=== PATIENT | female | born 1955 | race Caucasian/White ===

== ENCOUNTER 2019-12-25 08:00 | Day surgery (SDC) | payer MEDICARE, MEDICAID, SELFPAY ==
[2019-12-24 10:18] VITALS: BMI 22.4
== END 2019-12-25 09:00 | disposition home or self-care (01) ==
LOC: OR 06-09 13:22
PROVIDERS: PCP Registered Nurse; Visit Provider Surgery
DX: K80.20 Calculus of gallbladder without cholecystitis without obstruction (principal); R11.2 Nausea with vomiting, unspecified; Z53.9 Procedure and treatment not carried out, unspecified reason

== ENCOUNTER 2020-01-08 08:30 | Day surgery (SDC) | payer MEDICARE, MEDICAID, SELFPAY ==
[2020-01-07 11:45] VITALS: BMI 21.9
[2020-01-08] VITALS (18 sets, daily range): BP systolic 130–158; BP diastolic 45–64; PULSE 58–96; RESP 12–26; TEMP 36.1–36.6; O2SAT 93–100
[2020-01-08] MEDS: sodium chloride 0.9% 1,000 ML 30 ML IV (09:27)
--- NOTE | 2020-01-08 09:27 | P.ANESASSM_ITS ---
Pre-Anesthetic Assessment Pre-Anesthetic Assessment: Height/Weight: Height 1.55 m Weight 52.617 kg Temp Pulse Resp BP Pulse Ox 97.8 F 63 18 130/61 93 01/08/20 09:23 01/08/20 09:23 01/08/20 09:23 01/08/20 09:23 01/08/20 09:23 Preop Diagnosis: Gallstones GERD Proposed Procedure: Operation Date: 01/08/20 10:00 Proposed Procedures p EGD [id number] R11.2 K80.20(Not Applicable) - Afshin Webb MD s Laparoscopic Cholecystectomy(Not Applicable) - Afshin Webb MD Last intake: Intake Last Liquid Date 01/07/20 Last Liquid Time 23:00 Last Solid Date 01/07/20 Last Solid Time 23:00 Social: Packs per day: 1.5 Pack years: >100y Comment: previously 5 ppd Exam: Pre-Anes Outpt Exam: alert, oriented x 3, clear to auscultation bilaterally and regular rate & rhythm Airway: Submandibular: WNL Cervical ROM: WNL MP: 1 Dentition: False Pulmonary: Pulmonary: COPD Comments: home 02 2lpm x 3years GI: GI: GERD Comments: cholelithiasis Metabolic: Metabolic: Hyperlipidemia Anesthetic Plan: ASA status: 3 Anesthesia: General Other: date 01/08/20 President Yanet ritter [place] [facility] Anesthesia PFSH: Social History Smoking and tobacco status: current every day smoker Alcohol intake: never History of recent travel: No Data Anesthesia Cardiac Studies: No Data to Display
--- NOTE | 2020-01-08 10:51 | W.PM.OPSUD ---
Surgery/Procedure H&P Update DATE OF PROCEDURE: January 08, 2020 DATE H&P PERFORMED: 12/20/19 H&P UPDATE INFORMATION: I have reviewed H&P completed within last 30 days, I have examined patient prior to procedure and No changes to prior documentation PREOP DIAGNOSIS: Gallstones GERD PLANNED PROCEDURE: Operation Date: 01/08/20 10:00 Proposed Procedures p EGD [id number] R11.2 K80.20(Not Applicable) - Afshin Webb MD s Laparoscopic Cholecystectomy(Not Applicable) - Afshin Webb MD
[2020-01-08 11:14] LABS: Anion Gap 14.2 (5-19); Blood Urea Nitrogen 6 mg/dL (8-23); Calcium 9.5 mg/dL (8.5-10.5); Carbon Dioxide 30 mmol/L (22-29); Chloride 102 mmol/L (98-107); Glomerular Filtration Rate 100.6 mL/min (90-130); Glucose 106 mg/dL (65-115); Osmolality Calculated 292 mOsm/kg (285-295); Potassium 3.2 mmol/L (3.5-5.1); Sodium 143 mmol/L (136-145)
--- NOTE | 2020-01-08 13:39 | P.OP_ITS ---
Operative Report Date of procedure: January 08, 2020 Pre-op Diagnosis: Gallstones GERD Post-op Diagnosis: Normal EGD Cholelithiasis Procedure Done: Esophagogastroduodenoscopy without biopsy Laparoscopic cholecystectomy Pathology: Gallbladder Surgeon: Afshin Webb Anesthesia: General Estimated blood loss (mL): 10 Condition: stable Disposition: PACU Procedure: The patient was taken to the operating room and was intubated under general anesthesia. A bite-block was placed and a gastroscope was introduced and advanced up to the second portion of the duodenum and slowly withdrawn. The first and second portion of the duodenum, stomach, fundus, antrum and pylorus were normal. GE junction was at 40 cm. The rest of the esophagus was normal. The gastroscope was withdrawn. After the antibiotic had been administered, the abdomen was prepped and draped in a sterile manner. Using a #15 blade, a 1 centimeter infraumbilical curvilinear incision was made and using an open Mark technique the peritoneal cavity was entered. A 10 millimeter port was placed and 15 millimeters of pneumoperitoneum was created. A 10 millimeter, 30 degrees scope was then introduced. Three 5 millimeter ports were placed in the epigastric, midclavicular and the anterior axillary line two fingerbreadths below the costal margin on the right side under the direct visualization. Ratcheted forceps were introduced into the lateral most port and was used to retract the fundus of the gallbladder cephalad and using forceps the infundibulum of the gallbladder was retracted laterally. Using L-hook cautery the peritoneum overlying the Calot's triangle was opened medially and laterally until the cystic duct and the cystic artery were skeletonized. Dissection was carried along the body of the gallbladder and after ensuring critical view of safety, 4 clips applied on the cystic duct and 3 clips applied on the cystic artery and cut leaving, 3 clips on the remaining portion of the duct and 2 clips on the remaining portion of the artery. The rest of the gallbladder was dissected off the liver using L-hook cautery. There was no bleeding or bile leaking noted from the gallbladder fossa and the clips appeared to be in place. An EndoCatch bag was introduced to remove the gallbladder. There was some bleeding from the gallbladder fossa and therefore Surgicel was placed after hemostasis was ensured with cautery. all the ports were removed under direct visualization and there was no bleeding noted from the port sites. The fascia of the umbilicus was closed using [id number]-dl-[id number] 0 Vicryl sutures and the subcu taneous tissue was approximated using 3-0 Vicryl sutures. The skin at all four ports were closed using 4-0 Monocryl and Dermabond. A total of 10 millimeters of 0.5% Marcaine was infiltrated around the port sites. The patient was stable throughout the procedure.
--- NOTE | 2020-01-08 13:48 | SUR.PHASEI ---
1346 PATIENT TO PACU AT THIS TIME. RR EVEN AND UNLABORED. PWD. SPO2 97% ON RA. 4 INCISIONS TO ABDOMEN, CDI. PATIENT NOTED TO BE SLEEPING, AIRWAY PROTECTED.
[2020-01-08] MEDS: ondansetron 2 mg/ML SDV 2 mL 4 MG IVP (14:13)
[2020-01-08] MEDS: fentaNYL 50 mcg/mL INJ 2mL IVP ×2 (14:18→14:32)
--- NOTE | 2020-01-08 14:53 | SUR.PHASEI ---
1449 PATIENT TO OPS AT THIS TIME. NO DISTRESS. RR EVEN AND UNLABORED. INCISIONS TO ABDOMEN, CDI. PATIENT RATES PAIN 7/10, WANTS PAIN PILL IN OPS.
[2020-01-08] MEDS: HYDROcodone-acetaminophen 5-325 mg Tablet 1 TAB PO (15:22)
== END 2020-01-08 16:16 | disposition home or self-care (01) ==
PROVIDERS: Anesthesiology; Family Provider Registered Nurse; PCP Registered Nurse; Visit Provider Surgery
PROC: 0DJ08ZZ Inspection of Upper Intestinal Tract, Via Natural or Artificial Opening Endoscopic (ICD-10-PCS; CPT 43235; principal; 2020-01-08 10:00)
PROC: 0FT44ZZ Resection of Gallbladder, Percutaneous Endoscopic Approach (ICD-10-PCS; CPT 47562; 2020-01-08 10:00)
DX: K80.10 Calculus of gallbladder with chronic cholecystitis without obstruction (principal); F17.210 Nicotine dependence, cigarettes, uncomplicated; J44.9 Chronic obstructive pulmonary disease, unspecified; Z99.81 Dependence on supplemental oxygen; K21.9 Gastro-esophageal reflux disease without esophagitis; E78.5 Hyperlipidemia, unspecified; E11.9 Type 2 diabetes mellitus without complications; E78.00 Pure hypercholesterolemia, unspecified; Z95.5 Presence of coronary angioplasty implant and graft
CPT/HCPCS: 43235; 47562; 12345; 80048; 88304; J0690; J2001; J2405; J2704; J3010; J3490; J7030

== ENCOUNTER 2020-03-27 08:15 | Outpatient (CLI) | payer MEDICARE, MEDICAID, SELFPAY ==
--- NOTE | 2020-03-27 08:00 | NM_ITS ---
WS: [id number] [place] [address] REASON FOR EXAM: GERD TECHNICAL: 0.95 mCi technetium 99m sulfur colloid in eggs. FINDINGS: After the oral ingestion of the radiotracer the patient was scanned the linear fit slope wa s 0.19% per minute T1 2:30 161.13 at 2 hours 50% emptying is noted. Slightly slow emptying of the stomach T1 2:30 hours 50% emptying NM/[place] [address] IMPRESSION:
== END 2020-03-27 08:16 | disposition home or self-care (01) ==
LOC: RAD 08:18
PROVIDERS: Family Provider Registered Nurse; PCP Registered Nurse; Visit Provider Surgery
DX: K21.9 Gastro-esophageal reflux disease without esophagitis (principal)
CPT/HCPCS: 78264; A9541

== ENCOUNTER 2020-05-13 08:16 | Outpatient (CLI) | payer MEDICARE, MEDICAID, SELFPAY ==
--- NOTE | 2020-05-13 08:30 | CT_ITS ---
WS: [id number] CTA ABDOMINAL AORTA WITH RUNOFF TECHNIQUE: Contrast enhanced CTA of the abdominal aorta with bilateral lower extremity runoff. Multip lanar reformatted images were obtained. MIP reformats were also reviewed. CLINICAL INFORMATION: PVD/AAA COMPARISON: 6 25,018 DLP: 2590.[address] scans at [facility] use at least one of these dose optimization techniques: automat ed exposure control; mA and/or kV adjustment per patient size (includes targeted exams where dose is matched to clinical indication); or iterative reconstruction. FINDINGS: Aortic endograft with biiliac extension is new from previous. Normal caliber abdominal aort a. No evidence of aortic endoleak on the delayed imaging. No intramural hematoma. Cholecystectomy cli ps. Adrenal glands demonstrate mild thickening with small right adrenal adenoma. Normal renal parench ymal enhancement. No hydronephrosis. No abdominal lymphadenopathy. Multi fibroid uterus. Lung bases a re well aerated. Calcified granuloma left lower lobe. RIGHT: Right common iliac artery is patent. Right external and internal iliac arteries are patent. Mi ld calcified stenosis right external iliac artery origin. Right common femoral artery is patent. Deep femoral artery is patent. SFA is patent. Popliteal artery is patent to the trifurcation. Normal 3 ve ssel runoff to the ankle. LEFT: High-grade stenosis at the left common iliac origin with near occlusion in the mid segment involving the distal stent. In-stent stenosis. Tiny residual amount of flow in the distal aspect of the stent. Distal common iliac and proximal External iliac is nearly occluded with a tiny amount of peripheral c ollateral flow. Internal iliac artery is patent. Common femoral artery is patent with approximately 3 0% stenosis. Superficial femoral artery and deep femoral arteries are patent. Superficial femoral art camila is patent to the popliteal hiatus. Popliteal artery is patent to the trifurcation. Three-vessel r unoff to the ankle. CT/CT angio abd aorta runof [id number] IMPRESSION: 1. No evidence of aortic endoleak. 2. New high-grade stenosis near occlusion involving the LEFT common iliac leeann ry with in-stent restenosis. 3. Distal LEFT common iliac is nearly occluded with a tiny amount of periphera l collateral flow. Small amount of flow in the external iliac artery. 30% sten osis involving the left common femoral artery. 4. Remainder of the LEFT lower extremity runoff is normal. 5. RIGHT common iliac artery is patent. Mild stenosis of the RIGHT external il iac artery origin. Otherwise normal RIGHT lower extremity runoff.
[2020-05-13 08:57] LABS: Blood Urea Nitrogen 4 mg/dL (8-23); Glomerular Filtration Rate 100.6 mL/min (90-130)
[2020-05-13] MEDS: iohexol 350 mg/mL 100 mL Btl IV (09:15)
== END 2020-05-13 08:17 | disposition home or self-care (01) ==
LOC: RADWPI 08:20
PROVIDERS: Family Provider Registered Nurse; PCP Registered Nurse; Visit Provider Internal Medicine Cardiovascular Disease
DX: I73.9 Peripheral vascular disease, unspecified (principal); I71.4 Abdominal aortic aneurysm, without rupture; I70.8 Atherosclerosis of other arteries
CPT/HCPCS: 75635; 82565; 84520; Q9967

== ENCOUNTER → 2020-05-26 14:33 | Outpatient (BNVA) | payer MEDICARE, MEDICAID, SELFPAY | PROVIDERS: Family Provider Registered Nurse; PCP Registered Nurse; Visit Provider Internal Medicine | DX: Z01.812 Encounter for preprocedural laboratory examination (principal) | CPT/HCPCS: 87635 ==

== ENCOUNTER 2020-06-01 12:36 | Observation (INO) | payer MEDICARE, MEDICAID, SELFPAY ==
[2020-05-29 13:28] VITALS: BMI 22.6
[2020-06-01] VITALS (21 sets, daily range): BP systolic 118–170; BP diastolic 52–78; PULSE 56–66; RESP 14–21; TEMP 36.8; O2SAT 93–94
--- NOTE | 2020-06-01 09:00 | XACV_ITS ---
Wt: 54 kg BSA: 1.53 m2 Any Known Allergies: Other Gender: Female : 1955 Exam Type: Invasive Peripheral Vascular Procedure(s): Procedure Description: Peripheral Cath Diagnostic Procedure Procedure Description: Abdominal aortic angiography Procedure Description: Lower extremities' angiography Exam Priority: Routine Lower Extremity Interventional Findings Right common femoral artery approach was adopted. With the help of Glidewire and seeker were not able to cross the left distal common iliac into left external iliac. Procedure remain unsuccessful. Patient will be referred to vascular surgery. Conclusions Indication for peripheral angiogram lifestyle limiting claudication of left legAbdominal aortogram showed patent abdominal stent. Patent bilateral renal artery left iliac stent is chronic occluded in its proximal segment. Left external artery is small caliber. Left internal artery has luminal irregularity. Bilateral patent common femoral, profunda and SFA. Bilateral two-vessel runoff noted below the knee. Recommendations Usual post-cath care. Access Site Site: Right Femoral artery Sheath Size: 6 Fr Hemost... Method: Mechanical Compression Hemost... Success: Successful Procedure Details Findings Procedure Consent Obtained. Pre-Procedure Time Out. Identified patient by full name and date of as verbalized by the patient/guarantor. Does the consent match the physician's order: Yes. Accurate & Complete Informed Consent: Yes. Inpatient/Outpatient History & Physical on Chart: Yes. If H&P is completed, is and addenduem needed: N/A; If yes, is the addendum complete: N/A. Visualize and Verify Site with Patient/Guarantor: N/A. Relevant Radiology Images available: Yes. Pre-op teaching completed and patient verbalized understanding. The risks, benefits, and alternatives of sedation and/or procedure were discussed by physician. The patient agrees to continue. Procedure started. Correct patient, site and procedure confirmed by cath team. PERRLA. Strong, equal hand picking crew supervisor bilaterally. Lungs clear x 5 lobes. IV Site on Arrival: 22 gauge in the right anticubital. IV Fluids: 0.9% NaCl at KVO. 0 mL infused prior to chemical laboratory chief. Pre Procedural Pulses: left dorsalis pedis was Doppled. Pre Procedural Pulses: right dorsalis pedis was 1+. Pre Procedural Pulses: left posterior tibial was Doppled. Pre Procedural Pulses: right posterior tibial was 2+. Oxygen started at 2liters/min via nasal canula. bilateral groins was prepped with chloroprep then draped in the usual sterile fashion. Physician notified. Baseline sample Acquired. HR: 86 BPM. Equipment: 6F - Femoral. Cardiac Cath Pack. ACIST Manifold Kit Model BT 2000. Heparinized Saline (2 units/mL), 1000 mL bag. Kit, Micropuncture. Physician arrived. Physician scrubbed in. Time out performed with cath team. Lidocaine 1% infiltrated to the right groin. Arterial access obtained with micropuncture set. A 5FrFr UF catheter in over wire. Abdominal aortogram performed in AP @ 10 mL/sec for a total of [address] Varela called out of case to first floor. Side port of sheath attached to Normal Saline flush at KVO to maintain patency. Dr. Varela scrubbed back in on case. A 5FrFr RIM catheter in over wire. Catheter removed over the glide wire. seeker inserted over glide wire. glide wire removed. hand injection performed. glide wire inserted. seeker removed. left leg runoff 10ml/sec for a total of 30ml. right leg runoff 10ml/sec for a total of 30ml. catheter out wire out. A Mechanical Compression was successful obtaining hemostatsis at the Right Femoral artery insertion site. Sheath(s) removed and manual pressure held until hemostasis was achieved. Sterile 4x4 and Op-site applied to the puncture site. No oozing or hematoma noted. Post sheath removal instructions were given and the patient verbalized understanding. Post Procedure: Pulses reassessed and unchanged. PERRLA. Strong, equal hand picking crew supervisor bilaterally. No VTE prophylaxis required. Medication's Wasted: Other = fentanyl 75 mcg. Medication's Wasted: Heparin = 1000 units. Medication's Wasted: Lidocaine 1% = 10 mL. Total IV fluids: 88.7 mL. Fluoro: 11:10. Contrast type used: Visipaque 320 mgI/mL, 500 mL bottle. [id number]. Post-op diagnosis: severe PAD common iliac. Complications: none. Estimated blood loss: 5mL-10mL. Procedure completed. Patient transferred by bed to 1st floor. Procedure Medications Start: 11:03 AM Stop: 11:03 AM Medication: Versed Amount: 1 mg Route: I.V. Start: 11:03 AM Stop: 11:03 AM Medication: Fentanyl Amount: 50 mcg Start: 11:37 AM Stop: 11:37 AM Medication: Versed Amount: 1 mg Route: I.V. Start: 11:49 AM Stop: 11:49 AM Medication: Versed Amount: 1 mg Route: I.V. Start: 11:49 AM Stop: 11:49 AM Medication: Fentanyl Amount: 25 mcg Route: I.V. I, the attending physician, have reviewed and verified all procedure medications. Yes, all medications given per verbal order History/Risk Factors Hypertension: No Dyslipidemia: Yes Peripheral Arterial Disease (PAD): Yes Myocardial Infarction (MA): No Obesity: No Renal Disease: No Tobacco Use: Current/Recent(w/in 1 year) Prior Interventions PCI: No CABG: No Valve Surgery: No Report Signatures Finalized by:Enrrique Varela MD on 06/13/2020 2:18:40 PM
--- NOTE | 2020-06-01 10:43 | W.PM.OPSUD ---
Surgery/Procedure H&P Update DATE OF PROCEDURE: June 01, 2020 DATE H&P PERFORMED: 04/29/20 H&P UPDATE INFORMATION: I have reviewed H&P completed within last 30 days, I have examined patient prior to procedure and No changes to prior documentation PREOP DIAGNOSIS: Life style limiting claudication of left lower extremity. PLANNED PROCEDURE: Operation Date: 06/01/20 10:00 Proposed Procedures p Peripheral Diagnostic(Left) - Enrrique Varela MD PATIENT REASSESSED PRIOR TO SEDATION, WITH NO CHANGE NOTED: Yes PHYSICAL EXAM: alert, oriented x 3, clear to auscultation bilaterally and regular rate & rhythm AIRWAY EVAL/ANESTHESIA PLAN: ASA II, Risks, benefits & alternatives of sedation and/or procedure discussed and Patient agrees to continue as planned
[2020-06-01 10:58] LABS: Basophils # 0.1 10^3/uL (0.0-0.1); Basophils % 0.7 %; Eosinophils % 0.3 %; Hematocrit 41.3 % (37.0-47.0); Hemoglobin 13.4 g/dL (11.5-15.3); Lymphocytes # 2.3 10^3/uL (0.8-4.8); Mean Corpuscular HGB Conc 32.4 g/dL (30.0-36.0); Mean Corpuscular Hemoglobin 30.7 pg (28.0-34.0); Mean Corpuscular Volume 94.5 fL (81-99); Mean Platelet Volume 12.1 fL (7.4-10.4); Monocytes # 0.6 10^3/uL (0.2-0.9); Monocytes % 5.8 %; Neutrophils % 68.9 %; Nucleated Red Blood Cells % 0 %; Platelet Count 195 10^3/cmm (130-400); Red Blood Count 4.37 10^6/uL (4.1-5.3); Red Cell Distribution Width 12.9 % (12.1-15.1); White Blood Count 9.7 10^3/uL (4.0-10.0)
[2020-06-01 11:15] LABS: Blood Urea Nitrogen 6 mg/dL (8-23); Calcium 9.4 mg/dL (8.5-10.5); Carbon Dioxide 28 mmol/L (22-29); Chloride 102 mmol/L (98-107); Glomerular Filtration Rate 100.6 mL/min (90-130); Glucose 92 mg/dL (65-115); Osmolality Calculated 285 mOsm/kg (285-295); Sodium 140 mmol/L (136-145)
--- NOTE | 2020-06-01 12:30 | PC.NURSE ---
patient to unit from cardiac cath technician dressing to R groin clean dry and intact patient on bed rest for 6 hours patient can ambulate at 1830 pm
--- NOTE | 2020-06-01 18:53 | PC.NURSE ---
Patient discharged home, Discharge instructions given and explained, patient verbalized understanding patient assisted to wheel chair and accompanied to private vehicle all belongings and discharge instruction in hand.
--- NOTE | 2020-06-03 14:35 | PC.RESP ---
Smoking Cessation and Pulmonary Rehab information sent to patient.
== END 2020-06-01 18:47 | disposition home or self-care (01) ==
LOC: CSU 12:36
PROVIDERS: Admitting Provider Internal Medicine Cardiovascular Disease; PCP Registered Nurse; Referring Provider Internal Medicine Cardiovascular Disease; Visit Provider Internal Medicine Cardiovascular Disease
DX: I73.9 Peripheral vascular disease, unspecified (principal); E78.5 Hyperlipidemia, unspecified
CPT/HCPCS: 12345; 36415; 75625; 75716; 80048; 85025; C1769; C1887; C1894; G0378; J1644; J2250; J3010; J7030; Q9967

== ENCOUNTER → 2020-06-09 10:54 | Outpatient (BNVA) | payer MEDICARE, MEDICAID, SELFPAY | PROVIDERS: PCP Registered Nurse; Visit Provider Nurse Practitioner Family | DX: I73.9 Peripheral vascular disease, unspecified (principal) | CPT/HCPCS: 80048 ==

== ENCOUNTER → 2020-08-27 13:09 | Outpatient (BNVA) | payer MEDICARE, MEDICAID, SELFPAY | PROVIDERS: PCP Registered Nurse; Visit Provider Internal Medicine Pulmonary Disease | DX: Z11.59 Encounter for screening for other viral diseases (principal) | CPT/HCPCS: 87635 ==

== ENCOUNTER → 2020-09-07 11:44 | Outpatient (BNVA) | payer MEDICARE, MEDICAID, SELFPAY | PROVIDERS: PCP Registered Nurse; Visit Provider Family Medicine | DX: Z20.828 Contact with and (suspected) exposure to other viral communicable diseases (principal) | CPT/HCPCS: 87635 ==

== ENCOUNTER 2020-09-10 10:06 | Outpatient (CLI) | payer MEDICARE, MEDICAID, SELFPAY ==
--- NOTE | 2020-09-10 10:16 | CT_ITS ---
WS: [id number] LDCT LUNG CANCER SCREENING HISTORY: NICOTINE dependence, cigarettes. TECHNIQUE: Axial imaging performed from the apices to 1 cm below the costophrenic angles. Coronal and sagittal reformats are submitted with axial MIP series. All CT scans at [facility] use at least one of these dose optimization techniques: automated exposure control; mA and/or kV adjustment per patient size (includes targeted exams where dose is matched to clinical indication); or iterativ e reconstruction. DLP: 65.3 mGy.cm DIvol: 2.06 mGy COMPARISON: None available. Diagnostic quality: Satisfactory Lung Nodules: Irregular shaped 6 mm nodule LEFT upper lobe, image 69 of series 3. Subpleural nodule m easures 5 mm superior segment LEFT lower lobe, image 101 of series 3. 4 mm subpleural nodule anterior RIGHT lower lobe, image 161 of series 3. No endobronchial lesions. Findings reticulations in the periphery of the upper and lower lung hahn from chronic emphysema and mild interstitial lung disease. Lungs: Hyperinflated lungs from emphysema. There are a few scattered benign calcifications within eac h lungs. Heart: Normal size heart with no pericardial effusion. Moderate vascular calcifications in the pryor ry arteries. Other findings: Mildly prominent adrenal glands are incompletely included on this examination. Adenom a RIGHT adrenal gland has been previously described. CT/CT lung screening [id number] IMPRESSION: LUNG-RADS: 3-Probably Benign FOLLOW UP: 6 Month LDCT OTHER FINDINGS (S MODIFIER): None.
--- NOTE | 2020-09-10 11:39 | PFTS_ITS ---
Date of Study:09/10/20 Date of Dictation: 09/11/2020 MECHANICS: Forced vital capacity (FVC) is normal 94% Forced expiratory volume in one second (FEV1) is moderately reduced 75% FEV1/FVC is reduced 63 FLOW VOLUME LOOP: Scooping of expiratory limb suggestive of airway obstruction . LUNG VOLUMES: Total lung capacity (TLC) is normal. Residual volume (RV) is increased suggestive of air trapping DIFFUSING CAPACITY FOR CARBON MONOXIDE: Mildly reduced 74% . INTERPRETATION: The pulmonary function tests are consistent with obstructive ventilatory defect with air trapping on lung volumes. Mildly reduced gas transfer. Please correlate clinically MTDD
== END 2020-09-10 10:07 | disposition home or self-care (01) ==
LOC: RT 10:12
PROVIDERS: PCP Registered Nurse; Visit Provider Internal Medicine Pulmonary Disease
DX: Z12.2 Encounter for screening for malignant neoplasm of respiratory organs (principal); F17.210 Nicotine dependence, cigarettes, uncomplicated
CPT/HCPCS: 94010; 94618; 94726; 94729; G0297

== ENCOUNTER → 2021-01-11 11:07 | Outpatient (BNVA) | payer MEDICARE, MEDICAID, SELFPAY | PROVIDERS: PCP Registered Nurse; Visit Provider Registered Nurse | DX: E55.9 Vitamin D deficiency, unspecified (principal); E83.42 Hypomagnesemia; K31.84 Gastroparesis; E53.8 Deficiency of other specified B group vitamins; E83.51 Hypocalcemia; F17.210 Nicotine dependence, cigarettes, uncomplicated; K52.9 Noninfective gastroenteritis and colitis, unspecified; K21.9 Gastro-esophageal reflux disease without esophagitis; Z09 Encounter for follow-up examination after completed treatment for conditions other than malignant neoplasm | CPT/HCPCS: 80053; 82306; 82607; 83735; 85025 ==

== ENCOUNTER → 2021-01-19 09:40 | Outpatient (BNVA) | payer MEDICARE, MEDICAID, SELFPAY | PROVIDERS: PCP Registered Nurse; Visit Provider Registered Nurse | DX: K52.9 Noninfective gastroenteritis and colitis, unspecified (principal); E53.8 Deficiency of other specified B group vitamins | CPT/HCPCS: 87177; 87209; 87338; 87506 ==

== ENCOUNTER → 2021-01-26 09:19 | Outpatient (BNVA) | payer MEDICARE, MEDICAID, SELFPAY | PROVIDERS: PCP Registered Nurse; Visit Provider Surgery | DX: R19.7 Diarrhea, unspecified (principal) | CPT/HCPCS: 87493 ==

== ENCOUNTER → 2021-11-11 09:19 | Outpatient (BNVA) | payer MEDICARE, MEDICAID, SELFPAY | PROVIDERS: PCP Registered Nurse; Visit Provider Registered Nurse | DX: R68.89 Other general symptoms and signs (principal) | CPT/HCPCS: 87400 ==

== ENCOUNTER → 2022-01-05 08:27 | Outpatient (BNVA) | payer MEDICARE, MEDICAID, SELFPAY | PROVIDERS: PCP Registered Nurse; Visit Provider Nurse Practitioner Family | DX: I73.9 Peripheral vascular disease, unspecified (principal); R03.0 Elevated blood-pressure reading, without diagnosis of hypertension; Z87.891 Personal history of nicotine dependence | CPT/HCPCS: 99214 ==

== ENCOUNTER 2022-02-02 14:05 | Outpatient (CLI) | payer MEDICARE, MEDICAID, SELFPAY ==
--- NOTE | 2022-02-02 14:30 | CT_ITS ---
WS: [id number] CT RIGHT KNEE HISTORY: Fell 2 months ago, continued pain. Technique: All CT scans at [facility] use at least one of these dose optimization techniques: automated exposure control; mA and/or kV adjustment per patient size (includes targeted exams where dose is matched to clinical indication); or iterative reconstruction. DLP: 389.64 mGy.cm COMPARISON: None available. Minimally depressed lateral tibial plateau fracture. Fracture extends anterior to posterior through t he tibial plateau. No additional fractures are identified. There is a small marginal osteophyte along the lateral femoral condyle. Fibular head is intact. There is a very small joint effusion. Mild late ral subluxation of the patella. CT/CT knee RT wo con* [id number] IMPRESSION: 1. Acute minimally depressed lateral tibial plateau fracture. 2. Mild lateral subluxation of the patella.
== END 2022-02-02 14:06 | disposition home or self-care (01) ==
LOC: RAD 14:05
PROVIDERS: PCP Registered Nurse; Visit Provider Registered Nurse
DX: S82.141A Displaced bicondylar fracture of right tibia, initial encounter for closed fracture (principal); S83.011A Lateral subluxation of right patella, initial encounter; W19.XXXA Unspecified fall, initial encounter
CPT/HCPCS: 73700

== ENCOUNTER → 2022-02-08 09:22 | Outpatient (BNVA) | payer MEDICARE, MEDICAID, SELFPAY | PROVIDERS: PCP Registered Nurse; Referring Provider Registered Nurse; Visit Provider Orthopaedic Surgery | DX: S82.141A Displaced bicondylar fracture of right tibia, initial encounter for closed fracture (principal); X58.XXXA Exposure to other specified factors, initial encounter; Z87.891 Personal history of nicotine dependence | CPT/HCPCS: 27530 ==

== ENCOUNTER → 2022-03-15 08:08 | Outpatient (BNVA) | payer MEDICARE, MEDICAID, SELFPAY | PROVIDERS: PCP Registered Nurse; Visit Provider Orthopaedic Surgery | DX: Z98.890 Other specified postprocedural states (principal); S82.144A Nondisplaced bicondylar fracture of right tibia, initial encounter for closed fracture; X58.XXXA Exposure to other specified factors, initial encounter | CPT/HCPCS: 73560 ==

== ENCOUNTER → 2022-04-12 09:17 | Outpatient (BNVA) | payer MEDICARE, MEDICAID, SELFPAY | PROVIDERS: PCP Registered Nurse; Visit Provider Orthopaedic Surgery | DX: S82.145D Nondisplaced bicondylar fracture of left tibia, subsequent encounter for closed fracture with routine healing (principal); X58.XXXD Exposure to other specified factors, subsequent encounter | CPT/HCPCS: 73560; 73565; 99024 ==

== ENCOUNTER 2022-04-28 18:16 | Inpatient (IN) | payer MEDICARE, MEDICAID, SELFPAY ==
[2022-04-28] VITALS (7 sets, daily range): BP systolic 86–124; BP diastolic 47–57; PULSE 103–115; RESP 16–32; TEMP 37.3; O2SAT 96–99; BMI 42.3
--- NOTE | 2022-04-28 19:02 | PC.NURSE ---
Arrival: Patient arrived on unit at 1813 via stretcher. Patient transferred to ICU bed and assessed. Lung sounds are diminished with bilateral lower lobe crackles. Telemetry revealed sinus tack of 127, RR 14. Patient arrived on 4Lnc and was oxygenating at 99%. This nurse placed patient on 2L nc and patient is oxygenating at 98% and has no complaints of shortness of breath. Patient denies pain at time of assessment. AOX4 and is resting in bed. Care transferred to senior art director nurse at bedside. Patient to be seen by Dr. Esparza during senior art director.
--- NOTE | 2022-04-28 20:30 | P.HP_ITS ---
Providers/Chief Complaint Admitting Physician: Clare Grace MD Primary Care Provider: MELCHOR Orona Chief Complaint: Sepsis/lung mass History of Present Illness Very pleasant 66-year-old lady with history COPD, on nighttime oxygen 2-3 L among other conditions was transferred here as a direct admit from [facility] where she presented with 10 days of weakness, progressive cough, shortness of breath, with finding of leukocytosis 32,000, lactic acid 2.4, and on imaging left hilar and suprahilar mass with mediastinal invasion, severe compression of left main pulmonary artery and occlusion of the left upper lobe and lingular bronchi. Irregular groundglass foci in the left lower lobe could reflect lymphangitic spread. No contralateral adenopathy identified. Indeter minant right adrenal lesion and indeterminate left adrenal thickening may reflect leukostasis. Irregular indeterminate enhancing nodularity in the left upper abdominal border and posterior to the spleen could reflect a metastatic deposit. Rapid COVID-19 and rapid influenza were negative. Received a dose of Zosyn. She reports currently is not having much cough, and not producing much phlegm. Has some left lung pain on inspiration. No chest pain or pressure. In case of cardiopulmonary arrest, would not want CPR. In case of just respiratory arrest, would want intubation, mechanical ventilation if it was on transient basis. In case could not make decisions would want a female friend she lives with to make decisions on her behalf if needed. Review of Systems Const: Reports: fatigue; Denies: fever(s), chills, body aches or malaise Eyes: Denies: change in vision, eye discomfort or eye redness ENMT: Denies: throat pain, oral sores or ear or mastoid pain Card: Denies: chest pain, edema, pre-syncope or dyspnea on exertion Resp: Reports: dyspnea, non-productive cough and pain on inspiration; Denies: productive cough, change in phlegm color or hemoptysis GI: Denies: abdominal pain, nausea, vomiting, diarrhea, constipation, hematochezia or melena : Denies: flank pain, urinary frequency or hematuria Musc: Denies: back pain, joint swelling or joint redness Skin/Breast: Denies: rash or new lesions Neuro: Denies: headache(s), numbness in extremities, weakness in extremities, dizziness, confusion or seizure-like activity Endo: Denies: polyuria or polydipsia Dick/Lymph: Denies: easy bleeding or tender lymph nodes All/Imm: Denies: urticaria or tongue swelling Medications/Allergies Home Medications Medication Instructions Recorded Confirmed Last Taken Type formoterol fumarate 20 mcg/2 mL 2 ml INHALATION BID #60 ml 08/21/20 04/12/22 Unknown Rx solution for nebulization (Perforomist) revefenacin 175 mcg/3 mL solution 175 mcg (3 mL) INHALATION DAILY 08/21/20 04/12/22 Unknown Rx for nebulization (Yupelri) #90 ml cholecalciferol (vitamin D3) 1,250 1,250 mcg PO .once a week 12 Days 01/11/21 04/12/22 Unknown Rx mcg (50,000 unit) capsule #90 cap mecobalamin (vitamin B12) 1,000 1,000 mcg PO DAILY 01/22/21 04/12/22 Unknown History mcg chewable tablet loperamide 2 mg capsule 4 mg PO TID PRN #60 cap 02/26/21 04/12/22 Unknown Rx nicotine 7 mg/24 hr daily 1 patch TRANSDERMAL Q24H #14 ea 07/16/21 04/12/22 Unknown Rx transdermal patch atorvastatin 10 mg tablet 10 mg PO DAILY #90 tab 07/27/21 04/12/22 Unknown Rx budesonide 0.25 mg/2 mL suspension 0.25 mg (2 mL) INHALATION BID #60 09/01/21 04/12/22 Unknown Rx for nebulization ml fluticasone furoate 100 1 inh INHALATION Q24H #60 ea 12/02/21 04/12/22 Unknown Rx mcg-vilanterol 25 mcg/dose inhalation powder (Breo Ellipta) clopidogrel 75 mg tablet 75 mg PO DAILY #90 tab 01/05/22 04/12/22 Unknown Rx magnesium oxide 400 mg PO DAILY 01/05/22 04/12/22 Unknown History potassium chloride 40 mEq/15 mL See Rx Instructions .ROUTE 04/21/22 Unknown Rx oral liquid .COMPLEX #473 ml Allergies Allergy/AdvReac Type Severity Reaction Status Date / Time dipyridamole Allergy Severe ALGY-Difficulty Verified 04/12/22 09:29 [From Persantine] Breathing PFSH Acute PFSH: Medical History Abdominal aortic aneurysm (AAA) Chronic diarrhea COPD (chronic obstructive pulmonary disease) with emphysema Diabetes Diverticulosis of colon Gastroparesis GERD (gastroesophageal reflux disease) Hypercholesteremia Peripheral Vascular Disease Surgical History H/O esophagogastroduodenoscopy (~01/08/20) Normal History of colonoscopy (2018) S/P carpal tunnel release S/P insertion of iliac artery stent aortoiliac stent Status post laparoscopic cholecystectomy (~01/08/20) Family History Denies family history of Anesthesia complication Bleeding disorder Social History Smoking and tobacco status: former smoker Quit status (tobacco): has quit using tobacco Year quit tobacco: December 2020 Former quit date comment: 0.5ppd x 58 years Second hand smoke exposure: Yes Smoking risk assessment/counseling performed?: Yes Alcohol intake: never Lives independently: Yes Household members: family Housing: House Marital status: Single Current occupational status: retired History of recent travel: No Current gender identity: Female Physical Exam Narrative: Generally weak Const: COMMON NORMALS: alert GENERAL APPEARANCE: cooperative ORIENTATION/CONSCIOUSNESS: Yes awake OTHER: Very [place] HENMT: COMMON NORMALS: normocephalic, EAC's normal, Normal external nose present and moist oral mucous membranes HEAD & SCALP: normocephalic NOSE: Normal external nose present EXTERNAL AUDITORY CANAL: EAC's normal Neck/C-Spine: COMMON NORMALS: no meningeal signs Chest: CHEST: Yes Symmetrical chest wall rise Resp: AUSCULTATION: diminished lung sounds (L upper) Cardio: COMMON NORMALS: regular rate, regular rhythm and No murmurs present (Cardio) RATE: regular rate RHYTHM: regular rhythm GI: COMMON NORMALS: Normal to inspection, nondistended, normoactive bowel sounds present, Soft to palpation and non-tender PALPATION: Yes Soft to palpation Extremity: COMMON NORMALS: no pedal edema Neuro: COMMON NORMALS: moves all extremities SENSORIUM/ORIENTATION: Yes alert MENINGEAL SIGNS: Yes no meningeal signs Psych: COMMON NORMALS: mental status grossly normal Skin: COMMON NORMALS: no wounds RASHES: no rashes A&P Assessment and plan (1) Pneumonia: Pneumonia, possible postobstructive pneumonia with bronchial compression by left hilar and suprahilar mass. Possible sepsis with leukocytosis 32,000, lactic acidosis 2.4. Received Zosyn. Collect blood cultures. Continue [facility] antibiotic coverage with Zosyn, vancomycin. Collect sputum cultures if she is able to provide. MRSA PCR. Urine bacterial antigens. Rapid COVID-19 and rapid influenza were reported negative. Additionally evaluation with bronchoscopy is being planned. N.p.o. after midnight. Only 1 dose of heparin for now. SCD prophylaxis. Status: Acute (2) Lung mass: New left hilar and suprahilar mass with possible static disease not excluded to adrenal gland, possibly spleen. Discussed with her briefly tonight. Evaluation with bronchoscopy is being planned for tomorrow. Status: Acute (3) Bronchial compression: With possible postobstructive pneumonia as above. Status: Acute (4) Lesion of adrenal gland: Indeterminate right adrenal lesion and indeterminate left adrenal thickening. Metastatic disease cannot be excluded. Status: Acute (5) Lesion of spleen: Irregular indeterminate enhancing nodularity in the left upper abdominal quadrant posterior to the spleen. Metastatic disease cannot be excluded. Status: Acute (6) Hypoxia: Requiring 3 L nasal cannula oxygen. Not normally on oxygen during the day, only at night on 2-3 L Status: Acute (7) COPD (chronic obstructive pulmonary disease) with emphysema: Not in exacerbation at the moment. Status: Chronic Qualifiers: Emphysema type: unspecified Qualified Code(s): J43.9 - Emphysema, unspecified Plan Diabetes GERD PVD AAA Attestations Medical Necessity Statement*: Admission of over 2 midnights is anticipated for assessment of management of pneumonia, possible postobstructive pneumonia with new left lung mass with bronchial and pulmonary artery compression. 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 of Care Code Acute [employer] Conditioning App[employer]ice for [facility] Fwd Diagnoses Lung mass R91.8 Bronchial compression J98.09 Lesion of adrenal gland E27.9 Lesion of spleen D73.89 Pneumonia J18.9 Hypoxia R09.02 COPD (chronic obstructive pulmonary disease) with emphysema J43.9 Emphysema type: unspecified
[2022-04-28 21:21] LABS: ABG PCO2 33.1 mmHg (35-45); ABG PH Result 7.48 (7.35-7.45); Alveolar-Arterial Oxygen Gradi 2.8 mmHg (5-10); Arterial Blood Gas Hematocrit 49.7 % (37-47); Base Excess ABG 1.6 mmol/L (-2.0-2.0); Blood Gas Allen Test Pos; Blood Gas Sample Type Arterial; Carboxyhemoglobin 0.6 %THgb (0.4-20.1); HCO3 ABG 24.5 mmol/L (22-26); HGB O2 Sat 96.3 % (95-100); Ionized Calcium Level - ABG 1.1 mmol/L (1.1-1.4); Methemoglobin 0.6 % (0.4-1.5); Oxygen Saturation ABG 97.5; PO2 ABG 85.6 mmHg (80.0-100.0); Total Hemoglobin 16.2 g/dL (12-16)
[2022-04-28] MEDS: heparin 5,000 unit/mL INJ 1 mL 5000 UNIT SUBCUT (21:51)
[2022-04-28 23:13] LABS: Blood Urea Nitrogen 7 mg/dL (8-23); Calcium 7.6 mg/dL (8.5-10.5); Carbon Dioxide 22 mmol/L (22-29); Chloride 99 mmol/L (98-107); Glucose 130 mg/dL (65-115); Magnesium 1.4 mg/dL (1.7-2.3); Osmolality Calculated 278 mOsm/kg (285-295); Sodium 134 mmol/L (136-145)
--- NOTE | 2022-04-28 23:13 | NUR.SHIFT ---
Pt on heparin subQ
[2022-04-29] VITALS (40 sets, daily range): BP systolic 93–149; BP diastolic 41–76; PULSE 79–125; RESP 14–29; TEMP 36.4–38.3; O2SAT 2–99
[2022-04-29] MEDS: acetaminophen 325 mg Tablet 650 MG PO (00:06)
--- NOTE | 2022-04-29 00:34 | PC.PHAR ---
Vancomycin is dosed at 1500mg IVPB every 24 hours to produce a predicted trough level of 12.41 (population based pharmacokinetic analysis). A trough level has been ordered to be obtained before the fourth dose to confirm and adjust if needed. The Zosyn is dosed at 3.375gm IVPB every 8 hours on the basis of the creatinine clearance of 54.9.
--- NOTE | 2022-04-29 00:40 | PC.NURSE ---
Call placed to Dr. Simpson at 0025 to notify him of pt's Mg level 1.4 and K level 3. TORB to administer 2 g Mg IVBP and 20 mEq KCl PO. Orders placed by this nurse
[2022-04-29] MEDS: magnesium sulfate premix 2 GM/50 ML PIGGYBACK IV ×2 (01:20→15:50)
[2022-04-29] MEDS: potassium chloride ER 20 mEq Tablet PO (01:23)
[2022-04-29] MEDS: vancomycin 1,500 MG/300 ML PIGGYBACK 150 MG IV (01:23)
[2022-04-29] MEDS: piperacillin-tazobactam 3.375 GM in sodium chloride 0.9% (plus) 50 ML IV ×3 (02:49→17:43)
[2022-04-29 04:54] LABS: Hematocrit 32.5 % (37.0-47.0); Hemoglobin 10.3 g/dL (11.5-15.3); Mean Corpuscular HGB Conc 31.7 g/dL (30.0-36.0); Mean Corpuscular Hemoglobin 29.6 pg (28.0-34.0); Mean Corpuscular Volume 93.4 fl (81-99); Mean Platelet Volume 11.6 fL (7.4-10.4); Platelet Count 218 10^3/cmm (130-400); Red Blood Count 3.48 10^6/uL (4.1-5.3); White Blood Count 21.1 10^3/uL (4.0-10.0)
[2022-04-29 05:12] LABS: Absolute Neutrophil 17.9 10^3/cmm (1.4-6.5); Absolute Segmented Neutrophil 14.6 10/cmm (1.6-7.1); Band Neutrophils Absolute 3.4 10^3/cmm (0.0-1.2); Eosinophils 0 %; Lymphocytes 7 %; Lymphocytes Absolute 1.9 10^3/cmm (1.2-3.4); Monocytes Absolute 1.3 10^3/cmm (0.1-0.6); Platelet Estimate Normal (Normal); Segmented Neutrophils 69 %; Slide Review Slide Review Perform; Total Cells Counted 100 (0-100)
[2022-04-29 05:13] LABS: Alanine Aminotransferase 22 U/L (0-33); Albumin Level 2.7 g/dL (3.5-5.2); Alkaline Phosphatase 76 IU/L (35-105); Anion Gap 17.1 (5-19); Aspartate Amino Transferase 18 U/L (0-32); Blood Urea Nitrogen 8 mg/dL (8-23); Calcium 8.1 mg/dL (8.5-10.5); Carbon Dioxide 21 mmol/L (22-29); Chloride 100 mmol/L (98-107); Globulin 3.2 g/dL (1.3-4.6); Glomerular Filtration Rate 123.4 mL/min (90-130); Glucose 131 mg/dL (65-115); Osmolality Calculated 280 mOsm/kg (285-295); Potassium 3.1 mmol/L (3.5-5.1); Sodium 135 mmol/L (136-145); Total Bilirubin 0.4 mg/dL (0.15-1.2); Total Protein 5.9 g/dL (6.6-8.7)
[2022-04-29 07:45] LABS: Glucose Point of Care 128 mg/dL (70-110)
[2022-04-29 07:45] LABS: Glucose Point of Care 133 mg/dL (70-110)
[2022-04-29] MEDS: budesonide 0.5 mg/2 mL Neb 0.25 MG INHALATION ×2 (08:45→20:26)
[2022-04-29] MEDS: ipratropium-albuterol 3 mL Neb INHALATION ×3 (08:45→20:26)
[2022-04-29] MEDS: metoclopramide 5 mg/mL SDV 2 mL 10 MG IVP (11:00)
[2022-04-29 11:44] LABS: Glucose Point of Care 201 mg/dL (70-110)
[2022-04-29] MEDS: insulin lispro 100 unit/1 mL SUBCUT ×3 (11:46→20:16)
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
--- NOTE | 2022-04-29 12:40 | PM.CONSULT ---
Providers/Reason For Consult Consulting Physician/Specialty*: Pulmonary critical care medicine Reason for Consult*: Suspected lung cancer Requesting Physician: Dr. Grace Attending Physician: Clare Grace MD Primary Care Provider: MELCHOR Orona History of Present Illness History of Present Illness Kellee Jorgensen is a 66 year old female with a past medical history of COPD, peripheral vascular disease, ongoing smoker who has been following up with my colleague. The last time the patient was seen in our office was in February 2022. The patient presented to the outside hospital yesterday with worsening shortness of breath. CT scan there found infiltrative lesion in the left upper lobe, complete occlusion of the left upper lobe bronchus, volume loss, left hilar mass with invasion of the mediastinum. The patient was sent to [facility] for further management. The patient was seen and examined in the ICU this morning. She was able to provide me with some history. She appeared to be in mild distress. The patient is currently getting treated with broad-spectrum antibiotic for diagnosis of pneumonia. The patient is complaining of cough, sputum production, wheezing and significant exertional shortness of breath. She also has fatigue. She denies any fever, night sweats, chills. Review of Systems Narrative: General: No fevers chills, reports fatigue Skin: No rash HEENT: No nasal congestion, rhinitis, sinusitis Neck: There is no neck swelling Respiratory: Cough, sputum production, wheezing and exertional shortness of breath Cardiovascular: No chest pain, orthopnea, or paroxysmal nocturnal dyspnea Gastrointestinal: No abdominal pain, nausea, vomiting, melena Musculoskeletal: No joint pain or swelling, muscle weakness, morning stiffness Neurological: Patient is awake alert and oriented x3, no paralysis Psychiatric: No anxiety or depression. Medications/Allergies Home Medications Medication Instructions Recorded Confirmed Last Taken Type mecobalamin (vitamin B12) 1,000 1,000 mcg PO DAILY 01/22/21 04/29/22 Unknown History mcg chewable tablet loperamide 2 mg capsule 4 mg PO TID PRN #60 cap 02/26/21 04/29/22 Unknown Rx atorvastatin 10 mg tablet 10 mg PO DAILY #90 tab 07/27/21 04/29/22 Unknown Rx budesonide 0.25 mg/2 mL suspension 0.25 mg (2 mL) INHALATION BID #60 09/01/21 04/29/22 Unknown Rx for nebulization ml fluticasone furoate 100 1 inh INHALATION Q24H #60 ea 12/02/21 04/29/22 Unknown Rx mcg-vilanterol 25 mcg/dose inhalation powder (Breo Ellipta) clopidogrel 75 mg tablet 75 mg PO DAILY #90 tab 01/05/22 04/29/22 Unknown Rx potassium chloride 40 mEq/15 mL See Rx Instructions .ROUTE 04/21/22 04/29/22 Unknown Rx oral liquid .COMPLEX #473 ml Allergies Allergy/AdvReac Type Severity Reaction Status Date / Time dipyridamole Allergy Severe ALGY-Difficulty Verified 04/29/22 08:37 [From Persantine] Breathing Current Medications Generic Name Dose Route Start Last Admin Trade Name Freq PRN Reason Stop Dose Admin Acetaminophen 650 mg 04/28/22 20:27 04/29/22 00:06 Acetaminophen 325 Mg Tablet PO 650 mg Q6H PRN Administration Mild/Mod Pain Or Temp >/= 101 Albuterol/Ipratropium 3 ml 04/29/22 08:00 04/29/22 12:17 Ipratropium-Albuterol 3 Ml Neb INHALATION Not Given QID.RESPIRATORY KAYA Budesonide 0.25 mg 04/29/22 09:00 04/29/22 08:45 Budesonide 0.5 Mg/2 Ml Neb INHALATION 0.25 mg BID KAYA Administration Piperacillin Sod/Tazobactam 50 mls @ 12.5 mls/hr 04/29/22 02:00 04/29/22 09:01 Sod 3.375 gm/ Sodium Chloride IV 12.5 mls/hr Q8H KAYA Administration Protocol As Directed Vancomycin/PEG/NADA/Lysine/Water 1,500 mg in 300 mls @ 150 mls/hr 04/29/22 01:00 04/29/22 03:23 Vancocin IV Infused Q24H KAYA Infusion Insulin Human Lispro 0 unit 04/28/22 21:00 04/29/22 11:46 Insulin Lispro 100 Unit/1 Ml SUBCUT 4 unit WM&BEDTIME KAYA Administration Protocol Metoclopramide HCl 10 mg 04/29/22 10:00 04/29/22 11:00 Metoclopramide 5 Mg/Ml Sdv 2 Ml IVP 10 mg ONCE KAYA Administration PFSH Acute PFSH: Medical History Abdominal aortic aneurysm (AAA) Chronic diarrhea COPD (chronic obstructive pulmonary disease) with emphysema Diabetes Diverticulosis of colon Gastroparesis GERD (gastroesophageal reflux disease) Hypercholesteremia Peripheral Vascular Disease Surgical History H/O esophagogastroduodenoscopy (~01/08/20) Normal History of colonoscopy (2018) S/P carpal tunnel release S/P insertion of iliac artery stent aortoiliac stent Status post laparoscopic cholecystectomy (~01/08/20) Family History Denies family history of Anesthesia complication Bleeding disorder Social History Smoking and tobacco status: former smoker Quit status (tobacco): has quit using tobacco Year quit tobacco: December 2020 Former quit date comment: 0.5ppd x 58 years Second hand smoke exposure: Yes Smoking risk assessment/counseling performed?: Yes Alcohol intake: never Lives independently: Yes Household members: family Housing: House Marital status: Single Current occupational status: retired History of recent travel: No Current gender identity: Female Vitals/I&O/Wt Last Vital Signs Temp 98.6 F 04/29/22 07:50 Pulse 114 H 04/29/22 12:00 Resp 23 H 04/29/22 12:00 BP 106/49 04/29/22 12:00 Pulse Ox 97 04/29/22 12:00 04/28/22 04/29/22 04/29/22 22:59 06:59 14:59 Intake Total 100 / 100 400 / 500 240 / 240 Output Total 675 / 675 Balance 100 / 100 -275 / -175 240 / 240 Weight last 48 hrs Weight 125 lb 9.6 oz Weight 126 lb 11.2 oz Weight 216 lb 11.2 oz Physical Exam Narrative: General: Patient is awake alert and oriented, in mild distress while resting Neck: No JVD Respiratory: Auscultation: Reduced breath sound bilaterally, and compared to the right side, the left upper lung zone has reduced breath sound, no crackles or wheezing Cardiovascular: Regular rate and rhythm, S1-S2 present, no murmur, no peripheral edema. Abdomen: Soft, nontender, nondistended, positive bowel sound Musculoskeletal: No obvious joint deformity Skin: No rash Neuro: Mental status is normal, no gross cranial nerve deficit, gross normal motor function Urinary Catheter Management: Bradley: Cath Placed During This Visit: yes Reason for Continuing Indwelling Catheter: Accurate Measurement of Urinary Output in Critically Ill Patients Urinary Catheter Date of Insertion: 04/28/22 Urinary Catheter Time of Insertion: 21:40 Data : 04/29/22 04:19 04/29/22 04:19 Micro: Microbiology 04/28/22 22:37 Blood Culture - Preliminary Blood SPECIMEN COLLECTED 04/28/22 22:37 Blood Culture - Preliminary Blood SPECIMEN COLLECTED 04/28/22 21:23 Legionella Urinary Antigen - Final Urine Catheterized Other data: I have reviewed the patient's laboratory, microbiologic and radiologic data. Leukocytosis is getting better. Mild electrolyte abnormalities. A&P Assessment and plan (1) Lung cancer: This is a 66-year-old lady with an extensive history of smoking. The CT scan of the chest at outside hospital revealed likely occlusion of the left upper lobe bronchus with atelectasis. There is also evidence of volume loss. Lung mass has also medicine a component which is distorting the pulmonary blood vessels. The patient had a CT scan in August 2020. Given the rapidity of this lesion, I do have strong suspicion for small cell lung cancer or lymphoma. I am willing to perform bronchoscopic evaluation today. The patient will likely be candidate for inpatient chemotherapy. I discussed the procedure with the patient including possible risks involved. Status: Acute (2) Postobstructive pneumonia: The patient has evidence of postobstructive pneumonia. She is receiving broad-spectrum antibiotic. The white cell count is coming down. Status: Acute (3) COPD (chronic obstructive pulmonary disease): The patient has COPD. She is on appropriate therapy for that. Status: Acute (4) Acute and chronic respiratory failure with hypoxia: The patient has acute on chronic hypoxic respiratory failure. Given the atelectasis of the left upper lobe, the hypoxemia is likely to be worse. Once we have the diagnosis of the malignancy, hopefully therapy will help her. Status: Acute 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 of Care Code Acute [employer] for [facility] Diagnoses Lung cancer C34.90 COPD (chronic obstructive pulmonary disease) J44.9 Postobstructive pneumonia J18.9 Acute and chronic respiratory failure with hypoxia J96.21
[2022-04-29] MEDS: sodium chloride 0.9% 1,000 ML 30 ML IV (12:53)
--- NOTE | 2022-04-29 14:14 | PM.OP ---
Operative Report Date of procedure: April 29, 2022 Pre-op diagnosis: Preop Diagnosis left upper lobe lung mass, left hilar mass Post-op diagnosis: Lung cancer Brief History: This is a 66-year-old lady coming in for bronchoscopic evaluation after she was found to have infiltrative left upper lobe lung mass and left hilar lung mass. Procedure: Name of the procedure: Bronchoscopy with inspection of the airway, bronchial wash, endobronchial biopsies, endobronchial ultrasound-guided transbronchial needle aspiration of left hilar lung mass and control of bleeding. Indication: Suspected lung cancer Anesthesia: General anesthesia. Local anesthesia: The marie in the right and left mainstem bronchi were anesthetized with 1% lidocaine, 3 mL. Description of the procedure: The procedure was explained to the patient and the consent was obtained. The patient was brought to the OR. The patient underwent endotracheal intubation for general anesthesia. Following induction of general anesthesia, the bronchoscope was advanced through the ET tube. The lower trachea appeared to be mildly erythematous, no endotracheal lesion was seen. The marie was sharp. The marie, the right and left mainstem bronchi are anesthetized with 1% lidocaine. In a systematic manner bilateral bronchial tree was then examined. The bronchoscope was advanced into the left mainstem bronchus. Mucosal irregularity was noted where the entrance of the left upper lobe bronchus would have been expected. There was complete occlusion of the left upper lobe bronchus. The bronchoscope could be advanced into the left lower lobe bronchus. Left lower lobe bronchus and segmental bronchi were examined up to the third subsegmental level and no abnormalities were identified. The bronchoscope was then introduced into the right mainstem bronchus. The right upper lobe, right middle lobe and right lower lobe bronchi were examined up to the third subsegmental level and no abnormalities were identified. There was mucus throughout the airways. Endobronchial biopsies were obtained from the occluded left upper lobe bronchus. Multiple samples were obtained. Bronchial wash was performed from same area. The endobronchial ultrasound was introduced through the ET tube. Large left hilar mass was identified. Fine-needle aspiration was performed from the left hilar lung mass. Samples: 1. Bronchoalveolar lavage specimen was sent for gram stain and culture, cytology. 2. The endobronchial biopsies are sent for histopathology. 3. The transbronchial needle aspiration of the left hilar lung mass was sent for histopathology. Complications: There was no immediate complications. There was mild bleeding that was controlled.
--- NOTE | 2022-04-29 14:17 | CTR_ITS ---
PROCEDURE INFORMATION: Exam: CT Head Without Contrast Exam date and time: 04/29/2022 5:16 PM Age: 66 years old Clinical indication: Condition or disease; Patient HX: Lung cancer TECHNIQUE: Imaging protocol: Computed tomography of the head without contrast. Radiation optimization: All CT scans at this facility use at least one of these dose optimization techniques: automated exposure control; mA and/or kV adjustment per patient size (includes targeted exams where dose is matched to clinical indication); or iterative reconstruction. COMPARISON: No relevant prior studies available. RADIATION DOSE METRICS: Total DLP (mGy-cm): 1130.73 FINDINGS: Brain: Normal. No hemorrhage. Unremarkable white matter. No mass effect. Cerebral ventricles: No ventriculomegaly. Paranasal sinuses: Visualized sinuses are unremarkable. No fluid levels. Mastoid air cells: Visualized mastoid air cells are well aerated. Bones/joints: Unremarkable. No acute fracture. Soft tissues: Unremarkable. CT/CT head wo con* [id number] IMPRESSION: No acute intracranial abnormality.
--- NOTE | 2022-04-29 14:17 | CTR_ITS ---
PROCEDURE INFORMATION: Exam: CT Abdomen And Pelvis With Contrast Exam date and time: 04/29/2022 5:21 PM Age: 66 years old Clinical indication: Condition or disease; Other: Primary lung cancer TECHNIQUE: Imaging protocol: Computed tomography of the abdomen and pelvis with contrast. Radiation optimization: All CT scans at this facility use at least one of these dose optimization techniques: automated exposure control; mA and/or kV adjustment per patient size (includes targeted exams where dose is matched to clinical indication); or iterative reconstruction. Contrast material: OMNIPAQUE 350; Contrast volume: 90 ml; Contrast route: INTRAVENOUS (IV); COMPARISON: 1. CT abdomen pelvis wo con [id number] 03/26/2019 10:[address] chest w con* [id number] 04/28/2022 12:[address] angio abd aorta runof [id number] 05/13/2020 9:02 AM RADIATION DOSE METRICS: Total DLP (mGy-cm): 898.92 FINDINGS: Lungs: There is some infiltrate and consolidation in the left lower lobe worrisome for pneumonia or aspiration. This appears increased compared with the chest CT scan done yesterday. Pleural spaces: There is small left pleural effusion. This is new compared with Diaphragm: There is a small hiatal hernia. Liver: There is a diffuse decrease in hepatic parenchymal density, consistent with mild fatty infiltration. 4 mm probable cyst near the caudate lobe of the liver not significant changed from 2019. Gallbladder and bile ducts: There has been a cholecystectomy. Pancreas: The pancreas is normal. Spleen: There is a 13 mm circumscribed hypodensity in the spleen, likely splenic cyst but this measures 26 Hounsfield units which is slightly greater than expected for simple cyst. This is also larger than on 05/13/2020.Recommend evaluation with non-emergent PET vs. MRI vs. biopsy. There is a 10 mm sized round nodule in the fat posterior to the spleen such as an image number 14 series 4 which is new compared with prior abdominal CT scans. Given the findings of malignancy in the chest this is worrisome for potential metastatic deposit. Adrenal glands: 14 mm right adrenal nodule not changed from 03/26/2019 likely benign adenoma. Mild hypertrophy left adrenal gland not changed. Kidneys and ureters: 9 mm simple cyst lower pole right kidney not changed from previous. The left kidney is normal. There is no evidence of hydronephrosis. There is no evidence of renal or ureteral calcifications. Stomach and bowel: There is no evidence of intestinal obstruction. Appendix: A normal appendix is identified. Intraperitoneal space: There is no evidence of free intraperitoneal fluid. Vasculature: Aortoiliac stent remains in place. This appears to be patent without evidence of significant vascular occlusion. Incidental note is made of a retroaortic left renal vein. Lymph nodes: There are small periaortic lymph nodes. There is no evidence of retroperitoneal lymphadenopathy. There is a new 6 x 8 mm sized mesenteric lymph node or soft tissue nodule posterior to the transverse colon of uncertain significance Urinary bladder: Unremarkable as visualized. Reproductive: There are calcified and non calcified fibroids within the uterus. Bones/joints: There is chronic compression deformity of superior endplate of L1 not changed from 2019. Soft tissues: Unremarkable. CT/CT abdomen pelvis w con* [id number] IMPRESSION: 1. Fatty liver 2. Enlarging splenic lesion, possibly but not definitely a cyst. Further evaluation such as with MRI suggested. 3. Stable adrenal nodules. 4. New left upper quadrant soft tissue nodule posterior to the spleen worrisome for metastatic disease. 5. New soft tissue nodular lymph node in the mesentery of the transverse colon of uncertain significance. 6. Increasing left lower lobe pneumonia 7. New left pleural effusion 8. Old granulomatous disease 9. Other chronic findings as described above. with
[2022-04-29 14:29] LABS: Cyto Order Verification No Order
--- NOTE | 2022-04-29 14:50 | ANES.PREANE2 ---
Pre-Anesthetic Assessment Height/Weight: Height 1.52 m Weight 56.971 kg Temp Pulse Resp BP Pulse Ox 98.6 F 100 20 H 122/60 2 L 04/29/22 07:50 04/29/22 12:41 04/29/22 12:41 04/29/22 12:41 04/29/22 12:41 Preop Diagnosis: Life style limiting claudication of left lower extremity. Operation Date: 04/29/22 13:00 Proposed Procedures p Bronchoscopy(Not Applicable) - Autumn Zaidi MD s Ebus(Not Applicable) - Autumn Zaidi MD Familial anesthetic complications: None Was Beta Jeffy taken within 24 hours: N/A Was Clonidine taken within 24 hours: N/A Social Tobacco (quit smoking a few months ago) and No alcohol Exam alert, oriented x 3 and regular rate & rhythm Airway Submandibular: within normal limits Cervical ROM: within normal limits Mallampati: Class II Dentition: false Comments: Comments: hoarse Pulmonary Chronic Obstructive Pulmonary Disease lung mass CV/HEM Hypertension and Peripheral Vascular Disease (AAA) GI Gastroesophageal Reflux Disease [facility] Osteoarthritis/DJD Anesthetic Plan ASA status: 3 Anesthesia: General Medications/Allergies Home Medications Medication Instructions Recorded Confirmed Last Taken Type mecobalamin (vitamin B12) 1,000 1,000 mcg PO DAILY 01/22/21 04/29/22 Unknown History mcg chewable tablet loperamide 2 mg capsule 4 mg PO TID PRN #60 cap 02/26/21 04/29/22 Unknown Rx atorvastatin 10 mg tablet 10 mg PO DAILY #90 tab 07/27/21 04/29/22 Unknown Rx budesonide 0.25 mg/2 mL suspension 0.25 mg (2 mL) INHALATION BID #60 09/01/21 04/29/22 Unknown Rx for nebulization ml fluticasone furoate 100 1 inh INHALATION Q24H #60 ea 12/02/21 04/29/22 Unknown Rx mcg-vilanterol 25 mcg/dose inhalation powder (Breo Ellipta) clopidogrel 75 mg tablet 75 mg PO DAILY #90 tab 01/05/22 04/29/22 Unknown Rx potassium chloride 40 mEq/15 mL See Rx Instructions .ROUTE 04/21/22 04/29/22 Unknown Rx oral liquid .COMPLEX #473 ml Allergies Allergy/AdvReac Type Severity Reaction Status Date / Time dipyridamole Allergy Severe ALGY-Difficulty Verified 04/29/22 08:37 [From Persantine] Breathing Current Medications Generic Name Dose Route Start Last Admin Trade Name Freq PRN Reason Stop Dose Admin Acetaminophen 650 mg 04/28/22 20:27 04/29/22 00:06 Acetaminophen 325 Mg Tablet PO 650 mg Q6H PRN Administration Mild/Mod Pain Or Temp >/= 101 Albuterol/Ipratropium 3 ml 04/29/22 08:00 04/29/22 12:17 Ipratropium-Albuterol 3 Ml Neb INHALATION Not Given QID.RESPIRATORY KAYA Budesonide 0.25 mg 04/29/22 09:00 04/29/22 08:45 Budesonide 0.5 Mg/2 Ml Neb INHALATION 0.25 mg BID KAYA Administration Piperacillin Sod/Tazobactam 50 mls @ 12.5 mls/hr 04/29/22 02:00 04/29/22 12:50 Sod 3.375 gm/ Sodium Chloride IV Infused Q8H KAYA Infusion Protocol As Directed Vancomycin/PEG/NADA/Lysine/Water 1,500 mg in 300 mls @ 150 mls/hr 04/29/22 01:00 04/29/22 03:23 Vancocin IV Infused Q24H KAYA Infusion Sodium Chloride 1,000 mls @ 30 mls/hr 04/29/22 12:45 04/29/22 12:53 Sodium Chloride 0.9% IV 04/30/22 12:44 30 mls/hr .Q24H KAYA Administration Insulin Human Lispro 0 unit 04/28/22 21:00 04/29/22 11:46 Insulin Lispro 100 Unit/1 Ml SUBCUT 4 unit WM&BEDTIME KAYA Administration Protocol Metoclopramide HCl 10 mg 04/29/22 10:00 04/29/22 11:00 Metoclopramide 5 Mg/Ml Sdv 2 Ml IVP 10 mg ONCE KAYA Administration PFSH Anesthesia Medical History Abdominal aortic aneurysm (AAA) Chronic diarrhea COPD (chronic obstructive pulmonary disease) with emphysema Diabetes Diverticulosis of colon Gastroparesis GERD (gastroesophageal reflux disease) Hypercholesteremia Peripheral Vascular Disease Surgical History H/O esophagogastroduodenoscopy (~01/08/20) Normal History of colonoscopy (2018) S/P carpal tunnel release S/P insertion of iliac artery stent aortoiliac stent Status post laparoscopic cholecystectomy (~01/08/20) Family History Denies family history of Anesthesia complication Bleeding disorder Social History Smoking and tobacco status: former smoker Quit status (tobacco): has quit using tobacco Year quit tobacco: December 2020 Former quit date comment: 0.5ppd x 58 years Second hand smoke exposure: Yes Smoking risk assessment/counseling performed?: Yes Alcohol intake: never Lives independently: Yes Household members: family Housing: House Marital status: Single Current occupational status: retired History of recent travel: No Current gender identity: Female Data Anesthesia : 04/29/22 04:19 04/29/22 04:19 Short CBC 04/29/22 Range/Units 04:19 WBC 21.1 H (4.0-10.0) 10^3/uL Hgb 10.3 L (11.5-15.3) g/dL Hct 32.5 L (37.0-47.0) % MCV 93.4 (81-99) fl Plt Count 218 (130-400) 10^3/cmm BMP 04/28/22 04/29/22 22:37 04:19 Sodium 134 L 135 L Potassium 3.0 L 3.1 L Chloride 99 100 Carbon Dioxide 22 21 L BUN 7 L 8 Creatinine 0.6 0.5 Glucose 130 H 131 H Calcium 7.6 L 8.1 L Liver Function 04/29/22 Range/Units 04:19 Total Bilirubin 0.4 (0.15-1.2) mg/dL AST 18 (0-32) U/L ALT 22 (0-33) U/L Alkaline Phosphatase 76 (35-105) IU/L Albumin 2.7 L (3.5-5.2) g/dL ABG 04/28/22 09:09 Specimen Type Arterial ABG pH 7.48 H ABG pCO2 33.1 L ABG pO2 85.6 ABG HCO3 24.5 ABG O2 Saturation 97.5 ABG Base Excess 1.6 A-a O2 Gradient 2.8 L Microbiology 04/28/22 21:23 MRSA Culture - Final Nose 04/28/22 22:37 Blood Culture - Preliminary Blood SPECIMEN COLLECTED 04/28/22 22:37 Blood Culture - Preliminary Blood SPECIMEN COLLECTED 04/28/22 21:23 Legionella Urinary Antigen - Final Urine Catheterized Cardiac Studies: No Data to Display
[2022-04-29] MEDS: potassium chloride premix 100 ML 25 MEQ IV (14:53)
[2022-04-29] MEDS: iohexol 350 mg/mL 100 mL Btl IV (17:25)
[2022-04-29 17:42] LABS: Glucose Point of Care 173 mg/dL (70-110)
[2022-04-29 20:12] LABS: Glucose Point of Care 182 mg/dL (70-110)
[2022-04-30] VITALS (29 sets, daily range): BP systolic 92–139; BP diastolic 49–69; PULSE 85–127; RESP 16–29; TEMP 36.6–37.5; O2SAT 92–98
[2022-04-30] MEDS: vancomycin 1,500 MG/300 ML PIGGYBACK 150 MG IV (00:15)
[2022-04-30] MEDS: piperacillin-tazobactam 3.375 GM in sodium chloride 0.9% (plus) 50 ML IV ×3 (02:41→17:05)
[2022-04-30 05:48] LABS: Basophils # 0.1 10^3/uL (0.0-0.1); Basophils % 0.3 %; Hematocrit 30.4 % (37.0-47.0); Hemoglobin 10.1 g/dL (11.5-15.3); Lymphocytes # 0.8 10^3/uL (0.8-4.8); Lymphocytes % 4.1 %; Mean Corpuscular HGB Conc 33.2 g/dL (30.0-36.0); Mean Corpuscular Hemoglobin 29.7 pg (28.0-34.0); Mean Corpuscular Volume 89.4 fl (81-99); Mean Platelet Volume 11.5 fL (7.4-10.4); Monocytes % 5.1 %; Neutrophils # 17.56 10^3/uL (1.8-7.7); Neutrophils % 88.2 %; Nucleated Red Blood Cells % 0 %; Platelet Count 241 10^3/cmm (130-400); Red Cell Distribution Width 13.9 % (12.1-15.1); White Blood Count 19.9 10^3/uL (4.0-10.0)
[2022-04-30 06:10] LABS: Alanine Aminotransferase 24 U/L (0-33); Albumin Level 2.9 g/dL (3.5-5.2); Alkaline Phosphatase 95 IU/L (35-105); Anion Gap 14.5 (5-19); Aspartate Amino Transferase 15 U/L (0-32); Blood Urea Nitrogen 7 mg/dL (8-23); Calcium 8.7 mg/dL (8.5-10.5); Carbon Dioxide 23 mmol/L (22-29); Chloride 103 mmol/L (98-107); Globulin 3.6 g/dL (1.3-4.6); Glomerular Filtration Rate 123.4 mL/min (90-130); Glucose 150 mg/dL (65-115); Osmolality Calculated 285 mOsm/kg (285-295); Potassium 3.5 mmol/L (3.5-5.1); Sodium 137 mmol/L (136-145); Total Bilirubin 0.3 mg/dL (0.15-1.2); Total Protein 6.5 g/dL (6.6-8.7)
[2022-04-30 06:18] LABS: Slide Review Slide Review Perform
[2022-04-30 07:29] LABS: Glucose Point of Care 138 mg/dL (70-110)
[2022-04-30] MEDS: ipratropium-albuterol 3 mL Neb INHALATION ×4 (08:02→20:00)
[2022-04-30] MEDS: budesonide 0.5 mg/2 mL Neb 0.25 MG INHALATION ×2 (08:02→20:00)
--- NOTE | 2022-04-30 08:43 | P.PN_ITS ---
Subjective Subjective: Seen this morning. No acute events overnight. Patient underwent bronchoscopy yesterday. She is on 2 L nasal cannula at this time. Says she is comfortable. Vitals/I&O/Wt Last Vital Signs Temp 97.9 F 04/30/22 04:00 Pulse 95 04/30/22 08:05 Resp 16 04/30/22 08:05 BP 121/58 04/30/22 06:00 Pulse Ox 97 04/30/22 08:05 04/29/22 04/30/22 04/30/22 22:59 06:59 14:59 Intake Total 440 / 730 590 / 1320 Output Total 1150 / 1150 900 / 2050 Balance -710 / -420 -310 / -730 Weight last 48 hrs Weight 58.468 kg Weight 56.971 kg Weight 57.47 kg Weight 98.293 kg Physical Exam Narrative: General: Alert oriented x3, patient seen sitting up in bed on 2L NC saturating 97% HEENT: Normocephalic, atraumatic, EOMI, breathing normally, no acute respiratory distress Cardio: Regular rate rhythm, normal S1-S2, no murmurs_ Respiratory: Ronchi present b/l lung hahn with diminished at right base GI: Abdomen soft, nontender, nondistended, bowel sounds + Extremities: No LE edema, no cyanosis ? Urinary Catheter Management: Bradley: Cath Placed During This Visit: yes Reason for Continuing Indwelling Catheter: Accurate Measurement of Urinary Output in Critically Ill Patients Urinary Catheter Date of Insertion: 04/28/22 Urinary Catheter Time of Insertion: 21:40 Data : 04/30/22 05:35 04/30/22 05:35 Micro: Microbiology 04/29/22 13:35 Gram Stain - Final Lung Left Upper Lobe 04/28/22 22:37 Blood Culture - Preliminary Blood NEGATIVE TO DATE 04/28/22 22:37 Blood Culture - Preliminary Blood NEGATIVE TO DATE 04/28/22 21:23 MRSA Culture - Final Nose A&P Assessment and plan (1) Acute and chronic respiratory failure with hypoxia: Status: Acute (2) Postobstructive pneumonia: Status: Acute (3) COPD (chronic obstructive pulmonary disease): Status: Acute (4) Lung cancer: Status: Acute (5) Hypoxia: Status: Acute (6) Pneumonia: Status: Acute (7) Lesion of spleen: Status: Acute (8) Bronchial compression: Status: Acute (9) Lesion of adrenal gland: Status: Acute (10) Lung mass: Status: Acute (11) Chronic diarrhea: Status: Acute (12) Hypomagnesemia: Status: Resolved (13) Hypocalcemia: Status: Resolved (14) Vitamin D deficiency: Status: Acute (15) Nocturnal hypoxemia: Status: Acute (16) Cigarette smoker two packs a day or less: Status: Acute (17) Hemoptysis: Status: Acute (18) COPD (chronic obstructive pulmonary disease) with emphysema: Status: Chronic Qualifiers: Emphysema type: unspecified Qualified Code(s): J43.9 - Emphysema, unspecified (19) Peripheral Vascular Disease: Status: Acute (20) Gastroparesis: Status: Acute (21) GERD (gastroesophageal reflux disease): Status: Acute Qualifiers: Esophagitis presence: without esophagitis Qualified Code(s): K21.9 - Gastro-esophageal reflux disease without esophagitis Plan #Large left hilar and suprahilar mass with bronchial compression, malignant #Sepsis 2/2 Postobstructive pneumonia #Chronic hypoxic respiratory failure #History of COPD on oxygen at nighttime 2 to 3 L #History of recent hemoptysis, was being evaluated as an outpatient #Former smoker #Lesion of adrenal gland #Hypokalemia #Hypomagnesemia #Leukocytosis 30,000 #Lactic acidosis on admission #Blood loss anemia most likely secondary to hemoptysis over the last few weeks.? Hemoglobin 10 today. ? Continue vancomycin and Zosyn. ? Check MRSA nares PCR ? Send sputum culture for gram stain ? Check urinary bacterial antigens ? COVID-19 and rapid flu negative ? Plan for bronchoscopy today ? Most likely this is some form of lung cancer unsure of small cell versus non- small cell. We will reach out to oncology for possible inpatient chemo. ? Continue supplemental oxygen, DuoNeb, Pulmicort ? Patient okay with intubation but does not want chest compressions. ? Replete electrolytes -Pulmonology consulted. -Bronchoscopy completed today. Tissue samples obtained. Awaiting pathology. #History of abdominal aortic aneurysm #History of chronic diarrhea #GERD #Hyperlipidemia #Diabetes mellitus, [id number] -Continue home medications. DNR but okay with intubation as per patient. Discussed with her friend Velvet for any medical decision making in case patient is unable to make her own decisions as per patient's wishes. Attestations Medical Necessity Statement*: Admission of over 2 midnights is anticipated for assessment of management of pneumonia, possible postobstructive pneumonia with new left lung mass with bronchial and pulmonary artery compression. 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 of Care Code Acute Autographer for [facility] Fwd Diagnoses Acute and chronic respiratory failure with hypoxia J96.21 Postobstructive pneumonia J18.9 COPD (chronic obstructive pulmonary disease) J44.9 Lung cancer C34.90 Hypoxia R09.02 Pneumonia J18.9 Lesion of spleen D73.89 Bronchial compression J98.09 Lesion of adrenal gland E27.9 Lung mass R91.8 Chronic diarrhea K52.9 Hypomagnesemia E83.42 Hypocalcemia E83.51 Vitamin D deficiency E55.9 Nocturnal hypoxemia G47.34 Cigarette smoker two packs a day or less F17.210 Hemoptysis R04.2 COPD (chronic obstructive pulmonary disease) with emphysema J43.9 Emphysema type: unspecified Peripheral Vascular Disease I73.9 Gastroparesis K31.84 GERD (gastroesophageal reflux disease) K21.9 Esophagitis presence: without esophagitis
[2022-04-30 11:49] LABS: Glucose Point of Care 149 mg/dL (70-110)
[2022-04-30] MEDS: insulin lispro 100 unit/1 mL SUBCUT ×2 (11:49→19:59)
[2022-04-30 17:04] LABS: Glucose Point of Care 113 mg/dL (70-110)
[2022-04-30 19:46] LABS: Glucose Point of Care 144 mg/dL (70-110)
[2022-04-30] MEDS: acetaminophen 325 mg Tablet 650 MG PO (19:59)
--- NOTE | 2022-04-30 20:10 | PC.NURSE ---
Patient requested the remainder $10.00 that was in the pyxis. Patient gave rolls of $10.00 quarters to daughter, Isa Moore. Patient verbally states that she understands and agrees that she does not have any money left in the hospital pyxis.
[2022-05-01] VITALS (18 sets, daily range): BP systolic 100–138; BP diastolic 42–94; PULSE 92–114; RESP 14–47; TEMP 36.1–37.4; O2SAT 92–98
[2022-05-01] MEDS: vancomycin 1,500 MG/300 ML PIGGYBACK 150 MG IV (00:04)
[2022-05-01] MEDS: piperacillin-tazobactam 3.375 GM in sodium chloride 0.9% (plus) 50 ML IV ×2 (02:44→09:07)
[2022-05-01 05:22] LABS: Basophils # 0.1 10^3/uL (0.0-0.1); Basophils % 0.4 %; Eosinophils % 0.2 %; Hematocrit 33.3 % (37.0-47.0); Hemoglobin 10.1 g/dL (11.5-15.3); Lymphocytes # 1.1 10^3/uL (0.8-4.8); Lymphocytes % 7.1 %; Mean Corpuscular HGB Conc 30.3 g/dL (30.0-36.0); Mean Corpuscular Hemoglobin 29.3 pg (28.0-34.0); Mean Corpuscular Volume 96.5 fl (81-99); Mean Platelet Volume 11.7 fL (7.4-10.4); Monocytes # 1.5 10^3/uL (0.2-0.9); Neutrophils # 12.09 10^3/uL (1.8-7.7); Neutrophils % 81.6 %; Nucleated Red Blood Cells % 0 %; Platelet Count 254 10^3/cmm (130-400); Red Blood Count 3.45 10^6/uL (4.1-5.3); Red Cell Distribution Width 14.2 % (12.1-15.1); White Blood Count 14.8 10^3/uL (4.0-10.0)
[2022-05-01 05:48] LABS: Alanine Aminotransferase 28 U/L (0-33); Albumin Level 2.6 g/dL (3.5-5.2); Alkaline Phosphatase 143 IU/L (35-105); Anion Gap 15.2 (5-19); Aspartate Amino Transferase 26 U/L (0-32); Blood Urea Nitrogen 5 mg/dL (8-23); Calcium 8.4 mg/dL (8.5-10.5); Carbon Dioxide 24 mmol/L (22-29); Chloride 103 mmol/L (98-107); Globulin 3.6 g/dL (1.3-4.6); Glomerular Filtration Rate 123.4 mL/min (90-130); Glucose 109 mg/dL (65-115); Osmolality Calculated 286 mOsm/kg (285-295); Potassium 3.2 mmol/L (3.5-5.1); Sodium 139 mmol/L (136-145); Total Bilirubin 0.4 mg/dL (0.15-1.2); Total Protein 6.2 g/dL (6.6-8.7)
[2022-05-01 06:49] LABS: Glucose Point of Care 115 mg/dL (70-110)
[2022-05-01] MEDS: budesonide 0.5 mg/2 mL Neb 0.25 MG INHALATION ×2 (07:41→20:49)
[2022-05-01] MEDS: ipratropium-albuterol 3 mL Neb INHALATION ×3 (07:42→20:49)
--- NOTE | 2022-05-01 08:53 | P.PN_ITS ---
Subjective Subjective: Seen this morning. Patient doing okay. WBC count 14.8. Spoke to her sister at bedside at length. Pathology report still pending. No acute events overnight. On 2 L nasal cannula. Vitals/I&O/Wt Last Vital Signs Temp 99.3 F 05/01/22 00:00 Pulse 110 H 05/01/22 08:00 Resp 19 H 05/01/22 08:00 BP 138/81 05/01/22 08:00 Pulse Ox 94 05/01/22 08:00 04/30/22 05/01/22 05/01/22 22:59 06:59 14:59 Intake Total 290 / 940 350 / 1290 360 / 360 Output Total 700 / 700 1550 / 2250 Balance -410 / 240 -1200 / -960 360 / 360 Weight last 48 hrs Weight 58.315 kg Weight 58.468 kg Physical Exam Narrative: General: Alert oriented x3, patient seen laying in bed on 2L NC saturating 98% HEENT: Normocephalic, atraumatic, EOMI, breathing normally, no acute respiratory distress Cardio: Regular rate rhythm, normal S1-S2, no murmurs_ Respiratory: Ronchi present b/l lung hahn with diminished at right base GI: Abdomen soft, nontender, nondistended, bowel sounds + Extremities: No LE edema, no cyanosis Urinary Catheter Management: Bradley: Cath Placed During This Visit: yes Reason for Continuing Indwelling Catheter: Accurate Measurement of Urinary Output in Critically Ill Patients Urinary Catheter Date of Insertion: 04/28/22 Urinary Catheter Time of Insertion: 21:40 Data : 05/01/22 04:25 05/01/22 04:25 Micro: Microbiology 04/28/22 21:23 Legionella Urinary Antigen - Final Urine Catheterized Urine Culture - Final 04/28/22 21:40 Bacterial Antigens - Final Urine,Clean Catch 04/29/22 13:35 Gram Stain - Final Lung Left Upper Lobe Bronchial Washings Culture - Preliminary Staphylococcus aureus A&P Assessment and plan (1) Acute and chronic respiratory failure with hypoxia: Status: Acute (2) Postobstructive pneumonia: Status: Acute (3) COPD (chronic obstructive pulmonary disease): Status: Acute (4) Lung cancer: Status: Acute (5) Hypoxia: Status: Acute (6) Pneumonia: Status: Acute (7) Bronchial compression: Status: Acute (8) Lung mass: Status: Acute (9) Hypomagnesemia: Status: Resolved (10) Hypocalcemia: Status: Resolved (11) Hemoptysis: Status: Acute (12) Gastroparesis: Status: Acute (13) GERD (gastroesophageal reflux disease): Status: Acute Qualifiers: Esophagitis presence: without esophagitis Qualified Code(s): K21.9 - Gastro-esophageal reflux disease without esophagitis Plan #Large left hilar and suprahilar mass with bronchial compression, malignant #Sepsis 2/2 Postobstructive pneumonia #Chronic hypoxic respiratory failure #History of COPD on oxygen at nighttime 2 to 3 L #History of recent hemoptysis, was being evaluated as an outpatient #Former smoker #Lesion of adrenal gland #Hypokalemia #Hypomagnesemia #Leukocytosis 30,000 #Lactic acidosis on admission #Blood loss anemia most likely secondary to hemoptysis over the last few weeks.? Hemoglobin 10 today. ? Continue vancomycin and Zosyn. ?MRSA nares positive - Sputum + for MRSA ? Ur Ag negative. ? COVID-19 and rapid flu negative ? Bronchoscopy completed today.? Tissue samples obtained.? Awaiting pathology. ? Oncology consult placed. ? Continue supplemental oxygen, DuoNeb, Pulmicort ? Patient okay with intubation but does not want chest compressions. ? Replete electrolytes -Pulmonology consulted. - Stop vanc and zosyn - Start linezolid to complete 14 days. - Move to floor today - Potential DC after path report for outpatient f/u with pulm and oncology. #History of abdominal aortic aneurysm #History of chronic diarrhea #GERD #Hyperlipidemia #Diabetes mellitus, [id number] -Continue home medications. DNR but okay with intubation as per patient. Discussed with her friend Velvet for any medical decision making in case patient is unable to make her own decisions as per patient's wishes. Updated sister at bedside today. THey will work on getting a power of finance attorney signed for the patient. Attestations Medical Necessity Statement*: Admission of over 2 midnights is anticipated for assessment of management of pneumonia, possible postobstructive pneumonia with new left lung mass with bronchial and pulmonary artery compression. 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 of Care Code Acute Farm Products Shipper for [facility] Fwd Diagnoses Acute and chronic respiratory failure with hypoxia J96.21 Postobstructive pneumonia J18.9 COPD (chronic obstructive pulmonary disease) J44.9 Lung cancer C34.90 Hypoxia R09.02 Pneumonia J18.9 Bronchial compression J98.09 Lung mass R91.8 Hypomagnesemia E83.42 Hypocalcemia E83.51 Hemoptysis R04.2 Gastroparesis K31.84 GERD (gastroesophageal reflux disease) K21.9 Esophagitis presence: without esophagitis
[2022-05-01 11:29] LABS: Glucose Point of Care 124 mg/dL (70-110)
--- NOTE | 2022-05-01 13:22 | PC.SOCIAL ---
IMM update IMM updated with patient. Verbalized an understanding. Copy Pg 2 provided. Initialled, dated, timed, and placed in chart.
[2022-05-01] MEDS: linezolid 600 mg Tablet PO (14:16)
--- NOTE | 2022-05-01 15:04 | PC.NURSE ---
Report called to ILAN Meek on Medsurg. Patient transferred to room 270 via wheelchair with the assistance of this nurse as well as accompanied by her sister. Patient noted to be A&OX4 at time of transfer. ILAN Vidal noted to be at bedside during transfer.
[2022-05-01] MEDS: acetaminophen 325 mg Tablet 650 MG PO (16:19)
[2022-05-01 18:16] LABS: Glucose Point of Care 118 mg/dL (70-110)
[2022-05-01 18:28] LABS: Quest SARS-CoV-2 RNA DETECTED (NOT DETECTED)
[2022-05-02] VITALS (15 sets, daily range): BP systolic 95–115; BP diastolic 57–72; PULSE 0–121; RESP 16–18; TEMP 36.8–38.1; O2SAT 86–98
[2022-05-02 00:56] LABS: Glucose Point of Care 133 mg/dL (70-110)
[2022-05-02] MEDS: linezolid 600 mg Tablet PO ×2 (01:39→14:14)
[2022-05-02 03:57] LABS: Basophils # 0.1 10^3/uL (0.0-0.1); Basophils % 0.4 %; Eosinophils % 0.3 %; Hemoglobin 9.9 g/dL (11.5-15.3); Lymphocytes % 7.8 %; Mean Corpuscular HGB Conc 31.9 g/dL (30.0-36.0); Mean Corpuscular Hemoglobin 29.4 pg (28.0-34.0); Mean Platelet Volume 11.1 fL (7.4-10.4); Monocytes # 1.4 10^3/uL (0.2-0.9); Monocytes % 10.8 %; Neutrophils # 10.29 10^3/uL (1.8-7.7); Neutrophils % 79.4 %; Nucleated Red Blood Cells % 0 %; Platelet Count 276 10^3/cmm (130-400); Red Blood Count 3.37 10^6/uL (4.1-5.3); Red Cell Distribution Width 14.2 % (12.1-15.1)
[2022-05-02 04:21] LABS: Anion Gap 15.5 (5-19); Blood Urea Nitrogen 6 mg/dL (8-23); Calcium 8.5 mg/dL (8.5-10.5); Carbon Dioxide 25 mmol/L (22-29); Chloride 95 mmol/L (98-107); Glomerular Filtration Rate 123.4 mL/min (90-130); Glucose 128 mg/dL (65-115); Magnesium 1.7 mg/dL (1.7-2.3); Osmolality Calculated 273 mOsm/kg (285-295); Potassium 3.5 mmol/L (3.5-5.1); Sodium 132 mmol/L (136-145)
[2022-05-02 06:56] LABS: Glucose Point of Care 116 mg/dL (70-110)
--- NOTE | 2022-05-02 07:32 | P.CONIM_ITS ---
Providers/Reason For Consult Consulting Physician/Specialty*: Medical oncology. Reason for Consult*: Lung cancer. Requesting Physician: Clare Grace MD Attending Physician: Clare Grace MD Primary Care Provider: MELCHOR [place] History of Present Illness History of Present Illness Kellee Jorgensen is a 66 year-old woman with newly diagnosed non-small cell lung cancer. She has known COPD, type 2 diabetes, and peripheral arterial disease. On 04/28/2022 she presented to [facility] in [place] with complaints of shortness of breath, cough, and weakness. Her CT of the chest showed a left hilar and suprahilar mass with mediastinal invasion and with severe compression of the left main pulmonary artery. There is also occlusion of the left upper lobe and lingula branch with complete left upper lobe and lingular atelectasis. Groundglass irregularity in the left lower lobe measuring 5.7 x 6.4 cm, with lymphangitic spread not excluded. A left upper paratracheal lymph node measured 1.3 x 1.3 cm. A 1.3 x 1.3 cm right adrenal enhancing nodule was indeterminate. There was indeterminate left adrenal thickening. Also noted was irregular enhancement in the left upper abdominal quadrant posterior to the spleen measuring 11 x 12 mm, possibly reflecting a metastatic deposit. With those findings, she was then transferred here for admission. She initially began on antibiotic coverage with Zosyn and vancomycin. She has been seen by Dr. Zaidi and her bronchoscopy on 04/29/2022 showed complete occlusion of the left upper lobe bronchus. No abnormalities were noted in the left lower lobe bronchus and segmental bronchi or in the right bronchial tree. The pathology report on the left upper lobe endobronchial biopsy is not yet available, but the preliminary indication is that it does show non-small cell carcinoma. Bronchial washings grew MRSA. Her CT abdomen/pelvis showed an enlarging splenic lesion, possibly but not definitely a cyst. Bilateral adrenal nodules were not significantly changed from March 2019 CT. A new left upper quadrant soft tissue nodule posterior to the spleen was suspicious for metastatic disease. A new soft tissue nodular lymph node in the mesentery of the transverse colon, significance uncertain. There was evidence for fatty infiltration of the liver. She has been showing some improvement clinically on antibiotic therapy, though she is still very weak generally. Her ECOG score is 3. Her appetite has been poor. She thinks she has lost weight, but she is not certain how much. She was having fever intermittently at home, and she had been having night sweating. She has not had sore throat or difficulty swallowing, she had developed hoarseness within a week or so prior to admission. She has had shortness of breath, she says she has not had that much cough. She has had no hemoptysis or chest pain. She has no GI complaints other than her bowel function has been somewhat inconsistent. Bladder function was okay at home. She currently has an indwelling catheter. She has had some joint pain, mainly in the lower extremities. She has had headache in the occipital area. She has not had any focal neurologic symptoms. Review of Systems Narrative: Constitutional: She has been weak generally and she has very limited activity. Appetite is poor. She has lost weight. She had fever intermittently at home, and she had been having night sweating. ECOG score is 3. Eyes:?No change in vision. ENMT: No hearing loss or tinnitus. No sinus congestion/drainage. No mouth sores. No sore throat or difficulty swallowing, but she has developed hoarseness. Hematologic/Lymphatic: No abnormal bruising or bleeding. Respiratory: She has shortness of breath and cough. No pleuritic pain or hemoptysis. Cardiovascular: No angina pain. No palpitations. Gastrointestinal: No nausea or vomiting. No heartburn or acid reflux. She has had some constipation. No blood in the stool or black stools. Genitourinary: She currently has an indwelling catheter. Musculoskeletal: Some joint pain in the lower extremities Integumentary: No skin rash or other skin changes. Neurologic: She has been having headache in the occipital area. No dizziness. No numbness or tingling. No other focal neurologic symptoms. Psych:?No anxiety and depression. Medications/Allergies Home Medications Medication Instructions Recorded Confirmed Last Taken Type mecobalamin (vitamin B12) 1,000 1,000 mcg PO DAILY 01/22/21 04/29/22 Unknown History mcg chewable tablet loperamide 2 mg capsule 4 mg PO TID PRN #60 cap 02/26/21 04/29/22 Unknown Rx atorvastatin 10 mg tablet 10 mg PO DAILY #90 tab 07/27/21 04/29/22 Unknown Rx budesonide 0.25 mg/2 mL suspension 0.25 mg (2 mL) INHALATION BID #60 09/01/21 04/29/22 Unknown Rx for nebulization ml fluticasone furoate 100 1 inh INHALATION Q24H #60 ea 12/02/21 04/29/22 Unknown Rx mcg-vilanterol 25 mcg/dose inhalation powder (Breo Ellipta) clopidogrel 75 mg tablet 75 mg PO DAILY #90 tab 01/05/22 04/29/22 Unknown Rx potassium chloride 40 mEq/15 mL See Rx Instructions .ROUTE 04/21/22 04/29/22 Unknown Rx oral liquid .COMPLEX #473 ml Allergies Allergy/AdvReac Type Severity Reaction Status Date / Time dipyridamole Allergy Severe ALGY-Difficulty Verified 04/29/22 08:37 [From Persantine] Breathing Current Medications Generic Name Dose Route Start Last Admin Trade Name Freq PRN Reason Stop Dose Admin Acetaminophen 650 mg 04/28/22 20:27 05/01/22 16:19 Acetaminophen 325 Mg Tablet PO 650 mg Q6H PRN Administration Mild/Mod Pain Or Temp >/= 101 Albuterol/Ipratropium 3 ml 04/29/22 08:00 05/01/22 20:49 Ipratropium-Albuterol 3 Ml Neb INHALATION 3 ml QID.RESPIRATORY KAYA Administration Budesonide 0.25 mg 04/29/22 20:00 05/01/22 20:49 Budesonide 0.5 Mg/2 Ml Neb INHALATION 0.25 mg BID.RESPIRATORY KAYA Administration Insulin Human Lispro 0 unit 04/28/22 21:00 05/01/22 21:03 Insulin Lispro 100 Unit/1 Ml SUBCUT Not Given WM&BEDTIME KAYA Protocol Linezolid 600 mg 05/01/22 14:15 05/02/22 01:39 Linezolid 600 Mg Tablet PO 05/13/22 14:14 600 mg Q12H KAYA Administration Protocol PFSH Acute PFSH: Medical History Abdominal aortic aneurysm (AAA) Chronic diarrhea COPD (chronic obstructive pulmonary disease) with emphysema Diabetes Diverticulosis of colon Gastroparesis GERD (gastroesophageal reflux disease) Hypercholesteremia Peripheral Vascular Disease Surgical History H/O esophagogastroduodenoscopy (~01/08/20) Normal History of colonoscopy (2019) S/P carpal tunnel release S/P insertion of iliac artery stent aortoiliac stent Status post laparoscopic cholecystectomy (~01/08/20) Family History Denies family history of Anesthesia complication Bleeding disorder Social History Smoking and tobacco status: former smoker Quit status (tobacco): has quit using tobacco Year quit tobacco: December 2020 Former quit date comment: 0.5ppd x 58 years Second hand smoke exposure: Yes Smoking risk assessment/counseling performed?: Yes Alcohol intake: never Lives independently: Yes Household members: family Housing: House Marital status: Single Current occupational status: retired History of recent travel: No Current gender identity: Female Vitals/I&O/Wt Last Vital Signs Temp 98.6 F 05/02/22 04:00 Pulse 107 H 05/02/22 04:00 Resp 17 05/02/22 04:00 BP 95/57 05/02/22 04:00 Pulse Ox 94 05/02/22 04:00 05/01/22 05/02/22 05/02/22 22:59 06:59 14:59 Intake Total 120 / 770 Output Total 925 / 925 1400 / 2325 Balance -805 / -155 -1400 / -1555 Weight last 48 hrs Weight 58.377 kg Weight 58.315 kg Physical Exam Narrative: Constitutional: She appears generally weak. Eyes: Sclera nonicteric. Conjunctiva clear. ENMT: No lesions noted in the oral cavity. Hematologic/lymphatic: No cervical, clavicular, or axillary lymphadenopathy. Respiratory: Lungs show diminished air movement bilaterally, worse on the left. No rales wheezing or rhonchi noted. Cardiovascular: Heart rhythm is regular. There is no murmur, gallop, or rub noted. Abdomen: Soft and nontender. Liver and spleen are not enlarged. There is no abdominal mass or ascites noted, and there is no inguinal adenopathy. Extremities: There is currently no edema. She has good posterior tibial pulses bilaterally. Neurologic: There are no focal neurologic deficits noted. Urinary Catheter Management: Bradley: Cath Placed During This Visit: yes Reason for Continuing Indwelling Catheter: Acute Urinary Retention or Obstruction Urinary Catheter Date of Insertion: 04/28/22 Urinary Catheter Time of Insertion: 21:40 Data : 05/02/22 03:35 05/02/22 03:35 Micro: Microbiology 04/29/22 13:35 Gram Stain - Final Lung Left Upper Lobe Bronchial Washings Culture - Final Methicillin Resis Staph Aureus 04/28/22 21:23 Legionella Urinary Antigen - Final Urine Catheterized Urine Culture - Final A&P Assessment and plan (1) Malignant neoplasm of upper lobe, left bronchus or lung: This patient has newly diagnosed cancer involving the upper lobe of the left lung. Bronchoscopy showed complete obstruction of the left upper lobe bronchus. The preliminary indication from the left upper lobe bronchial biopsy is at it is a non-small cell carcinoma, but that has not yet been confirmed. Staging is incomplete, but by CT there is a possible metastatic lesion in the left upper abdominal quadrant posterior to the spleen. At this point she remains on antibiotic coverage for postobstructive pneumonia. Her bronchial washings positive HER-2 copies/cell grew MSRA. If her performance status improves with treatment, she potentially would still be a candidate for combined chemoradiation. However, I have discussed this with Dr. Pires, and with complete occlusion of the left upper lobe bronchus it may be best to treat her initially with HDR, but that would have to be done at a [place] [facility] facility. We can discuss this further when the pathology has been confirmed. In the meantime, she also will need to complete staging with PET/CT and head MRI. Status: Acute 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 of Care Code Acute Ibm Bpm Architect for [facility] Diagnoses Malignant neoplasm of upper lobe, left bronchus or lung C34.12
[2022-05-02] MEDS: budesonide 0.5 mg/2 mL Neb 0.25 MG INHALATION ×2 (07:57→19:58)
[2022-05-02] MEDS: ipratropium-albuterol 3 mL Neb INHALATION ×4 (08:00→19:58)
[2022-05-02] MEDS: remdesivir 200 MG in sodium chloride 0.9% (100 ml) 60 ML 100 MG IV (09:28)
[2022-05-02 12:42] LABS: Glucose Point of Care 122 mg/dL (70-110)
[2022-05-02] MEDS: sodium chloride 0.9% 1,000 ML 100 ML IV ×2 (14:14→19:54)
--- NOTE | 2022-05-02 15:41 | P.PN_ITS ---
Subjective Subjective: Seen this AM. on 2L NC. Awaiting pathology she is covid positive Vitals/I&O/Wt Last Vital Signs Temp 98.4 F 05/02/22 11:51 Pulse 0 L 05/02/22 14:00 Resp 16 05/02/22 11:51 BP 108/63 05/02/22 11:51 Pulse Ox 93 05/02/22 11:51 05/02/22 05/02/22 05/02/22 06:59 14:59 22:59 Intake Total 420 / 420 Output Total 1400 / 2325 Balance -1400 / -1555 420 / 420 Weight last 48 hrs Weight 58.377 kg Weight 58.315 kg Physical Exam Narrative: General: Alert oriented x3, patient seen laying in bed on 2L NC HEENT: Normocephalic, atraumatic, EOMI, breathing normally, no acute respiratory distress Cardio: Regular rate rhythm, normal S1-S2, no murmurs Respiratory: Ronchi present b/l lung hahn with diminished at right base GI: Abdomen soft, nontender, nondistended, bowel sounds + Extremities: No LE edema, no cyanosis Urinary Catheter Management: Bradley: Cath Placed During This Visit: yes Reason for Continuing Indwelling Catheter: Acute Urinary Retention or Obstruction Urinary Catheter Date of Insertion: 04/28/22 Urinary Catheter Time of Insertion: 21:40 Data : 05/02/22 03:35 05/02/22 03:35 Micro: Microbiology 04/29/22 13:35 Gram Stain - Final Lung Left Upper Lobe Bronchial Washings Culture - Final Methicillin Resis Staph Aureus A&P Assessment and plan (1) Malignant neoplasm of upper lobe, left bronchus or lung: Status: Acute (2) Acute and chronic respiratory failure with hypoxia: Status: Acute (3) Postobstructive pneumonia: Status: Acute (4) COPD (chronic obstructive pulmonary disease): Status: Acute (5) Pneumonia: Status: Acute (6) Vitamin B12 deficiency (non anemic): Status: Acute (7) Chronic diarrhea: Status: Acute (8) GERD (gastroesophageal reflux disease): Status: Acute Qualifiers: Esophagitis presence: without esophagitis Qualified Code(s): K21.9 - Gastro-esophageal reflux disease without esophagitis (9) Gastroparesis: Status: Acute (10) COPD (chronic obstructive pulmonary disease) with emphysema: Status: Chronic Qualifiers: Emphysema type: unspecified Qualified Code(s): J43.9 - Emphysema, unspecified (11) Cigarette smoker two packs a day or less: Status: Acute (12) Hemoptysis: Status: Acute (13) Peripheral Vascular Disease: Status: Acute Plan #Large left hilar and suprahilar mass with bronchial compression, malignant #Sepsis 2/2 Postobstructive pneumonia #Chronic hypoxic respiratory failure #History of COPD on oxygen at nighttime 2 to 3 L #History of recent hemoptysis, was being evaluated as an outpatient #Former smoker #Lesion of adrenal gland #Hypokalemia #Hypomagnesemia #Leukocytosis 30,000 #Lactic acidosis on admission #Blood loss anemia most likely secondary to hemoptysis over the last few weeks.? ?MRSA nares positive - Sputum + for MRSA ? Ur Ag negative. ? COVID-19 and rapid flu negative ? Bronchoscopy completed today.? Tissue samples obtained.? Awaiting pathology. ? Oncology consult placed. ? Continue supplemental oxygen, DuoNeb, Pulmicort ? Patient okay with intubation but does not want chest compressions. ? Replete electrolytes -Pulmonology consulted. - Stop vanc and zosyn - Start linezolid to complete 14 days. - Move to floor today - Potential DC after path report for outpatient f/u with pulm and oncology. - Potential for inpatient chemo. Prelim path shows small cell carcinoma #History of abdominal aortic aneurysm #History of chronic diarrhea #GERD #Hyperlipidemia #Diabetes mellitus, [id number] -Continue home medications. DNR but okay with intubation as per patient. Discussed with her friend Velvet for any medical decision making in case patient is unable to make her own decisions as per patient's wishes. Updated sister at bedside yesterday. THey will work on getting a power of assistant county attorney signed for the patient. Attestations Medical Necessity Statement*: Admission of over 2 midnights is anticipated for assessment of management of pneumonia, possible postobstructive pneumonia with new left lung mass with bronchial and pulmonary artery compression. She will be having inpatient chemo most likely. 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 of Care Code Acute Rubber Trimmer for [facility] Fwd Diagnoses Malignant neoplasm of upper lobe, left bronchus or lung C34.12 Acute and chronic respiratory failure with hypoxia J96.21 Postobstructive pneumonia J18.9 COPD (chronic obstructive pulmonary disease) J44.9 Pneumonia J18.9 Vitamin B12 deficiency (non anemic) E53.8 Chronic diarrhea K52.9 GERD (gastroesophageal reflux disease) K21.9 Esophagitis presence: without esophagitis Gastroparesis K31.84 COPD (chronic obstructive pulmonary disease) with emphysema J43.9 Emphysema type: unspecified Cigarette smoker two packs a day or less F17.210 Hemoptysis R04.2 Peripheral Vascular Disease I73.9
[2022-05-02 17:41] LABS: Glucose Point of Care 118 mg/dL (70-110)
[2022-05-02 20:24] LABS: Glucose Point of Care 155 mg/dL (70-110)
[2022-05-02] MEDS: insulin lispro 100 unit/1 mL SUBCUT (20:43)
[2022-05-03] VITALS (10 sets, daily range): BP systolic 97–131; BP diastolic 53–67; PULSE 91–104; RESP 16–22; TEMP 36.7–37.3; O2SAT 92–100
[2022-05-03] MEDS: linezolid 600 mg Tablet PO ×2 (01:11→13:34)
[2022-05-03 05:19] LABS: Basophils # 0.1 10^3/uL (0.0-0.1); Basophils % 0.4 %; Eosinophils % 0.3 %; Hematocrit 29.8 % (37.0-47.0); Hemoglobin 9.5 g/dL (11.5-15.3); Lymphocytes # 1.3 10^3/uL (0.8-4.8); Lymphocytes % 11.6 %; Mean Corpuscular HGB Conc 31.9 g/dL (30.0-36.0); Mean Corpuscular Hemoglobin 29.4 pg (28.0-34.0); Mean Corpuscular Volume 92.3 fl (81-99); Mean Platelet Volume 10.9 fL (7.4-10.4); Monocytes # 1.2 10^3/uL (0.2-0.9); Monocytes % 10.6 %; Neutrophils # 8.52 10^3/uL (1.8-7.7); Neutrophils % 75.5 %; Nucleated Red Blood Cells % 0 %; Platelet Count 304 10^3/cmm (130-400); Red Blood Count 3.23 10^6/uL (4.1-5.3); Red Cell Distribution Width 14.3 % (12.1-15.1); White Blood Count 11.3 10^3/uL (4.0-10.0)
[2022-05-03 05:38] LABS: Anion Gap 14.3 (5-19); Blood Urea Nitrogen 5 mg/dL (8-23); Calcium 8.1 mg/dL (8.5-10.5); Carbon Dioxide 25 mmol/L (22-29); Chloride 99 mmol/L (98-107); Glomerular Filtration Rate 159.7 mL/min (90-130); Glucose 97 mg/dL (65-115); Magnesium 1.9 mg/dL (1.7-2.3); Osmolality Calculated 277 mOsm/kg (285-295); Potassium 3.3 mmol/L (3.5-5.1); Sodium 135 mmol/L (136-145)
[2022-05-03 06:50] LABS: Glucose Point of Care 98 mg/dL (70-110)
--- NOTE | 2022-05-03 06:59 | P.PN_ITS ---
Subjective Subjective: This is a 66-year-old woman with newly diagnosed malignancy involving the upper lobe of the left lung, initially thought to be non-small cell carcinoma. 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 She had presented with shortness of breath, cough, and weakness. Her initial chest CT showed a large mass in the left hilar/suprahilar region with mediastinal invasion and with severe compression of the left main pulmonary artery. There was a possible area of lymphangitic involvement in the left lower lobe. Both the chest CT and a subsequent CT abdomen/pelvis showed an irregular enhancement in the left upper abdomen on posterior to the spleen. That lesion was new compared to her prior study in 2019, and was felt to be suspicious for metastasis. An additional soft tissue nodule was noted in the mesentery of the transverse colon. Bilateral adrenal nodules appeared unchanged from the 2019 CT. Her bronchoscopy showed complete occlusion of the left upper lobe bronchus. Left upper lobe endobronchial biopsy has now been determined to be small cell carcinoma. She has been on antibiotic coverage for MRSA growth in the bronchial washings, but in the meantime she also was found to have a positive PCR for COVID-19 virus infection. She is feeling a little better now, and her white blood cell count has been steadily declining. She is moderately anemic with her hemoglobin now down to 9.5 g. Platelet count remains normal at 304,000. Renal function also remains normal. Vitals/I&O/Wt Last Vital Signs Temp 99 F 05/03/22 04:00 Pulse 92 05/03/22 04:00 Resp 17 05/03/22 04:00 BP 99/53 05/03/22 04:00 Pulse Ox 95 05/03/22 04:00 05/02/22 05/02/22 05/03/22 14:59 22:59 06:59 Intake Total 420 / 420 1306.667 / 5040.647 2848 / 2726.667 Output Total 2450 / 2450 Balance 420 / 420 1306.667 / 1726.667 -1450 / 276.667 Weight last 48 hrs Weight 60.282 kg Weight 58.377 kg Physical Exam Urinary Catheter Management: Bradley: Cath Placed During This Visit: yes Reason for Continuing Indwelling Catheter: Acute Urinary Retention or Obs truction Urinary Catheter Date of Insertion: 04/28/22 Urinary Catheter Time of Insertion: 21:40 Data : 05/03/22 05:08 05/03/22 05:08 A&P Assessment and plan (1) Malignant neoplasm of upper lobe, left bronchus or lung: This patient has a newly diagnosed malignancy involving the upper lobe of the left lung.? Bronchoscopy showed complete obstruction of the left upper lobe bro nchus.? 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 Staging is incomplete, but by CT there is a possible metastatic lesion in the left upper abdominal quadrant posterior to the spleen.? She has been on antibiotic coverage for positive MRSA culture from the bronchial washings. She also was found to be positive for COVID-19 virus infection. With complete upper lobe bronchial obstruction by small cell carcinoma in the setting of acute illness and poor performance status, it may be best to initiate treatment with carboplatin/etoposide chemotherapy and follow that up with consolidation radiation or chemoradiation, depending on how well she responds. She does need to complete staging with head MRI and PET/CT, but that will be problematic due to her being COVID-19 positive and due to the fact we do not have inpatient PET/CT available. Initiating chemotherapy as an inpatient also may be problematic, tickly with her being COVID-19 positive. I did review anticipated side effects of the chemotherapy with the patient including the fact that she will be at increased risk for toxicities due to acute illness and to the COVID-19 infection, but I am concerned that the risks of delaying treatment will outweigh the risks of treatment related toxicities. She indicates that she is willing to proceed with treatment, which will be initiated on an inpatient basis assuming we have adequate staffing to provide the care. Status: Acute Attestations Medical Necessity Statement*: Not applicable. 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 of Care Code Acute Patient Support Tech for [facility] Fwd Diagnoses Malignant neoplasm of upper lobe, left bronchus or lung C34.12
[2022-05-03 08:13] LABS: Blood Gas Operator Identificat JB
[2022-05-03] MEDS: sodium chloride 0.9% 1,000 ML 100 ML IV ×2 (08:15→18:17)
--- NOTE | 2022-05-03 09:29 | PC.NURSE ---
Spoke to patient's daughter Velvet Teran at this time.
[2022-05-03] MEDS: remdesivir 100 MG in sodium chloride 0.9% (100 ml) 80 ML IV (09:44)
[2022-05-03] MEDS: budesonide 0.5 mg/2 mL Neb 0.25 MG INHALATION ×2 (09:55→20:53)
[2022-05-03] MEDS: ipratropium-albuterol 3 mL Neb INHALATION ×3 (09:55→20:53)
[2022-05-03 11:05] LABS: Glucose Point of Care 152 mg/dL (70-110)
[2022-05-03] MEDS: insulin lispro 100 unit/1 mL SUBCUT ×2 (11:56→18:18)
--- NOTE | 2022-05-03 13:56 | P.PN_ITS ---
Subjective Subjective: Seen this morning. Patient lying in bed. She is little hard of hearing. I discussed with her who which she would like to name if she is unable to make her medical decisions when she said she will make them herself. She did not appoint her sister and her friend or her children at this time. She does not want to sign any power of assistant attorney general medically for any of them at this time. I did tell her that this was for if and when she is unable to make her decisions. She says she will think about it and did not respond further on the matter. Vitals/I&O/Wt Last Vital Signs Temp 98.2 F 05/03/22 11:38 Pulse 95 05/03/22 12:56 Resp 22 H 05/03/22 12:56 BP 100/61 05/03/22 11:38 Pulse Ox 97 05/03/22 12:56 05/02/22 05/03/22 05/03/22 22:59 06:59 14:59 Intake Total 1306.667 / 4476.836 0119 / 2726.667 100 / 100 Output Total 2450 / 2450 1000 / 1000 Balance 1306.667 / 1726.667 -1450 / 276.667 -900 / -900 Weight last 48 hrs Weight 60.282 kg Weight 58.377 kg Physical Exam Narrative: General: Alert oriented x3, patient seen laying in bed on 2L NC, frail appearing female HEENT: Normocephalic, atraumatic, EOMI, breathing normally, no acute respiratory distress Cardio: Regular rate rhythm, normal S1-S2, no murmurs Respiratory: Ronchi present b/l lung hahn with diminished at right base GI: Abdomen soft, nontender, nondistended, bowel sounds + Extremities: No LE edema, no cyanosis Urinary Catheter Management: Bradley: Cath Placed During This Visit: yes Reason for Continuing Indwelling Catheter: Acute Urinary Retention or Obstruction Urinary Catheter Date of Insertion: 04/28/22 Urinary Catheter Time of Insertion: 21:40 Data : 05/03/22 05:08 05/03/22 05:08 A&P Assessment and plan (1) COVID-19 virus infection: Status: Acute (2) Malignant neoplasm of upper lobe, left bronchus or lung: Status: Acute (3) Acute and chronic respiratory failure with hypoxia: Status: Acute (4) Postobstructive pneumonia: Status: Acute (5) COPD (chronic obstructive pulmonary disease): Status: Acute (6) Hypoxia: Status: Acute (7) Lung cancer: Status: Acute (8) Pneumonia: Status: Acute (9) Lesion of adrenal gland: Status: Acute (10) Bronchial compression: Status: Acute (11) Lesion of spleen: Status: Acute (12) Lung mass: Status: Acute (13) Vitamin B12 deficiency (non anemic): Status: Acute (14) Chronic diarrhea: Status: Acute (15) Hypomagnesemia: Status: Resolved (16) Hypocalcemia: Status: Resolved (17) Vitamin D deficiency: Status: Acute (18) Hemoptysis: Status: Acute (19) Encounter for screening for lung cancer: Status: Acute (20) COPD (chronic obstructive pulmonary disease) with emphysema: Status: Chronic Qualifiers: Emphysema type: unspecified Qualified Code(s): J43.9 - Emphysema, unspecified (21) Peripheral Vascular Disease: Status: Acute (22) Gastroparesis: Status: Acute (23) GERD (gastroesophageal reflux disease): Status: Acute Qualifiers: Esophagitis presence: without esophagitis Qualified Code(s): K21.9 - Gastro-esophageal reflux disease without esophagitis Plan #Small cell lung cancer (Large left hilar and suprahilar mass with bronchial compression, malignant) #Sepsis 2/2 Postobstructive pneumonia #Chronic hypoxic respiratory failure #History of COPD on oxygen at nighttime 2 to 3 L #History of recent hemoptysis, was being evaluated as an outpatient #Former smoker #Lesion of adrenal gland #Electrolyte abnormalities: HypoMg, HypoK #Blood loss anemia most likely secondary to hemoptysis over the last few weeks.? ?MRSA nares positive - Sputum + for MRSA ? Ur Ag negative. ? COVID-19 and rapid flu negative ? Bronchoscopy completed today.? Tissue samples obtained.? Pathology states this is small cell lung cancer. Final report pending. ? Oncology consult placed. Plan to start chemotherapy starting tomorrow 05/04 -May need to transfer to ICU after cycle of chemo for management of tumor lysis syndrome if it occurs. Discussed this with Dr. Samayoa over the phone as well. He may decide to order Neupogen. Oncology will manage those medications. ? Continue supplemental oxygen, DuoNeb, Pulmicort ? Patient okay with intubation but does not want chest compressions. ? Replete electrolytes -Pulmonology consulted. - Continue linezolid to complete 14 days. - Order potassium for K 3.3 today #History of abdominal aortic aneurysm #History of chronic diarrhea #GERD #Hyperlipidemia #Diabetes mellitus, [id number] -Continue home medications. DNR but okay with intubation as per patient. DVT prophylaxis:Heparin subcu Attestations Medical Necessity Statement*: Small cell lung cancer, start inpatient chemo in AM. Expected to stay > 72 hours. 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 Diagnoses COVID-19 virus infection U07.1 Malignant neoplasm of upper lobe, left bronchus or lung C34.12 Acute and chronic respiratory failure with hypoxia J96.21 Postobstructive pneumonia J18.9 COPD (chronic obstructive pulmonary disease) J44.9 Hypoxia R09.02 Lung cancer C34.90 Pneumonia J18.9 Lesion of adrenal gland E27.9 Bronchial compression J98.09 Lesion of spleen D73.89 Lung mass R91.8 Vitamin B12 deficiency (non anemic) E53.8 Chronic diarrhea K52.9 Hypomagnesemia E83.42 Hypocalcemia E83.51 Vitamin D deficiency E55.9 Hemoptysis R04.2 Encounter for screening for lung cancer Z12.2 COPD (chronic obstructive pulmonary disease) with emphysema J43.9 Emphysema type: unspecified Peripheral Vascular Disease I73.9 Gastroparesis K31.84 GERD (gastroesophageal reflux disease) K21.9 Esophagitis presence: without esophagitis
[2022-05-03] MEDS: heparin 5,000 unit/mL INJ 1 mL 5000 UNIT SUBCUT (15:23)
--- NOTE | 2022-05-03 16:26 | PC.SOCIAL ---
IMM UPDATED IMM dated and initialed copy given to patient and copy placed in chart
[2022-05-03 17:21] LABS: Glucose Point of Care 160 mg/dL (70-110)
--- NOTE | 2022-05-03 19:17 | PC.NURSE ---
Report to Melissa TALAVERA at this time.
[2022-05-03 20:57] LABS: Glucose Point of Care 105 mg/dL (70-110)
[2022-05-04] VITALS (14 sets, daily range): BP systolic 94–115; BP diastolic 52–67; PULSE 81–108; RESP 14–24; TEMP 36.5–37.7; O2SAT 93–96; BMI 25.2
[2022-05-04] MEDS: linezolid 600 mg Tablet PO ×2 (01:40→14:25)
[2022-05-04] MEDS: heparin 5,000 unit/mL INJ 1 mL 5000 UNIT SUBCUT ×2 (01:40→14:25)
[2022-05-04] MEDS: sodium chloride 0.9% 1,000 ML 100 ML IV ×2 (04:33→21:49)
[2022-05-04 05:17] LABS: Basophils # 0.1 10^3/uL (0.0-0.1); Basophils % 0.4 %; Eosinophils % 0.2 %; Hematocrit 27.8 % (37.0-47.0); Hemoglobin 8.9 g/dL (11.5-15.3); Lymphocytes # 1.3 10^3/uL (0.8-4.8); Mean Corpuscular Hemoglobin 29.6 pg (28.0-34.0); Mean Corpuscular Volume 92.4 fl (81-99); Mean Platelet Volume 10.5 fL (7.4-10.4); Monocytes # 1.1 10^3/uL (0.2-0.9); Monocytes % 9.3 %; Neutrophils # 9.06 10^3/uL (1.8-7.7); Neutrophils % 77.4 %; Nucleated Red Blood Cells % 0 %; Platelet Count 307 10^3/cmm (130-400); Red Blood Count 3.01 10^6/uL (4.1-5.3); Red Cell Distribution Width 14.5 % (12.1-15.1); White Blood Count 11.7 10^3/uL (4.0-10.0)
[2022-05-04 05:42] LABS: Alanine Aminotransferase 33 U/L (0-33); Alkaline Phosphatase 85 IU/L (35-105); Anion Gap 15.2 (5-19); Aspartate Amino Transferase 15 U/L (0-32); Blood Urea Nitrogen 5 mg/dL (8-23); Calcium 7.9 mg/dL (8.5-10.5); Carbon Dioxide 23 mmol/L (22-29); Chloride 100 mmol/L (98-107); Globulin 3.5 g/dL (1.3-4.6); Glomerular Filtration Rate 159.7 mL/min (90-130); Glucose 118 mg/dL (65-115); Osmolality Calculated 278 mOsm/kg (285-295); Potassium 3.2 mmol/L (3.5-5.1); Sodium 135 mmol/L (136-145); Total Bilirubin 0.3 mg/dL (0.15-1.2); Total Protein 5.5 g/dL (6.6-8.7)
[2022-05-04] MEDS: budesonide 0.5 mg/2 mL Neb 0.25 MG INHALATION ×2 (07:46→21:09)
[2022-05-04] MEDS: ipratropium-albuterol 3 mL Neb INHALATION ×4 (07:46→21:10)
[2022-05-04] MEDS: remdesivir 100 MG in sodium chloride 0.9% (100 ml) 80 ML IV (11:07)
[2022-05-04 11:53] LABS: Glucose Point of Care 138 mg/dL (70-110)
[2022-05-04] MEDS: diphenhydrAMINE 50 mg/mL SDV 1mL 25 MG IVP (12:20)
[2022-05-04] MEDS: famotidine 20 mg/2 mL INJ IVP (12:22)
[2022-05-04] MEDS: sodium chloride 0.9% 250 ML 75 ML IV (12:24)
[2022-05-04] MEDS: OLANZapine 5 mg TABLET PO (12:27)
[2022-05-04] MEDS: ondansetron 2 mg/ML SDV 2 mL 8 MG IVP (12:27)
[2022-05-04] MEDS: fosaprepitant 150 MG in sodium chloride 0.9% 150 ML 300 MG IV (12:28)
[2022-05-04] MEDS: [UNRECOGNIZED DRUG - REMARK] 507.75 MG IV (14:55)
[2022-05-04 17:05] LABS: Glucose Point of Care 148 mg/dL (70-110)
--- NOTE | 2022-05-04 18:25 | P.PN_ITS ---
Subjective Subjective: Patient tolerated chemotherapy today okay. No new complaints. She was on oxygen only at night prior to admission. Breathing okay but has to clear throat to answer question. Vitals/I&O/Wt Last Vital Signs Temp 98.5 F 05/04/22 15:43 Pulse 94 05/04/22 16:16 Resp 18 05/04/22 16:16 BP 111/67 05/04/22 15:43 Pulse Ox 95 05/04/22 16:16 05/04/22 05/04/22 05/04/22 06:59 14:59 22:59 Intake Total 1000 / 2340 1723 / 1723 1857.75 / 3580.75 Output Total 2200 / 4050 300 / 300 1800 / 2100 Balance -1200 / -1710 1423 / 1423 57.75 / 1480.75 Weight last 48 hrs Weight 58.513 kg Weight 58.559 kg Weight 60.282 kg Physical Exam Narrative: Constitutional: Looks acutely and chronically ill appearing HEENT: EOMI, dry mucus membranes Respiratory: Coarse breath sounds, some upper airway noises Cardiovascular: Regular Abdomen: Soft, positve bowel sounds, non tender Extremities: No calf tenderness Neuro: Speech clear, generally tired/weak, moves all extremities Urinary Catheter Management: Bradley: Cath Placed During This Visit: yes Reason for Continuing Indwelling Catheter: Acute Urinary Retention or Obstruction Urinary Catheter Date of Insertion: 04/28/22 Urinary Catheter Time of Insertion: 21:40 Data : 05/04/22 05:03 05/04/22 05:03 Micro: Microbiology 04/28/22 22:37 Blood Culture - Final Blood NO GROWTH AFTER 5 DAYS 04/28/22 22:37 Blood Culture - Final Blood NO GROWTH AFTER 5 DAYS A&P Assessment and plan (1) Malignant neoplasm of upper lobe, left bronchus or lung: Small cell History of smoking Status: Acute (2) On antineoplastic chemotherapy: Started Etopiside and Carboplatin Status: Acute (3) Acute and chronic respiratory failure with hypoxia: From above (lung cancer) and below (post obstructive pneumonia and covid) Status: Acute (4) COVID-19 virus infection: On remdesivir Status: Acute (5) Postobstructive pneumonia: MRSA from bronchoscope obtained specimens On linezolid Status: Acute (6) COPD (chronic obstructive pulmonary disease): Status: Chronic Qualifiers: COPD type: emphysema Emphysema type: centrilobular Qualified Code(s): J43.2 - Centrilobular emphysema (7) On home oxygen therapy: Has been on nocturnal ocygen only 2-3L BNC prior to this admission Status: Acute Plan Sepsis diagnoses from admission based on leukocytosis, tachycardia, suspected infection and elevated lactic acid. Also with hypoxic respiratory failure. Lactate elevation and respiratory failure multifactorial from pneumonia (post obstructive process), covid infection, lung mass/small cell cancer. Has not required pressors to date. Lesions in spleen and adrenal gland noted on imaging Continue chemotherapy as per Oncology Continue remdesivir Continue oral linezolid On IVFs, steroids, electrolyte replacement other medications as needed for chemo and overall care Insulin for diabetes management Breathing treatments as needed Home statin, plavix, and a few other medications which still need clarified are held Plans discussed with patient and she was given an opportunity to ask questions Attestations Medical Necessity Statement*: Ongoing care for chemotherapy and associated care in inpatient setting as per Oncology recommendations. In addition receiving treatment for COVID with remdesivir and oral linezolid. 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 of Care Code Acute [employer] for [facility] Fwd Diagnoses Malignant neoplasm of upper lobe, left bronchus or lung C34.12 Acute and chronic respiratory failure with hypoxia J96.21 COVID-19 virus infection U07.1 Postobstructive pneumonia J18.9 COPD (chronic obstructive pulmonary disease) J43.2 COPD type: emphysema Emphysema type: centrilobular On antineoplastic chemotherapy Z79.899 On home oxygen therapy Z99.81
[2022-05-04] MEDS: insulin lispro 100 unit/1 mL SUBCUT (21:03)
[2022-05-04 21:06] LABS: Glucose Point of Care 181 mg/dL (70-110)
[2022-05-05] VITALS (10 sets, daily range): BP systolic 94–113; BP diastolic 59–68; PULSE 78–114; RESP 16–22; TEMP 36.5–37; O2SAT 94–97; BMI 25.9
[2022-05-05] MEDS: linezolid 600 mg Tablet PO ×2 (01:56→16:20)
[2022-05-05] MEDS: heparin 5,000 unit/mL INJ 1 mL 5000 UNIT SUBCUT ×2 (01:56→16:20)
[2022-05-05 05:06] LABS: Basophils % 0.3 %; Hematocrit 28.9 % (37.0-47.0); Hemoglobin 9.6 g/dL (11.5-15.3); Lymphocytes # 0.6 10^3/uL (0.8-4.8); Lymphocytes % 6.5 %; Mean Corpuscular HGB Conc 33.2 g/dL (30.0-36.0); Mean Corpuscular Hemoglobin 29.6 pg (28.0-34.0); Mean Corpuscular Volume 89.2 fl (81-99); Mean Platelet Volume 10.9 fL (7.4-10.4); Monocytes # 0.1 10^3/uL (0.2-0.9); Monocytes % 1.4 %; Neutrophils % 90.5 %; Nucleated Red Blood Cells % 0 %; Platelet Count 349 10^3/cmm (130-400); Red Blood Count 3.24 10^6/uL (4.1-5.3); Red Cell Distribution Width 14.4 % (12.1-15.1); White Blood Count 9.1 10^3/uL (4.0-10.0)
[2022-05-05 05:36] LABS: Anion Gap 15.8 (5-19); Blood Urea Nitrogen 10 mg/dL (8-23); Calcium 8.7 mg/dL (8.5-10.5); Carbon Dioxide 24 mmol/L (22-29); Chloride 104 mmol/L (98-107); Glomerular Filtration Rate 159.7 mL/min (90-130); Glucose 158 mg/dL (65-115); Magnesium 2.2 mg/dL (1.7-2.3); Osmolality Calculated 292 mOsm/kg (285-295); Phosphorus 4.8 mg/dL (2.5-4.5); Potassium 3.8 mmol/L (3.5-5.1); Sodium 140 mmol/L (136-145)
[2022-05-05 05:37] LABS: Creatinine Clr Calc Pharmacy 56.3221
[2022-05-05 06:34] LABS: Glucose Point of Care 149 mg/dL (70-110)
[2022-05-05] MEDS: sodium chloride 0.9% 250 ML 75 ML IV (09:05)
[2022-05-05] MEDS: ondansetron 2 mg/ML SDV 2 mL 8 MG IVP (09:05)
[2022-05-05] MEDS: [UNRECOGNIZED DRUG - REMARK] 507.75 MG IV (09:10)
[2022-05-05] MEDS: budesonide 0.5 mg/2 mL Neb 0.25 MG INHALATION ×2 (09:42→21:09)
[2022-05-05] MEDS: ipratropium-albuterol 3 mL Neb INHALATION ×3 (09:43→16:41)
[2022-05-05 11:16] LABS: Glucose Point of Care 161 mg/dL (70-110)
[2022-05-05] MEDS: remdesivir 100 MG in sodium chloride 0.9% (100 ml) 80 ML IV (11:42)
--- NOTE | 2022-05-05 15:17 | PC.SOCIAL ---
IMM UPDATED IMM dated and initialed and copy given to patient
[2022-05-05] MEDS: sodium chloride 0.9% 1,000 ML 100 ML IV (16:21)
[2022-05-05 16:56] LABS: Glucose Point of Care 163 mg/dL (70-110)
[2022-05-05 21:32] LABS: Glucose Point of Care 232 mg/dL (70-110)
[2022-05-05] MEDS: insulin lispro 100 unit/1 mL SUBCUT (22:06)
--- NOTE | 2022-05-05 22:07 | PM.PN ---
Subjective Subjective: Continues to tolerate chemotherapy. No new complaints today. Feels actually a little bit better overall. Enjoying her hamburger. Vitals/I&O/Wt Last Vital Signs Temp 98.6 F 05/05/22 19:41 Pulse 114 H 05/05/22 20:39 Resp 22 H 05/05/22 20:39 BP 100/61 05/05/22 19:41 Pulse Ox 94 05/05/22 20:39 05/05/22 05/05/22 05/05/22 06:59 14:59 22:59 Intake Total 1050 / 4630.75 / 460 / 2457.75 Output Total 1450 / 3550 Balance -400 / 1080.75 460 / 2457.75 Weight last 48 hrs Weight 60.328 kg Weight 60.691 kg Weight 58.513 kg Weight 58.559 kg Physical Exam Narrative: Constitutional: Not quite as ill-appearing today, seen sitting up on side of bed HEENT: EOMI Respiratory: Crackles and wheezes noted bilaterally Cardiovascular: Regular rhythm Abdomen: Abdominal exam deferred secondary to patient's oral intake Back: Kyphoscoliosis noted Extremities: No calf tenderness Neuro: Speech clear, little bit more strength today Psych: Normal affect Data : 05/05/22 04:24 05/05/22 04:24 A&P Assessment and plan (1) Malignant neoplasm of upper lobe, left bronchus or lung: Small cell History of smoking Status: Acute (2) On antineoplastic chemotherapy: Started Etopiside and Carboplatin inpatient Status: Acute (3) Acute and chronic respiratory failure with hypoxia: From above (lung cancer) and below (post obstructive pneumonia and covid) Status: Acute (4) COVID-19 virus infection: On remdesivir Status: Acute (5) Postobstructive pneumonia: MRSA from bronchoscope obtained specimens On linezolid Status: Acute (6) COPD (chronic obstructive pulmonary disease): Likely exacerbated from comorbid acute pulmonary issues Status: Chronic Qualifiers: COPD type: emphysema Emphysema type: centrilobular Qualified Code(s): J43.2 - Centrilobular emphysema (7) On home oxygen therapy: Has been on nocturnal ocygen only 2-3L BNC prior to this admission Status: Acute Plan Sepsis diagnoses from admission based on leukocytosis, tachycardia, suspected infection and elevated lactic acid. Also with hypoxic respiratory failure. Lactate elevation and respiratory failure multifactorial from pneumonia (post obstructive process), covid infection, lung mass/small cell cancer. Has not required pressors to date. Lesions in spleen and adrenal gland noted on imaging Continue chemotherapy - Will review plan from Oncology standpoint tomorrow as I believe will have received last planned dose Continue remdesivir - 5th dose 05/06 Continue oral linezolid - on day 4 On IVFs, steroids, electrolyte replacement other medications as needed for chemo and overall care Insulin for diabetes management Breathing treatments as needed Plavix held due to hemoptysis Unclear if statin held for specific reason Several home medications still need to be clarified including ativan, compazine and olanzapine when we can get the information Plans discussed with patient and she was given an opportunity to ask questions Disposition planning Will needs staging workup for cancer arranged and follow up with oncology Need to check if needs repeat covid pcr testing for Oncology reasons Limited resuscitation - intubation okay, not chest compressions Attestations Medical Necessity Statement*: Requires ongoing inpatient stay for continued inpatient chemotherapy initiation as outlined by oncology. 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
[2022-05-06] VITALS (12 sets, daily range): BP systolic 92–122; BP diastolic 46–75; PULSE 81–101; RESP 16–20; TEMP 36.4–37.1; O2SAT 91–95; BMI 26.7
[2022-05-06] MEDS: sodium chloride 0.9% 1,000 ML 100 ML IV (02:25)
[2022-05-06 05:04] LABS: Basophils % 0.2 %; Hematocrit 25.6 % (37.0-47.0); Hemoglobin 8.5 g/dL (11.5-15.3); Lymphocytes % 7.3 %; Mean Corpuscular HGB Conc 33.2 g/dL (30.0-36.0); Mean Corpuscular Hemoglobin 29.6 pg (28.0-34.0); Mean Corpuscular Volume 89.2 fl (81-99); Mean Platelet Volume 10.6 fL (7.4-10.4); Monocytes # 0.4 10^3/uL (0.2-0.9); Monocytes % 2.8 %; Neutrophils % 88.6 %; Nucleated Red Blood Cells % 0 %; Platelet Count 346 10^3/cmm (130-400); Red Blood Count 2.87 10^6/uL (4.1-5.3); Red Cell Distribution Width 14.6 % (12.1-15.1); White Blood Count 14.1 10^3/uL (4.0-10.0)
[2022-05-06 05:22] LABS: Anion Gap 10.5 (5-19); Blood Urea Nitrogen 12 mg/dL (8-23); Calcium 7.8 mg/dL (8.5-10.5); Carbon Dioxide 25 mmol/L (22-29); Chloride 107 mmol/L (98-107); Glomerular Filtration Rate 123.4 mL/min (90-130); Glucose 103 mg/dL (65-115); Magnesium 2.1 mg/dL (1.7-2.3); Osmolality Calculated 288 mOsm/kg (285-295); Phosphorus 3.2 mg/dL (2.5-4.5); Potassium 3.5 mmol/L (3.5-5.1); Sodium 139 mmol/L (136-145)
[2022-05-06] MEDS: ipratropium-albuterol 3 mL Neb INHALATION ×4 (07:50→19:56)
[2022-05-06] MEDS: budesonide 0.5 mg/2 mL Neb 0.25 MG INHALATION ×2 (07:50→19:56)
[2022-05-06 08:40] LABS: Glucose Point of Care 141 mg/dL (70-110)
[2022-05-06] MEDS: sodium chloride 0.9% 250 ML 75 ML IV (08:44)
[2022-05-06] MEDS: palonosetron 0.25 mg/5 mL SDV IVP (08:45)
[2022-05-06] MEDS: [UNRECOGNIZED DRUG - REMARK] 507.75 MG IV (08:48)
[2022-05-06] MEDS: remdesivir 100 MG in sodium chloride 0.9% (100 ml) 80 ML IV (10:46)
[2022-05-06] MEDS: heparin 5,000 unit/mL INJ 1 mL 5000 UNIT SUBCUT ×2 (10:47→21:01)
[2022-05-06] MEDS: linezolid 600 mg Tablet PO ×2 (10:47→21:00)
[2022-05-06 11:23] LABS: SARS Covid-2 Antigen Negative (Negative)
[2022-05-06 11:32] LABS: Glucose Point of Care 93 mg/dL (70-110)
[2022-05-06 16:58] LABS: Glucose Point of Care 115 mg/dL (70-110)
--- NOTE | 2022-05-06 19:20 | P.PN_ITS ---
Subjective Subjective: Patient overall better today. Received her last dose of chemotherapy for this initial cycle today. She has not received G-CSF. Still requiring oxygen during the daytime hours. Reviewed case with Dr. Samayoa. Vitals/I&O/Wt Last Vital Signs Temp 98.4 F 05/06/22 15:49 Pulse 95 05/06/22 16:21 Resp 18 05/06/22 16:21 BP 105/61 05/06/22 15:49 Pulse Ox 94 05/06/22 16:21 05/06/22 05/06/22 05/06/22 06:59 14:59 22:59 Intake Total 1200 / 3657.75 977.75 / 977.75 1120 / 2097.75 Output Total 650 / 650 3100 / 3100 Balance 550 / 3007.75 -2122.25 / -2122.25 1120 / -1002.25 Weight last 48 hrs Weight 62.142 kg Weight 62.324 kg Weight 60.328 kg Weight 60.691 kg Physical Exam Narrative: Constitutional: Awake and alert, voice is softer today, spirits good Respiratory: Crackles and wheezes remain present but no retractions Cardiovascular: Regular rhythm Abdomen: Soft, nontender : No Bradley Back: Kyphoscoliosis Extremities: No edema Neuro: Speech clear, moving all extremities Psych: Normal affect Data : 05/06/22 04:36 05/06/22 04:36 A&P Assessment and plan (1) Malignant neoplasm of upper lobe, left bronchus or lung: Small cell History of smoking Status: Acute (2) On antineoplastic chemotherapy: Started Etopiside and Carboplatin inpatient, last dose for today Status: Acute (3) Acute and chronic respiratory failure with hypoxia: From above (lung cancer) and below (post obstructive pneumonia and covid) Status: Acute (4) COVID-19 virus infection: Completing remdesivir today Status: Acute (5) Postobstructive pneumonia: MRSA from bronchoscope obtained specimens On oral linezolid Status: Acute (6) COPD (chronic obstructive pulmonary disease): Exacerbated from comorbid acute pulmonary issues but improving Status: Chronic Qualifiers: COPD type: emphysema Emphysema type: centrilobular Qualified Code(s): J43.2 - Centrilobular emphysema (7) On home oxygen therapy: Has been on nocturnal oxygen only 2-3L BNC prior to this admission Status: Acute Plan Sepsis diagnoses from admission based on leukocytosis, tachycardia, suspected infection and elevated lactic acid. Also with hypoxic respiratory failure. Lactate elevation and respiratory failure multifactorial from pneumonia (post obstructive process), covid infection, lung mass/small cell cancer. Has not required pressors to date. Lesions in spleen and adrenal gland noted on imaging Will follow-up with oncology regarding discharge plan, anticipate either later today or tomorrow Will have post chemo prescriptions of Compazine, olanzapine and lorazepam for anticipated symptom control Recheck COVID antigen test today Continue oral linezolid - on day 5 of 10 Remains on IVFs, steroids, electrolyte replacement other medications as needed for chemo and overall care Insulin for diabetes management Breathing treatments as needed Home oxygen evaluation Continue to hold Plavix, held due to hemoptysis Statin held for unclear reason, will continue to hold for now Plans discussed with patient and she was given an opportunity to ask questions Disposition planning: home with close oncology followup, oxygen for continuous use, may need other services at some point but has some family with her able to help for now Will need staging workup for cancer arranged and follow up with oncology Limited resuscitation - intubation okay, not chest compressions Attestations Medical Necessity Statement*: Requires ongoing stay for completion of initial chemotherapy, fluids and other care as described. Anticipate discharge tomorrow assuming no acute issues overnight. 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
[2022-05-06 21:09] LABS: Glucose Point of Care 108 mg/dL (70-110)
[2022-05-07] VITALS (11 sets, daily range): BP systolic 101–124; BP diastolic 57–78; PULSE 67–97; RESP 16–20; TEMP 36.9–37.2; O2SAT 92–98
[2022-05-07] MEDS: sodium chlor 0.45% +KCl 20 mEq 20 MEQ/1,000 ML BAG 75 MEQ IV (00:29)
--- NOTE | 2022-05-07 05:12 | PC.NURSE ---
patient resting in bed with no complaints. bed in low position with wheels locked, call light in reach.
[2022-05-07 05:35] LABS: Basophils % 0.2 %; Hematocrit 27.3 % (37.0-47.0); Hemoglobin 9.2 g/dL (11.5-15.3); Lymphocytes # 0.7 10^3/uL (0.8-4.8); Lymphocytes % 7.4 %; Mean Corpuscular HGB Conc 33.7 g/dL (30.0-36.0); Mean Corpuscular Hemoglobin 29.5 pg (28.0-34.0); Mean Corpuscular Volume 87.5 fl (81-99); Monocytes # 0.1 10^3/uL (0.2-0.9); Monocytes % 0.5 %; Neutrophils # 9.06 10^3/uL (1.8-7.7); Neutrophils % 91.2 %; Nucleated Red Blood Cells % 0 %; Platelet Count 313 10^3/cmm (130-400); Red Blood Count 3.12 10^6/uL (4.1-5.3); Red Cell Distribution Width 14.4 % (12.1-15.1); White Blood Count 9.9 10^3/uL (4.0-10.0)
[2022-05-07 06:02] LABS: Anion Gap 12.5 (5-19); Blood Urea Nitrogen 7 mg/dL (8-23); Carbon Dioxide 27 mmol/L (22-29); Chloride 102 mmol/L (98-107); Glomerular Filtration Rate 159.7 mL/min (90-130); Glucose 103 mg/dL (65-115); Osmolality Calculated 284 mOsm/kg (285-295); Potassium 3.5 mmol/L (3.5-5.1); Sodium 138 mmol/L (136-145)
[2022-05-07 06:53] LABS: Glucose Point of Care 109 mg/dL (70-110)
[2022-05-07] MEDS: budesonide 0.5 mg/2 mL Neb 0.25 MG INHALATION (08:10)
[2022-05-07] MEDS: ipratropium-albuterol 3 mL Neb INHALATION ×3 (08:10→15:38)
[2022-05-07] MEDS: linezolid 600 mg Tablet PO (09:41)
[2022-05-07] MEDS: heparin 5,000 unit/mL INJ 1 mL 5000 UNIT SUBCUT (09:41)
--- NOTE | 2022-05-07 12:02 | PC.SOCIAL ---
IMM Updated Updated pt on IMM. No questions voiced. Provided pt a copy. Initialed, dated, & timed copy in chart.
[2022-05-07 12:08] LABS: Glucose Point of Care 89 mg/dL (70-110)
--- NOTE | 2022-05-07 13:22 | P.DS_ITS ---
Discharge Providers Date of Admission: 04/28/22 18:16 Date of Discharge: May 07, 2022 Attending Provider at Admission: Clare Grace MD Attending Provider at Discharge: Lisa uAgustin MD Primary Care Provider: MELCHOR [place] Diagnoses at Discharge Discharge Diagnosis (1) Malignant neoplasm of upper lobe, left bronchus or lung: Details from hospital stay: With lesions noted in the spleen and adrenal gland on imaging Status: Acute (2) On antineoplastic chemotherapy: Details from hospital stay: Carboplatin and etoposide started during hospital stay Status: Acute (3) Acute and chronic respiratory failure with hypoxia: Details from hospital stay: Multifactorial as outlined Status: Resolved (4) COVID-19 virus infection: Details from hospital stay: Status post remdesivir Status: Acute (5) Postobstructive pneumonia: Details from hospital stay: With MRSA, will complete a course of linezolid Status: Acute (6) COPD (chronic obstructive pulmonary disease): Details from hospital stay: Chronic disease, acutely exacerbated from above Status: Chronic Qualifiers: COPD type: emphysema Emphysema type: centrilobular Qualified Code(s): J43.2 - Centrilobular emphysema (7) On home oxygen therapy: Status: Acute Other Information Additional DC diagnoses/information: Anemia secondary to chronic inflammation and blood loss from hemoptysis, stable Hypomagnesemia resolved Hypokalemia resolved History of smoking Sepsis without direct endorgan damage clearly identifiable as separate from other comorbidities and acute problems Reason for Visit Reason for Visit: Sepsis/lung mass Brief History: From H&P: Very pleasant 66-year-old lady with history COPD, on nighttime oxygen 2-3 L among other conditions was transferred here as a direct admit from [facility] where she presented with 10 days of weakness, progressive cough, shortness of breath, with finding of leukocytosis 32,000, lactic acid 2.4, and on imaging left hilar and suprahilar mass with mediastinal invasion, severe compression of left main pulmonary artery and occlusion of the left upper lobe and lingular bronchi.? Irregular groundglass foci in the left lower lobe could reflect lymphangitic spread.? No contralateral adenopathy identified.? In determinant right adrenal lesion and indeterminate left adrenal thickening may reflect leukostasis.? Irregular indeterminate enhancing nodularity in the left upper abdominal border and posterior to the spleen could reflect a metastatic deposit. Rapid COVID-19 and rapid influenza were negative. Received a dose of Zosyn. She reports currently is not having much cough, and not producing much phlegm.? Has some left lung pain on inspiration.? No chest pain or pressure. Hospital Course Hospital Course Pulmonology was consulted and Mrs. Jorgensen underwent bronchoscopy performed by Dr. Zaidi. Bronchoalveolar lavage grew MRSA. She was treated initially with vancomycin and Zosyn for postobstructive pneumonia and subsequently transitioned to linezolid. COVID PCR test came back positive a few days into the stay. She was started on remdesivir. 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 Chemotherapy was started in the hospital setting with carboplatin and etoposide. Patient completed her remdesivir. She tolerated chemotherapy well and was discharged home with close outpatient follow-up to oncology. She will complete a total of 14 days of IV linezolid. Rapid COVID antigen was checked prior to discharge and was negative. Laboratory studies last reported during the hospital stay are shown below. Patient was discharged on continuous oxygen therapy at 2 L by nasal cannula. She had previously only been on oxygen at night. Supportive medications postchemotherapy including olanzapine, Compazine and Ativan were prescribed. On the day of discharge patient was breathing better overall. She was eager to get home. Lungs remained coarse. She had a regular rhythm. Able to get around and tolerating oral intake. Staging work-up and other cancer care will be arranged post follow-up. CODE STATUS was limited with intubation okay but no chest compressions. Discharge Data Studies Completed and Pending Completed Studies During Hospitalization Category Date Time Status CT abdomen pelvis w con* [id number] Urgent Cat Scan 04/29/22 14:[address] head wo con* [id number] Urgent Cat Scan 04/29/22 14:17 Completed Cytology [PTH] Routine Pth 04/29/22 13:30 Completed Pathology: Surgical [PTH] Routine Pth 04/29/22 13:48 Completed Pending at discharge Category Date Time Status Sputum Culture and Gram Stain Routine Lab 04/28/22 19:13 Uncollected Radiology Impressions Abdomen/Pelvis CT 04/29/22 14:17 IMPRESSION: 1. Fatty liver 2. Enlarging splenic lesion, possibly but not definitely a cyst. Further evaluation such as with MRI suggested. 3. Stable adrenal nodules. 4. New left upper quadrant soft tissue nodule posterior to the spleen worrisome for metastatic disease. 5. New soft tissue nodular lymph node in the mesentery of the transverse colon of uncertain significance. 6. Increasing left lower lobe pneumonia 7. New left pleural effusion 8. Old granulomatous disease 9. Other chronic findings as described above. with Head CT 04/29/22 14:17 IMPRESSION: No acute intracranial abnormality. Laboratory Results WBC 9.9 10^3/uL (4.0-10.0) 05/07/22 05:00 RBC 3.12 10^6/uL (4.1-5.3) L 05/07/22 05:00 Hgb 9.2 g/dL (11.5-15.3) L 05/07/22 05:00 Hct 27.3 % (37.0-47.0) L 05/07/22 05:00 MCV 87.5 fl (81-99) 05/07/22 05:00 MCH 29.5 pg (28.0-34.0) 05/07/22 05:00 MCHC 33.7 g/dL (30.0-36.0) 05/07/22 05:00 RDW 14.4 % (12.1-15.1) 05/07/22 05:00 Plt Count 313 10^3/cmm (130-400) 05/07/22 05:00 MPV 10.0 fL (7.4-10.4) 05/07/22 05:00 Neut % (Auto) 91.2 % 05/07/22 05:00 Lymph % (Auto) 7.4 % 05/07/22 05:00 [place] % (Auto) 0.5 % 05/07/22 05:00 Eos % (Auto) 0.0 % 05/07/22 05:00 Baso % (Auto) 0.2 % 05/07/22 05:00 Neut # (Auto) 9.06 10^3/uL (1.8-7.7) H 05/07/22 05:00 Lymph # (Auto) 0.7 10^3/uL (0.8-4.8) L 05/07/22 05:00 [place] # (Auto) 0.1 10^3/uL (0.2-0.9) L 05/07/22 05:00 Eos # (Auto) 0.0 10^3/uL (0.0-0.8) 05/07/22 05:00 Baso # (Auto) 0.0 10^3/uL (0.0-0.1) 05/07/22 05:00 Nucleated RBC % (auto) 0 % 05/07/22 05:00 Total Counted 100 (0-100) 04/29/22 04:19 Atypical Lymphs % 2.0 % (0-5) 04/29/22 04:19 Absolute Neutrophils 17.9 10^3/cmm (1.4-6.5) H 04/29/22 04:19 Segmented Neutrophils 69 % 04/29/22 04:19 Abs Segm Neuts (Man) 14.6 10/cmm (1.6-7.1) H 04/29/22 04:19 Band Neutrophils 16.0 % 04/29/22 04:19 Abs Band Neuts (Man) 3.4 10^3/cmm (0.0-1.2) H 04/29/22 04:19 Absolute Lymphocytes 1.9 10^3/cmm (1.2-3.4) 04/29/22 04:19 Lymphocytes (Manual) 7 % 04/29/22 04:19 Monocytes (Manual) 6.0 % 04/29/22 04:19 Absolute Monocytes 1.3 10^3/cmm (0.1-0.6) H 04/29/22 04:19 Eosinophils (Manual) 0 % 04/29/22 04:19 Absolute Eosinophils 0.0 10^3/cmm (0.0-0.7) 04/29/22 04:19 Basophils (Manual) 0.0 % 04/29/22 04:19 Absolute Basophils 0.0 10^3/cmm (0.0-0.2) 04/29/22 04:19 Nucleated RBCs # 0.0 /100WBC 05/07/22 05:00 Platelet Estimate Normal (Normal) 04/29/22 04:19 Specimen Type Arterial 04/28/22 09:09 Sample Site Not Reportable 04/28/22 09:09 ABG pH 7.48 (7.35-7.45) H 04/28/22 09:09 ABG pCO2 33.1 mmHg (35-45) L 04/28/22 09:09 ABG pO2 85.6 mmHg (80.0-100.0) 04/28/22 09:09 ABG HCO3 24.5 mmol/L (22-26) 04/28/22 09:09 ABG O2 Saturation 97.5 04/28/22 09:09 ABG Base Excess 1.6 mmol/L (-2.0-2.0) 04/28/22 09:09 Gary Test Pos 04/28/22 09:09 A-a O2 Gradient 2.8 mmHg (5-10) L 04/28/22 09:09 Hematocrit 49.7 % (37-47) H 04/28/22 09:09 Hgb O2 Saturation 96.3 % (95-100) 04/28/22 09:09 Carboxyhemoglobin 0.6 %THgb (0.4-20.1) 04/28/22 09:09 Methemoglobin 0.6 % (0.4-1.5) 04/28/22 09:09 Total Hemoglobin 16.2 g/dL (12-16) H 04/28/22 09:09 Sodium 135.0 mmol/L (131-143) 04/28/22 09:09 Potassium 3.0 mmol/L (3.5-5.0) L 04/28/22 09:09 Glucose 128.0 mg/dL (70-115) H 04/28/22 09:09 Ionized Calcium 1.1 mmol/L (1.1-1.4) 04/28/22 09:09 O2 Delivery Device Not Reportable 04/28/22 09:09 Metal Drilling Machine Operator ID Dayne 04/28/22 09:09 Sodium 138 mmol/L (136-145) 05/07/22 05:00 Potassium 3.5 mmol/L (3.5-5.1) 05/07/22 05:00 Chloride 102 mmol/L (98-107) 05/07/22 05:00 Carbon Dioxide 27 mmol/L (22-29) 05/07/22 05:00 Anion Gap 12.5 (5-19) 05/07/22 05:00 BUN 7 mg/dL (8-23) L 05/07/22 05:00 Creatinine 0.4 mg/dL (0.5-0.9) L 05/07/22 05:00 GFR Calculation 159.7 mL/min (90-130) H 05/07/22 05:00 Glucose 103 mg/dL (65-115) 05/07/22 05:00 POC Glucose 89 mg/dL (70-110) 05/07/22 11:51 Calculated Osmolality 284 mOsm/kg (285-295) L 05/07/22 05:00 Lactate 1.0 mmol/L (0.5-2.2) 04/28/22 22:37 Calcium 8.0 mg/dL (8.5-10.5) L 05/07/22 05:00 Phosphorus 3.2 mg/dL (2.5-4.5) 05/06/22 04:36 Magnesium 2.1 mg/dL (1.7-2.3) 05/06/22 04:36 Total Bilirubin 0.3 mg/dL (0.15-1.2) 05/04/22 05:03 AST 15 U/L (0-32) 05/04/22 05:03 ALT 33 U/L (0-33) 05/04/22 05:03 Alkaline Phosphatase 85 IU/L (35-105) 05/04/22 05:03 Total Protein 5.5 g/dL (6.6-8.7) L 05/04/22 05:03 Albumin 2.0 g/dL (3.5-5.2) L 05/04/22 05:03 Globulin 3.5 g/dL (1.3-4.6) 05/04/22 05:03 SARS-CoV-2 RNA (RT-PCR) Detected (NOT DETECTED) A 04/28/22 21:30 SARS-CoV-2 Ag (Rapid) Negative (Negative) 05/06/22 10:50 Vitals Last Vital Signs Temp 98.5 F 05/07/22 11:02 Pulse 97 05/07/22 12:17 Resp 18 05/07/22 12:12 BP 115/69 05/07/22 11:02 Pulse Ox 94 05/07/22 12:12 Discharge Plan Discharge Patient Disposition: Home Condition: Stable Prescriptions: New linezolid 600 mg tablet 600 mg PO BID 8 Days Qty: 16 0RF acetaminophen 325 mg Tablet 650 mg PO Q6H PRN (Reason: Mild/Mod Pain Or Temp >/= 101) Qty: 0 0RF ipratropium-albuterol 0.5 mg-3 mg(2.5 mg base)/3 mL Solution For Nebulization 3 ml inhalation QID Qty: 100 0RF albuterol sulfate 2.5 mg/0.5 mL solution for nebulization 2.5 mg inhalation Q4H PRN (Reason: increased shortness of breath) Qty: 30 0RF Continued mecobalamin (vitamin B12) 1,000 mcg tablet,chewable 1,000 mcg PO DAILY 0RF clopidogrel 75 mg tablet 75 mg PO DAILY Qty: 90 1RF Hold Instructions: Resume on 01/11/20. atorvastatin 10 mg tablet 10 mg PO DAILY Qty: 90 3RF budesonide 0.25 mg/2 mL suspension for nebulization 0.25 mg inhalation BID Qty: 60 3RF Breo Ellipta 100-25 mcg/dose blister with device 1 inh inhalation Q24H Qty: 60 5RF potassium chloride 40 mEq/15 mL liquid See Rx Instructions .ROUTE .COMPLEX Qty: 473 0RF Dose Instruction: DILUTE 7.5 ML IN JUICE OR WATER AND DRINK ONCE DAILY DIRECTED Rx Instructions: DILUTE 7.5 ML IN JUICE OR WATER AND DRINK ONCE DAILY DIRECTED olanzapine 5 mg Tablet 5 mg PO QPM Qty: 30 3RF Rx Instructions: Take for 5 days post chemo. Compazine 10 mg Tablet 10 mg PO Q4H PRN (Reason: Mild Nausea) Qty: 30 3RF lorazepam 1 mg Tablet 0.5 - 1 mg PO Q6H PRN (Reason: Severe Nausea) Qty: 30 3RF Discontinued loperamide 2 mg capsule 4 mg PO TID PRN (Reason: loose stool) Qty: 60 2RF Discharge Orders: Discharge Order (Routine); Ordered 05/07/22 Ordered By: Lisa Augustin Other Ambulatory Orders: DME: Oxygen (Order) Location: None Selected Ordered By: Clare Grace Referrals: Yg Samayoa MD [Hospitalist] - 4-7 days (Please call Dr Samayoa's Office on Monday at [phone] to schedule a follow up appointment for 4-7 days. Thank you.) Discharge Diet: Advance as tolerated Discharge Activity: Increase activity as tolerated Patient Instructions: Acetaminophen (By mouth) (Acetaminophen Children's, Acetaminophen..., Albuterol (By breathing) (ProAir, AccuNeb, Proventil, Proventil..., Ipratropium (By breathing) (Atrovent HFA), Carboplatin (By injection), Etoposide (By injection), Linezolid (By mouth) (Zyvox), Using Oxygen at Home (DC), Opioid Safety Activity Restrictions/Additional Instructions: You were transferred here from [facility] because of a mass in your lung associated with difficulty breathing. You were seen by pulmonology, Dr. Zaidi and underwent biopsy of that mass as well as cultures. You were found to have small cell lung cancer (by biopsy, additional studies pending) for which you have been started on first round of chemotherapy with carboplatin and etoposide. You will follow-up with Dr. Samayoa at the cancer treatment center for continued care. New prescriptions provided for you include scheduled olanzapine as well as Compazine and Ativan as needed for nausea. Information about the chemotherapy you received is included in your discharge packet. The cancer treatment nurses also reviewed some of this information with you. In addition to the cancer that was found, you had evidence of pneumonia behind the mass in your lungs. This was positive for MRSA. You are being treated with oral linezolid, an antibiotic. Take the antibiotic as directed until complete. You were also found to be COVID-positive. You received treatment with remdesivir. Rapid COVID antigen on 05/06 was negative, but it is still potentially possible for you to test COVID positive again in the future due to decreased immune response after your cancer treatment. The chemotherapy you have received puts you atrisk of developing other infections, so it is recommended that you wear a mask around others and/or ask other people to wear a mask around you. You are being discharged with continuous oxygen therapy rather than oxygen only at night. Information on using oxygen at home is provided in this packet. Do not smoke around oxygen or with oxygen on. This coming week oncology center for further care regarding the cancer. Take this paper with you to your follow-up appointments and if you have to come to the emergency room. The following information is for any medical providers who might care for you as well as for your own records : You did not receive Neupogen. Blood counts on the day of discharge showed a white count of 9.9, hemoglobin of 9.2, hematocrit of 27, platelet count of 314, neutrophil count of 9.06, lymphocyte count of 0.7. Your sodium was 138, potassium was 3.5, chloride 102, carbon dioxide 27, BUN and creatinine 7/0.4, calcium 8.0. Most recent liver enzymes were normal. Hemoptysis present initially but no gross hemoptysis in the day or 2 preceding discharge. Call the Cancer Treatment Center or come to the emergency room should you have fever greater than or equal to 101, intractable vomiting or diarrhea, acutely worsening shortness of breath, or other concerning symptoms. Discharge Attestations Time Spent in Discharge Care*: greater than 30 min Specific Discharge Activities: educating patient, discussing with pcp/other providers, discussing with supervisor case loading/social workers/dc planners, documenting/other paperwork and evaluating patient/reviewing data Quality Metrics Clinical Quality Measures [ No reported AMI, CVA or VTE this stay] 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 of Care Code Acute Chg FW DC note Diagnoses Malignant neoplasm of upper lobe, left bronchus or lung C34.12 On antineoplastic chemotherapy Z79.899 Acute and chronic respiratory failure with hypoxia J96.21 COVID-19 virus infection U07.1 Postobstructive pneumonia J18.9 COPD (chronic obstructive pulmonary disease) J43.2 COPD type: emphysema Emphysema type: centrilobular On home oxygen therapy Z99.81
[2022-05-07 17:17] LABS: Glucose Point of Care 107 mg/dL (70-110)
--- NOTE | 2022-05-07 18:22 | PC.NURSE ---
Patient awaiting ride for Discharge. IV and emery catheter removed.
== END 2022-05-07 19:00 | disposition home or self-care (01) | DRG 180 ==
LOC: ICU 04-30 01:09 → MEDSURG 05-01 16:07
PROVIDERS: Internal Medicine; Internal Medicine Critical Care Medicine; Admitting Provider Internal Medicine; PCP Registered Nurse; Visit Provider Hospitalist
PROC: 0BJ08ZZ Inspection of Tracheobronchial Tree, Via Natural or Artificial Opening Endoscopic (ICD-10-PCS; CPT 31622; principal; 2022-04-29 13:00)
PROC: BB4BZZZ Ultrasonography of Pleura (ICD-10-PCS; 2022-04-29 13:00)
DX: C34.12 Malignant neoplasm of upper lobe, left bronchus or lung (principal); A41.9 Sepsis, unspecified organism; J15.212 Pneumonia due to Methicillin resistant Staphylococcus aureus; J96.21 Acute and chronic respiratory failure with hypoxia; U07.1 COVID-19; E87.2 Acidosis; J43.2 Centrilobular emphysema; Z99.81 Dependence on supplemental oxygen; I71.4 Abdominal aortic aneurysm, without rupture; K52.9 Noninfective gastroenteritis and colitis, unspecified; E11.51 Type 2 diabetes mellitus with diabetic peripheral angiopathy without gangrene; E11.43 Type 2 diabetes mellitus with diabetic autonomic (poly)neuropathy; K31.84 Gastroparesis; Z95.820 Peripheral vascular angioplasty status with implants and grafts; K21.9 Gastro-esophageal reflux disease without esophagitis; E78.00 Pure hypercholesterolemia, unspecified; E27.9 Disorder of adrenal gland, unspecified; D73.89 Other diseases of spleen; E87.6 Hypokalemia; E83.42 Hypomagnesemia; Z79.02 Long term (current) use of antithrombotics/antiplatelets; Z79.899 Other long term (current) drug therapy; K76.0 Fatty (change of) liver, not elsewhere classified; D50.0 Iron deficiency anemia secondary to blood loss (chronic); Z87.891 Personal history of nicotine dependence
CPT/HCPCS: 31624; 31652; 36415; 36416; 51702; 70450; 74177; 80048; 80051; 80053; 80503; 82330; 82805; 82962; 83605; 83735; 84100; 85007; 85025; 86403; 87040; 87070; 87077; 87086; 87186; 87205; 87426; 87449; 87635; 87641; 88305; 88307; 88342; 94640; 94664; 94760; 96372; 99223; J0330; J1100; J1200; J1453; J1644; J1815; J2405; J2469; J2543; J2704; J2765; J3370; J3475; J3480; J3490; J7030; J7040; J7050; J7626; J9045; J9181; Q9967

== ENCOUNTER 2022-05-10 08:17 | Oncology outpatient (recurring) (ONCR) | payer MEDICARE, MEDICAID, SELFPAY ==
[2022-05-10 09:51] LABS: Basophils % 0.3 %; Hematocrit 31.1 % (37.0-47.0); Hemoglobin 10.3 g/dL (11.5-15.3); Lymphocytes # 0.5 10^3/uL (0.8-4.8); Lymphocytes % 6.1 %; Mean Corpuscular HGB Conc 33.1 g/dL (30.0-36.0); Mean Corpuscular Hemoglobin 29.3 pg (28.0-34.0); Mean Corpuscular Volume 88.6 fl (81-99); Mean Platelet Volume 10.4 fL (7.4-10.4); Monocytes # 0.1 10^3/uL (0.2-0.9); Monocytes % 0.6 %; Neutrophils # 7.36 10^3/uL (1.8-7.7); Neutrophils % 83.4 %; Nucleated Red Blood Cells % 0 %; Platelet Count 264 10^3/cmm (130-400); Red Blood Count 3.51 10^6/uL (4.1-5.3); Red Cell Distribution Width 13.9 % (12.1-15.1); White Blood Count 8.8 10^3/uL (4.0-10.0)
[2022-05-10 10:16] LABS: Slide Review Slide Review Perform
[2022-05-10 10:23] LABS: Alanine Aminotransferase 13 U/L (0-33); Albumin Level 3.1 g/dL (3.5-5.2); Alkaline Phosphatase 104 IU/L (35-105); Anion Gap 17.6 (5-19); Aspartate Amino Transferase 13 U/L (0-32); Blood Urea Nitrogen 9 mg/dL (8-23); Calcium 8.4 mg/dL (8.5-10.5); Carbon Dioxide 24 mmol/L (22-29); Chloride 92 mmol/L (98-107); Glomerular Filtration Rate 123.4 mL/min (90-130); Glucose 154 mg/dL (65-115); Iron 66 ug/dL (37-145); Magnesium 2.2 mg/dL (1.7-2.3); Osmolality Calculated 270 mOsm/kg (285-295); Percent Saturation 29.5 % (20-50); Potassium 4.6 mmol/L (3.5-5.1); Sodium 129 mmol/L (136-145); Total Bilirubin 0.4 mg/dL (0.15-1.2); Total Iron Binding Capacity 223 mcg/dl; Total Protein 7.1 g/dL (6.6-8.7); Unsaturated Iron Binding 157 ug/dL (112-347)
[2022-05-10 10:39] LABS: Vitamin B12 1813 pg/mL (232-1245)
== END 2022-05-22 23:59 | disposition home or self-care (01) ==
PROVIDERS: PCP Registered Nurse; Visit Provider Internal Medicine Medical Oncology
DX: C34.12 Malignant neoplasm of upper lobe, left bronchus or lung (principal); C78.89 Secondary malignant neoplasm of other digestive organs; U07.1 COVID-19; D64.9 Anemia, unspecified; Z79.899 Other long term (current) drug therapy; Z87.891 Personal history of nicotine dependence
CPT/HCPCS: 36415; 80053; 82607; 83540; 83550; 83735; 85025; 99215

== ENCOUNTER → 2022-05-17 13:17 | Outpatient (BNVA) | payer MEDICARE, MEDICAID, SELFPAY | PROVIDERS: PCP Registered Nurse; Visit Provider Surgery | DX: C34.12 Malignant neoplasm of upper lobe, left bronchus or lung (principal) | CPT/HCPCS: 99204 ==

== ENCOUNTER 2022-05-24 06:15 | Day surgery (SDC) | payer MEDICARE, MEDICAID, SELFPAY ==
[2022-05-23 11:45] VITALS: BMI 21.4
--- NOTE | 2022-05-24 | SCC_ITS ---
Procedure done: 1. Placement of PowerPort in the right internal jugular vein 31.7 seconds of fluoroscopic guidance, for a cumulative dose of 2.56 mGy, was provided to Dr. Webb by the radiology department. C-arm images of the chest were saved for the patient's permanent record. [facility]
--- NOTE | 2022-05-24 06:55 | P.HP_ITS ---
Same Day Surgery H&P Indication for Procedure/HPI DATE OF PROCEDURE: May 24, 2022 CHIEF COMPLAINT/INDICATIONFOR SURGICAL PROCEDURE: port placement PREOP DIAGNOSIS: Lung cancer PLANNED PROCEDURE: Operation Date: 05/24/22 08:20 Proposed Procedures p port a cath placement [id number],[id number](Not Applicable) - Afshin Webb MD Medications/Allergies* Home Medications Medication Instructions Recorded Confirmed Type mecobalamin (vitamin B12) 1,000 1,000 mcg PO DAILY 01/22/21 05/23/22 History mcg chewable tablet Allergies/Adverse Reactions Allergy/AdvReac Type Severity Reaction Status Date / Time dipyridamole Allergy Severe ALGY-Difficulty Verified 05/17/22 13:33 [From Persantine] Breathing Pertinent History/Comorbid Conditions* Medical History (Updated 05/11/22 @ 07:36 by Yg Samayoa MD) Abdominal aortic aneurysm (AAA) Chronic diarrhea COPD (chronic obstructive pulmonary disease) with emphysema COVID-19 virus infection Diabetes Diverticulosis of colon Gastroparesis GERD (gastroesophageal reflux disease) Hypercholesteremia MRSA pneumonia Peripheral Vascular Disease Surgical History (Updated 05/01/20 @ 17:28 by Afshin Webb MD) H/O esophagogastroduodenoscopy (~01/08/20) Normal History of colonoscopy (2018) S/P carpal tunnel release S/P insertion of iliac artery stent aortoiliac stent Status post laparoscopic cholecystectomy (~01/08/20) Family History (Updated 05/10/22 @ 08:38 by Elizabeth Larkin LPN) Diabetes Clotting disorder Cancer Mother Hypertension Father Stroke Mother Denies family history of CAD (coronary artery disease) Dementia Hyperlipidemia Psychiatric illness Chronic kidney disease (CKD) Suicide Anesthesia complication Bleeding disorder Lung disease Social History Smoking and tobacco status: former smoker Quit status (tobacco): has quit using tobacco Year quit tobacco: December 2020 Former quit date comment: 0.5ppd x 58 years Second hand smoke exposure: Yes Smoking risk assessment/counseling performed?: Yes Alcohol intake: never Lives independently: Yes Household members: family Housing: House Marital status: Single Current occupational status: retired History of recent travel: No Current gender identity: Female Pertinent Exam Findings alert, oriented x 3 and regular rate & rhythm Recommendations Surgery/Procedure today 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 of Care Code Acute Floor Space Allocator for Chg Fwdallin
[2022-05-24 07:00] VITALS: BP 116/56; PULSE 91; RESP 18; TEMP 36.8; O2SAT 96
--- NOTE | 2022-05-24 07:21 | ANES.PREANE2 ---
Pre-Anesthetic Assessment Height/Weight: Height 1.57 m Weight 53.07 kg Temp Pulse Resp BP Pulse Ox O2 Del Method 98.2 F 91 18 116/56 96 05/24/22 07:00 05/24/22 07:00 05/24/22 07:00 05/24/22 07:00 05/24/22 07:00 05/24/22 07:00 Preop Diagnosis: Lung cancer Operation Date: 05/24/22 08:20 Proposed Procedures p port a cath placement [id number],[id number](Not Applicable) - Afshin Webb MD Familial anesthetic complications: None Was Beta Jeffy taken within 24 hours: N/A Was Clonidine taken within 24 hours: N/A Last intake: Intake Last Liquid Date 05/23/22 Last Liquid Time 20:00 Last Solid Date 05/23/22 Last Solid Time 20:00 Social No alcohol and No tobacco (h/o smoking) Exam alert, oriented x 3 and regular rate & rhythm decreased, rhonchi Airway Submandibular: within normal limits Cervical ROM: within normal limits Mallampati: Class I Dentition: false Comments: Comments: hoarse Pulmonary Chronic Obstructive Pulmonary Disease Home O2 2L, lung mass CV/HEM Anemia, Hypertension and Peripheral Vascular Disease Metabolic Diabetes Mellitus Anesthetic Plan ASA status: 3 Anesthesia: MAC Medications/Allergies Home Medications Medication Instructions Recorded Confirmed Last Taken Type mecobalamin (vitamin B12) 1,000 1,000 mcg PO DAILY 01/22/21 05/24/22 05/23/22 History mcg chewable tablet atorvastatin 10 mg tablet 10 mg PO DAILY #90 tabs 07/27/21 05/24/22 05/23/22 Rx budesonide 0.25 mg/2 mL suspension 0.25 mg (2 mL) inhalation BID #60 09/01/21 05/24/22 05/24/22 Rx for nebulization mL fluticasone furoate 100 1 inh inhalation Q24H #60 ea 12/02/21 05/23/22 Unknown Rx mcg-vilanterol 25 mcg/dose inhalation powder (Breo Ellipta) clopidogrel 75 mg tablet 75 mg PO DAILY #90 tabs 01/05/22 05/23/22 05/18/22 Rx potassium chloride 40 mEq/15 mL See Rx Instructions .Route 04/21/22 05/23/22 Unknown Rx oral liquid .COMPLEX #473 mL olanzapine 5 mg tablet 5 mg PO QPM Breakthrough Nausea 05/04/22 05/24/22 05/23/22 Rx and Vomitting #30 tabs prochlorperazine maleate 10 mg 10 mg PO Q4H PRN Mild Nausea #30 05/04/22 05/23/22 Unknown Rx tablet (Compazine) tabs acetaminophen 325 mg tablet 650 mg PO Q6H PRN Mild/Mod Pain Or 05/07/22 05/23/22 Unknown Rx Temp >/= 101 #0 tabs lorazepam 0.5 mg tablet 0.5 mg PO TID PRN anxiety #60 tabs 05/10/22 05/23/22 Unknown Rx albuterol sulfate 2.5 mg/0.5 mL 2.5 mg (0.5 mL) inhalation Q4H PRN 05/19/22 05/24/22 05/24/22 Rx solution for nebulization increased shortness of breath #30 ea levofloxacin 500 mg tablet 500 mg PO DAILY #7 tabs 05/19/22 05/24/22 05/23/22 Rx hydrocodone 5 mg-acetaminophen 325 1 tab PO Q6H PRN pain #20 tabs 05/24/22 Unknown Rx mg tablet Allergies Allergy/AdvReac Type Severity Reaction Status Date / Time dipyridamole Allergy Severe ALGY-Difficulty Verified 05/17/22 13:33 [From Persantine] Breathing [facility] Anesthesia Medical History (Updated 05/24/22 @ 07:04 by Afshin Webb MD) Abdominal aortic aneurysm (AAA) Chronic diarrhea COPD (chronic obstructive pulmonary disease) with emphysema COVID-19 virus infection Diabetes Diverticulosis of colon Gastroparesis GERD (gastroesophageal reflux disease) Hypercholesteremia MRSA pneumonia Peripheral Vascular Disease Surgical History (Updated 05/24/22 @ 07:04 by Afshin Webb MD) H/O esophagogastroduodenoscopy (~01/08/20) Normal History of colonoscopy (2019) Port-A-Cath in place (05/24/22) S/P carpal tunnel release S/P insertion of iliac artery stent aortoiliac stent Status post laparoscopic cholecystectomy (~01/08/20) Family History Mother Cancer Stroke Father Hypertension Other Clotting disorder Diabetes Denies family history of CAD (coronary artery disease) Dementia Hyperlipidemia Psychiatric illness Chronic kidney disease (CKD) Suicide Anesthesia complication Bleeding disorder Lung disease Social History Smoking and tobacco status: former smoker Quit status (tobacco): has quit using tobacco Year quit tobacco: December 2020 Former quit date comment: 0.5ppd x 58 years Second hand smoke exposure: Yes Smoking risk assessment/counseling performed?: Yes Alcohol intake: never Lives independently: Yes Household members: family Housing: House Marital status: Single Current occupational status: retired History of recent travel: No Current gender identity: Female Data Anesthesia : 05/24/22 07:10 Cardiac Studies: No Data to Display
[2022-05-24] MEDS: sodium chloride 0.9% 1,000 ML 30 ML IV (07:22)
[2022-05-24 07:46] LABS: Alanine Aminotransferase 9 U/L (0-33); Albumin Level 3.2 g/dL (3.5-5.2); Alkaline Phosphatase 113 IU/L (35-105); Anion Gap 15.2 (5-19); Aspartate Amino Transferase 13 U/L (0-32); Blood Urea Nitrogen 5 mg/dL (8-23); Calcium 8.6 mg/dL (8.5-10.5); Carbon Dioxide 27 mmol/L (22-29); Chloride 104 mmol/L (98-107); Globulin 3.6 g/dL (1.3-4.6); Glomerular Filtration Rate 159.7 mL/min (90-130); Glucose 110 mg/dL (65-115); Osmolality Calculated 292 mOsm/kg (285-295); Potassium 4.2 mmol/L (3.5-5.1); Sodium 142 mmol/L (136-145); Total Bilirubin 0.2 mg/dL (0.15-1.2); Total Protein 6.8 g/dL (6.6-8.7)
[2022-05-24] MEDS: ceFAZolin 2,000 MG in sodium chloride 0.9% (plus) 50 ML 100 MG IV (08:05)
[2022-05-24] MEDS: lidocaine 2% INJ 20 mL INJECTION (08:32)
[2022-05-24] MEDS: heparin, porcine 1,000 unit/mL INJ 10 mL 6000 UNIT IRRIGATION (08:34)
[2022-05-24 08:56] VITALS: BP 116/71; PULSE 90; RESP 18; TEMP 36.7; O2SAT 100
[2022-05-24 09:02] VITALS: BP 121/63; PULSE 85; RESP 16; O2SAT 100
[2022-05-24 09:09] VITALS: BP 120/60; PULSE 81; RESP 15; TEMP 36.6; O2SAT 100
[2022-05-24 09:18] VITALS: BP 119/57; PULSE 82; RESP 16; O2SAT 100
[2022-05-24 09:48] VITALS: BP 117/78; PULSE 85; RESP 18; O2SAT 100
[2022-05-24] MEDS: HYDROcodone-acetaminophen 5-325 mg Tablet 1 TAB PO (09:57)
--- NOTE | 2022-05-24 10:07 | PM.OP ---
Operative Report Date of procedure: May 24, 2022 Pre-op diagnosis: Lung cancer requiring central venous access for chemotherapy Post-op diagnosis: same Procedure done: 1. Placement of PowerPort in the right internal jugular vein 2. Fluoroscopic guidance and interpretation for placement of catheter 3. Ultrasound guidance to access the right internal jugular vein Pathology: none sent Surgeon: Afshin Webb Anesthesia: General Condition: stable Disposition: PACU Procedure: The patient was taken to the Operating Room and the chest and neck bilaterally were prepped and draped in a sterile manner after the antibiotic had been administered and shoulder rolls had been placed. An ultrasound of the right internal jugular vein revealed patent flow, no thrombus. An introducer needle was used to access the right internal jugular vein and after withdrawing blood syringe was removed and a guidewire passed under fluoroscopy into the superior vena cava. The site of the planned port was marked on the chest and a 15 blade was used to make a 3 cm skin incision this was extended into the subcutaneous tissue using electrocautery and a subcutaneous pocket over the pectoralis fascia was created 2-0 Vicryl suture was used to suture the port to the pectoral fascia in the pocket on 3 sides. The catheter, after having been flushed with hep saline, was attached to the tunneler and a tunnel created between the port site and the internal jugular vein entry site. Under fluoroscopy the dilator sheath was passed over the guidewire into the proximal superior vena cava. The inner dilator was removed and the sheath left behind and the catheter was introduced through the peel-away sheath with the tip in the superior vena cava. The peel-away sheath was removed. The proximal end of the catheter was cut to the right size and was attached to the port. Using a Rodriguez needle the port was accessed, it withdrew blood easily and flushed easily. A final 5cc of heparin was used to flush the PowerPort. The subcutaneous tissue was approximated using interrupted 3-0 Vicryl sutures and the skin at the introducer site and the port site was closed using subcuticular running 4-0 Monocryl sutures. Surgical glue was applied and the patient was stable throughout the procedure. Fluoroscopic guidance and interpretation was performed for introduction of the guidewire in the right internal jugular vein, passage of dilator and placement of catheter tip in the distal superior vena cava
--- NOTE | 2022-05-24 15:48 | ANE.PACU2 ---
Inpatient post-anesthesia follow up: Airway intact: Yes Vital signs: Temperature 97.9 F Pulse Rate 85 Respiratory Rate 18 Blood Pressure 117/78 Pulse Oximetry 100 Oxygen Delivery Me thod Nasal Cannula Oxygen Flow Rate 2 Fraction of Inspir ed Oxygen Hydration adequate: Yes Nausea and vomiting: No Pain level: 2 Mental status: Baseline
[2022-05-24 16:53] LABS: Hematocrit 30.6 % (37.0-47.0); Hemoglobin 9.1 g/dL (11.5-15.3); Mean Corpuscular HGB Conc 29.7 g/dL (30.0-36.0); Mean Corpuscular Hemoglobin 29.4 pg (28.0-34.0); Mean Corpuscular Volume 98.7 fl (81-99); Mean Platelet Volume 10.5 fL (7.4-10.4); Platelet Count 437 10^3/cmm (130-400); White Blood Count 10.7 10^3/uL (4.0-10.0)
[2022-05-24 17:24] LABS: Slide Review Slide Review Perform
[2022-05-24 17:25] LABS: Absolute Neutrophil 6.1 10^3/cmm (1.4-6.5); Absolute Segmented Neutrophil 4.7 10/cmm (1.6-7.1); Band Neutrophils Absolute 1.4 10^3/cmm (0.0-1.2); Eosinophils 0 %; Lymphocytes 28 %; Lymphocytes Absolute 3.1 10^3/cmm (1.2-3.4); Platelet Estimate Increased (Normal); Segmented Neutrophils 44 %; Total Cells Counted 100 (0-100)
[2022-05-24 17:26] LABS: Anisocytosis 2+; Burr Cells Trace; Giant Platelets Trace; Hypochromasia Trace; Macrocytosis 2+; Polychromasia 1+
== END 2022-05-24 10:20 | disposition home or self-care (01) ==
PROVIDERS: PCP Registered Nurse; Referring Provider Internal Medicine Medical Oncology; Visit Provider Surgery
PROC: (CPT 36561; principal; 2022-05-24 08:20)
DX: C34.90 Malignant neoplasm of unspecified part of unspecified bronchus or lung (principal); Z99.81 Dependence on supplemental oxygen; E11.9 Type 2 diabetes mellitus without complications; I10 Essential (primary) hypertension; I73.9 Peripheral vascular disease, unspecified; Z86.16 Personal history of COVID-19; J43.8 Other emphysema
CPT/HCPCS: 36561; 77001; 80053; 85007; 85025; C1788; J1644; J2704; J3010; J3490; J7030

== ENCOUNTER 2022-06-22 10:00 | Oncology outpatient (recurring) (ONCR) | payer MEDICARE, MEDICAID, SELFPAY ==
--- NOTE | 2022-05-24 08:08 | SC_ITS ---
WS: [id number] C-ARM RADIOGRAPHS CHEST; 2 IMAGES HISTORY: PORT PLACEMENT COMPARISON: None available. Intraoperative imaging during Port-A-Cath placement. RIGHT port tip termination cannot be clearly los ntified on the imaging submitted. SC/C-arm FL for CVA [id number] IMPRESSION: Intraoperative imaging during RIGHT Port-A-Cath placement.
--- NOTE | 2022-05-25 07:40 | MR_ITS ---
WS: [id number] MRI CERVICAL SPINE NONCONTRAST AND CONTRAST TECHNIQUE: Sagittal T1, T2 and STIR imaging. Axial T2, gradient, and fiesta imaging. CLINICAL INFORMATION: LUNG MASS COMPARISON: PET/CT 05/14/22 FINDINGS: Normal cervical alignment. No high-grade central canal narrowing. Cord signal is normal. Enhancing we ll-circumscribed metastatic lesion involving the T2 vertebral body measuring 1.5 x 1.0 CM. No signifi cant epidural disease. No other visualized bony metastatic lesions in the cervical spine. C2-C3: Mild LEFT and no significant RIGHT foraminal narrowing. C3-C4: Mild facet arthropathy. Mild bilateral bony foraminal narrowing. C4-C5: Slight anterolisthesis C4 on C5. Mild facet arthropathy. Mild to moderate LEFT and no signific ant RIGHT foraminal narrowing. Mild facet arthropathy. C5-C6: Mild disc bulging and osteophytic ridging. Tiny central protrusion. Mild facet arthropathy. Mo derate LEFT and no significant RIGHT foraminal narrowing. C6-C7: Mild facet arthropathy. Mild LEFT and no significant RIGHT foraminal narrowing. Spinal canal i s patent. C7-T1: Normal. Visualized brain stem structures: Normal. Prevertebral soft tissues: Normal. MR/MR cervical spine wo/w [id number] IMPRESSION: 1. Enhancing metastatic lesion C2 vertebral body measuring 1.4 x1.0 cm. No sig nificant epidural disease. 2. No other visualized metastatic lesions. 3. Cord signal is normal. 4. Slight anterolisthesis C4 on C5. 5. Mild spondylitic changes described above.
--- NOTE | 2022-05-25 07:40 | MR_ITS ---
WS: [id number] MRI HEAD WITH CONTRAST TECHNIQUE: Sagittal T1, T2 axial, T2 axial FLAIR, axial susceptibility weighted imaging, axial diffus ion weighted images, and coronal T2 images were obtained. Pre and post-T1 axial and post T1 coronal i mages. ADC and FSPGR images. CLINICAL INFORMATION: LUNG MASS COMPARISON: CT April 29, 2022 FINDINGS: No evidence of restricted diffusion to suggest acute ischemia. Ventricular system and basal cisterns are patent. Mild small vessel changes. Moderate parenchymal volume loss. Normal posterior fossa. Bottoming Room Inspector jude tiny lacunar infarcts LEFT cerebellum. Normal vascular flow voids at the skull base. No extra-axi al fluid collections. No evidence of mass or mass effect. Normal posterior nasopharynx. Normal parapharyngeal fat. Paranasal sinuses and mastoid air cells are well aerated. Slight chronic gliosis RIGHT parietal lobe near the vertex. Metastatic lesion C2 verteb ral body will be discussed on the cervical spine MRI. No hemosiderin on the susceptibility weighted i mages. Normal optic chiasm and pituitary infundibulum. No abnormal intracranial enhancement. No evide nce of enhancing intracranial metastatic disease. MR/MR head wo/w con [id number] IMPRESSION: 1. No evidence of enhancing intracranial metastatic disease. 2. Mild small vessel changes with moderate parenchymal volume loss. 3. No hemosiderin on susceptibly weighted images. 4. Metastatic lesion C2 vertebral body will be discussed on the cervical spine MRI. 5. A few tiny chronic lacunar infarcts LEFT cerebellum.
[2022-05-25] MEDS: gadobenate dimeglumine 5 mL vial IV (09:02)
[2022-05-25] MEDS: sodium chloride 0.9% 250 ML 100 ML IV (11:19)
[2022-05-25] MEDS: famotidine 20 mg/2 mL INJ IVP (11:20)
[2022-05-25] MEDS: diphenhydrAMINE 50 mg/mL SDV 1mL 25 MG IVP (11:20)
[2022-05-25] MEDS: ondansetron 2 mg/ML SDV 2 mL 8 MG IVP (11:20)
[2022-05-25] MEDS: OLANZapine 5 mg TABLET PO (11:21)
[2022-05-25] MEDS: fosaprepitant 150 MG in sodium chloride 0.9% 150 ML 300 MG IV (11:25)
[2022-05-25 14:52] VITALS: BP 98/61; PULSE 88; TEMP 36.5; O2SAT 98
[2022-05-26] MEDS: sodium chloride 0.9% 250 ML 100 ML IV (10:32)
[2022-05-26] MEDS: ondansetron 2 mg/ML SDV 2 mL 8 MG IVP (10:32)
[2022-05-26 12:01] VITALS: BP 110/67; PULSE 84; TEMP 36.7; O2SAT 99
[2022-05-27] MEDS: palonosetron 0.25 mg/5 mL SDV IVP (08:35)
[2022-05-27] MEDS: sodium chloride 0.9% 250 ML 100 ML IV (08:35)
[2022-05-27 10:01] VITALS: BP 115/63; PULSE 68; TEMP 36.5; O2SAT 99
--- NOTE | 2022-06-01 | CT_ITS ---
Radiation Therapy Planning CT images; total exam DLP: 411.77 mGy-cm MTDD
--- NOTE | 2022-06-07 15:27 | ONCRAD TMN_ITS ---
Radiation Oncology Treatment Management Note Patient Name: Kellee Jorgensen Date of : 1955 Date of Service: 06/07/2022 Attending Physician: Guzman Pires M.D. Kellee Jorgensen is a 66 year-old white female diagnosed with extensive stage cell lung cancer. She was admitted from [facility] in [place], [place] on April 28, [address] of the chest at the outside hospital demonstrated a left hilar mass with compression of the left main pulmonary artery and occlusion of the left upper lobe of the lung. Broad coverage antibiotics were prescribed for post-obstructive pneumonia. A bronchoscopy with endoscopic ultrasonography was performed on April 29, 2022 by Agustín Zaidi M.D. Intraoperative findings reported mucosal irregularity of the left upper lobe bronchus with complete occlusion. 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 Cycle 2 of carboplatin (AUC 5) and etoposide (100 mg/m???) was prescribed by Yg Samayoa M.D. on May 25, 2022. A PET scan ordered on May 14, 2022 identified 9.3 cm x 5.4 cm centrally necrotic left lower lobe mass (SUV 18.1), a 3.3 cm x 2 cm left apical mass (SUV 9.2), and FDG positive right upper lobe opacity, hypermetabolic lymphadenopathy within the left hilar, prevascular, paraesophageal, right paratracheal, and right cervical level IV regions, and osseous disease at C2, right sacral ala, and central sacrum. An MRI of the head and cervical spine completed on May 25, 2022 confirmed a 1.5 cm x 1 cm enhancing lesion within the C2 vertebral body without epidural disease. There was no evidence of enhancing intracranial metastatic disease. The patient has received 3 Gy of a prescribed 30 Elliott to C2 with a 3-dimensional conformal radiotherapy plan utilizing opposed lateral treatment hahn. Upon review of systems, she denied any neurological complaints. On physical examination, the patient weighed 118 lbs. Her temperature was 99.2 ???F and the blood pressure was 106/67 mmHg. Her pulse was 84 bpm and the respiratory rate was 20. No erythema was present within the skin. Continue palliative radiotherapy as prescribed. Signed by: Dr. Guzman Pires 06/07/2022 3:26:01 PM
--- NOTE | 2022-06-14 11:09 | ONCRAD TMN_ITS ---
Radiation Oncology Treatment Management Note Patient Name: Kellee Jorgensen Date of : 1955 Date of Service: 06/14/2022 Attending Physician: Guzman Pires M.D. Kellee Jorgensen is a 66 year-old white female diagnosed with extensive stage cell lung cancer. She was admitted from [facility] in [place], [place] on April 28, [address] of the chest at the outside hospital demonstrated a left hilar mass with compression of the left main pulmonary artery and occlusion of the left upper lobe of the lung. Broad coverage antibiotics were prescribed for post-obstructive pneumonia. A bronchoscopy with endoscopic ultrasonography was performed on April 29, 2022 by Agustín Zaidi M.D. Intraoperative findings reported mucosal irregularity of the left upper lobe bronchus with complete occlusion. 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 Cycle 2 of carboplatin (AUC 5) and etoposide (100 mg/m???) was prescribed by Yg Samayoa M.D. on May 25, 2022. A PET scan ordered on May 14, 2022 identified 9.3 cm x 5.4 cm centrally necrotic left lower lobe mass (SUV 18.1), a 3.3 cm x 2 cm left apical mass (SUV 9.2), and FDG positive right upper lobe opacity, hypermetabolic lymphadenopathy within the left hilar, prevascular, paraesophageal, right paratracheal, and right cervical level IV regions, and osseous disease at C2, right sacral ala, and central sacrum. An MRI of the head and cervical spine completed on May 25, 2022 confirmed a 1.5 cm x 1 cm enhancing lesion within the C2 vertebral body without epidural disease. There was no evidence of enhancing intracranial metastatic disease. The patient has received 15 Gy of a prescribed 30 Elliott to C2 with a 3-dimensional conformal radiotherapy plan utilizing opposed lateral treatment hahn. Upon review of systems, she denied any neurological complaints. On physical examination, the patient weighed 118 lbs. Her temperature was 98.1 ???F and the blood pressure was 120/71 mmHg. Her pulse was 93 bpm and the respiratory rate was 20. No erythema was present within the skin. Continue palliative radiotherapy as planned. Signed by: Dr. Guzman Pires 06/14/2022 11:08:20 AM
[2022-06-15] MEDS: barium sulfate 450 mL Oral Susp PO (09:00)
[2022-06-15 09:21] LABS: Basophils # 0.1 10^3/uL (0.0-0.1); Basophils % 0.5 %; Eosinophils # 0.1 10^3/uL (0.0-0.8); Eosinophils % 0.5 %; Hematocrit 22.1 % (37.0-47.0); Hemoglobin 7.4 g/dL (11.5-15.3); Lymphocytes # 2.6 10^3/uL (0.8-4.8); Lymphocytes % 27.9 %; Mean Corpuscular HGB Conc 33.5 g/dL (30.0-36.0); Mean Corpuscular Hemoglobin 31.4 pg (28.0-34.0); Mean Corpuscular Volume 93.6 fl (81-99); Monocytes # 0.8 10^3/uL (0.2-0.9); Monocytes % 8.6 %; Neutrophils # 5.57 10^3/uL (1.8-7.7); Neutrophils % 60.5 %; Nucleated Red Blood Cells % 0 %; Platelet Count 282 10^3/cmm (130-400); Red Blood Count 2.36 10^6/uL (4.1-5.3); Red Cell Distribution Width 16.5 % (12.1-15.1); White Blood Count 9.2 10^3/uL (4.0-10.0)
[2022-06-15 09:27] LABS: Alanine Aminotransferase 22 U/L (0-33); Albumin Level 3.1 g/dL (3.5-5.2); Alkaline Phosphatase 153 U/L (35-105); Anion Gap 17.7 (5-19); Aspartate Amino Transferase 18 U/L (0-32); Blood Urea Nitrogen 5 mg/dL (8-23); Calcium 8.3 mg/dL (8.5-10.5); Carbon Dioxide 26 mmol/L (22-29); Chloride 95 mmol/L (98-107); Globulin 4.4 g/dL (1.3-4.6); Glucose 144 mg/dL (65-115); Osmolality Calculated 280 mOsm/kg (285-295); Potassium 3.7 mmol/L (3.5-5.1); Sodium 135 mmol/L (136-145); Total Bilirubin 0.2 mg/dL (0.15-1.2); Total Protein 7.5 g/dL (6.6-8.7)
--- NOTE | 2022-06-15 10:00 | CT_ITS ---
WS: [id number] CT CHEST, ABDOMEN, AND PELVIS TECHNIQUE: Contrast-enhanced CT of the chest, abdomen, and pelvis with coronal and sagittal reformatt ed images. CLINICAL INFORMATION: restaging COMPARISON: PET/CT May 14, 2022, CT chest abdomen pelvis April 29, 2022, and April 28, 2022. PET/CT Fe banner 2020 DLP: 1424.[address] scans at [facility] use at least one of these dose optimization techniques: automated e xposure control; mA and/or kV adjustment per patient size (includes targeted exams where dose is matc hed to clinical indication); or iterative reconstruction. CT CHEST: Moderate chronic emphysematous changes. Spiculated LEFT suprahilar neoplasm significant improved sinc e April 28, 2022 and slightly improved compared to May 14, 2022. No evidence of progression. This ext ends to the hilum with previously described mediastinal invasion which has improved. Improved mediast inal and AP window lymphadenopathy. No evidence of progression. LEFT lower lobe FDG avid consolidation with central necrosis has improved compared to the prior 2 rashawn dies. Persistent compressive atelectasis and consolidation LEFT lower lobe with air bronchograms. Sma ll associated pleural effusion.. No evidence of progression in this area. Previously described RIGHT upper lobe groundglass opacity has essentially resolved. CT ABDOMEN AND PELVIS: Diffuse fatty infiltration liver. Prior cholecystectomy. Normal portal vein and splenic vein. Splenic cyst or hemangioma. Small esophageal hiatal hernia. Pancreas appears normal. Stable RIGHT adrenal no dule. Stable thickening LEFT adrenal gland. Normal renal parenchymal enhancement. No hydronephrosis. Small simple renal cysts. Normal caliber thoracic aorta. Aortic endograft. LEFT external iliac stent graft. Bradley catheter. Lobulated uterus with numerous fibroids. Large calcified fibroid unchanged from previ ous measuring 3.2 CM. Mild anterior wedging superior endplate L1 unchanged. No abdominal or pelvic ly mphadenopathy. No inguinal lymphadenopathy. Normal sigmoid colon. No evidence of high-grade small or large bowel destruction. Normal appendix in the RIGHT lower quadrant. CT/CT chest abd pel w con* IMPRESSION: 1. Spiculated lesion in LEFT superior hilum is similar in appearance and sligh tly improved since the PET/CT. No evidence of progression compared to the prior PET/CT. This measures slightly smaller today. 2. LEFT lower lobe consolidation with air bronchograms has improved but persis tent compared to the prior PET/CT May 14, 2022. Associated small LEFT pleural effusion. 3. Groundglass opacity in the RIGHT upper lobe has improved and essentially re solved. 4. No evidence of metastatic disease in the abdomen or pelvis. 5. Stable small RIGHT adrenal nodule likely adenoma was negative on the prior PET/CT. 6. Splenic cyst or hemangioma in the spleen is unchanged. 7. Improved AP window and LEFT anterior mediastinal lymphadenopathy. 8. Improved opacification of the LEFT main pulmonary artery.
[2022-06-15] MEDS: iohexol 350 mg/mL 100 mL Btl IV (10:02)
[2022-06-16] VITALS (9 sets, daily range): BP systolic 102–124; BP diastolic 65–74; PULSE 72–91; RESP 18; TEMP 22.2–36.7; O2SAT 98–99
[2022-06-16] MEDS: acetaminophen 325 mg Tablet 650 MG PO (11:04)
[2022-06-16] MEDS: sodium chloride 0.9% 250 ML 999 ML IV (11:05)
[2022-06-16] MEDS: diphenhydrAMINE 25 mg Capsule PO (11:05)
[2022-06-16] MEDS: FUROsemide 10 mg/mL SDV 2mL 20 MG IV (13:37)
[2022-06-22 10:37] LABS: Basophils # 0.1 10^3/uL (0.0-0.1); Eosinophils % 0.1 %; Hematocrit 34.4 % (37.0-47.0); Hemoglobin 11.1 g/dL (11.5-15.3); Lymphocytes # 2.5 10^3/uL (0.8-4.8); Lymphocytes % 33.4 %; Mean Corpuscular HGB Conc 32.3 g/dL (30.0-36.0); Mean Corpuscular Hemoglobin 29.5 pg (28.0-34.0); Mean Corpuscular Volume 91.5 fl (81-99); Mean Platelet Volume 9.6 fL (7.4-10.4); Monocytes # 0.7 10^3/uL (0.2-0.9); Monocytes % 9.1 %; Neutrophils # 4.08 10^3/uL (1.8-7.7); Neutrophils % 55.4 %; Nucleated Red Blood Cells % 0 %; Platelet Count 404 10^3/cmm (130-400); Red Blood Count 3.76 10^6/uL (4.1-5.3); Red Cell Distribution Width 15.9 % (12.1-15.1); White Blood Count 7.4 10^3/uL (4.0-10.0)
[2022-06-22 11:13] LABS: Alanine Aminotransferase 9 U/L (0-33); Albumin Level 3.5 g/dL (3.5-5.2); Alkaline Phosphatase 99 U/L (35-105); Anion Gap 11.7 (5-19); Aspartate Amino Transferase 12 U/L (0-32); Blood Urea Nitrogen 9 mg/dL (8-23); Carbon Dioxide 31 mmol/L (22-29); Chloride 97 mmol/L (98-107); Globulin 3.4 g/dL (1.3-4.6); Glomerular Filtration Rate 123.1 mL/min (90-130); Glucose 101 mg/dL (65-115); Osmolality Calculated 281 mOsm/kg (285-295); Potassium 3.7 mmol/L (3.5-5.1); Sodium 136 mmol/L (136-145); Total Bilirubin 0.2 mg/dL (0.15-1.2); Total Protein 6.9 g/dL (6.6-8.7)
[2022-06-22] MEDS: sodium chloride 0.9% 250 ML 100 ML IV (12:32)
[2022-06-22] MEDS: diphenhydrAMINE 50 mg/mL SDV 1mL 25 MG IVP (12:32)
[2022-06-22] MEDS: famotidine 20 mg/2 mL INJ IVP (12:32)
[2022-06-22] MEDS: ondansetron 2 mg/ML SDV 2 mL 8 MG IVP (12:32)
[2022-06-22] MEDS: OLANZapine 5 mg TABLET PO (12:34)
[2022-06-22] MEDS: fosaprepitant 150 MG in sodium chloride 0.9% 150 ML 300 MG IV (12:40)
[2022-06-22] MEDS: atezolizumab 1,200 MG in sodium chloride 0.9% 250 ML 300 MG IV (13:38)
[2022-06-22] MEDS: [UNRECOGNIZED DRUG - REMARK] 507.75 MG IV (15:57)
[2022-06-22 17:08] VITALS: BP 120/63; PULSE 77; TEMP 36.3; O2SAT 97
--- NOTE | 2022-06-23 13:20 | N.ONRD TS_ITS ---
Radiation Oncology Treatment Summary Patient: Kellee Jorgensen MR#: [id number] : 1955 Age: 67 Sex: Female Dictated by: Dr. Ari Rivera Date of Service: 06/22/2022 Referring Physician(s) : Yg Samayoa M.D. Diagnosis: C79.51 - Secondary malignant neoplasm of bone, Diagnosed 04/29/2022 (Active) Radiotherapy to Date: Course: Spine Mets 2021, Treatment Site: C2 Met, Ref. ID: [id number], Energy: 15X, Dose/Fx (cGy): 300, #Fx: 10 / 10, Dose Correction (cGy): 0, Total Dose (cGy): 3,000, Start Date: 06/07/2022, End Date: 06/22/2022, Elapsed Days: 15 Clinical Summary: The patient tolerated RT well. On the final day of treatment the patient's neck pain was almost gone. She had no troublesome skin reaction. She had a mild sore throat. Salt and soda gargles were recommended. Plan: End of treatment today. Follow up in one month. Signed by: Dr. Ari Rivera>06/23/2022 1:19:59 PM <<Signature on File>>
== END 2022-06-22 23:59 | disposition home or self-care (01) ==
PROVIDERS: Internal Medicine Medical Oncology; PCP Registered Nurse; Visit Provider Specialist
DX: Z51.11 Encounter for antineoplastic chemotherapy (principal); C34.12 Malignant neoplasm of upper lobe, left bronchus or lung; C77.0 Secondary and unspecified malignant neoplasm of lymph nodes of head, face and neck; C79.51 Secondary malignant neoplasm of bone; Z87.891 Personal history of nicotine dependence; Z79.52 Long term (current) use of systemic steroids; Z51.12 Encounter for antineoplastic immunotherapy
CPT/HCPCS: 36415; 36430; 36591; 70553; 71260; 72156; 74177; 77001; 77290; 77295; 77300; 77334; 77336; 77387; 77412; 80053; 85025; 86850; 86900; 86920; 96367; 96374; 96375; 96413; 96417; 99215; J1100; J1200; J1453; J1940; J2405; J2469; J3490; J7030; J7040; J7050; J7060; J9022; J9045; J9181; P9040

== ENCOUNTER → 2022-07-14 13:29 | Outpatient (BNVA) | payer MEDICARE, MEDICAID, SELFPAY | PROVIDERS: PCP Registered Nurse; Visit Provider Internal Medicine Cardiovascular Disease | DX: I73.9 Peripheral vascular disease, unspecified (principal); R03.0 Elevated blood-pressure reading, without diagnosis of hypertension; K21.9 Gastro-esophageal reflux disease without esophagitis; C34.12 Malignant neoplasm of upper lobe, left bronchus or lung; J43.2 Centrilobular emphysema; Z87.891 Personal history of nicotine dependence | CPT/HCPCS: 99214 ==

== ENCOUNTER 2022-07-15 10:17 | Oncology outpatient (recurring) (ONCR) | payer MEDICARE, MEDICAID, SELFPAY ==
[2022-06-23] MEDS: ondansetron 2 mg/ML SDV 2 mL 8 MG IVP (09:24)
[2022-06-23] MEDS: sodium chloride 0.9% 250 ML 100 ML IV (09:24)
[2022-06-23] MEDS: [UNRECOGNIZED DRUG - REMARK] 507.75 MG IV (09:57)
[2022-06-23 11:12] VITALS: BP 115/64; PULSE 73; TEMP 36.4; O2SAT 99
[2022-06-24] MEDS: sodium chloride 0.9% 250 ML 75 ML IV (08:46)
[2022-06-24] MEDS: palonosetron 0.25 mg/5 mL SDV IVP (08:47)
[2022-06-24] MEDS: [UNRECOGNIZED DRUG - REMARK] 507.75 MG IV (09:19)
[2022-06-24 10:45] VITALS: BP 104/58; PULSE 66; RESP 18; TEMP 36.4; O2SAT 99
[2022-07-13 08:50] LABS: Basophils % 0.6 %; Eosinophils # 0.1 10^3/uL (0.0-0.8); Eosinophils % 1.1 %; Hematocrit 28.8 % (37.0-47.0); Hemoglobin 9.3 g/dL (11.5-15.3); Lymphocytes # 2.2 10^3/uL (0.8-4.8); Lymphocytes % 34.1 %; Mean Corpuscular HGB Conc 32.3 g/dL (30.0-36.0); Mean Corpuscular Hemoglobin 30.4 pg (28.0-34.0); Mean Corpuscular Volume 94.1 fl (81-99); Mean Platelet Volume 10.3 fL (7.4-10.4); Monocytes # 0.8 10^3/uL (0.2-0.9); Monocytes % 11.6 %; Neutrophils # 3.28 10^3/uL (1.8-7.7); Neutrophils % 49.9 %; Nucleated Red Blood Cells % 0.6 %; Platelet Count 186 10^3/cmm (130-400); Red Blood Count 3.06 10^6/uL (4.1-5.3); Red Cell Distribution Width 17.2 % (12.1-15.1); White Blood Count 6.6 10^3/uL (4.0-10.0)
[2022-07-13 09:10] LABS: Alanine Aminotransferase 14 U/L (0-33); Alkaline Phosphatase 93 U/L (35-105); Anion Gap 15.6 (5-19); Aspartate Amino Transferase 14 U/L (0-32); Blood Urea Nitrogen 7 mg/dL (8-23); Calcium 8.8 mg/dL (8.5-10.5); Carbon Dioxide 25 mmol/L (22-29); Chloride 102 mmol/L (98-107); Globulin 3.3 g/dL (1.3-4.6); Glomerular Filtration Rate 123.1 mL/min (90-130); Glucose 165 mg/dL (65-115); Osmolality Calculated 290 mOsm/kg (285-295); Potassium 3.6 mmol/L (3.5-5.1); Sodium 139 mmol/L (136-145); Thyroid Stimulating Hormone 2.52 uIU/mL (0.27-4.20); Total Bilirubin 0.2 mg/dL (0.15-1.2); Total Protein 7.3 g/dL (6.6-8.7)
[2022-07-13] MEDS: OLANZapine 5 mg TABLET PO (10:20)
[2022-07-13] MEDS: sodium chloride 0.9% 250 ML 75 ML IV (10:24)
[2022-07-13] MEDS: ondansetron 2 mg/ML SDV 2 mL 8 MG IVP (10:24)
[2022-07-13] MEDS: famotidine 20 mg/2 mL INJ IVP (10:25)
[2022-07-13] MEDS: diphenhydrAMINE 50 mg/mL SDV 1mL 25 MG IVP (10:29)
[2022-07-13] MEDS: fosaprepitant 150 MG in sodium chloride 0.9% 150 ML 300 MG IV (10:29)
[2022-07-13 10:56] LABS: Iron 75 ug/dL (37-145); Percent Saturation 26.4 % (20-50); Total Iron Binding Capacity 284 mcg/dl; Unsaturated Iron Binding 209 ug/dL (112-347)
[2022-07-13] MEDS: atezolizumab 1,200 MG in sodium chloride 0.9% 250 ML 270 MG IV (11:30)
[2022-07-13] MEDS: [UNRECOGNIZED DRUG - REMARK] 507.75 MG IV (12:30)
[2022-07-13 14:45] VITALS: BP 118/53; PULSE 90; RESP 18; TEMP 36.4; O2SAT 100
[2022-07-14 09:12] VITALS: BP 127/61; PULSE 106; RESP 22; TEMP 36.5; O2SAT 99
[2022-07-14] MEDS: ondansetron 2 mg/ML SDV 2 mL 8 MG IVP (10:54)
[2022-07-14] MEDS: sodium chloride 0.9% 250 ML 100 ML IV (10:54)
[2022-07-14] MEDS: [UNRECOGNIZED DRUG - REMARK] 507.75 MG IV (11:06)
[2022-07-14 12:16] VITALS: BP 101/48; PULSE 92; RESP 16; TEMP 36.5; O2SAT 97
[2022-07-15] MEDS: palonosetron 0.25 mg/5 mL SDV IVP (10:33)
[2022-07-15] MEDS: sodium chloride 0.9% 250 ML 75 ML IV (10:34)
[2022-07-15] MEDS: [UNRECOGNIZED DRUG - REMARK] 507.75 MG IV (10:45)
[2022-07-15 12:05] VITALS: BP 116/73; PULSE 83; RESP 18; TEMP 36.3; O2SAT 99
== END 2022-07-22 23:59 | disposition home or self-care (01) ==
PROVIDERS: Internal Medicine Medical Oncology; PCP Registered Nurse; Visit Provider Radiology Radiation Oncology
DX: Z53.9 Procedure and treatment not carried out, unspecified reason (principal); Z51.11 Encounter for antineoplastic chemotherapy; C34.12 Malignant neoplasm of upper lobe, left bronchus or lung
CPT/HCPCS: 80053; 83540; 83550; 84443; 85025; 96367; 96375; 96413; 96417; 99214; J1100; J1200; J1453; J2405; J2469; J3490; J7030; J7040; J7050; J9022; J9045; J9181

== ENCOUNTER 2022-08-12 09:00 | Oncology outpatient (recurring) (ONCR) | payer MEDICARE, MEDICAID, SELFPAY ==
[2022-08-03] VITALS (8 sets, daily range): BP systolic 115–119; BP diastolic 64–74; PULSE 68–84; RESP 16–18; TEMP 36–36.3; O2SAT 94–99
[2022-08-03 09:05] LABS: Basophils % 0.4 %; Eosinophils % 0.4 %; Hematocrit 22.4 % (37.0-47.0); Hemoglobin 7.5 g/dL (11.5-15.3); Lymphocytes # 1.8 10^3/uL (0.8-4.8); Lymphocytes % 18.9 %; Mean Corpuscular HGB Conc 33.5 g/dL (30.0-36.0); Mean Corpuscular Hemoglobin 31.5 pg (28.0-34.0); Mean Corpuscular Volume 94.1 fl (81-99); Mean Platelet Volume 10.8 fL (7.4-10.4); Monocytes # 0.8 10^3/uL (0.2-0.9); Monocytes % 8.3 %; Neutrophils # 6.63 10^3/uL (1.8-7.7); Neutrophils % 69.9 %; Nucleated Red Blood Cells # 0.1 /100WBC; Nucleated Red Blood Cells % 0.6 %; Platelet Count 279 10^3/cmm (130-400); Red Blood Count 2.38 10^6/uL (4.1-5.3); Red Cell Distribution Width 18.8 % (12.1-15.1); White Blood Count 9.5 10^3/uL (4.0-10.0)
[2022-08-03 09:26] LABS: Alanine Aminotransferase 10 U/L (0-33); Albumin Level 3.6 g/dL (3.5-5.2); Alkaline Phosphatase 90 U/L (35-105); Anion Gap 16.7 (5-19); Aspartate Amino Transferase 9 U/L (0-32); Blood Urea Nitrogen 4 mg/dL (8-23); Calcium 8.5 mg/dL (8.5-10.5); Carbon Dioxide 29 mmol/L (22-29); Chloride 93 mmol/L (98-107); Globulin 3.8 g/dL (1.3-4.6); Glomerular Filtration Rate 123.1 mL/min (90-130); Glucose 176 mg/dL (65-115); Osmolality Calculated 283 mOsm/kg (285-295); Sodium 136 mmol/L (136-145); Total Bilirubin 0.2 mg/dL (0.15-1.2); Total Protein 7.4 g/dL (6.6-8.7)
[2022-08-03 09:28] LABS: Potassium 2.7 mmol/L (3.5-5.1)
[2022-08-03] MEDS: acetaminophen 325 mg Tablet 650 MG PO (10:35)
[2022-08-03] MEDS: diphenhydrAMINE 25 mg Capsule PO (10:35)
[2022-08-03] MEDS: sodium chloride 0.9% 100 mL Bag 250 ML IV (10:35)
[2022-08-03 10:48] LABS: Bilirubin Urine Neg (Negative); Blood Urine 3+ (Negative); Glucose Urine UA Norm (Normal); Ketones Urine Negative (Negative); Leukocyte Esterase Urine Trace (Negative); Nitrate Urine Negative (Negative); Protein Urine Neg (Negative); Specific Gravity, Urine 1.005 (1.005-1.030); Urine Appearance Clear (CLEAR); Urine Color Yellow (Yellow); Urobilinogen Urine 4 mg/dL (Negative); pH Urine 6.5 (5-7)
[2022-08-03 10:49] LABS: Add Urine Microscopic? YES
[2022-08-03 10:52] LABS: Add Urine Culture? Yes; Squamous Epithelial Cell Urine 0-4 /hpf (0-5)
[2022-08-03] MEDS: potassium chloride premix 100 ML 25 MEQ IV (11:20)
[2022-08-10 12:28] LABS: Basophils # 0.1 10^3/uL (0.0-0.1); Eosinophils % 0.2 %; Hematocrit 39.4 % (37.0-47.0); Hemoglobin 12.6 g/dL (11.5-15.3); Lymphocytes # 3.1 10^3/uL (0.8-4.8); Lymphocytes % 34.6 %; Mean Corpuscular Hemoglobin 31.2 pg (28.0-34.0); Mean Corpuscular Volume 97.5 fl (81-99); Mean Platelet Volume 9.8 fL (7.4-10.4); Monocytes # 0.8 10^3/uL (0.2-0.9); Monocytes % 9.1 %; Neutrophils # 4.73 10^3/uL (1.8-7.7); Neutrophils % 53.7 %; Nucleated Red Blood Cells % 0 %; Platelet Count 404 10^3/cmm (130-400); Red Blood Count 4.04 10^6/uL (4.1-5.3); Red Cell Distribution Width 18.4 % (12.1-15.1); White Blood Count 8.8 10^3/uL (4.0-10.0)
[2022-08-10 12:50] LABS: Alanine Aminotransferase 14 U/L (0-33); Albumin Level 3.8 g/dL (3.5-5.2); Alkaline Phosphatase 118 U/L (35-105); Anion Gap 13.8 (5-19); Aspartate Amino Transferase 15 U/L (0-32); Blood Urea Nitrogen 10 mg/dL (8-23); Carbon Dioxide 27 mmol/L (22-29); Chloride 99 mmol/L (98-107); Globulin 3.9 g/dL (1.3-4.6); Glomerular Filtration Rate 99.7 mL/min (90-130); Glucose 93 mg/dL (65-115); Osmolality Calculated 281 mOsm/kg (285-295); Potassium 3.8 mmol/L (3.5-5.1); Sodium 136 mmol/L (136-145); Total Bilirubin 0.2 mg/dL (0.15-1.2); Total Protein 7.7 g/dL (6.6-8.7)
[2022-08-10] MEDS: OLANZapine 5 mg TABLET PO (13:13)
[2022-08-10] MEDS: sodium chloride 0.9% 250 ML 100 ML IV (13:13)
[2022-08-10] MEDS: diphenhydrAMINE 50 mg/mL SDV 1mL 25 MG IVP (13:15)
[2022-08-10] MEDS: famotidine 20 mg/2 mL INJ IVP (13:15)
[2022-08-10] MEDS: ondansetron 2 mg/ML SDV 2 mL 8 MG IVP (13:15)
[2022-08-10] MEDS: fosaprepitant 150 MG in sodium chloride 0.9% 150 ML 300 MG IV (13:44)
[2022-08-10] MEDS: atezolizumab 1,200 MG in sodium chloride 0.9% 250 ML 600 MG IV (14:16)
[2022-08-10] MEDS: [UNRECOGNIZED DRUG - REMARK] 508 MG IV (14:57)
[2022-08-10] MEDS: CARBOplatin 540 MG in sodium chloride 0.9% 500 ML 554 MG IV (16:10)
[2022-08-10 17:14] VITALS: BP 129/66; PULSE 104; TEMP 36.3; O2SAT 96
[2022-08-11] MEDS: sodium chloride 0.9% 250 ML 100 ML IV (11:20)
[2022-08-11] MEDS: ondansetron 2 mg/ML SDV 2 mL 8 MG IVP (11:21)
[2022-08-11] MEDS: [UNRECOGNIZED DRUG - REMARK] 508 MG IV (11:39)
[2022-08-11 12:52] VITALS: BP 113/59; PULSE 80; TEMP 36.3; O2SAT 100
[2022-08-12] MEDS: sodium chloride 0.9% 250 ML 100 ML IV (08:10)
[2022-08-12] MEDS: palonosetron 0.25 mg/5 mL SDV IVP (08:12)
[2022-08-12] MEDS: [UNRECOGNIZED DRUG - REMARK] 508 MG IV (08:23)
[2022-08-12 09:43] VITALS: BP 114/60; PULSE 68; TEMP 36.4; O2SAT 99
== END 2022-08-22 23:59 | disposition home or self-care (01) ==
PROVIDERS: Internal Medicine Medical Oncology; PCP Registered Nurse; Visit Provider Radiology Radiation Oncology
DX: C34.12 Malignant neoplasm of upper lobe, left bronchus or lung (principal); Z79.899 Other long term (current) drug therapy; Z51.11 Encounter for antineoplastic chemotherapy
CPT/HCPCS: 36430; 80053; 81001; 85025; 86850; 86900; 86920; 87086; 96366; 96367; 96375; 96413; 96417; 99214; J1100; J1200; J1453; J2405; J2469; J3480; J3490; J7030; J7040; J7050; J9022; J9045; J9181; P9016

== ENCOUNTER 2022-08-12 10:07 | Outpatient (CLI) | payer MEDICARE, MEDICAID, SELFPAY ==
--- NOTE | 2022-08-12 10:15 | USCV_ITS ---
Kellee Jorgensen Age: 67 Gender: F : 1955 Exam Date: 08/12/2022 10:23 Ordering Phys: Sydney Su MD ([email or web address]) Technologist: CT Exam Location: [facility] – [place] Indication: pvd,leg pain Risk Factors: Previous Vascular Surgery: RIGHT LEFT BP: 130.0 / 74.00 BP: 137.0/ 73.00 0 0 Waveform Velocity (cm/s) Velocity (cm/s) Waveform 166.8 Iliac Prox 157.2 236.2 Iliac Mid 181.3 203.8 Iliac Distal 169.3 141.3 [facility] SPECIALIST 121.1 SFA Prox 114.7 129.3 86.2 SFA Mid 95.2 85.3 SFA Dist 112.3 69.4 POP 82.3 93.1 HIGH CLIMBER 81.4 56.4 DPA 113.0 1.0 SUN 1.1 FINDINGS Minimal plaque and intimal thickening in the iliac and femoral arteries bilaterally Resting SUN 1.0 on the right and 1.1 with left CONCLUSIONS No evidence of any significant arterial obstruction, based on the above findings. Intimal thickening and minimal plaques in the iliac and femoral arteries bilaterally Dr Soniya Kolb MD [facility] (Electronically Signed) Final Date: 12 August 2022 16:08 S
== END 2022-08-12 10:08 | disposition home or self-care (01) ==
LOC: RAD 10:09
PROVIDERS: PCP Registered Nurse; Visit Provider Internal Medicine Cardiovascular Disease
DX: I73.9 Peripheral vascular disease, unspecified (principal); M79.606 Pain in leg, unspecified
CPT/HCPCS: 93925

== ENCOUNTER 2022-09-06 16:33 | Outpatient (CLI) | payer MEDICARE, MEDICAID, SELFPAY ==
--- NOTE | 2022-09-06 16:30 | CT_ITS ---
WS: [email or web address] CT CERVICAL CONTRAST TECHNIQUE: Contrast-enhanced CT of the cervical spine coronal and sagittal reformatted images CLINICAL INFORMATION: malignant neoplasm of bone COMPARISON: MRI 2021 and PET/CT April 2022 and November 2020 DLP: 236.[address] scans at [facility] use at least one of these dose optimization techniques: automated e xposure control; mA and/or kV adjustment per patient size (includes targeted exams where dose is matc hed to clinical indication); or iterative reconstruction. FINDINGS: Previously described enhancing metastatic lesion C2 vertebral body with FDG uptake on the prior PET/C T. Small amount of mottled lucency in the C2 vertebral body. This is better evaluated on the prior st udies. No evidence of cortical breakthrough or pathologic fracture. Normal C1-C2 articulation. No hig h-grade central canal stenosis. C2 lesion appears stable or smaller compared to the previous studies considering differences in technique. Grade 1 anterolisthesis C4 on C5. C2-C3: No significant disc bulging. Spinal canal and foramen are patent. C3-C4: Minimal disc bulging. Mild facet arthropathy. Mild RIGHT and no significant LEFT foraminal beatriz rowing. C4-C5: Grade 1 anterolisthesis. Mild facet arthropathy. Osteophytic ridging with mild LEFT greater th an RIGHT bony foraminal narrowing. C5-C6: No significant disc bulging. Mild facet arthropathy. Spinal canal and foramen are patent. C6-C7: Mild facet arthropathy. Spinal canal and foramen are patent. C7-T1: Normal Fibrosis LEFT lung apex. Calcified granuloma RIGHT lung apex. A few small thyroid nodules. Mastoid ai r cells are well aerated. Visualized posterior fossa structures: Normal. Symmetric patchy bone sclerosis within the clivus and skull base appears stable since the prior studi es likely due to treatment related changes. No focal lesions. CT/CT cervical spine w con [id number] IMPRESSION: 1. Previously described lesion C2 vertebral body better delineated on the prio r MRI and PET/CT. This is stable to smaller considering differences in techniqu e. No evidence of cortical breakthrough or pathologic fracture. 2. Grade 1 anterolisthesis C4 on C5 appears stable. 3. No significant central canal stenosis. 4. No other remarkable findings.
[2022-09-06] MEDS: iohexol 350 mg/mL 100 mL Btl IV (17:14)
== END 2022-09-06 16:34 | disposition home or self-care (01) ==
LOC: RAD 16:34
PROVIDERS: PCP Registered Nurse; Visit Provider Internal Medicine Medical Oncology
DX: C79.51 Secondary malignant neoplasm of bone (principal)
CPT/HCPCS: 72126; Q9967

== ENCOUNTER 2022-09-09 09:00 | Oncology outpatient (recurring) (ONCR) | payer MEDICARE, MEDICAID, SELFPAY ==
[2022-08-31 08:27] LABS: Basophils # 0.1 10^3/uL (0.0-0.1); Basophils % 1.1 %; Eosinophils # 0.1 10^3/uL (0.0-0.8); Hematocrit 37.6 % (37.0-47.0); Lymphocytes # 2.2 10^3/uL (0.8-4.8); Lymphocytes % 30.8 %; Mean Corpuscular HGB Conc 31.9 g/dL (30.0-36.0); Mean Corpuscular Hemoglobin 32.3 pg (28.0-34.0); Mean Corpuscular Volume 101.1 fl (81-99); Mean Platelet Volume 9.9 fL (7.4-10.4); Monocytes # 1.1 10^3/uL (0.2-0.9); Monocytes % 15.4 %; Neutrophils # 3.56 10^3/uL (1.8-7.7); Neutrophils % 48.8 %; Nucleated Red Blood Cells # 0.1 /100WBC; Platelet Count 281 10^3/cmm (130-400); Red Blood Count 3.72 10^6/uL (4.1-5.3); Red Cell Distribution Width 18.9 % (12.1-15.1); White Blood Count 7.3 10^3/uL (4.0-10.0)
[2022-08-31 08:47] LABS: Alanine Aminotransferase 15 U/L (0-33); Albumin Level 3.9 g/dL (3.5-5.2); Alkaline Phosphatase 104 U/L (35-105); Aspartate Amino Transferase 12 U/L (0-32); Blood Urea Nitrogen 9 mg/dL (8-23); Calcium 9.2 mg/dL (8.5-10.5); Carbon Dioxide 26 mmol/L (22-29); Chloride 102 mmol/L (98-107); Globulin 3.5 g/dL (1.3-4.6); Glomerular Filtration Rate 123.1 mL/min (90-130); Glucose 121 mg/dL (65-115); Osmolality Calculated 288 mOsm/kg (285-295); Sodium 139 mmol/L (136-145); Total Bilirubin 0.2 mg/dL (0.15-1.2); Total Protein 7.4 g/dL (6.6-8.7)
--- NOTE | 2022-09-01 12:43 | CT_ITS ---
WS: [id number] CT CHEST WITH INTRAVENOUS CONTRAST HISTORY: RESTAGING-LUNG CA TECHNIQUE: Contiguous 5 mm axial imaging performed on the thorax. Coronal and sagittal reformats are submitted. All CT scans at [facility] use at least one of these dose optimization techniques: automated exposure control; mA and/or kV adjustment per patient size (includes targeted exams where dose is matched to clinical indication); or iterative reconstruction. CONTRAST: Omnipaque 350; 95 mL IV. DLP: 637.02 mGy.cm COMPARISON: 06/15/2022, 04/28/2022 and PET/CT 05/14/2022 Lungs and central airway: Continued decrease in size of a soft tissue extending from the LEFT suprahi lar region towards the apex. This was positive on the prior PET/CT of 05/14/2022. Continued decrease i n size with the main component now measuring 2.8 x 1.0 cm. There is continued decrease in size of the soft tissue mass with central cavitation in the LEFT lower lobe. Significant decrease in size with l ess solid component and increasing central cavitation. Mixture postobstructive bronchiectasis and air bronchograms. Adjacent pleural thickening. The largest component measures 5.0 x 3.8 cm. No change in the 3 mm nodule in the periphery RIGHT lower lobe. Pleural-based nodule in the LEFT lower lobe may h ave been present on the prior studies but obscured by the soft tissue mass. This can be reevaluated o n follow-up imaging. Pleura: Normal. No pleural effusion. Heart and pericardium: Normal size heart. No pericardial effusion. Mediastinum and slava: Mild prominent soft tissue in the hilar regions. Overall continued improvement in the soft tissue thickening adjacent to the aorta extending into the AP window in the hilar regions . Vessels: Mild atherosclerosis aorta. Normal size pulmonary artery. Chest wall and lower neck: No soft tissue masses. Upper abdomen: Small hiatal hernia. Hepatic steatosis. 9 mm RIGHT adrenal nodule. Mild thickening of the LEFT adrenal gland is unchanged. Osseous structures: Increase in thoracic kyphosis. Disc spaces are narrowed. CT/CT chest w con* [id number] IMPRESSION: 1. Continued improvement with decrease in size of the LEFT upper lobe PET/CT p ositive mass. Decrease in size of the cavitary PET/CT positive mass in the LEFT lower lobe. 2. Mild continued decrease in size of the mediastinal and hilar lymph nodes. 3. Subpleural nodule measures 6 mm in the LEFT lower lobe. May have been prese nt on prior studies but obscured by the consolidation. This can be reevaluated on follow-up imaging studies. 4. Benign RIGHT adrenal nodule and mild LEFT adrenal hyperplasia. 5. No metastatic disease to the liver.
[2022-09-01] MEDS: iohexol 350 mg/mL 500 mL Btl (per mL) IV (13:35)
[2022-09-07 10:08] LABS: Basophils # 0.1 10^3/uL (0.0-0.1); Basophils % 1.2 %; Eosinophils % 0.5 %; Hematocrit 35.8 % (37.0-47.0); Lymphocytes # 2.3 10^3/uL (0.8-4.8); Lymphocytes % 34.7 %; Mean Corpuscular HGB Conc 30.7 g/dL (30.0-36.0); Mean Corpuscular Hemoglobin 32.1 pg (28.0-34.0); Mean Corpuscular Volume 104.4 fl (81-99); Mean Platelet Volume 10.1 fL (7.4-10.4); Monocytes # 0.8 10^3/uL (0.2-0.9); Monocytes % 11.4 %; Neutrophils # 3.43 10^3/uL (1.8-7.7); Neutrophils % 51.6 %; Nucleated Red Blood Cells % 0 %; Platelet Count 365 10^3/cmm (130-400); Red Blood Count 3.43 10^6/uL (4.1-5.3); Red Cell Distribution Width 19.1 % (12.1-15.1); White Blood Count 6.7 10^3/uL (4.0-10.0)
[2022-09-07 10:12] LABS: Alanine Aminotransferase 22 U/L (0-33); Alkaline Phosphatase 91 U/L (35-105); Anion Gap 15.6 (5-19); Aspartate Amino Transferase 16 U/L (0-32); Blood Urea Nitrogen 5 mg/dL (8-23); Calcium 9.1 mg/dL (8.5-10.5); Carbon Dioxide 27 mmol/L (22-29); Chloride 103 mmol/L (98-107); Globulin 3.3 g/dL (1.3-4.6); Glomerular Filtration Rate 123.1 mL/min (90-130); Glucose 101 mg/dL (65-115); Osmolality Calculated 291 mOsm/kg (285-295); Potassium 3.6 mmol/L (3.5-5.1); Sodium 142 mmol/L (136-145); Total Bilirubin 0.3 mg/dL (0.15-1.2); Total Protein 7.3 g/dL (6.6-8.7)
[2022-09-07] MEDS: ondansetron 2 mg/ML SDV 2 mL 8 MG IVP (11:58)
[2022-09-07] MEDS: famotidine 20 mg/2 mL INJ IVP (12:02)
[2022-09-07] MEDS: OLANZapine 5 mg TABLET PO (12:03)
[2022-09-07] MEDS: sodium chloride 0.9% 250 ML 100 ML IV (12:03)
[2022-09-07] MEDS: diphenhydrAMINE 50 mg/mL SDV 1mL 25 MG IVP (12:04)
[2022-09-07] MEDS: fosaprepitant 150 MG in sodium chloride 0.9% 150 ML 300 MG IV (12:04)
[2022-09-07] MEDS: atezolizumab 1,200 MG in sodium chloride 0.9% 250 ML 500 MG IV (13:04)
[2022-09-07] MEDS: [UNRECOGNIZED DRUG - REMARK] 508 MG IV (13:43)
[2022-09-07 16:09] VITALS: BP 120/74; PULSE 86; TEMP 36.8; O2SAT 97
[2022-09-08] MEDS: ondansetron 2 mg/ML SDV 2 mL 8 MG IVP (09:13)
[2022-09-08] MEDS: sodium chloride 0.9% 250 ML 100 ML IV (09:13)
[2022-09-08] MEDS: [UNRECOGNIZED DRUG - REMARK] 508 MG IV (09:29)
[2022-09-08 10:44] VITALS: BP 130/71; PULSE 81; TEMP 36.4; O2SAT 99
[2022-09-09] MEDS: palonosetron 0.25 mg/5 mL SDV IVP (09:21)
[2022-09-09] MEDS: sodium chloride 0.9% 250 ML 100 ML IV (09:21)
[2022-09-09 09:22] VITALS: BP 110/67; PULSE 72; RESP 18; TEMP 36.6; O2SAT 98
[2022-09-09] MEDS: [UNRECOGNIZED DRUG - REMARK] 508 MG IV (10:00)
[2022-09-09 11:29] VITALS: BP 107/65; PULSE 77; RESP 16; TEMP 36.3; O2SAT 98
== END 2022-09-21 23:59 | disposition home or self-care (01) ==
PROVIDERS: PCP Registered Nurse; Visit Provider Internal Medicine Medical Oncology
DX: C34.12 Malignant neoplasm of upper lobe, left bronchus or lung (principal); C79.51 Secondary malignant neoplasm of bone; Z79.899 Other long term (current) drug therapy
CPT/HCPCS: 36591; 71260; 80053; 85025; 96367; 96375; 96413; 96417; 96523; 99214; J1100; J1200; J1453; J2405; J2469; J3490; J7030; J7040; J7050; J9022; J9045; J9181

== ENCOUNTER 2022-10-19 10:30 | Oncology outpatient (recurring) (ONCR) | payer MEDICARE, MEDICAID, SELFPAY ==
[2022-09-28 08:56] LABS: Basophils # 0.1 10^3/uL (0.0-0.1); Basophils % 0.7 %; Eosinophils # 0.1 10^3/uL (0.0-0.8); Eosinophils % 1.4 %; Hematocrit 32.6 % (37.0-47.0); Lymphocytes # 2.4 10^3/uL (0.8-4.8); Lymphocytes % 33.9 %; Mean Corpuscular HGB Conc 30.7 g/dL (30.0-36.0); Mean Corpuscular Hemoglobin 32.5 pg (28.0-34.0); Mean Corpuscular Volume 105.8 fl (81-99); Mean Platelet Volume 10.5 fL (7.4-10.4); Monocytes % 13.7 %; Neutrophils # 3.45 10^3/uL (1.8-7.7); Neutrophils % 48.5 %; Nucleated Red Blood Cells % 0.6 %; Platelet Count 198 10^3/cmm (130-400); Red Blood Count 3.08 10^6/uL (4.1-5.3); Red Cell Distribution Width 16.8 % (12.1-15.1); White Blood Count 7.1 10^3/uL (4.0-10.0)
[2022-09-28 09:19] LABS: Alanine Aminotransferase 9 U/L (0-33); Albumin Level 3.5 g/dL (3.5-5.2); Alkaline Phosphatase 102 U/L (35-105); Anion Gap 15.7 (5-19); Aspartate Amino Transferase 10 U/L (0-32); Blood Urea Nitrogen 10 mg/dL (8-23); Calcium 8.6 mg/dL (8.5-10.5); Carbon Dioxide 26 mmol/L (22-29); Chloride 105 mmol/L (98-107); Globulin 3.3 g/dL (1.3-4.6); Glomerular Filtration Rate 99.7 mL/min (90-130); Glucose 171 mg/dL (65-115); Osmolality Calculated 299 mOsm/kg (285-295); Potassium 3.7 mmol/L (3.5-5.1); Sodium 143 mmol/L (136-145); Total Bilirubin 0.2 mg/dL (0.15-1.2); Total Protein 6.8 g/dL (6.6-8.7)
[2022-09-28 10:07] LABS: Thyroid Stimulating Hormone 4.65 uIU/mL (0.27-4.20)
[2022-09-28] MEDS: sodium chloride 0.9% 250 ML 100 ML IV (10:31)
[2022-09-28] MEDS: atezolizumab 1,200 MG in sodium chloride 0.9% 250 ML 600 MG IV (10:48)
[2022-10-19 11:43] LABS: Basophils # 0.1 10^3/uL (0.0-0.1); Eosinophils # 0.1 10^3/uL (0.0-0.8); Eosinophils % 1.2 %; Hematocrit 34.6 % (37.0-47.0); Hemoglobin 11.2 g/dL (11.5-15.3); Lymphocytes # 2.7 10^3/uL (0.8-4.8); Lymphocytes % 37.3 %; Mean Corpuscular HGB Conc 32.4 g/dL (30.0-36.0); Mean Corpuscular Volume 102.1 fl (81-99); Mean Platelet Volume 10.3 fL (7.4-10.4); Monocytes # 0.7 10^3/uL (0.2-0.9); Monocytes % 9.2 %; Neutrophils # 3.72 10^3/uL (1.8-7.7); Neutrophils % 50.9 %; Nucleated Red Blood Cells % 0 %; Platelet Count 242 10^3/cmm (130-400); Red Blood Count 3.39 10^6/uL (4.1-5.3); Red Cell Distribution Width 14.6 % (12.1-15.1); White Blood Count 7.3 10^3/uL (4.0-10.0)
[2022-10-19 12:24] LABS: Alanine Aminotransferase 8 U/L (0-33); Albumin Level 3.9 g/dL (3.5-5.2); Alkaline Phosphatase 95 U/L (35-105); Anion Gap 11.4 (5-19); Aspartate Amino Transferase 10 U/L (0-32); Blood Urea Nitrogen 8 mg/dL (8-23); Carbon Dioxide 30 mmol/L (22-29); Chloride 103 mmol/L (98-107); Globulin 3.2 g/dL (1.3-4.6); Glomerular Filtration Rate 123.1 mL/min (90-130); Glucose 108 mg/dL (65-115); Osmolality Calculated 291 mOsm/kg (285-295); Potassium 3.4 mmol/L (3.5-5.1); Sodium 141 mmol/L (136-145); Thyroid Stimulating Hormone 1.68 uIU/mL (0.27-4.20); Total Bilirubin 0.2 mg/dL (0.15-1.2); Total Protein 7.1 g/dL (6.6-8.7)
[2022-10-19] MEDS: sodium chloride 0.9% 250 ML 100 ML IV (12:33)
[2022-10-19] MEDS: atezolizumab 1,200 MG in sodium chloride 0.9% 250 ML 600 MG IV (12:33)
[2022-10-19 14:04] VITALS: BP 125/75; PULSE 97; RESP 16; TEMP 36.7; O2SAT 99
== END 2022-10-22 23:59 | disposition home or self-care (01) ==
PROVIDERS: PCP Registered Nurse; Visit Provider Internal Medicine Medical Oncology
DX: Z51.12 Encounter for antineoplastic immunotherapy (principal); C34.12 Malignant neoplasm of upper lobe, left bronchus or lung; Z79.899 Other long term (current) drug therapy
CPT/HCPCS: 80053; 84443; 85025; 96413; 99214; J7050; J9022

== ENCOUNTER 2022-11-08 09:31 | Oncology outpatient (recurring) (ONCR) | payer MEDICARE, MEDICAID, SELFPAY ==
[2022-11-08 09:56] VITALS: BMI 26.3
[2022-11-08 10:06] LABS: Basophils # 0.1 10^3/uL (0.0-0.1); Basophils % 0.9 %; Eosinophils # 0.1 10^3/uL (0.0-0.8); Hematocrit 38.4 % (37.0-47.0); Hemoglobin 12.1 g/dL (11.5-15.3); Lymphocytes # 2.7 10^3/uL (0.8-4.8); Lymphocytes % 34.7 %; Mean Corpuscular HGB Conc 31.5 g/dL (30.0-36.0); Mean Corpuscular Hemoglobin 31.8 pg (28.0-34.0); Mean Corpuscular Volume 101.1 fl (81-99); Mean Platelet Volume 10.5 fL (7.4-10.4); Monocytes # 0.5 10^3/uL (0.2-0.9); Neutrophils # 4.32 10^3/uL (1.8-7.7); Nucleated Red Blood Cells % 0 %; Platelet Count 236 10^3/cmm (130-400); Red Cell Distribution Width 13.3 % (12.1-15.1); White Blood Count 7.7 10^3/uL (4.0-10.0)
[2022-11-08 10:41] LABS: Alanine Aminotransferase 10 U/L (0-33); Alkaline Phosphatase 102 U/L (35-105); Anion Gap 13.9 (5-19); Aspartate Amino Transferase 12 U/L (0-32); Blood Urea Nitrogen 6 mg/dL (8-23); Calcium 8.4 mg/dL (8.5-10.5); Carbon Dioxide 25 mmol/L (22-29); Chloride 101 mmol/L (98-107); Glomerular Filtration Rate 99.7 mL/min (90-130); Glucose 151 mg/dL (65-115); Osmolality Calculated 285 mOsm/kg (285-295); Sodium 137 mmol/L (136-145); Thyroid Stimulating Hormone 2.16 uIU/mL (0.27-4.20); Total Bilirubin 0.2 mg/dL (0.15-1.2)
[2022-11-08 10:42] LABS: Potassium 2.9 mmol/L (3.5-5.1)
[2022-11-08] MEDS: sodium chloride 0.9% 250 ML 75 ML IV (11:01)
[2022-11-08] MEDS: potassium chloride premix 100 ML 50 MEQ IV (11:02)
[2022-11-08] MEDS: atezolizumab 1,200 MG in sodium chloride 0.9% 250 ML 270 MG IV (12:25)
== END 2022-11-22 23:59 | disposition home or self-care (01) ==
PROVIDERS: PCP Registered Nurse; Visit Provider Internal Medicine Medical Oncology
DX: Z51.12 Encounter for antineoplastic immunotherapy (principal); C34.12 Malignant neoplasm of upper lobe, left bronchus or lung; C79.51 Secondary malignant neoplasm of bone; C77.8 Secondary and unspecified malignant neoplasm of lymph nodes of multiple regions; Z79.899 Other long term (current) drug therapy; Z87.891 Personal history of nicotine dependence
CPT/HCPCS: 80053; 84443; 85025; 96365; 96413; 99214; J3480; J7050; J9022

== ENCOUNTER 2022-12-09 08:02 | Oncology outpatient (recurring) (ONCR) | payer MEDICARE, MEDICAID, SELFPAY ==
[2022-12-09 08:25] VITALS: BMI 26.7
[2022-12-09 08:30] LABS: Basophils % 0.5 %; Eosinophils # 0.1 10^3/uL (0.0-0.8); Eosinophils % 0.8 %; Hematocrit 38.4 % (37.0-47.0); Hemoglobin 12.2 g/dL (11.5-15.3); Lymphocytes # 2.1 10^3/uL (0.8-4.8); Lymphocytes % 26.9 %; Mean Corpuscular HGB Conc 31.8 g/dL (30.0-36.0); Mean Corpuscular Hemoglobin 30.8 pg (28.0-34.0); Mean Platelet Volume 10.5 fL (7.4-10.4); Monocytes # 0.6 10^3/uL (0.2-0.9); Neutrophils # 5.09 10^3/uL (1.8-7.7); Neutrophils % 64.4 %; Nucleated Red Blood Cells % 0 %; Platelet Count 248 10^3/cmm (130-400); Red Blood Count 3.96 10^6/uL (4.1-5.3); Red Cell Distribution Width 13.1 % (12.1-15.1); White Blood Count 7.9 10^3/uL (4.0-10.0)
[2022-12-09 09:02] LABS: Alanine Aminotransferase 11 U/L (0-33); Albumin Level 3.9 g/dL (3.5-5.2); Alkaline Phosphatase 97 U/L (35-105); Anion Gap 14.8 (5-19); Aspartate Amino Transferase 18 U/L (0-32); Blood Urea Nitrogen 7 mg/dL (8-23); Calcium 8.6 mg/dL (8.5-10.5); Carbon Dioxide 26 mmol/L (22-29); Chloride 104 mmol/L (98-107); Globulin 2.9 g/dL (1.3-4.6); Glomerular Filtration Rate 83.5 mL/min (90-130); Glucose 172 mg/dL (65-115); Osmolality Calculated 294 mOsm/kg (285-295); Potassium 3.8 mmol/L (3.5-5.1); Sodium 141 mmol/L (136-145); Thyroid Stimulating Hormone 1.93 uIU/mL (0.27-4.20); Total Bilirubin 0.2 mg/dL (0.15-1.2); Total Protein 6.8 g/dL (6.6-8.7)
[2022-12-09] MEDS: sodium chloride 0.9% 250 ML 75 ML IV (09:42)
[2022-12-09] MEDS: atezolizumab 1,200 MG in sodium chloride 0.9% 250 ML 540 MG IV (09:54)
[2022-12-09 10:50] VITALS: BP 129/68; PULSE 70; RESP 18; TEMP 36.2; O2SAT 99
== END 2022-12-20 23:59 | disposition home or self-care (01) ==
PROVIDERS: PCP Registered Nurse; Visit Provider Internal Medicine Medical Oncology
DX: Z51.12 Encounter for antineoplastic immunotherapy (principal); C34.12 Malignant neoplasm of upper lobe, left bronchus or lung; C79.51 Secondary malignant neoplasm of bone; Z79.899 Other long term (current) drug therapy; C77.8 Secondary and unspecified malignant neoplasm of lymph nodes of multiple regions; Z92.3 Personal history of irradiation; Z92.21 Personal history of antineoplastic chemotherapy; Z87.891 Personal history of nicotine dependence; D64.81 Anemia due to antineoplastic chemotherapy; T45.1X5A Adverse effect of antineoplastic and immunosuppressive drugs, initial encounter
CPT/HCPCS: 80053; 84443; 85025; 99214; J7050; J9022

== ENCOUNTER 2023-01-05 08:35 | Outpatient (CLI) | payer MEDICARE, MEDICAID, SELFPAY ==
--- NOTE | 2023-01-05 09:11 | CT_ITS ---
WS: [email or web address] CT CHEST, ABDOMEN AND PELVIS NONCONTRAST. HISTORY: Restaging lung cancer. TECHNIQUE: Contiguous 5 mm axial imaging performed through the chest, abdomen and pelvis without IV c ontrast, oral contrast has not been provided. Coronal and sagittal reformats chest. Coronal and sagit kitty reformats through the abdomen and pelvis. All CT scans at [facility] use at least one of these dose optimization techniques: automated exposure control; mA and/or kV adjustment per patient s ize (includes targeted exams where dose is matched to clinical indication); or iterative reconstructi on. CONTRAST: None DLP: 462.29 mGy.cm COMPARISON: 09/01/2022 and 06/15/[address]: Continued decrease in size of the linear stranding in the LEFT upper lobe which is probably residual atelectasis. No focal mass or tumor is identified. Significant change since 06/15/2022 and a smaller change since 09/01/2022. No recurrent mass or nodule. Continued improvement in cavitary lesi on LEFT lower lobe. Central lucency in the peripheral interstitial thickening and areas of atelectasi s are improving. No worsening or nodularity. No change in 3 mm subpleural nodule RIGHT lower lobe. No progression of the LEFT lower lobe pleural-based nodule that was described on the prior study. Appea rs slightly improved. RIGHT central Mediport. No mediastinal or hilar lymph nodes. Normal size aorta. Normal size heart. Hi atal hernia. Abdomen CT: Hepatic steatosis. No changes in the liver to suggest metastatic disease. Normal size spl een with granulomata. 10 mm RIGHT adrenal nodule. Minimal hyperplasia LEFT adrenal gland. Prior jonathan cystectomy. Pancreas and kidneys are unchanged. Heavy calcification in the aorta. Status post aortic graft repair. No ascites or adenopathy. Visualized GI tract is negative. Normal appendix. Pelvic CT: Mildly enlarged uterus with dense calcification associated with a fibroid. Fibroid measure s 3.3 x 3.1 cm. No pelvic mass or free fluid. No adenopathy. Mild anterior wedging of L1. CT/[place] [id number] IMPRESSION: 1. Continued improvement in the consolidation and atelectasis LEFT upper lobe. No residual solid mass component. 2. Continued but slower improvement in cavitary lesion LEFT lower lobe with ad jacent areas of fibrosis and atelectasis. 3. Recently described subpleural nodule in the LEFT lower lobe is very difficu lt to visualize today. No progression. Stable 3 mm peripheral RIGHT lower lobe nodule. 4. No mediastinal or hilar adenopathy. 5. Stable RIGHT adrenal nodule is unchanged and FDG negative.
== END 2023-01-05 08:36 | disposition home or self-care (01) ==
LOC: RAD 08:35
PROVIDERS: PCP Registered Nurse; Visit Provider Internal Medicine Medical Oncology
DX: C34.12 Malignant neoplasm of upper lobe, left bronchus or lung (principal); C79.51 Secondary malignant neoplasm of bone
CPT/HCPCS: 71250; 74176

== ENCOUNTER → 2023-01-13 08:54 | Outpatient (BNVA) | payer MEDICARE, MEDICAID, SELFPAY | PROVIDERS: PCP Registered Nurse; Visit Provider Nurse Practitioner Family | DX: I73.9 Peripheral vascular disease, unspecified (principal); Z87.891 Personal history of nicotine dependence | CPT/HCPCS: 99214 ==

== ENCOUNTER 2023-01-19 09:38 | Oncology outpatient (recurring) (ONCR) | payer MEDICARE, MEDICAID, SELFPAY ==
[2022-12-29 09:56] LABS: Basophils # 0.1 10^3/uL (0.0-0.1); Basophils % 0.8 %; Eosinophils % 0.6 %; Hematocrit 38.8 % (37.0-47.0); Hemoglobin 12.4 g/dL (11.5-15.3); Lymphocytes # 2.2 10^3/uL (0.8-4.8); Lymphocytes % 30.4 %; Mean Corpuscular Hemoglobin 30.5 pg (28.0-34.0); Mean Corpuscular Volume 95.3 fl (81-99); Mean Platelet Volume 10.7 fL (7.4-10.4); Monocytes # 0.5 10^3/uL (0.2-0.9); Monocytes % 6.8 %; Neutrophils # 4.31 10^3/uL (1.8-7.7); Nucleated Red Blood Cells % 0 %; Platelet Count 244 10^3/cmm (130-400); Red Blood Count 4.07 10^6/uL (4.1-5.3); White Blood Count 7.1 10^3/uL (4.0-10.0)
[2022-12-29 10:21] LABS: Alanine Aminotransferase 10 U/L (0-33); Albumin Level 3.8 g/dL (3.5-5.2); Alkaline Phosphatase 85 U/L (35-105); Anion Gap 12.8 (5-19); Aspartate Amino Transferase 12 U/L (0-32); Blood Urea Nitrogen 6 mg/dL (8-23); Calcium 8.9 mg/dL (8.5-10.5); Carbon Dioxide 28 mmol/L (22-29); Chloride 103 mmol/L (98-107); Globulin 3.3 g/dL (1.3-4.6); Glomerular Filtration Rate 83.5 mL/min (90-130); Glucose 95 mg/dL (65-115); Magnesium 1.9 mg/dL (1.7-2.3); Osmolality Calculated 287 mOsm/kg (285-295); Potassium 3.8 mmol/L (3.5-5.1); Sodium 140 mmol/L (136-145); Thyroid Stimulating Hormone 2.17 uIU/mL (0.27-4.20); Total Bilirubin 0.2 mg/dL (0.15-1.2); Total Protein 7.1 g/dL (6.6-8.7)
[2022-12-29 11:25] VITALS: BMI 26.7
[2022-12-29] MEDS: sodium chloride 0.9% 250 ML 75 ML IV (11:43)
[2022-12-29] MEDS: atezolizumab 1,200 MG in sodium chloride 0.9% 250 ML 540 MG IV (11:58)
[2022-12-29 12:45] VITALS: BP 123/72; PULSE 66; RESP 18; TEMP 35.9; O2SAT 99
[2023-01-19 10:00] VITALS: BP 125/77; PULSE 72; TEMP 36.7; O2SAT 97
[2023-01-19] MEDS: alteplase 1 mg/mL SDV 2 mL 2 MG INTRACATH (10:19)
[2023-01-19 10:52] LABS: Basophils # 0.1 10^3/uL (0.0-0.1); Basophils % 0.6 %; Eosinophils % 0.5 %; Hematocrit 37.8 % (37.0-47.0); Lymphocytes # 1.8 10^3/uL (0.8-4.8); Lymphocytes % 22.8 %; Mean Corpuscular HGB Conc 31.7 g/dL (30.0-36.0); Mean Corpuscular Hemoglobin 29.2 pg (28.0-34.0); Mean Platelet Volume 10.6 fL (7.4-10.4); Monocytes # 0.8 10^3/uL (0.2-0.9); Monocytes % 10.2 %; Neutrophils # 5.04 10^3/uL (1.8-7.7); Neutrophils % 65.4 %; Nucleated Red Blood Cells % 0 %; Platelet Count 237 10^3/cmm (130-400); Red Blood Count 4.11 10^6/uL (4.1-5.3); Red Cell Distribution Width 13.2 % (12.1-15.1); White Blood Count 7.7 10^3/uL (4.0-10.0)
[2023-01-19 11:22] LABS: Alanine Aminotransferase 14 U/L (0-33); Albumin Level 3.8 g/dL (3.5-5.2); Alkaline Phosphatase 85 U/L (35-105); Anion Gap 15.9 (5-19); Aspartate Amino Transferase 12 U/L (0-32); Blood Urea Nitrogen 5 mg/dL (8-23); Calcium 8.3 mg/dL (8.5-10.5); Carbon Dioxide 27 mmol/L (22-29); Chloride 101 mmol/L (98-107); Glomerular Filtration Rate 99.7 mL/min (90-130); Glucose 103 mg/dL (65-115); Magnesium 1.5 mg/dL (1.7-2.3); Osmolality Calculated 290 mOsm/kg (285-295); Sodium 141 mmol/L (136-145); Thyroid Stimulating Hormone 1.76 uIU/mL (0.27-4.20); Total Bilirubin 0.2 mg/dL (0.15-1.2); Total Protein 6.8 g/dL (6.6-8.7)
[2023-01-19 11:26] LABS: Potassium 2.9 mmol/L (3.5-5.1)
[2023-01-19 11:31] LABS: Slide Review Slide Review Perform
[2023-01-19] MEDS: potassium chloride premix 100 ML 50 MEQ IV (12:31)
[2023-01-19] MEDS: atezolizumab 1,200 MG in sodium chloride 0.9% 250 ML 500 MG IV (14:26)
[2023-01-19] MEDS: sodium chloride 0.9% 250 ML 100 ML IV (14:33)
[2023-01-19 15:47] VITALS: BP 137/74; PULSE 74; TEMP 36.7; O2SAT 95
== END 2023-01-20 23:59 | disposition home or self-care (01) ==
PROVIDERS: Nurse Practitioner Family; PCP Registered Nurse; Visit Provider Internal Medicine Medical Oncology
DX: Z51.12 Encounter for antineoplastic immunotherapy (principal); C34.12 Malignant neoplasm of upper lobe, left bronchus or lung; Z79.899 Other long term (current) drug therapy; E87.6 Hypokalemia; J84.10 Pulmonary fibrosis, unspecified; J98.11 Atelectasis; E83.42 Hypomagnesemia; Z87.891 Personal history of nicotine dependence
CPT/HCPCS: 36593; 80053; 83735; 84443; 85025; 96366; 96367; 96413; 99214; J2997; J3475; J3480; J7050; J9022

== ENCOUNTER 2023-02-09 08:11 | Oncology outpatient (recurring) (ONCR) | payer MEDICARE, MEDICAID, SELFPAY ==
[2023-01-26] MEDS: alteplase 1 mg/mL SDV 2 mL 2 MG INTRACATH (10:09)
[2023-01-26 11:33] LABS: Alanine Aminotransferase 9 U/L (0-33); Albumin Level 3.8 g/dL (3.5-5.2); Alkaline Phosphatase 102 U/L (35-105); Anion Gap 15.5 (5-19); Aspartate Amino Transferase 11 U/L (0-32); Blood Urea Nitrogen 7 mg/dL (8-23); Carbon Dioxide 22 mmol/L (22-29); Chloride 102 mmol/L (98-107); Globulin 3.9 g/dL (1.3-4.6); Glomerular Filtration Rate 83.5 mL/min (90-130); Glucose 89 mg/dL (65-115); Magnesium 2.1 mg/dL (1.7-2.3); Osmolality Calculated 277 mOsm/kg (285-295); Potassium 4.5 mmol/L (3.5-5.1); Sodium 135 mmol/L (136-145); Total Bilirubin 0.2 mg/dL (0.15-1.2); Total Protein 7.7 g/dL (6.6-8.7)
[2023-02-09 08:26] VITALS: BP 139/69; PULSE 79; RESP 18; TEMP 36.1; O2SAT 98
[2023-02-09 08:30] LABS: Basophils # 0.1 10^3/uL (0.0-0.1); Basophils % 0.9 %; Eosinophils # 0.1 10^3/uL (0.0-0.8); Eosinophils % 0.6 %; Hematocrit 39.4 % (37.0-47.0); Hemoglobin 12.5 g/dL (11.5-15.3); Lymphocytes # 2.2 10^3/uL (0.8-4.8); Lymphocytes % 27.8 %; Mean Corpuscular HGB Conc 31.7 g/dL (30.0-36.0); Mean Corpuscular Volume 91.4 fl (81-99); Mean Platelet Volume 10.6 fL (7.4-10.4); Monocytes # 0.4 10^3/uL (0.2-0.9); Monocytes % 5.4 %; Neutrophils # 5.13 10^3/uL (1.8-7.7); Nucleated Red Blood Cells % 0 %; Platelet Count 248 10^3/cmm (130-400); Red Blood Count 4.31 10^6/uL (4.1-5.3); Red Cell Distribution Width 13.7 % (12.1-15.1); White Blood Count 7.9 10^3/uL (4.0-10.0)
[2023-02-09 08:59] LABS: Alanine Aminotransferase 9 U/L (0-33); Albumin Level 3.7 g/dL (3.5-5.2); Alkaline Phosphatase 92 U/L (35-105); Anion Gap 15.5 (5-19); Aspartate Amino Transferase 11 U/L (0-32); Blood Urea Nitrogen 5 mg/dL (8-23); Calcium 8.4 mg/dL (8.5-10.5); Carbon Dioxide 24 mmol/L (22-29); Chloride 102 mmol/L (98-107); Globulin 3.3 g/dL (1.3-4.6); Glomerular Filtration Rate 83.5 mL/min (90-130); Glucose 124 mg/dL (65-115); Magnesium 1.9 mg/dL (1.7-2.3); Osmolality Calculated 283 mOsm/kg (285-295); Potassium 4.5 mmol/L (3.5-5.1); Sodium 137 mmol/L (136-145); Thyroid Stimulating Hormone 2.73 uIU/mL (0.27-4.20); Total Bilirubin 0.3 mg/dL (0.15-1.2)
[2023-02-09] MEDS: sodium chloride 0.9% 250 ML 75 ML IV (09:36)
[2023-02-09] MEDS: atezolizumab 1,200 MG in sodium chloride 0.9% 250 ML 600 MG IV (10:10)
[2023-02-09 11:31] VITALS: BP 125/69; PULSE 67; RESP 18; TEMP 36.3; O2SAT 99
== END 2023-02-09 23:59 | disposition home or self-care (01) ==
PROVIDERS: Nurse Practitioner Family; PCP Registered Nurse; Visit Provider Internal Medicine Medical Oncology
DX: C34.12 Malignant neoplasm of upper lobe, left bronchus or lung (principal); E87.6 Hypokalemia; Z79.899 Other long term (current) drug therapy; Z51.12 Encounter for antineoplastic immunotherapy; C77.8 Secondary and unspecified malignant neoplasm of lymph nodes of multiple regions; C79.51 Secondary malignant neoplasm of bone; R53.83 Other fatigue; Z87.891 Personal history of nicotine dependence
CPT/HCPCS: 36591; 80053; 83735; 84443; 85025; 96413; 99214; J2997; J7050; J9022

== ENCOUNTER 2023-03-02 10:33 | Oncology outpatient (recurring) (ONCR) | payer MEDICARE, MEDICAID, SELFPAY ==
[2023-03-02 11:24] LABS: Basophils # 0.1 10^3/uL (0.0-0.1); Basophils % 0.6 %; Eosinophils % 0.5 %; Hematocrit 38.1 % (37.0-47.0); Hemoglobin 12.1 g/dL (11.5-15.3); Lymphocytes # 2.2 10^3/uL (0.8-4.8); Lymphocytes % 26.8 %; Mean Corpuscular HGB Conc 31.8 g/dL (30.0-36.0); Mean Corpuscular Hemoglobin 29.1 pg (28.0-34.0); Mean Corpuscular Volume 91.6 fl (81-99); Mean Platelet Volume 10.8 fL (7.4-10.4); Monocytes # 0.5 10^3/uL (0.2-0.9); Monocytes % 5.8 %; Neutrophils # 5.46 10^3/uL (1.8-7.7); Neutrophils % 65.9 %; Nucleated Red Blood Cells % 0 %; Platelet Count 251 10^3/cmm (130-400); Red Blood Count 4.16 10^6/uL (4.1-5.3); Red Cell Distribution Width 14.4 % (12.1-15.1); White Blood Count 8.3 10^3/uL (4.0-10.0)
[2023-03-02 11:43] LABS: Alanine Aminotransferase 11 U/L (0-33); Albumin Level 3.8 g/dL (3.5-5.2); Alkaline Phosphatase 92 U/L (35-105); Anion Gap 11.8 (5-19); Aspartate Amino Transferase 12 U/L (0-32); Blood Urea Nitrogen 6 mg/dL (8-23); Calcium 8.4 mg/dL (8.5-10.5); Carbon Dioxide 27 mmol/L (22-29); Chloride 103 mmol/L (98-107); Globulin 3.1 g/dL (1.3-4.6); Glomerular Filtration Rate 99.7 mL/min (90-130); Glucose 124 mg/dL (65-115); Osmolality Calculated 285 mOsm/kg (285-295); Potassium 3.8 mmol/L (3.5-5.1); Sodium 138 mmol/L (136-145); Total Bilirubin 0.3 mg/dL (0.15-1.2); Total Protein 6.9 g/dL (6.6-8.7)
[2023-03-02] MEDS: atezolizumab 1,200 MG in sodium chloride 0.9% 250 ML 275 MG IV (13:05)
[2023-03-02 16:17] VITALS: BP 140/70; PULSE 76; RESP 18; TEMP 36.6; O2SAT 98
== END 2023-03-02 23:59 | disposition home or self-care (01) ==
PROVIDERS: PCP Registered Nurse; Visit Provider Internal Medicine Medical Oncology
DX: Z51.12 Encounter for antineoplastic immunotherapy (principal); C34.12 Malignant neoplasm of upper lobe, left bronchus or lung; Z79.899 Other long term (current) drug therapy
CPT/HCPCS: 80053; 85025; 96413; J7050; J9022

== ENCOUNTER 2023-03-23 08:48 | Oncology outpatient (recurring) (ONCR) | payer MEDICARE, MEDICAID, SELFPAY ==
[2023-03-23 09:38] VITALS: BP 124/73; PULSE 66; RESP 16; TEMP 35.7; O2SAT 98
[2023-03-23] MEDS: atezolizumab 1,200 MG in sodium chloride 0.9% 250 ML 500 MG IV (10:39)
[2023-03-23] MEDS: sodium chloride 0.9% 250 ML 100 ML IV (10:41)
[2023-03-23 11:34] VITALS: BP 125/65; PULSE 94; TEMP 36.5; O2SAT 96
== END 2023-03-23 23:59 | disposition home or self-care (01) ==
PROVIDERS: PCP Registered Nurse; Visit Provider Internal Medicine Medical Oncology
DX: Z51.12 Encounter for antineoplastic immunotherapy (principal); C34.12 Malignant neoplasm of upper lobe, left bronchus or lung
CPT/HCPCS: 96413; J1642; J7050; J9022

== ENCOUNTER 2023-04-13 08:31 | Oncology outpatient (recurring) (ONCR) | payer MEDICARE, MEDICAID, SELFPAY ==
[2023-04-13 08:44] VITALS: BP 127/76; PULSE 76; RESP 18; TEMP 36.1; O2SAT 98
[2023-04-13 09:04] LABS: Basophils % 0.5 %; Eosinophils % 0.3 %; Hematocrit 36.7 % (37.0-47.0); Hemoglobin 11.4 g/dL (11.5-15.3); Lymphocytes % 22.7 %; Mean Corpuscular HGB Conc 31.1 g/dL (30.0-36.0); Mean Corpuscular Hemoglobin 28.5 pg (28.0-34.0); Mean Corpuscular Volume 91.8 fl (81-99); Mean Platelet Volume 10.7 fL (7.4-10.4); Monocytes # 0.5 10^3/uL (0.2-0.9); Monocytes % 6.1 %; Neutrophils % 69.9 %; Nucleated Red Blood Cells % 0 %; Platelet Count 231 10^3/cmm (130-400); Red Cell Distribution Width 15.3 % (12.1-15.1); White Blood Count 8.6 10^3/uL (4.0-10.0)
[2023-04-13 09:30] LABS: Alanine Aminotransferase 9 U/L (0-33); Albumin Level 3.7 g/dL (3.5-5.2); Alkaline Phosphatase 95 U/L (35-105); Anion Gap 13.4 (5-19); Aspartate Amino Transferase 10 U/L (0-32); Blood Urea Nitrogen 5 mg/dL (8-23); Calcium 8.7 mg/dL (8.5-10.5); Carbon Dioxide 24 mmol/L (22-29); Chloride 103 mmol/L (98-107); Globulin 3.1 g/dL (1.3-4.6); Glomerular Filtration Rate 99.7 mL/min (90-130); Glucose 121 mg/dL (65-115); Osmolality Calculated 281 mOsm/kg (285-295); Potassium 4.4 mmol/L (3.5-5.1); Sodium 136 mmol/L (136-145); Thyroid Stimulating Hormone 2.18 uIU/mL (0.27-4.20); Total Bilirubin 0.3 mg/dL (0.15-1.2); Total Protein 6.8 g/dL (6.6-8.7)
[2023-04-13 10:42] VITALS: BP 135/58; PULSE 72; RESP 18; TEMP 36.3
[2023-04-13] MEDS: sodium chloride 0.9% 250 ML 75 ML IV (10:45)
[2023-04-13] MEDS: atezolizumab 1,200 MG in sodium chloride 0.9% 250 ML 540 MG IV (11:13)
[2023-04-13 11:57] VITALS: BP 111/74; PULSE 74; RESP 16; TEMP 36.4; O2SAT 98
== END 2023-04-13 11:59 | disposition home or self-care (01) ==
PROVIDERS: Internal Medicine Medical Oncology; PCP Registered Nurse; Visit Provider Internal Medicine Medical Oncology
DX: Z51.12 Encounter for antineoplastic immunotherapy (principal); C34.12 Malignant neoplasm of upper lobe, left bronchus or lung; Z79.899 Other long term (current) drug therapy; C77.8 Secondary and unspecified malignant neoplasm of lymph nodes of multiple regions; C79.51 Secondary malignant neoplasm of bone; C78.01 Secondary malignant neoplasm of right lung; C79.72 Secondary malignant neoplasm of left adrenal gland; C79.71 Secondary malignant neoplasm of right adrenal gland; D64.81 Anemia due to antineoplastic chemotherapy; T45.1X5A Adverse effect of antineoplastic and immunosuppressive drugs, initial encounter; Z87.891 Personal history of nicotine dependence; Z92.21 Personal history of antineoplastic chemotherapy; Z92.3 Personal history of irradiation
CPT/HCPCS: 80053; 84443; 85025; 96413; 99215; J1642; J7050; J9022

== ENCOUNTER 2023-05-04 08:02 | Oncology outpatient (recurring) (ONCR) | payer MEDICARE, MEDICAID, SELFPAY ==
[2023-05-04 08:19] VITALS: BP 117/69; PULSE 86; RESP 18; TEMP 36.3; O2SAT 97
[2023-05-04 08:35] LABS: Basophils % 0.4 %; Eosinophils % 0.4 %; Hematocrit 36.4 % (37.0-47.0); Hemoglobin 11.5 g/dL (11.5-15.3); Lymphocytes % 25.1 %; Mean Corpuscular HGB Conc 31.6 g/dL (30.0-36.0); Mean Corpuscular Hemoglobin 29.5 pg (28.0-34.0); Mean Corpuscular Volume 93.3 fl (81-99); Mean Platelet Volume 11.2 fL (7.4-10.4); Monocytes # 0.5 10^3/uL (0.2-0.9); Monocytes % 6.1 %; Neutrophils # 5.31 10^3/uL (1.8-7.7); Neutrophils % 67.6 %; Nucleated Red Blood Cells % 0 %; Platelet Count 225 10^3/cmm (130-400); Red Cell Distribution Width 16.1 % (12.1-15.1); White Blood Count 7.9 10^3/uL (4.0-10.0)
[2023-05-04 08:53] LABS: Alanine Aminotransferase 8 U/L (0-33); Albumin Level 3.7 g/dL (3.5-5.2); Alkaline Phosphatase 87 U/L (35-105); Aspartate Amino Transferase 9 U/L (0-32); Blood Urea Nitrogen 6 mg/dL (8-23); Calcium 8.2 mg/dL (8.5-10.5); Carbon Dioxide 25 mmol/L (22-29); Chloride 103 mmol/L (98-107); Globulin 2.8 g/dL (1.3-4.6); Glomerular Filtration Rate 83.5 mL/min (90-130); Glucose 105 mg/dL (65-115); Osmolality Calculated 282 mOsm/kg (285-295); Sodium 137 mmol/L (136-145); Total Bilirubin 0.3 mg/dL (0.15-1.2); Total Protein 6.5 g/dL (6.6-8.7)
[2023-05-04] MEDS: alteplase 1 mg/mL SDV 2 mL 2 MG INTRACATH (10:00)
[2023-05-04] MEDS: atezolizumab 1,200 MG in sodium chloride 0.9% 250 ML 600 MG IV (10:20)
[2023-05-04] MEDS: sodium chloride 0.9% 250 ML 50 ML IV (10:23)
[2023-05-04 17:51] VITALS: BP 120/78; PULSE 80; RESP 18; TEMP 36.6
== END 2023-05-04 23:59 | disposition home or self-care (01) ==
PROVIDERS: Internal Medicine Medical Oncology; PCP Registered Nurse; Visit Provider Internal Medicine Medical Oncology
DX: Z51.12 Encounter for antineoplastic immunotherapy (principal); C34.12 Malignant neoplasm of upper lobe, left bronchus or lung; C77.0 Secondary and unspecified malignant neoplasm of lymph nodes of head, face and neck; C79.51 Secondary malignant neoplasm of bone; G89.3 Neoplasm related pain (acute) (chronic); R51.9 Headache, unspecified; R05.8 Other specified cough; Z79.899 Other long term (current) drug therapy; Z87.891 Personal history of nicotine dependence
CPT/HCPCS: 36593; 80053; 85025; 96413; 99214; J1642; J2997; J7050; J9022

== ENCOUNTER 2023-05-23 07:55 | Outpatient (CLI) | payer MEDICARE, MEDICAID, SELFPAY ==
--- NOTE | 2023-05-23 08:00 | MR_ITS ---
WS: [email or web address] MRI HEAD WITH CONTRAST TECHNIQUE: Sagittal T1, T2 axial, T2 axial FLAIR, axial susceptibility weighted imaging, axial diffus ion weighted images, and coronal T2 images were obtained. Pre and post-T1 axial and post T1 coronal i mages. ADC and FSPGR images. CLINICAL INFORMATION: headache, history of lung cancer with mets COMPARISON: MRI May 25, 2022 FINDINGS: No evidence of restricted diffusion to suggest acute ischemia. Ventricular system and basal cisterns are patent. Mild small vessel changes. Moderate parenchymal volume loss. Normal posterior fossa. Several tiny chronic lacunar infarcts LEFT cerebellum unchanged. Normal vascular flow voids at the sk ull base. No extra-axial fluid collections. No evidence of mass or mass effect. Normal posterior naso pharynx. Normal parapharyngeal fat. Paranasal sinuses and mastoid air cells are well aerated. Chronic gliosis RIGHT parietal lobe near the vertex unchanged. No hemosiderin on the susceptibility weighted images. Normal optic chiasm and pituitary infundibulum. No abnormal intracranial enhancement. No evidence of enhancing intracranial metastatic disease. Kira l visualized dural venous sinuses. MR/MR head wo/w con [id number] IMPRESSION: 1. No evidence of enhancing intracranial metastatic disease. 2. Mild small vessel changes with moderate parenchymal volume loss. 3. No hemosiderin on susceptibly weighted images. 4. Several tiny chronic lacunar infarcts LEFT cerebellum unchanged.
--- NOTE | 2023-05-23 08:45 | MR_ITS ---
WS: [email or web address] MRI CERVICAL SPINE NONCONTRAST AND CONTRAST TECHNIQUE: Sagittal T1, T2 and STIR imaging. Axial T2, gradient, and fiesta imaging. Post gadolinium imaging was obtained with fat saturation technique. CLINICAL INFORMATION: C/o headache, history of lung cancer with bone mets COMPARISON: MRI 05/25/[address] September 06, 2022 FINDINGS: Slight anterolisthesis C4 on C5. Disc bulging worse at C4-C5 and C5-C6. Cord signal is normal. Previo usly described marrow replacing metastatic lesion involving the C2 vertebral body significant improve d with normal bone marrow signal today. Normal fatty bone marrow signal in C2 vertebral body. No sign ificant enhancement. Small amount of residual patchy signal abnormality compatible with treated disea se. No evidence of new enhancing metastatic or epidural disease. C2-C3: Normal. C3-C4: Mild disc bulging and osteophytic ridging. Mild facet arthropathy. Mild bilateral bony foramin al narrowing. Spinal canal is patent. C4-C5: Slight anterolisthesis C4 on C5 with mild disc bulging and osteophytic ridging. Slight effacem ent of the ventral thecal sac. Spinal canal is patent. Moderate facet arthropathy. Mild bilateral bon y foraminal narrowing. C5-C6: Small central disc protrusion. Slight effacement of ventral thecal sac. Spinal canal is patent . Mild facet arthropathy. Mild LEFT greater than RIGHT bony foraminal narrowing. C6-C7: Mild disc bulging with osteophytic ridging. Spinal canal and foramen are patent. C7-T1: Normal. Visualized brain stem structures: Normal. Prevertebral soft tissues: Normal. 13 mm T2 hyperintense enhancing LEFT thyroid nodule. MR/MR cervical spine wo/w [id number] IMPRESSION: 1. Previously described enhancing metastatic lesion at the C2 vertebral body h as essentially resolved compatible with interval response to therapy. No residu al enhancing suspicious lesions. Small amount of residual patchy treatment-rela darrion signal abnormality at C2. 2. No other enhancing metastatic lesions. 3. Stable slight anterolisthesis C4 on C5. 4. Mild disc bulging. C5-C6 and C6-C7. 5. 13 mm T2 hyperintense enhancing LEFT thyroid nodule. This can be followed u p with ultrasound.
[2023-05-23] MEDS: gadobenate dimeglumine 20 mL vial IV (09:25)
== END 2023-05-23 07:56 | disposition home or self-care (01) ==
PROVIDERS: PCP Registered Nurse; Visit Provider Nurse Practitioner Family
DX: C34.12 Malignant neoplasm of upper lobe, left bronchus or lung (principal); C79.51 Secondary malignant neoplasm of bone; R51.9 Headache, unspecified; M50.322 Other cervical disc degeneration at C5-C6 level; E04.1 Nontoxic single thyroid nodule; Z86.73 Personal history of transient ischemic attack (TIA), and cerebral infarction without residual deficits
CPT/HCPCS: 70553; 72156; A9577

== ENCOUNTER 2023-05-25 08:06 | Oncology outpatient (recurring) (ONCR) | payer MEDICARE, MEDICAID, SELFPAY ==
[2023-05-25 08:30] VITALS: BP 136/74; PULSE 74; TEMP 36.3; O2SAT 97
[2023-05-25 08:43] LABS: Basophils # 0.1 10^3/uL (0.0-0.1); Basophils % 0.7 %; Eosinophils % 0.5 %; Hematocrit 37.9 % (37.0-47.0); Hemoglobin 12.2 g/dL (11.5-15.3); Lymphocytes # 2.1 10^3/uL (0.8-4.8); Lymphocytes % 25.1 %; Mean Corpuscular HGB Conc 32.2 g/dL (30.0-36.0); Mean Corpuscular Hemoglobin 29.9 pg (28.0-34.0); Mean Corpuscular Volume 92.9 fl (81-99); Mean Platelet Volume 10.9 fL (7.4-10.4); Monocytes # 0.5 10^3/uL (0.2-0.9); Monocytes % 5.9 %; Neutrophils # 5.64 10^3/uL (1.8-7.7); Neutrophils % 67.6 %; Nucleated Red Blood Cells % 0 %; Platelet Count 238 10^3/cmm (130-400); Red Blood Count 4.08 10^6/uL (4.1-5.3); Red Cell Distribution Width 15.8 % (12.1-15.1); White Blood Count 8.3 10^3/uL (4.0-10.0)
[2023-05-25 09:10] LABS: Alanine Aminotransferase 7 U/L (0-33); Albumin Level 3.8 g/dL (3.5-5.2); Alkaline Phosphatase 89 U/L (35-105); Anion Gap 14.3 (5-19); Aspartate Amino Transferase 11 U/L (0-32); Blood Urea Nitrogen 7 mg/dL (8-23); Calcium 8.7 mg/dL (8.5-10.5); Carbon Dioxide 27 mmol/L (22-29); Chloride 103 mmol/L (98-107); Glomerular Filtration Rate 83.5 mL/min (90-130); Glucose 113 mg/dL (65-115); Osmolality Calculated 289 mOsm/kg (285-295); Potassium 4.3 mmol/L (3.5-5.1); Sodium 140 mmol/L (136-145); Thyroid Stimulating Hormone 1.83 uIU/mL (0.27-4.20); Total Bilirubin 0.2 mg/dL (0.15-1.2); Total Protein 6.8 g/dL (6.6-8.7)
[2023-05-25] MEDS: atezolizumab 1,200 MG in sodium chloride 0.9% 250 ML 600 MG IV (10:39)
[2023-05-25] MEDS: sodium chloride 0.9% 250 ML 75 ML IV (10:41)
[2023-05-25 11:26] VITALS: BP 116/72; PULSE 65; RESP 18; TEMP 36.2; O2SAT 99
== END 2023-05-25 23:59 | disposition home or self-care (01) ==
PROVIDERS: Nurse Practitioner Family; PCP Registered Nurse; Visit Provider Internal Medicine Medical Oncology
DX: Z51.12 Encounter for antineoplastic immunotherapy (principal); C34.12 Malignant neoplasm of upper lobe, left bronchus or lung; C77.0 Secondary and unspecified malignant neoplasm of lymph nodes of head, face and neck; C79.51 Secondary malignant neoplasm of bone; R06.02 Shortness of breath; G89.3 Neoplasm related pain (acute) (chronic); R10.84 Generalized abdominal pain; Z79.899 Other long term (current) drug therapy; Z87.891 Personal history of nicotine dependence
CPT/HCPCS: 80053; 84443; 85025; 96413; 99214; J1642; J7050; J9022

== ENCOUNTER 2023-06-09 07:43 | Outpatient (CLI) | payer MEDICARE, MEDICAID, SELFPAY ==
--- NOTE | 2023-06-09 08:30 | CTR_ITS ---
PROCEDURE INFORMATION: Exam: CT Chest Without Contrast; Diagnostic Exam date and time: 06/09/2023 9:05 AM Age: 67 years old Clinical indication: Condition or disease; Lung condition and disease; Cancer of the lung; Unspecified; Primary cancer: History--follow up lung CA. 16:20 per christopher at providers office, wo contrast per Dr alcantar. PT states luq pain coronic and worsening; Tumor on left side of abd; Prior surgery; Surgery date: 6+ months; Surgery type: Left lung, aorta stents, gb, appy; Additional info: Follow up, lung cancer, 16:20 per christopher at providers office, wo contrast per Dr alcantar TECHNIQUE: Imaging protocol: Diagnostic computed tomography of the chest without contrast. Radiation optimization: All CT scans at this facility use at least one of these dose optimization techniques: automated exposure control; mA and/or kV adjustment per patient size (includes targeted exams where dose is matched to clinical indication); or iterative reconstruction. REPORTING DATA: Count of CT and Cardiac NM exams in prior 12 months: This patient has received 4 known CTs and 0 known cardiac nuclear medicine studies in the 12 months prior to the current study. COMPARISON: [place] [id number] 01/05/2023 9:[address] chest abdpel w/*[id number] 06/15/2022 9:57 AM RADIATION DOSE METRICS: Total DLP (mGy-cm): 431.07 FINDINGS: Tubes, catheters and devices: Right chest port terminates at the superior cavoatrial junction. Thyroid: Stable 1.4 cm left thyroid nodule. Lungs: Upper lung predominant emphysematous changes. Intervally stable left upper lobe bandlike opacity. Decreased left lower lobe opacity now with bandlike morphology and resolved cystic airspace. Multiple scattered sub 6 mm pulmonary nodules, some calcified and some ground-glass attenuation with a few solid noncalcified, are stable from May 2022. No new or enlarging nodule. No consolidation. Pleural spaces: No pleural effusion or pneumothorax. Heart: Lipomatous hypertrophy of the interatrial septum. Mild aortic valve calcification. No cardiomegaly. No pericardial effusion. Coronary arteries: Moderate coronary artery calcification. Lymph nodes: No enlarged lymph nodes. Mediastinal and right hilar calcified lymph nodes in keeping with sequela of old granulomatous disease. Vasculature: Mild systemic atherosclerotic calcification without aortic aneurysm. Diaphragm: Small hiatal hernia. Bones/joints: No acute fracture. Mild degenerative changes along the spine. Stable nonaggressive sclerotic focus of the right humeral head. Soft tissues: See Heart finding. COMMENTS: In the absence of a history or active diagnosis of lung cancer, it is recommended that this patient with emphysema be evaluated for enrollment in a low dose CT lung cancer screening program. PROCEDURE INFORMATION: Exam: CT Abdomen And Pelvis Without Contrast Exam date and time: 06/09/2023 9:05 AM Age: 67 years old Clinical indication: Condition or disease; Lung condition and disease; Cancer of the lung; Unspecified; Primary cancer: History--follow up lung CA. 16:20 per christopher at providers office, wo contrast per Dr alcantar. PT states luq pain coronic and worsening; Tumor on left side of abd; Prior surgery; Surgery date: 6+ months; Surgery type: Left lung, aorta stents, gb, appy; Additional info: Follow up, lung cancer, 16:20 per christopher at providers office, wo contrast per Dr alcantar TECHNIQUE: Imaging protocol: Computed tomography of the abdomen and pelvis without contrast. Radiation optimization: All CT scans at this facility use at least one of these dose optimization techniques: automated exposure control; mA and/or kV adjustment per patient size (includes targeted exams where dose is matched to clinical indication); or iterative reconstruction. REPORTING DATA: Count of CT and Cardiac NM exams in prior 12 months: This patient has received 4 known CTs and 0 known cardiac nuclear medicine studies in the 12 months prior to the current study. COMPARISON: 1[place] [id number] 01/05/2023 9:[address] chest abdpel w/*[id number] 06/15/2022 9:[address] abdomen pelvis w con* [id number] 04/29/2022 5:21 PM RADIATION DOSE METRICS: Total DLP (mGy-cm): 431.07 FINDINGS: Liver: Tiny hepatic calcifications in keeping with sequela of old granulomatous disease. Gallbladder and bile ducts: Prior cholecystectomy. No biliary ductal dilatation. Pancreas: Normal without ductal dilatation. Spleen: Tiny splenic calcifications in keeping with sequela of old granulomatous disease. Adrenal glands: Stable 1 cm right adrenal nodule. Normal left adrenal gland. Kidneys and ureters: Normal. No hydronephrosis. Stomach and bowel: No dilatation. No evidence of mucosal thickening. Appendix: Normal. Intraperitoneal space: No free air, free fluid, or well-organized fluid collection. Vasculature: Moderate systemic atherosclerotic calcification without abdominal aortic aneurysm. Aorto bi-iliac stent redemonstrated. Incidental retroaortic left renal vein. Lymph nodes: No enlarged lymph nodes. Urinary bladder: Urinary bladder is unremarkable. Reproductive: Fibroid uterus. Bones/joints: No acute fracture. Mild degenerative changes along the spine and pubic symphysis. Stable mild anterior wedge compression deformity of the L1 vertebral body. Stable nonaggressive sclerotic focus at the left anterosuperior acetabulum. Soft tissues: Unremarkable. CT/[place] [id number] IMPRESSION: 1. Improved left lower lobe opacity now with bandlike morphology and resolved cavitation. 2. Stable left upper lobe bandlike opacity. 3. Multiple stable sub 6 mm pulmonary nodules throughout both lungs. IMPRESSION: 1. Stable right adrenal nodule. 2. Additional chronic and incidental findings as above.
[2023-06-09] MEDS: barium sulfate 450 mL Oral Susp PO (09:09)
== END 2023-06-09 07:44 | disposition home or self-care (01) ==
LOC: RAD 07:44
PROVIDERS: PCP Registered Nurse; Visit Provider Internal Medicine Medical Oncology
DX: C34.12 Malignant neoplasm of upper lobe, left bronchus or lung (principal); R91.8 Other nonspecific abnormal finding of lung field
CPT/HCPCS: 71250; 74176

== ENCOUNTER 2023-07-06 08:26 | Oncology outpatient (recurring) (ONCR) | payer MEDICARE, MEDICAID, SELFPAY ==
[2023-07-06 08:50] VITALS: BP 140/86; PULSE 84; RESP 16; TEMP 36.6; O2SAT 98
[2023-07-06 08:55] LABS: Basophils # 0.1 10^3/uL (0.0-0.1); Basophils % 0.9 %; Eosinophils # 0.1 10^3/uL (0.0-0.8); Eosinophils % 0.6 %; Hematocrit 39.4 % (36-47); Lymphocytes # 2.1 10^3/uL (0.8-4.8); Lymphocytes % 23.4 %; Mean Corpuscular HGB Conc 32.2 g/dL (30-55); Mean Corpuscular Hemoglobin 30.1 pg (27-33); Mean Corpuscular Volume 93.4 fl (85-98); Mean Platelet Volume 10.9 fL (7.4-10.4); Monocytes # 0.5 10^3/uL (0.2-0.9); Monocytes % 6.2 %; Neutrophils % 68.4 %; Nucleated Red Blood Cells % 0 %; Platelet Count 232 10^3/cmm (157-399); Red Blood Count 4.22 10^6/uL (3.85-5.65); Red Cell Distribution Width 15.2 % (12.1-15.1); White Blood Count 8.76 10^3/uL (3.29-11.43)
[2023-07-06 09:27] LABS: Alanine Aminotransferase 7 U/L (0-33); Albumin Level 3.9 g/dL (3.5-5.2); Alkaline Phosphatase 87 U/L (35-105); Anion Gap 13.3 (5-19); Aspartate Amino Transferase 8 U/L (0-32); Blood Urea Nitrogen 7 mg/dL (8-23); Calcium 8.8 mg/dL (8.5-10.5); Carbon Dioxide 25 mmol/L (22-29); Chloride 106 mmol/L (98-107); Globulin 2.9 g/dL (1.3-4.6); Glomerular Filtration Rate 99.4 mL/min (90-130); Glucose 123 mg/dL (65-115); Osmolality Calculated 289 mOsm/kg (285-295); Potassium 4.3 mmol/L (3.5-5.1); Sodium 140 mmol/L (136-145); Thyroid Stimulating Hormone 1.93 uIU/mL (0.27-4.20); Total Bilirubin 0.3 mg/dL (0.15-1.2); Total Protein 6.8 g/dL (6.6-8.7)
[2023-07-06] MEDS: sodium chloride 0.9% 250 ML 100 ML IV (10:48)
[2023-07-06] MEDS: atezolizumab 1,200 MG in sodium chloride 0.9% 250 ML 600 MG IV (10:49)
[2023-07-06 11:40] VITALS: BP 143/77; PULSE 77; TEMP 36.6; O2SAT 99
== END 2023-07-06 23:59 | disposition home or self-care (01) ==
PROVIDERS: PCP Registered Nurse; Visit Provider Internal Medicine Medical Oncology
DX: Z51.12 Encounter for antineoplastic immunotherapy (principal); C34.12 Malignant neoplasm of upper lobe, left bronchus or lung; Z79.899 Other long term (current) drug therapy; R53.83 Other fatigue
CPT/HCPCS: 80053; 84443; 85025; 96413; 99214; J1642; J7050; J9022

== ENCOUNTER 2023-07-27 08:34 | Oncology outpatient (recurring) (ONCR) | payer MEDICARE, MEDICAID, SELFPAY ==
[2023-07-27 09:21] VITALS: BP 131/59; PULSE 61; TEMP 36.7; O2SAT 97
[2023-07-27 10:00] LABS: Basophils # 0.1 10^3/uL (0.0-0.1); Basophils % 0.6 %; Eosinophils % 0.5 %; Hematocrit 37.8 % (36-47); Lymphocytes # 2.2 10^3/uL (0.8-4.8); Lymphocytes % 26.8 %; Mean Corpuscular HGB Conc 31.7 g/dL (30-55); Mean Corpuscular Hemoglobin 29.4 pg (27-33); Mean Corpuscular Volume 92.6 fl (85-98); Mean Platelet Volume 11.7 fL (7.4-10.4); Monocytes # 0.5 10^3/uL (0.2-0.9); Monocytes % 6.6 %; Nucleated Red Blood Cells % 0 %; Platelet Count 242 10^3/cmm (157-399); Red Blood Count 4.08 10^6/uL (3.85-5.65); Red Cell Distribution Width 14.8 % (12.1-15.1); White Blood Count 8.16 10^3/uL (3.29-11.43)
[2023-07-27 10:11] LABS: Alanine Aminotransferase 7 U/L (0-33); Alkaline Phosphatase 95 U/L (35-105); Aspartate Amino Transferase 9 U/L (0-32); Blood Urea Nitrogen 6 mg/dL (8-23); Calcium 8.8 mg/dL (8.5-10.5); Carbon Dioxide 26 mmol/L (22-29); Chloride 104 mmol/L (98-107); Globulin 3.1 g/dL (1.3-4.6); Glomerular Filtration Rate 99.4 mL/min (90-130); Glucose 113 mg/dL (65-115); Osmolality Calculated 286 mOsm/kg (285-295); Sodium 139 mmol/L (136-145); Total Bilirubin 0.2 mg/dL (0.15-1.2); Total Protein 7.1 g/dL (6.6-8.7)
[2023-07-27] MEDS: sodium chloride 0.9% 250 ML 75 ML IV (11:08)
[2023-07-27] MEDS: atezolizumab 1,200 MG in sodium chloride 0.9% 250 ML 600 MG IV (11:26)
[2023-07-27 12:30] VITALS: BP 159/79; PULSE 60; RESP 16; TEMP 36; O2SAT 99
== END 2023-07-27 23:59 | disposition home or self-care (01) ==
PROVIDERS: Nurse Practitioner Family; PCP Registered Nurse; Visit Provider Internal Medicine Medical Oncology
DX: Z51.12 Encounter for antineoplastic immunotherapy (principal); C34.12 Malignant neoplasm of upper lobe, left bronchus or lung; Z53.9 Procedure and treatment not carried out, unspecified reason
CPT/HCPCS: 80053; 85025; 96413; J1642; J7050; J9022

== ENCOUNTER 2023-08-17 08:29 | Oncology outpatient (recurring) (ONCR) | payer MEDICARE, MEDICAID, SELFPAY ==
[2023-08-17 08:34] VITALS: BP 130/67; PULSE 66; RESP 19; TEMP 36.7; O2SAT 96
[2023-08-17 09:13] LABS: Basophils # 0.1 10^3/uL (0.0-0.1); Basophils % 0.7 %; Eosinophils % 0.4 %; Hematocrit 39.2 % (36-47); Lymphocytes # 2.4 10^3/uL (0.8-4.8); Lymphocytes % 25.3 %; Mean Corpuscular HGB Conc 31.9 g/dL (30-55); Mean Corpuscular Hemoglobin 29.6 pg (27-33); Mean Corpuscular Volume 92.7 fl (85-98); Mean Platelet Volume 11.2 fL (7.4-10.4); Monocytes # 0.6 10^3/uL (0.2-0.9); Monocytes % 6.4 %; Neutrophils # 6.26 10^3/uL (1.8-7.7); Neutrophils % 66.8 %; Nucleated Red Blood Cells % 0 %; Platelet Count 245 10^3/cmm (157-399); Red Blood Count 4.23 10^6/uL (3.85-5.65); Red Cell Distribution Width 14.6 % (12.1-15.1); White Blood Count 9.38 10^3/uL (3.29-11.43)
[2023-08-17 09:44] LABS: Alanine Aminotransferase 14 U/L (0-33); Albumin Level 4.3 g/dL (3.5-5.2); Alkaline Phosphatase 95 U/L (35-105); Anion Gap 14.2 (5-19); Aspartate Amino Transferase 17 U/L (0-32); Blood Urea Nitrogen 7 mg/dL (8-23); Calcium 9.1 mg/dL (8.5-10.5); Carbon Dioxide 27 mmol/L (22-29); Chloride 103 mmol/L (98-107); Globulin 2.7 g/dL (1.3-4.6); Glomerular Filtration Rate 99.4 mL/min (90-130); Glucose 113 mg/dL (65-115); Osmolality Calculated 289 mOsm/kg (285-295); Potassium 4.2 mmol/L (3.5-5.1); Sodium 140 mmol/L (136-145); Thyroid Stimulating Hormone 1.42 uIU/mL (0.27-4.20); Total Bilirubin 0.3 mg/dL (0.15-1.2)
[2023-08-17] MEDS: sodium chloride 0.9% 250 ML 75 ML IV (10:58)
[2023-08-17] MEDS: atezolizumab 1,200 MG in sodium chloride 0.9% 250 ML 340 MG IV (11:03)
[2023-08-17 11:55] VITALS: BP 127/60; PULSE 65; RESP 17; TEMP 36.2; O2SAT 98
== END 2023-08-17 23:59 | disposition home or self-care (01) ==
PROVIDERS: Nurse Practitioner Family; PCP Registered Nurse; Visit Provider Internal Medicine Medical Oncology
DX: Z51.12 Encounter for antineoplastic immunotherapy (principal); C34.12 Malignant neoplasm of upper lobe, left bronchus or lung; Z79.899 Other long term (current) drug therapy; C79.51 Secondary malignant neoplasm of bone
CPT/HCPCS: 80053; 84443; 85025; 96413; 99214; J1642; J7050; J9022

== ENCOUNTER → 2023-08-18 10:10 | Outpatient (BNVA) | payer MEDICARE, MEDICAID, SELFPAY | PROVIDERS: PCP Registered Nurse; Visit Provider Internal Medicine Cardiovascular Disease | DX: R07.9 Chest pain, unspecified (principal); Z92.3 Personal history of irradiation; I73.9 Peripheral vascular disease, unspecified; R03.0 Elevated blood-pressure reading, without diagnosis of hypertension; K21.9 Gastro-esophageal reflux disease without esophagitis; C34.12 Malignant neoplasm of upper lobe, left bronchus or lung; J43.2 Centrilobular emphysema; R94.31 Abnormal electrocardiogram [ECG] [EKG] | CPT/HCPCS: 99214 ==

== ENCOUNTER → 2023-08-18 11:07 | Outpatient (BNVA) | payer MEDICARE, MEDICAID, SELFPAY | PROVIDERS: PCP Registered Nurse; Visit Provider Internal Medicine Cardiovascular Disease | DX: R07.9 Chest pain, unspecified (principal); Z92.3 Personal history of irradiation; I73.9 Peripheral vascular disease, unspecified | CPT/HCPCS: 93005 ==

== ENCOUNTER 2023-09-07 08:35 | Oncology outpatient (recurring) (ONCR) | payer MEDICARE, MEDICAID, SELFPAY ==
[2023-09-07 08:59] VITALS: BP 128/57; PULSE 70; RESP 18; TEMP 35.9; O2SAT 96
[2023-09-07 09:09] LABS: Basophils # 0.1 10^3/uL (0.0-0.1); Basophils % 0.7 %; Eosinophils # 0.1 10^3/uL (0.0-0.8); Eosinophils % 1.2 %; Hematocrit 39.1 % (36-47); Lymphocytes # 2.2 10^3/uL (0.8-4.8); Lymphocytes % 26.2 %; Mean Corpuscular HGB Conc 32.2 g/dL (30-55); Mean Corpuscular Hemoglobin 30.2 pg (27-33); Mean Corpuscular Volume 93.8 fl (85-98); Mean Platelet Volume 10.9 fL (7.4-10.4); Monocytes # 0.6 10^3/uL (0.2-0.9); Monocytes % 7.5 %; Neutrophils # 5.34 10^3/uL (1.8-7.7); Neutrophils % 63.9 %; Nucleated Red Blood Cells % 0 %; Platelet Count 262 10^3/cmm (157-399); Red Blood Count 4.17 10^6/uL (3.85-5.65); Red Cell Distribution Width 14.7 % (12.1-15.1); White Blood Count 8.36 10^3/uL (3.29-11.43)
[2023-09-07 09:41] LABS: Alanine Aminotransferase 23 U/L (0-33); Alkaline Phosphatase 96 U/L (35-105); Anion Gap 15.2 (5-19); Aspartate Amino Transferase 16 U/L (0-32); Blood Urea Nitrogen 6 mg/dL (8-23); Calcium 9.1 mg/dL (8.5-10.5); Carbon Dioxide 26 mmol/L (22-29); Chloride 105 mmol/L (98-107); Globulin 3.1 g/dL (1.3-4.6); Glomerular Filtration Rate 83.2 mL/min (90-130); Glucose 139 mg/dL (65-115); Osmolality Calculated 294 mOsm/kg (285-295); Potassium 4.2 mmol/L (3.5-5.1); Sodium 142 mmol/L (136-145); Total Bilirubin 0.3 mg/dL (0.15-1.2); Total Protein 7.1 g/dL (6.6-8.7)
[2023-09-07] MEDS: sodium chloride 0.9% (100 ml) 100 ML 75 ML (11:31)
[2023-09-07] MEDS: atezolizumab 1,200 MG in sodium chloride 0.9% 250 ML 600 MG IV (11:48)
[2023-09-07 12:20] VITALS: BP 121/78; PULSE 74; RESP 18; TEMP 36.6; O2SAT 98
== END 2023-09-07 23:59 | disposition home or self-care (01) ==
PROVIDERS: Nurse Practitioner Family; PCP Registered Nurse; Visit Provider Internal Medicine Medical Oncology
DX: Z51.12 Encounter for antineoplastic immunotherapy (principal); C34.12 Malignant neoplasm of upper lobe, left bronchus or lung
CPT/HCPCS: 80053; 85025; 96413; J1642; J7050; J9022

== ENCOUNTER 2023-09-28 08:02 | Oncology outpatient (recurring) (ONCR) | payer MEDICARE, MEDICAID, SELFPAY ==
[2023-09-28 08:25] VITALS: BP 130/61; PULSE 78; RESP 16; TEMP 36.7; O2SAT 95
[2023-09-28 08:34] LABS: Basophils # 0.1 10^3/uL (0.0-0.1); Basophils % 0.8 %; Eosinophils % 0.3 %; Hematocrit 38.3 % (36-47); Lymphocytes % 25.2 %; Mean Corpuscular HGB Conc 32.4 g/dL (30-55); Mean Corpuscular Hemoglobin 30.2 pg (27-33); Mean Corpuscular Volume 93.2 fl (85-98); Mean Platelet Volume 10.9 fL (7.4-10.4); Monocytes # 0.5 10^3/uL (0.2-0.9); Neutrophils # 5.34 10^3/uL (1.8-7.7); Neutrophils % 67.2 %; Nucleated Red Blood Cells % 0 %; Platelet Count 259 10^3/cmm (157-399); Red Blood Count 4.11 10^6/uL (3.85-5.65); Red Cell Distribution Width 14.7 % (12.1-15.1); White Blood Count 7.94 10^3/uL (3.29-11.43)
[2023-09-28 09:02] LABS: Alanine Aminotransferase 12 U/L (0-33); Albumin Level 3.8 g/dL (3.5-5.2); Alkaline Phosphatase 88 U/L (35-105); Anion Gap 12.7 (5-19); Aspartate Amino Transferase 18 U/L (0-32); Blood Urea Nitrogen 5 mg/dL (8-23); Carbon Dioxide 28 mmol/L (22-29); Chloride 104 mmol/L (98-107); Globulin 2.9 g/dL (1.3-4.6); Glomerular Filtration Rate 99.4 mL/min (90-130); Glucose 148 mg/dL (65-115); Osmolality Calculated 292 mOsm/kg (285-295); Potassium 3.7 mmol/L (3.5-5.1); Sodium 141 mmol/L (136-145); Thyroid Stimulating Hormone 1.32 uIU/mL (0.27-4.20); Total Bilirubin 0.2 mg/dL (0.15-1.2); Total Protein 6.7 g/dL (6.6-8.7)
[2023-09-28] MEDS: sodium chloride 0.9% (100 ml) 100 ML 50 ML (10:25)
[2023-09-28] MEDS: atezolizumab 1,200 MG in sodium chloride 0.9% 250 ML 600 MG IV (10:26)
[2023-09-28 11:37] VITALS: BP 120/59; PULSE 68; O2SAT 99
== END 2023-09-28 23:59 | disposition home or self-care (01) ==
PROVIDERS: Nurse Practitioner Family; PCP Registered Nurse; Visit Provider Internal Medicine Medical Oncology
DX: Z51.12 Encounter for antineoplastic immunotherapy (principal); C34.12 Malignant neoplasm of upper lobe, left bronchus or lung; Z79.899 Other long term (current) drug therapy; C79.51 Secondary malignant neoplasm of bone
CPT/HCPCS: 76536; 80053; 84443; 85025; 96413; 99215; J1642; J7050; J9022

== ENCOUNTER 2023-09-28 12:35 | Outpatient (CLI) | payer MEDICARE, MEDICAID, SELFPAY ==
--- NOTE | 2023-09-28 13:30 | US_ITS ---
WS: [email or web address] THYROID ULTRASOUND HISTORY: thyroid nodule noted on May 2023 MRI COMPARISON: Prior MRI cervical spine 05/23/2023 Right lobe: 1.6 cm x 1.6 cm x 3.6 cm (w x ap x l). Volume: 4.6 cm3. Normal size and echotexture. No significant are dominant nodules are present. Left lobe: 1.5 cm x 1.9 cm x 3.9 cm (w x ap x l). Volume: 5.7 cm3. Isoechoic nodule in the inferior pole measures 1.2 x 1.2 x 1.6 cm. There is mild increased vascularit y. No echogenic foci. There is an additional smaller nodule more superiorly in the superior gland daria suring 0.9 x 0.8 x 1.2 cm. This nodule is also isoechoic to the gland. Isthmus: 0.2 cm. IMPRESSION: 1. TI-RADS 3; both thyroid nodules in the LEFT gland. Recommend yearly ultrasound follow-up. 2. No nodule RIGHT thyroid.
== END 2023-09-28 12:36 | disposition home or self-care (01) ==
PROVIDERS: PCP Registered Nurse; Visit Provider Nurse Practitioner Family
DX: E04.1 Nontoxic single thyroid nodule (principal)
CPT/HCPCS: 76536

== ENCOUNTER 2023-10-17 12:05 | Outpatient (CLI) | payer MEDICARE, MEDICAID, SELFPAY ==
--- NOTE | 2023-10-17 13:00 | MR_ITS ---
WS: [email or web address] MRI HEAD WITH CONTRAST TECHNIQUE: Sagittal T1, T2 axial, T2 axial FLAIR, axial susceptibility weighted imaging, axial diffus ion weighted images, and coronal T2 images were obtained. Pre and post-T1 axial and post T1 coronal i mages. ADC and FSPGR images. CLINICAL INFORMATION: restaging COMPARISON: MRI 05/23/2023 and 05/25/2022 FINDINGS: No evidence of restricted diffusion to suggest acute ischemia. Ventricular system and basilar cistern s are patent. Mild small vessel changes. Moderate parenchymal volume loss. No extra-axial fluid colle ctions. No evidence of mass or mass effect. Multiple tiny chronic lacunar infarcts LEFT cerebellum similar to previous. Normal vascular flow void s at the skull base. No extra-axial fluid collections. No evidence of mass or mass effect. Paranasal sinuses and mastoid air cells are well aerated. Normal posterior nasopharynx. Normal optic chiasm and pituitary infundibulum. No abnormal gadolinium enhancement. No evidence of enhancing intracranial metastatic disease. IMPRESSION: 1. No evidence of enhancing intracranial metastatic disease. 2. Mild small vessel changes with moderate parenchymal volume loss. 3. Tiny chronic lacunar infarcts LEFT cerebellum. 4. No hemosiderin on the susceptibly weighted images.
[2023-10-17] MEDS: gadobenate dimeglumine 20 mL vial IV (14:17)
== END 2023-10-17 12:06 | disposition home or self-care (01) ==
LOC: RAD 12:05
PROVIDERS: PCP Registered Nurse; Visit Provider Internal Medicine
DX: D64.81 Anemia due to antineoplastic chemotherapy (principal); T45.1X5A Adverse effect of antineoplastic and immunosuppressive drugs, initial encounter
CPT/HCPCS: 70553; A9577

== ENCOUNTER 2023-10-26 08:08 | Oncology outpatient (recurring) (ONCR) | payer MEDICARE, MEDICAID, SELFPAY ==
[2023-10-26 08:40] VITALS: BP 146/54; PULSE 65; RESP 16; TEMP 36.7; O2SAT 96
[2023-10-26 08:51] LABS: Basophils # 0.1 10^3/uL (0.0-0.1); Basophils % 0.8 %; Eosinophils % 0.5 %; Hematocrit 37.1 % (36-47); Lymphocytes # 2.4 10^3/uL (0.8-4.8); Lymphocytes % 29.8 %; Mean Corpuscular HGB Conc 32.9 g/dL (30-55); Mean Corpuscular Hemoglobin 30.3 pg (27-33); Mean Corpuscular Volume 92.3 fl (85-98); Mean Platelet Volume 11.1 fL (7.4-10.4); Monocytes # 0.5 10^3/uL (0.2-0.9); Neutrophils # 4.98 10^3/uL (1.8-7.7); Neutrophils % 62.6 %; Nucleated Red Blood Cells % 0 %; Platelet Count 217 10^3/cmm (157-399); Red Blood Count 4.02 10^6/uL (3.85-5.65); Red Cell Distribution Width 14.5 % (12.1-15.1); White Blood Count 7.95 10^3/uL (3.29-11.43)
[2023-10-26 09:27] LABS: Alanine Aminotransferase 13 U/L (0-33); Albumin Level 3.8 g/dL (3.5-5.2); Alkaline Phosphatase 93 U/L (35-105); Anion Gap 12.1 (5-19); Aspartate Amino Transferase 13 U/L (0-32); Blood Urea Nitrogen 8 mg/dL (8-23); Calcium 8.9 mg/dL (8.5-10.5); Carbon Dioxide 27 mmol/L (22-29); Chloride 106 mmol/L (98-107); Globulin 2.9 g/dL (1.3-4.6); Glomerular Filtration Rate 99.4 mL/min (90-130); Glucose 152 mg/dL (65-115); Osmolality Calculated 293 mOsm/kg (285-295); Potassium 4.1 mmol/L (3.5-5.1); Sodium 141 mmol/L (136-145); Thyroid Stimulating Hormone 1.76 uIU/mL (0.27-4.20); Total Bilirubin 0.2 mg/dL (0.15-1.2); Total Protein 6.7 g/dL (6.6-8.7)
[2023-10-26] MEDS: sodium chloride 0.9% 250 ML 75 ML IV (10:01)
[2023-10-26 10:04] LABS: Free T4 Free Thyroxine 0.88 ng/dL (0.82-1.77)
[2023-10-26] MEDS: atezolizumab 1,200 MG in sodium chloride 0.9% 250 ML 600 MG IV (10:18)
[2023-10-26 11:07] VITALS: BP 124/60; PULSE 61; RESP 16; TEMP 36.6; O2SAT 97
== END 2023-10-26 23:59 | disposition home or self-care (01) ==
PROVIDERS: Internal Medicine; PCP Registered Nurse; Visit Provider Internal Medicine Medical Oncology
DX: Z51.12 Encounter for antineoplastic immunotherapy (principal); C34.12 Malignant neoplasm of upper lobe, left bronchus or lung; Z79.899 Other long term (current) drug therapy; R53.83 Other fatigue; C79.51 Secondary malignant neoplasm of bone; Z51.11 Encounter for antineoplastic chemotherapy
CPT/HCPCS: 80053; 84439; 84443; 85025; 96413; 99214; J1642; J7050; J9022

== ENCOUNTER 2023-11-28 09:14 | Outpatient (CLI) | payer MEDICARE, MEDICAID, SELFPAY ==
--- NOTE | 2023-11-28 10:00 | PETR_ITS ---
PROCEDURE INFORMATION: Exam: PET/CT Skull Base to Mid-thigh Exam date and time: 11/28/2023 10:54 AM Age: 68 years old Clinical indication: Condition or disease; Primary cancer: Malignant neoplasm of upper lobe, left bronchus or lung; Prior surgery; Surgery date: 6+ months; Surgery type: Left lung, aorta stents, gb, appy; Additional info: Restaging LABS AND CLINICAL REPORTS: Glucose: 117 mg/dl Treatment strategy for malignancy (PET staging): Restaging (PS) TECHNIQUE: Imaging protocol: Following at least four-hour fasting and following the injection of radiopharmaceutical, low dose CT images were obtained. Then, PET images were obtained. Attenuation corrected images were constructed using the CT scan. Fused images of PET and CT were reviewed. The standardized uptake values (SUV) reported below are maximum values within a region of interest, expressed in gm/ml. Exam includes orbital meatal line to mid-thigh. Radiopharmaceutical: 12.31 mCi F-18 FDG (Fluorodeoxyglucose), IV. Time of imaging post radiopharmaceutical administration: 1 hour Injection site: Left forearm COMPARISON: CT chest, abdomen and pelvis 06/09/2023, PT PET Scan 05/14/2022 1:29 PM FINDINGS: Tubes, catheters and devices: A right internal jugular central venous port catheter terminates in the distal SVC. Brain: Visualized brain has normal physiologic uptake. Pharynx: No abnormal uptake. Larynx: No abnormal uptake. Thyroid: Asymmetric uptake in the left thyroid lobe is noted, SUV max 3.2 (previously 6.2) with a possible low-density nodule in this location measuring 8 mm on series 3, image 46. Lungs, pleura and trachea: No abnormal uptake. Non radiotracer avid bandlike streaky linear density in the left upper lobe is noted. Additional regions of bandlike streaky linear density in the left lower lobe are present extending to the lateral pleural surface without elevated uptake. Mild bilateral centrilobular emphysematous changes are noted. There are bilateral calcified granulomas. Small noncalcified pulmonary nodules appears similar for example measuring 3 mm on series 3, image 74 in the left upper lobe laterally and measuring approximately 2 mm laterally in the right lower lobe on series 3, image 71. The appearance of the lungs is similar compared with the CT chest of 06/09/2023. Heart: Normal physiologic uptake. Mediastinal space: No abnormal uptake. Diaphragm: Moderate hiatal hernia. No abnormal uptake. Liver: No abnormal uptake. A calcified granuloma in the liver is present. Gallbladder and bile ducts: No abnormal uptake. Cholecystectomy clips are present. Pancreas: No abnormal uptake. Spleen: No abnormal uptake. Calcified granulomas in the spleen are present. Adrenal glands: No abnormal uptake. A right adrenal nodule measuring 1.1 cm on series 3, image 114 is not radiotracer avid consistent with a benign finding. No abnormal uptake in the left adrenal gland. Kidneys and ureters: Normal physiologic uptake. Stomach and bowel: No abnormal uptake. Reproductive: A non radiotracer avid coarsely calcified uterine mass to the right of midline measuring approximately 3.6 cm in diameter on series 3, image 180 is noted. This likely represents a benign leiomyoma. Vasculature: No abnormal uptake. There are diffuse atherosclerotic changes. A stent in the infrarenal abdominal aorta is noted with limbs extending into the bilateral common iliac arteries. A stent in the left external iliac artery is also present. Lymph nodes: No abnormal uptake. Calcified non radiotracer avid mediastinal and right hilar lymph nodes appears similar compared with 06/09/2023. No lymphadenopathy in the head, neck, chest, abdomen, pelvis, and extremities. Bones/joints: No abnormal uptake in the visualized axial and appendicular skeleton. Previously noted areas of elevated uptake at C2 and in the sacrum on the prior PET-CT are no longer present. Degenerative changes in the spine are noted. Soft tissues: No abnormal uptake in the visualized head, neck, chest, abdomen, pelvis, and extremities. METRICS: Mediastinal blood pool: SUV max 2.6 PET/PET skulltothi SUBSEQ [id number] IMPRESSION: 1. No evidence of radiotracer avid malignancy within the chest. Similar bandlike areas of streaky non radiotracer avid density in the left upper lobe and left lower lobe compared with 05/30/2023 suggestive of scarring. 2. Small non radiotracer avid pulmonary nodules are present. Assessment of small nodules can be limited by PET-CT. 3. Interval resolution of previously noted uptake in the region of C2 and in the sacrum compared to the prior PET-CT. 4. Mild uptake is noted within the left thyroid lobe, possibly within a small nodule in this location. Uptake in this region has decreased. A benign etiology is favored however thyroid ultrasound may be useful for more definitive assessment as clinically indicated. 5. Old granulomatous changes. 6. Moderate hiatal hernia. 7. Similar non radiotracer avid small right adrenal nodule compatible with a benign finding. 8. Additional nonurgent findings as detailed above.
== END 2023-11-28 09:15 | disposition home or self-care (01) ==
LOC: RAD 09:16
PROVIDERS: PCP Registered Nurse; Visit Provider Internal Medicine
DX: C34.12 Malignant neoplasm of upper lobe, left bronchus or lung (principal); Z95.828 Presence of other vascular implants and grafts; R91.8 Other nonspecific abnormal finding of lung field; E07.9 Disorder of thyroid, unspecified; K44.9 Diaphragmatic hernia without obstruction or gangrene
CPT/HCPCS: 78815; A9552

== ENCOUNTER 2023-11-30 10:09 | Oncology outpatient (recurring) (ONCR) | payer MEDICARE, MEDICAID, SELFPAY ==
[2023-11-30 10:35] LABS: Basophils # 0.1 10^3/uL (0.0-0.1); Basophils % 0.7 %; Eosinophils % 0.3 %; Hematocrit 39.5 % (36-47); Lymphocytes # 2.8 10^3/uL (0.8-4.8); Lymphocytes % 28.7 %; Mean Corpuscular HGB Conc 32.4 g/dL (30-55); Mean Corpuscular Volume 92.7 fl (85-98); Mean Platelet Volume 11.1 fL (7.4-10.4); Monocytes # 0.6 10^3/uL (0.2-0.9); Monocytes % 6.1 %; Neutrophils # 6.15 10^3/uL (1.8-7.7); Neutrophils % 63.9 %; Nucleated Red Blood Cells % 0 %; Platelet Count 231 10^3/cmm (157-399); Red Blood Count 4.26 10^6/uL (3.85-5.65); Red Cell Distribution Width 14.6 % (12.1-15.1); White Blood Count 9.63 10^3/uL (3.29-11.43)
[2023-11-30 10:55] LABS: Alanine Aminotransferase 13 U/L (0-33); Albumin Level 3.9 g/dL (3.5-5.2); Alkaline Phosphatase 102 U/L (35-105); Anion Gap 15.9 (5-19); Aspartate Amino Transferase 13 U/L (0-32); Blood Urea Nitrogen 11 mg/dL (8-23); Calcium 8.8 mg/dL (8.5-10.5); Carbon Dioxide 27 mmol/L (22-29); Chloride 102 mmol/L (98-107); Globulin 3.1 g/dL (1.3-4.6); Glomerular Filtration Rate 83.2 mL/min (90-130); Glucose 106 mg/dL (65-115); Osmolality Calculated 292 mOsm/kg (285-295); Potassium 3.9 mmol/L (3.5-5.1); Sodium 141 mmol/L (136-145); Total Bilirubin 0.2 mg/dL (0.15-1.2)
[2023-11-30] MEDS: sodium chloride 0.9% 250 ML 35 ML IV (11:47)
[2023-11-30] MEDS: atezolizumab 1,200 MG in sodium chloride 0.9% 250 ML 600 MG IV (11:48)
[2023-11-30 13:04] VITALS: BP 129/63; PULSE 76; RESP 18; TEMP 36.8; O2SAT 96
== END 2023-11-30 23:59 | disposition home or self-care (01) ==
PROVIDERS: Nurse Practitioner Family; PCP Registered Nurse; Visit Provider Internal Medicine Medical Oncology
DX: Z53.9 Procedure and treatment not carried out, unspecified reason (principal); Z51.12 Encounter for antineoplastic immunotherapy; C34.12 Malignant neoplasm of upper lobe, left bronchus or lung; Z79.899 Other long term (current) drug therapy
CPT/HCPCS: 80053; 85025; 96413; 99214; J1642; J7050; J9022

== ENCOUNTER 2023-12-21 08:00 | Oncology outpatient (recurring) (ONCR) | payer MEDICARE, MEDICAID, SELFPAY ==
[2023-12-14 10:35] LABS: Basophils # 0.1 10^3/uL (0.0-0.1); Basophils % 0.9 %; Eosinophils % 0.3 %; Lymphocytes # 2.8 10^3/uL (0.8-4.8); Lymphocytes % 30.6 %; Mean Corpuscular HGB Conc 32.2 g/dL (30-55); Mean Corpuscular Hemoglobin 30.3 pg (27-33); Mean Corpuscular Volume 94.3 fl (85-98); Mean Platelet Volume 11.4 fL (7.4-10.4); Monocytes # 0.6 10^3/uL (0.2-0.9); Monocytes % 6.3 %; Neutrophils # 5.68 10^3/uL (1.8-7.7); Neutrophils % 61.5 %; Nucleated Red Blood Cells % 0 %; Platelet Count 228 10^3/cmm (157-399); Red Blood Count 4.35 10^6/uL (3.85-5.65); Red Cell Distribution Width 14.5 % (12.1-15.1); White Blood Count 9.24 10^3/uL (3.29-11.43)
[2023-12-14 10:59] LABS: Alanine Aminotransferase 14 U/L (0-33); Alkaline Phosphatase 95 U/L (35-105); Anion Gap 15.3 (5-19); Aspartate Amino Transferase 15 U/L (0-32); Blood Urea Nitrogen 5 mg/dL (8-23); Calcium 8.9 mg/dL (8.5-10.5); Carbon Dioxide 25 mmol/L (22-29); Chloride 104 mmol/L (98-107); Globulin 3.3 g/dL (1.3-4.6); Glomerular Filtration Rate 99.4 mL/min (90-130); Glucose 125 mg/dL (65-115); Osmolality Calculated 289 mOsm/kg (285-295); Potassium 4.3 mmol/L (3.5-5.1); Sodium 140 mmol/L (136-145); Total Bilirubin 0.3 mg/dL (0.15-1.2); Total Protein 7.3 g/dL (6.6-8.7)
[2023-12-21 07:57] LABS: Basophils # 0.1 10^3/uL (0.0-0.1); Basophils % 0.8 %; Eosinophils # 0.1 10^3/uL (0.0-0.8); Eosinophils % 0.5 %; Lymphocytes # 2.3 10^3/uL (0.8-4.8); Lymphocytes % 23.3 %; Mean Corpuscular Hemoglobin 30.1 pg (27-33); Mean Corpuscular Volume 94.1 fl (85-98); Monocytes # 0.6 10^3/uL (0.2-0.9); Monocytes % 5.6 %; Neutrophils # 6.86 10^3/uL (1.8-7.7); Neutrophils % 69.5 %; Nucleated Red Blood Cells % 0 %; Platelet Count 229 10^3/cmm (157-399); Red Blood Count 4.25 10^6/uL (3.85-5.65); Red Cell Distribution Width 14.5 % (12.1-15.1); White Blood Count 9.87 10^3/uL (3.29-11.43)
[2023-12-21 08:23] LABS: Alanine Aminotransferase 17 U/L (0-33); Albumin Level 3.8 g/dL (3.5-5.2); Alkaline Phosphatase 97 U/L (35-105); Anion Gap 12.6 (5-19); Aspartate Amino Transferase 16 U/L (0-32); Blood Urea Nitrogen 5 mg/dL (8-23); Calcium 8.8 mg/dL (8.5-10.5); Carbon Dioxide 26 mmol/L (22-29); Chloride 105 mmol/L (98-107); Creatinine Clr Calc Pharmacy 59.3615; Globulin 3.1 g/dL (1.3-4.6); Glomerular Filtration Rate 99.4 mL/min (90-130); Glucose 122 mg/dL (65-115); Osmolality Calculated 287 mOsm/kg (285-295); Potassium 4.6 mmol/L (3.5-5.1); Sodium 139 mmol/L (136-145); Total Bilirubin 0.3 mg/dL (0.15-1.2); Total Protein 6.9 g/dL (6.6-8.7)
[2023-12-21] MEDS: sodium chloride 0.9% 250 ML 75 ML IV (10:28)
[2023-12-21] MEDS: atezolizumab 1,200 MG in sodium chloride 0.9% 250 ML 540 MG IV (10:29)
[2023-12-21 11:29] VITALS: BP 144/75; PULSE 86; RESP 18; O2SAT 97
== END 2023-12-21 23:59 | disposition home or self-care (01) ==
PROVIDERS: Nurse Practitioner Family; PCP Registered Nurse; Visit Provider Internal Medicine Medical Oncology
DX: Z51.12 Encounter for antineoplastic immunotherapy; C34.12 Malignant neoplasm of upper lobe, left bronchus or lung; Z79.899 Other long term (current) drug therapy; Z87.891 Personal history of nicotine dependence; C79.51 Secondary malignant neoplasm of bone; R53.83 Other fatigue; Z53.9 Procedure and treatment not carried out, unspecified reason
CPT/HCPCS: 80053; 85025; 96413; 99214; J1642; J7050; J9022

== ENCOUNTER 2024-01-11 09:28 | Oncology outpatient (recurring) (ONCR) | payer MEDICARE, MEDICAID, SELFPAY ==
[2024-01-11 09:41] VITALS: BP 126/76; PULSE 71; RESP 18; TEMP 36.3; O2SAT 97
[2024-01-11] MEDS: sodium chloride 0.9% 250 ML 75 ML IV (10:18)
[2024-01-11] MEDS: atezolizumab 1,200 MG in sodium chloride 0.9% 250 ML 550 MG IV (10:50)
[2024-01-11 15:00] VITALS: BP 130/66; PULSE 98; RESP 16; TEMP 36.1; O2SAT 99
== END 2024-01-11 23:59 | disposition home or self-care (01) ==
LOC: ONCMED 09:29
PROVIDERS: PCP Registered Nurse; Visit Provider Internal Medicine Medical Oncology
DX: Z51.12 Encounter for antineoplastic immunotherapy (principal); C34.12 Malignant neoplasm of upper lobe, left bronchus or lung
CPT/HCPCS: 96413; J1642; J7050; J9022

== ENCOUNTER 2024-02-01 07:13 | Oncology outpatient (recurring) (ONCR) | payer MEDICARE, MEDICAID, SELFPAY ==
[2024-02-01 08:00] LABS: Basophils # 0.1 10^3/uL (0.0-0.1); Eosinophils % 0.4 %; Hematocrit 38.7 % (36-47); Lymphocytes # 2.3 10^3/uL (0.8-4.8); Lymphocytes % 25.1 %; Mean Corpuscular Volume 93.7 fl (85-98); Monocytes # 0.5 10^3/uL (0.2-0.9); Monocytes % 5.8 %; Neutrophils # 6.02 10^3/uL (1.8-7.7); Neutrophils % 67.4 %; Nucleated Red Blood Cells % 0 %; Platelet Count 225 10^3/cmm (157-399); Red Blood Count 4.13 10^6/uL (3.85-5.65); Red Cell Distribution Width 14.1 % (12.1-15.1); White Blood Count 8.95 10^3/uL (3.29-11.43)
[2024-02-01 08:27] LABS: Alanine Aminotransferase 13 U/L (0-33); Albumin Level 3.9 g/dL (3.5-5.2); Alkaline Phosphatase 91 U/L (35-105); Anion Gap 12.2 (5-19); Aspartate Amino Transferase 12 U/L (0-32); Blood Urea Nitrogen 6 mg/dL (8-23); Calcium 8.9 mg/dL (8.5-10.5); Carbon Dioxide 27 mmol/L (22-29); Chloride 106 mmol/L (98-107); Globulin 2.8 g/dL (1.3-4.6); Glomerular Filtration Rate 99.4 mL/min (90-130); Glucose 131 mg/dL (65-115); Osmolality Calculated 291 mOsm/kg (285-295); Potassium 4.2 mmol/L (3.5-5.1); Sodium 141 mmol/L (136-145); Thyroid Stimulating Hormone 2.37 uIU/mL (0.27-4.20); Total Bilirubin 0.2 mg/dL (0.15-1.2); Total Protein 6.7 g/dL (6.6-8.7)
[2024-02-01] MEDS: atezolizumab 1,200 MG in sodium chloride 0.9% 250 ML 600 MG IV (10:06)
[2024-02-01] MEDS: sodium chloride 0.9% 250 ML 75 ML IV (10:09)
[2024-02-01 11:09] VITALS: BP 123/64; PULSE 81; RESP 16; TEMP 36.6; O2SAT 98
== END 2024-02-01 23:59 | disposition home or self-care (01) ==
PROVIDERS: PCP Registered Nurse; Visit Provider Internal Medicine Medical Oncology
DX: Z51.12 Encounter for antineoplastic immunotherapy (principal); C34.12 Malignant neoplasm of upper lobe, left bronchus or lung; Z79.899 Other long term (current) drug therapy; Z53.9 Procedure and treatment not carried out, unspecified reason
CPT/HCPCS: 80053; 84443; 85025; 96413; 99214; J7050; J9022

== ENCOUNTER 2024-02-22 08:49 | Oncology outpatient (recurring) (ONCR) | payer MEDICARE, MEDICAID, SELFPAY ==
[2024-02-22 09:06] VITALS: BP 148/78; PULSE 68; RESP 18; TEMP 36.9; O2SAT 96
[2024-02-22] MEDS: atezolizumab 1,200 MG in sodium chloride 0.9% 250 ML 600 MG IV (09:36)
[2024-02-22] MEDS: sodium chloride 0.9% (100 ml) 100 ML 75 ML (09:41)
[2024-02-22 10:30] VITALS: BP 124/78; PULSE 84; RESP 18; TEMP 36.6; O2SAT 98
== END 2024-02-22 23:59 | disposition home or self-care (01) ==
LOC: ONCMED 08:50
PROVIDERS: PCP Registered Nurse; Visit Provider Internal Medicine Medical Oncology
DX: Z51.12 Encounter for antineoplastic immunotherapy (principal); C34.12 Malignant neoplasm of upper lobe, left bronchus or lung
CPT/HCPCS: 96365; 96413; J7050; J9022

== ENCOUNTER 2024-03-14 07:51 | Oncology outpatient (recurring) (ONCR) | payer MEDICARE, MEDICAID, SELFPAY ==
[2024-03-14 08:28] LABS: Basophils # 0.1 10^3/uL (0.0-0.1); Basophils % 0.9 %; Eosinophils # 0.1 10^3/uL (0.0-0.8); Eosinophils % 0.8 %; Hematocrit 38.7 % (36-47); Lymphocytes # 2.7 10^3/uL (0.8-4.8); Lymphocytes % 29.5 %; Mean Corpuscular HGB Conc 32.6 g/dL (30-55); Mean Corpuscular Hemoglobin 30.6 pg (27-33); Mean Corpuscular Volume 93.9 fl (85-98); Mean Platelet Volume 11.3 fL (7.4-10.4); Monocytes # 0.6 10^3/uL (0.2-0.9); Monocytes % 6.1 %; Neutrophils # 5.73 10^3/uL (1.8-7.7); Neutrophils % 62.3 %; Nucleated Red Blood Cells % 0 %; Platelet Count 225 10^3/cmm (157-399); Red Blood Count 4.12 10^6/uL (3.85-5.65); Red Cell Distribution Width 14.3 % (12.1-15.1); White Blood Count 9.19 10^3/uL (3.29-11.43)
[2024-03-14 08:59] LABS: Alanine Aminotransferase 16 U/L (0-33); Albumin Level 3.7 g/dL (3.5-5.2); Alkaline Phosphatase 87 U/L (35-105); Anion Gap 14.7 (5-19); Aspartate Amino Transferase 14 U/L (0-32); Blood Urea Nitrogen 6 mg/dL (8-23); Calcium 8.7 mg/dL (8.5-10.5); Carbon Dioxide 26 mmol/L (22-29); Chloride 104 mmol/L (98-107); Globulin 3.2 g/dL (1.3-4.6); Glomerular Filtration Rate 99.4 mL/min (90-130); Glucose 135 mg/dL (65-115); Osmolality Calculated 292 mOsm/kg (285-295); Potassium 3.7 mmol/L (3.5-5.1); Sodium 141 mmol/L (136-145); Thyroid Stimulating Hormone 1.66 uIU/mL (0.27-4.20); Total Bilirubin 0.3 mg/dL (0.15-1.2); Total Protein 6.9 g/dL (6.6-8.7)
[2024-03-14 10:28] VITALS: BP 123/75; PULSE 58; RESP 16; TEMP 36.3; O2SAT 98
[2024-03-14] MEDS: atezolizumab 1,200 MG in sodium chloride 0.9% 250 ML 600 MG IV (11:17)
[2024-03-14] MEDS: sodium chloride 0.9% 250 ML 75 ML IV (11:22)
[2024-03-14 12:08] VITALS: BP 130/73; PULSE 63; TEMP 35.8; O2SAT 97
== END 2024-03-14 23:59 | disposition home or self-care (01) ==
PROVIDERS: Nurse Practitioner Family; PCP Registered Nurse; Visit Provider Internal Medicine Medical Oncology
DX: Z51.12 Encounter for antineoplastic immunotherapy (principal); C34.12 Malignant neoplasm of upper lobe, left bronchus or lung; Z79.899 Other long term (current) drug therapy; Z87.891 Personal history of nicotine dependence
CPT/HCPCS: 80053; 84443; 85025; 96413; 99213; J7050; J9022

== ENCOUNTER 2024-04-04 15:28 | Oncology outpatient (recurring) (ONCR) | payer MEDICARE, MEDICAID, SELFPAY ==
[2024-04-04 15:51] VITALS: BP 158/73; PULSE 71; RESP 18; TEMP 36.5; O2SAT 96
[2024-04-04] MEDS: atezolizumab 1,200 MG in sodium chloride 0.9% 250 ML 600 MG IV (15:59)
[2024-04-04 16:57] VITALS: BP 157/84; PULSE 74; RESP 18; TEMP 36.6; O2SAT 98
== END 2024-04-04 23:59 | disposition home or self-care (01) ==
LOC: ONCMED 15:29
PROVIDERS: PCP Registered Nurse; Visit Provider Internal Medicine Medical Oncology
DX: Z51.12 Encounter for antineoplastic immunotherapy (principal); C34.12 Malignant neoplasm of upper lobe, left bronchus or lung; R07.89 Other chest pain; I71.40 Abdominal aortic aneurysm, without rupture, unspecified; E11.51 Type 2 diabetes mellitus with diabetic peripheral angiopathy without gangrene; R03.0 Elevated blood-pressure reading, without diagnosis of hypertension
CPT/HCPCS: 96413; 99214; J7050; J9022

== ENCOUNTER 2024-04-29 07:37 | Oncology outpatient (recurring) (ONCR) | payer MEDICARE, MEDICAID, SELFPAY ==
[2024-04-29 08:09] LABS: Basophils # 0.1 10^3/uL (0.0-0.1); Basophils % 0.8 %; Eosinophils # 0.1 10^3/uL (0.0-0.8); Eosinophils % 0.5 %; Hematocrit 41.3 % (36-47); Lymphocytes # 2.4 10^3/uL (0.8-4.8); Lymphocytes % 22.8 %; Mean Corpuscular HGB Conc 32.7 g/dL (30-55); Mean Corpuscular Hemoglobin 30.3 pg (27-33); Mean Corpuscular Volume 92.8 fl (85-98); Mean Platelet Volume 11.1 fL (7.4-10.4); Monocytes # 0.6 10^3/uL (0.2-0.9); Neutrophils # 7.15 10^3/uL (1.8-7.7); Neutrophils % 69.5 %; Nucleated Red Blood Cells % 0 %; Platelet Count 239 10^3/cmm (157-399); Red Blood Count 4.45 10^6/uL (3.85-5.65); Red Cell Distribution Width 14.2 % (12.1-15.1); White Blood Count 10.29 10^3/uL (3.29-11.43)
[2024-04-29 08:50] LABS: Alanine Aminotransferase 31 U/L (0-33); Albumin Level 4.1 g/dL (3.5-5.2); Alkaline Phosphatase 99 U/L (35-105); Anion Gap 12.6 (5-19); Aspartate Amino Transferase 19 U/L (0-32); Blood Urea Nitrogen 9 mg/dL (8-23); Calcium 8.9 mg/dL (8.5-10.5); Carbon Dioxide 28 mmol/L (22-29); Chloride 100 mmol/L (98-107); Creatinine Clr Calc Pharmacy 56.0193; Globulin 3.1 g/dL (1.3-4.6); Glomerular Filtration Rate 83.2 mL/min (90-130); Glucose 167 mg/dL (65-115); Osmolality Calculated 286 mOsm/kg (285-295); Potassium 3.6 mmol/L (3.5-5.1); Sodium 137 mmol/L (136-145); Thyroid Stimulating Hormone 1.56 uIU/mL (0.27-4.20); Total Bilirubin 0.4 mg/dL (0.15-1.2); Total Protein 7.2 g/dL (6.6-8.7)
[2024-04-29] MEDS: sodium chloride 0.9% 250 ML 75 ML IV (09:54)
[2024-04-29] MEDS: atezolizumab 1,200 MG in sodium chloride 0.9% 250 ML 540 MG IV (09:55)
[2024-04-29 10:45] VITALS: BP 127/73; PULSE 74; RESP 16; O2SAT 94
== END 2024-04-29 23:59 | disposition home or self-care (01) ==
PROVIDERS: Nurse Practitioner Family; PCP Registered Nurse; Visit Provider Internal Medicine Medical Oncology
DX: Z51.12 Encounter for antineoplastic immunotherapy (principal); C34.12 Malignant neoplasm of upper lobe, left bronchus or lung; Z79.899 Other long term (current) drug therapy
CPT/HCPCS: 80053; 84443; 85025; 96413; 99214; J7050; J9022

== ENCOUNTER 2024-05-20 07:41 | Oncology outpatient (recurring) (ONCR) | payer MEDICARE, MEDICAID, SELFPAY ==
[2024-05-20 08:10] LABS: Basophils # 0.1 10^3/uL (0.0-0.1); Basophils % 1.1 %; Eosinophils # 0.1 10^3/uL (0.0-0.8); Eosinophils % 0.9 %; Hematocrit 39.4 % (36-47); Lymphocytes # 2.4 10^3/uL (0.8-4.8); Lymphocytes % 27.8 %; Mean Corpuscular HGB Conc 32.5 g/dL (30-55); Mean Corpuscular Volume 92.3 fl (85-98); Monocytes # 0.6 10^3/uL (0.2-0.9); Monocytes % 6.7 %; Neutrophils # 5.47 10^3/uL (1.8-7.7); Neutrophils % 62.9 %; Nucleated Red Blood Cells % 0 %; Platelet Count 236 10^3/cmm (157-399); Red Blood Count 4.27 10^6/uL (3.85-5.65); Red Cell Distribution Width 14.3 % (12.1-15.1)
[2024-05-20 08:26] VITALS: BP 122/62; PULSE 73; TEMP 36.4; O2SAT 97
[2024-05-20 08:31] LABS: Alanine Aminotransferase 16 U/L (0-33); Albumin Level 3.9 g/dL (3.5-5.2); Alkaline Phosphatase 99 U/L (35-105); Anion Gap 14.7 (5-19); Aspartate Amino Transferase 15 U/L (0-32); Blood Urea Nitrogen 6 mg/dL (8-23); Calcium 8.5 mg/dL (8.5-10.5); Carbon Dioxide 26 mmol/L (22-29); Chloride 103 mmol/L (98-107); Globulin 3.1 g/dL (1.3-4.6); Glomerular Filtration Rate 99.4 mL/min (90-130); Glucose 161 mg/dL (65-115); Osmolality Calculated 291 mOsm/kg (285-295); Potassium 3.7 mmol/L (3.5-5.1); Sodium 140 mmol/L (136-145); Total Bilirubin 0.3 mg/dL (0.15-1.2)
[2024-05-20] MEDS: atezolizumab 1,200 MG in sodium chloride 0.9% 250 ML 500 MG IV (09:46)
[2024-05-20 10:24] VITALS: BP 137/72; PULSE 71; RESP 16; TEMP 36; O2SAT 97
== END 2024-05-20 23:59 | disposition home or self-care (01) ==
PROVIDERS: Nurse Practitioner Family; PCP Registered Nurse; Visit Provider Internal Medicine Medical Oncology
DX: Z51.12 Encounter for antineoplastic immunotherapy (principal); C34.12 Malignant neoplasm of upper lobe, left bronchus or lung; Z79.899 Other long term (current) drug therapy
CPT/HCPCS: 80053; 85025; 96413; J7050; J9022

== ENCOUNTER 2024-06-10 08:35 | Oncology outpatient (recurring) (ONCR) | payer MEDICARE, MEDICAID, SELFPAY ==
[2024-06-10 09:50] LABS: Basophils # 0.1 10^3/uL (0.0-0.1); Basophils % 0.9 %; Eosinophils # 0.1 10^3/uL (0.0-0.8); Eosinophils % 0.6 %; Hematocrit 39.2 % (36-47); Lymphocytes # 2.8 10^3/uL (0.8-4.8); Lymphocytes % 27.1 %; Mean Corpuscular HGB Conc 32.7 g/dL (30-55); Mean Corpuscular Hemoglobin 30.4 pg (27-33); Mean Corpuscular Volume 93.1 fl (85-98); Mean Platelet Volume 10.8 fL (7.4-10.4); Monocytes # 0.7 10^3/uL (0.2-0.9); Monocytes % 6.4 %; Neutrophils % 64.6 %; Nucleated Red Blood Cells % 0 %; Platelet Count 228 10^3/cmm (157-399); Red Blood Count 4.21 10^6/uL (3.85-5.65); Red Cell Distribution Width 14.5 % (12.1-15.1)
[2024-06-10 10:07] LABS: Estmated Average Glucose 137; Hemoglobin A1C 6.4 % (4.0-6.0)
[2024-06-10 10:22] LABS: Alanine Aminotransferase 15 U/L (0-33); Albumin Level 3.8 g/dL (3.5-5.2); Alkaline Phosphatase 100 U/L (35-105); Anion Gap 13.7 (5-19); Aspartate Amino Transferase 14 U/L (0-32); Blood Urea Nitrogen 7 mg/dL (8-23); Calcium 8.3 mg/dL (8.5-10.5); Carbon Dioxide 27 mmol/L (22-29); Chloride 101 mmol/L (98-107); Creatinine Clr Calc Pharmacy 56.4047; Globulin 3.1 g/dL (1.3-4.6); Glomerular Filtration Rate 83.2 mL/min (90-130); Glucose 140 mg/dL (65-115); Osmolality Calculated 286 mOsm/kg (285-295); Potassium 3.7 mmol/L (3.5-5.1); Sodium 138 mmol/L (136-145); Thyroid Stimulating Hormone 1.16 uIU/mL (0.27-4.20); Total Bilirubin 0.2 mg/dL (0.15-1.2); Total Protein 6.9 g/dL (6.6-8.7)
[2024-06-10] MEDS: sodium chloride 0.9% 250 ML 75 ML IV (10:42)
[2024-06-10] MEDS: atezolizumab 1,200 MG in sodium chloride 0.9% 250 ML 560 MG IV (11:11)
[2024-06-10 12:03] VITALS: BP 161/69; PULSE 84; RESP 17; TEMP 36.2; O2SAT 100
== END 2024-06-10 23:59 | disposition home or self-care (01) ==
PROVIDERS: Nurse Practitioner Family; PCP Registered Nurse; Visit Provider Internal Medicine Medical Oncology
DX: Z51.12 Encounter for antineoplastic immunotherapy (principal); C34.12 Malignant neoplasm of upper lobe, left bronchus or lung; Z79.899 Other long term (current) drug therapy; E11.9 Type 2 diabetes mellitus without complications; R53.83 Other fatigue; Z87.891 Personal history of nicotine dependence; C79.51 Secondary malignant neoplasm of bone; C77.0 Secondary and unspecified malignant neoplasm of lymph nodes of head, face and neck; Z92.3 Personal history of irradiation; E83.51 Hypocalcemia
CPT/HCPCS: 80053; 83036; 84443; 85025; 96413; 99214; J7050; J9022

== ENCOUNTER 2024-07-01 08:08 | Oncology outpatient (recurring) (ONCR) | payer MEDICARE, MEDICAID, SELFPAY ==
[2024-07-01] MEDS: alteplase 1 mg/mL SDV 2 mL 2 MG INTRACATH (08:36)
[2024-07-01 08:39] LABS: Basophils # 0.1 10^3/uL (0.0-0.1); Eosinophils # 0.1 10^3/uL (0.0-0.8); Eosinophils % 0.6 %; Lymphocytes # 2.6 10^3/uL (0.8-4.8); Lymphocytes % 27.1 %; Mean Corpuscular HGB Conc 32.9 g/dL (30-55); Mean Corpuscular Hemoglobin 30.5 pg (27-33); Mean Corpuscular Volume 92.8 fl (85-98); Mean Platelet Volume 10.5 fL (7.4-10.4); Monocytes # 0.7 10^3/uL (0.2-0.9); Monocytes % 7.1 %; Neutrophils # 6.08 10^3/uL (1.8-7.7); Neutrophils % 63.9 %; Nucleated Red Blood Cells % 0 %; Platelet Count 223 10^3/cmm (157-399); Red Blood Count 4.42 10^6/uL (3.85-5.65); Red Cell Distribution Width 14.3 % (12.1-15.1); White Blood Count 9.53 10^3/uL (3.29-11.43)
[2024-07-01 09:01] LABS: Alanine Aminotransferase 16 U/L (0-33); Albumin Level 4.1 g/dL (3.5-5.2); Alkaline Phosphatase 108 U/L (35-105); Anion Gap 13.1 (5-19); Aspartate Amino Transferase 16 U/L (0-32); Blood Urea Nitrogen 6 mg/dL (8-23); Calcium 8.9 mg/dL (8.5-10.5); Carbon Dioxide 30 mmol/L (22-29); Chloride 103 mmol/L (98-107); Glomerular Filtration Rate 99.1 mL/min (90-130); Glucose 124 mg/dL (65-115); Osmolality Calculated 293 mOsm/kg (285-295); Potassium 4.1 mmol/L (3.5-5.1); Sodium 142 mmol/L (136-145); Total Bilirubin 0.3 mg/dL (0.15-1.2); Total Protein 7.1 g/dL (6.6-8.7)
[2024-07-01] MEDS: sodium chloride 0.9% 250 ML 75 ML IV (10:38)
[2024-07-01] MEDS: atezolizumab 1,200 MG in sodium chloride 0.9% 250 ML 540 MG IV (10:55)
[2024-07-01 11:45] VITALS: BP 131/72; PULSE 77; RESP 17; TEMP 36.2; O2SAT 95
== END 2024-07-01 23:59 | disposition home or self-care (01) ==
PROVIDERS: Nurse Practitioner Family; PCP Registered Nurse; Visit Provider Internal Medicine Medical Oncology
DX: Z51.12 Encounter for antineoplastic immunotherapy (principal); C34.12 Malignant neoplasm of upper lobe, left bronchus or lung; Z79.899 Other long term (current) drug therapy; C79.51 Secondary malignant neoplasm of bone; R53.83 Other fatigue
CPT/HCPCS: 36415; 80053; 85025; 96413; 99214; J2997; J7050; J9022

== ENCOUNTER 2024-08-07 09:42 | Oncology outpatient (recurring) (ONCR) | payer MEDICARE, MEDICAID, SELFPAY ==
[2024-08-07 11:05] LABS: Basophils # 0.1 10^3/uL (0.0-0.1); Basophils % 0.8 %; Eosinophils # 0.1 10^3/uL (0.0-0.8); Eosinophils % 0.7 %; Hematocrit 41.1 % (36-47); Lymphocytes # 2.7 10^3/uL (0.8-4.8); Lymphocytes % 29.4 %; Mean Corpuscular HGB Conc 32.4 g/dL (30-55); Mean Corpuscular Volume 92.6 fl (85-98); Monocytes # 0.7 10^3/uL (0.2-0.9); Monocytes % 7.3 %; Neutrophils # 5.66 10^3/uL (1.8-7.7); Neutrophils % 61.4 %; Nucleated Red Blood Cells % 0 %; Platelet Count 233 10^3/cmm (157-399); Red Blood Count 4.44 10^6/uL (3.85-5.65); Red Cell Distribution Width 14.3 % (12.1-15.1); White Blood Count 9.21 10^3/uL (3.29-11.43)
[2024-08-07 11:37] LABS: Alanine Aminotransferase 24 U/L (0-33); Albumin Level 4.1 g/dL (3.5-5.2); Alkaline Phosphatase 115 U/L (35-105); Anion Gap 11.8 (5-19); Aspartate Amino Transferase 19 U/L (0-32); Blood Urea Nitrogen 8 mg/dL (8-23); Calcium 8.4 mg/dL (8.5-10.5); Carbon Dioxide 27 mmol/L (22-29); Chloride 103 mmol/L (98-107); Creatinine Clr Calc Pharmacy 55.2173; Globulin 2.5 g/dL (1.3-4.6); Glucose 129 mg/dL (65-115); Osmolality Calculated 286 mOsm/kg (285-295); Potassium 3.8 mmol/L (3.5-5.1); Sodium 138 mmol/L (136-145); Thyroid Stimulating Hormone 1.64 uIU/mL (0.27-4.20); Total Bilirubin 0.2 mg/dL (0.15-1.2); Total Protein 6.6 g/dL (6.6-8.7)
[2024-08-07] MEDS: sodium chloride 0.9% 250 ML 75 ML IV (12:24)
[2024-08-07] MEDS: atezolizumab 1,200 MG in sodium chloride 0.9% 250 ML 540 MG IV (12:30)
[2024-08-07 13:15] VITALS: BP 122/78; PULSE 78; RESP 18; TEMP 36.6; O2SAT 98
== END 2024-08-07 23:59 | disposition home or self-care (01) ==
PROVIDERS: Nurse Practitioner Family; PCP Registered Nurse; Visit Provider Internal Medicine Medical Oncology
DX: Z51.12 Encounter for antineoplastic immunotherapy (principal); C34.12 Malignant neoplasm of upper lobe, left bronchus or lung; Z79.899 Other long term (current) drug therapy; Z87.891 Personal history of nicotine dependence; R53.83 Other fatigue
CPT/HCPCS: 80053; 84443; 85025; 96413; 99214; J7050; J9022

== ENCOUNTER → 2024-08-13 11:57 | Outpatient (BNVA) | payer MEDICARE, MEDICAID, SELFPAY | PROVIDERS: PCP Registered Nurse; Visit Provider Registered Nurse | DX: M25.50 Pain in unspecified joint (principal) | CPT/HCPCS: 85651; 86141; 86431 ==

== ENCOUNTER 2024-08-28 09:02 | Oncology outpatient (recurring) (ONCR) | payer MEDICARE, MEDICAID, SELFPAY ==
[2024-08-28] MEDS: alteplase 1 mg/mL SDV 2 mL 2 MG INTRACATH (09:30)
[2024-08-28 09:53] LABS: Alanine Aminotransferase 27 U/L (0-33); Albumin Level 4.2 g/dL (3.5-5.2); Alkaline Phosphatase 112 U/L (35-105); Anion Gap 12.1 (5-19); Aspartate Amino Transferase 16 U/L (0-32); Blood Urea Nitrogen 8 mg/dL (8-23); Calcium 9.1 mg/dL (8.5-10.5); Carbon Dioxide 30 mmol/L (22-29); Chloride 103 mmol/L (98-107); Creatinine Clr Calc Pharmacy 55.4076; Globulin 2.1 g/dL (1.3-4.6); Glucose 139 mg/dL (65-115); Magnesium 1.8 mg/dL (1.7-2.3); Osmolality Calculated 293 mOsm/kg (285-295); Potassium 4.1 mmol/L (3.5-5.1); Sodium 141 mmol/L (136-145); Total Bilirubin 0.3 mg/dL (0.15-1.2); Total Protein 6.3 g/dL (6.6-8.7)
[2024-08-28 09:54] LABS: Lactate Dehydrogenase 160 U/L (135-214)
[2024-08-28 09:57] LABS: Basophils # 0.1 10^3/uL (0.0-0.1); Basophils % 1.1 %; Eosinophils % 0.4 %; Hematocrit 41.9 % (36-47); Lymphocytes # 2.7 10^3/uL (0.8-4.8); Lymphocytes % 28.8 %; Mean Corpuscular HGB Conc 32.7 g/dL (30-55); Mean Corpuscular Hemoglobin 30.5 pg (27-33); Mean Corpuscular Volume 93.3 fl (85-98); Monocytes # 0.6 10^3/uL (0.2-0.9); Monocytes % 6.8 %; Neutrophils # 5.85 10^3/uL (1.8-7.7); Neutrophils % 62.5 %; Nucleated Red Blood Cells % 0 %; Platelet Count 250 10^3/cmm (157-399); Red Blood Count 4.49 10^6/uL (3.85-5.65); Red Cell Distribution Width 14.3 % (12.1-15.1); White Blood Count 9.37 10^3/uL (3.29-11.43)
[2024-08-28] MEDS: atezolizumab 1,200 MG in sodium chloride 0.9% 250 ML 600 MG IV (11:23)
[2024-08-28 12:07] VITALS: BP 146/80; PULSE 72; TEMP 36.6; O2SAT 96
== END 2024-08-28 23:59 | disposition home or self-care (01) ==
PROVIDERS: Internal Medicine Hematology & Oncology; PCP Registered Nurse; Visit Provider Internal Medicine Medical Oncology
DX: Z51.12 Encounter for antineoplastic immunotherapy (principal); C34.12 Malignant neoplasm of upper lobe, left bronchus or lung; Z79.899 Other long term (current) drug therapy
CPT/HCPCS: 36415; 36593; 80053; 83615; 83735; 85025; 96413; 99214; J2997; J7050; J9022

== ENCOUNTER 2024-09-18 08:05 | Oncology outpatient (recurring) (ONCR) | payer MEDICARE, MEDICAID, SELFPAY ==
[2024-09-18 08:25] LABS: Basophils # 0.1 10^3/uL (0.0-0.1); Basophils % 0.9 %; Eosinophils # 0.1 10^3/uL (0.0-0.8); Eosinophils % 0.7 %; Hematocrit 40.5 % (36-47); Lymphocytes # 2.5 10^3/uL (0.8-4.8); Lymphocytes % 27.2 %; Mean Corpuscular HGB Conc 32.8 g/dL (30-55); Mean Corpuscular Hemoglobin 30.9 pg (27-33); Mean Corpuscular Volume 94.2 fl (85-98); Monocytes # 0.6 10^3/uL (0.2-0.9); Monocytes % 6.2 %; Neutrophils # 6.02 10^3/uL (1.8-7.7); Neutrophils % 64.5 %; Nucleated Red Blood Cells % 0 %; Platelet Count 233 10^3/cmm (157-399); Red Cell Distribution Width 14.5 % (12.1-15.1); White Blood Count 9.34 10^3/uL (3.29-11.43)
[2024-09-18 08:52] LABS: Alanine Aminotransferase 12 U/L (0-33); Alkaline Phosphatase 108 U/L (35-105); Anion Gap 12.7 (5-19); Aspartate Amino Transferase 14 U/L (0-32); Blood Urea Nitrogen 8 mg/dL (8-23); Calcium 9.3 mg/dL (8.5-10.5); Carbon Dioxide 27 mmol/L (22-29); Chloride 103 mmol/L (98-107); Creatinine Clr Calc Pharmacy 55.4076; Globulin 2.4 g/dL (1.3-4.6); Glomerular Filtration Rate 99.1 mL/min (90-130); Glucose 131 mg/dL (65-115); Lactate Dehydrogenase 144 U/L (135-214); Osmolality Calculated 288 mOsm/kg (285-295); Potassium 3.7 mmol/L (3.5-5.1); Sodium 139 mmol/L (136-145); Thyroid Stimulating Hormone 1.78 uIU/mL (0.27-4.20); Total Bilirubin 0.3 mg/dL (0.15-1.2); Total Protein 6.4 g/dL (6.6-8.7)
[2024-09-18] MEDS: sodium chloride 0.9% 250 ML 75 ML IV (10:44)
[2024-09-18] MEDS: atezolizumab 1,200 MG in sodium chloride 0.9% 250 ML 540 MG IV (10:44)
[2024-09-18 11:33] VITALS: BP 103/66; PULSE 65; RESP 17; TEMP 36.1; O2SAT 95
== END 2024-09-21 23:59 | disposition home or self-care (01) ==
PROVIDERS: Internal Medicine Hematology & Oncology; PCP Registered Nurse; Visit Provider Internal Medicine
DX: Z51.12 Encounter for antineoplastic immunotherapy; C34.12 Malignant neoplasm of upper lobe, left bronchus or lung; Z79.899 Other long term (current) drug therapy
CPT/HCPCS: 80053; 83615; 84443; 85025; 96413; 99213; J7050; J9022

== ENCOUNTER 2024-10-02 10:58 | Outpatient (CLI) | payer MEDICARE, MEDICAID, SELFPAY ==
--- NOTE | 2024-10-02 10:50 | MM_ITS ---
WS: [email or web address] VIEWS: MLO and CC views both breasts. 3D digital tomosynthesis is also included in this exam. Comparison made with prior exam of 08/02/2006. Findings: The breasts are heterogeneously dense, which may obscure small masses. No mass, tumor calcification or architectural distortion noted. MM/MM scr BI tomosynthesis [id number] Impression: BI-RADS: 2 - Benign FOLLOW-UP: 1 Year Follow-up This mammogram was also analyzed by the Computer Aided Detection System R2 Imag e Shearing Machine Feeder.
== END 2024-10-02 10:59 | disposition home or self-care (01) ==
LOC: MOBLMAM 10:59
PROVIDERS: PCP Registered Nurse; Visit Provider Registered Nurse
DX: Z12.31 Encounter for screening mammogram for malignant neoplasm of breast (principal); R92.333 Mammographic heterogeneous density, bilateral breasts
CPT/HCPCS: 77063; 77067

== ENCOUNTER → 2024-10-08 09:30 | Outpatient (BNVA) | payer MEDICARE, MEDICAID, SELFPAY | PROVIDERS: PCP Registered Nurse; Visit Provider Nurse Practitioner Family | DX: I71.40 Abdominal aortic aneurysm, without rupture, unspecified (principal); E78.5 Hyperlipidemia, unspecified; Z87.891 Personal history of nicotine dependence; E11.51 Type 2 diabetes mellitus with diabetic peripheral angiopathy without gangrene | CPT/HCPCS: 99214 ==

== ENCOUNTER 2024-10-09 09:03 | Oncology outpatient (recurring) (ONCR) | payer MEDICARE, MEDICAID, SELFPAY ==
[2024-10-09 09:24] LABS: Basophils # 0.1 10^3/uL (0.0-0.1); Basophils % 0.9 %; Eosinophils # 0.1 10^3/uL (0.0-0.8); Eosinophils % 0.7 %; Hematocrit 40.3 % (36-47); Lymphocytes # 2.7 10^3/uL (0.8-4.8); Lymphocytes % 31.2 %; Mean Corpuscular HGB Conc 32.3 g/dL (30-55); Mean Corpuscular Hemoglobin 30.7 pg (27-33); Mean Platelet Volume 11.1 fL (7.4-10.4); Monocytes # 0.5 10^3/uL (0.2-0.9); Monocytes % 5.8 %; Neutrophils # 5.15 10^3/uL (1.8-7.7); Neutrophils % 60.7 %; Nucleated Red Blood Cells % 0 %; Platelet Count 237 10^3/cmm (157-399); Red Blood Count 4.24 10^6/uL (3.85-5.65); Red Cell Distribution Width 14.3 % (12.1-15.1); White Blood Count 8.49 10^3/uL (3.29-11.43)
[2024-10-09 09:40] LABS: Alanine Aminotransferase 15 U/L (0-33); Albumin Level 3.8 g/dL (3.5-5.2); Alkaline Phosphatase 108 U/L (35-105); Anion Gap 10.8 (5-19); Aspartate Amino Transferase 12 U/L (0-32); Blood Urea Nitrogen 8 mg/dL (8-23); Calcium 8.9 mg/dL (8.5-10.5); Carbon Dioxide 28 mmol/L (22-29); Chloride 102 mmol/L (98-107); Creatinine Clr Calc Pharmacy 56.3577; Globulin 2.8 g/dL (1.3-4.6); Glomerular Filtration Rate 99.1 mL/min (90-130); Glucose 157 mg/dL (65-115); Lactate Dehydrogenase 133 U/L (135-214); Osmolality Calculated 286 mOsm/kg (285-295); Potassium 3.8 mmol/L (3.5-5.1); Sodium 137 mmol/L (136-145); Total Bilirubin 0.3 mg/dL (0.15-1.2); Total Protein 6.6 g/dL (6.6-8.7)
[2024-10-09] MEDS: atezolizumab 1,200 MG in sodium chloride 0.9% 250 ML 600 MG IV (11:57)
== END 2024-10-09 23:59 | disposition home or self-care (01) ==
LOC: MOBLMAM 09:04 → ONCMED 09:25
PROVIDERS: Internal Medicine; PCP Registered Nurse; Visit Provider Registered Nurse
DX: Z51.12 Encounter for antineoplastic immunotherapy (principal); Z12.31 Encounter for screening mammogram for malignant neoplasm of breast; C34.12 Malignant neoplasm of upper lobe, left bronchus or lung; C79.51 Secondary malignant neoplasm of bone; Z79.899 Other long term (current) drug therapy
CPT/HCPCS: 80053; 83615; 85025; 96413; 99214; J7050; J9022

== ENCOUNTER 2024-11-04 07:41 | Oncology outpatient (recurring) (ONCR) | payer MEDICARE, MEDICAID, SELFPAY ==
[2024-11-04] MEDS: alteplase 1 mg/mL SDV 2 mL 2 MG INTRACATH (08:18)
[2024-11-04 08:21] LABS: Basophils # 0.1 10^3/uL (0.0-0.1); Basophils % 0.9 %; Eosinophils # 0.1 10^3/uL (0.0-0.8); Eosinophils % 0.5 %; Hematocrit 40.9 % (36-47); Lymphocytes # 2.3 10^3/uL (0.8-4.8); Lymphocytes % 24.2 %; Mean Corpuscular HGB Conc 32.8 g/dL (30-55); Mean Corpuscular Hemoglobin 30.7 pg (27-33); Mean Corpuscular Volume 93.6 fl (85-98); Mean Platelet Volume 10.9 fL (7.4-10.4); Monocytes # 0.6 10^3/uL (0.2-0.9); Monocytes % 6.5 %; Neutrophils # 6.39 10^3/uL (1.8-7.7); Neutrophils % 67.4 %; Nucleated Red Blood Cells % 0 %; Platelet Count 217 10^3/cmm (157-399); Red Blood Count 4.37 10^6/uL (3.85-5.65); Red Cell Distribution Width 13.8 % (12.1-15.1)
[2024-11-04 08:40] LABS: Alanine Aminotransferase 20 U/L (0-33); Alkaline Phosphatase 123 U/L (35-105); Anion Gap 16.7 (5-19); Aspartate Amino Transferase 14 U/L (0-32); Blood Urea Nitrogen 8 mg/dL (8-23); Carbon Dioxide 24 mmol/L (22-29); Chloride 101 mmol/L (98-107); Creatinine Clr Calc Pharmacy 55.2173; Globulin 2.5 g/dL (1.3-4.6); Glomerular Filtration Rate 99.1 mL/min (90-130); Glucose 141 mg/dL (65-115); Lactate Dehydrogenase 136 U/L (135-214); Osmolality Calculated 287 mOsm/kg (285-295); Potassium 3.7 mmol/L (3.5-5.1); Sodium 138 mmol/L (136-145); Total Bilirubin 0.3 mg/dL (0.15-1.2); Total Protein 6.5 g/dL (6.6-8.7)
[2024-11-04] MEDS: sodium chloride 0.9% 250 ML 75 ML IV (09:38)
[2024-11-04] MEDS: atezolizumab 1,200 MG in sodium chloride 0.9% 250 ML 280 MG IV (09:44)
[2024-11-04 10:45] VITALS: BP 149/81; PULSE 64; RESP 17; TEMP 36.2; O2SAT 98
== END 2024-11-04 23:59 | disposition home or self-care (01) ==
PROVIDERS: Internal Medicine; PCP Registered Nurse; Visit Provider Registered Nurse
DX: Z12.31 Encounter for screening mammogram for malignant neoplasm of breast; Z79.899 Other long term (current) drug therapy; Z51.12 Encounter for antineoplastic immunotherapy; C34.12 Malignant neoplasm of upper lobe, left bronchus or lung; C79.51 Secondary malignant neoplasm of bone
CPT/HCPCS: 36415; 80053; 83615; 85025; 96413; 99214; J2997; J7050; J9022

== ENCOUNTER 2024-11-25 07:40 | Oncology outpatient (recurring) (ONCR) | payer MEDICARE, MEDICAID, SELFPAY ==
[2024-11-25 07:53] LABS: Basophils # 0.1 10^3/uL (0.0-0.1); Eosinophils % 0.4 %; Hematocrit 40.7 % (36-47); Lymphocytes # 1.9 10^3/uL (0.8-4.8); Lymphocytes % 18.1 %; Mean Corpuscular HGB Conc 32.4 g/dL (30-55); Mean Corpuscular Hemoglobin 30.6 pg (27-33); Mean Corpuscular Volume 94.4 fl (85-98); Mean Platelet Volume 10.6 fL (7.4-10.4); Monocytes # 0.6 10^3/uL (0.2-0.9); Monocytes % 6.2 %; Neutrophils # 7.64 10^3/uL (1.8-7.7); Neutrophils % 73.9 %; Nucleated Red Blood Cells % 0 %; Platelet Count 227 10^3/cmm (157-399); Red Blood Count 4.31 10^6/uL (3.85-5.65); Red Cell Distribution Width 13.8 % (12.1-15.1); White Blood Count 10.33 10^3/uL (3.29-11.43)
[2024-11-25 08:10] LABS: Alanine Aminotransferase 42 U/L (0-33); Alkaline Phosphatase 118 U/L (35-105); Aspartate Amino Transferase 22 U/L (0-32); Blood Urea Nitrogen 7 mg/dL (8-23); Calcium 8.7 mg/dL (8.5-10.5); Carbon Dioxide 26 mmol/L (22-29); Chloride 101 mmol/L (98-107); Creatinine Clr Calc Pharmacy 55.2173; Globulin 2.5 g/dL (1.3-4.6); Glucose 192 mg/dL (65-115); Osmolality Calculated 291 mOsm/kg (285-295); Sodium 139 mmol/L (136-145); Total Bilirubin 0.2 mg/dL (0.15-1.2); Total Protein 6.5 g/dL (6.6-8.7)
[2024-11-25] MEDS: sodium chloride 0.9% 500 ML IV (09:10)
[2024-11-25] MEDS: ondansetron 2 mg/ML SDV 2 mL 4 MG IVP (09:10)
[2024-11-25] MEDS: meloxicam 7.5 mg tablet PO (09:30)
[2024-11-25] MEDS: atezolizumab 1,200 MG in sodium chloride 0.9% 250 ML 550 MG IV (10:04)
[2024-11-25 11:32] VITALS: BP 118/63; PULSE 63; RESP 18; TEMP 36.6; O2SAT 94
== END 2024-11-27 08:24 | disposition home or self-care (01) ==
PROVIDERS: PCP Registered Nurse; Visit Provider Nurse Practitioner Family
DX: Z51.12 Encounter for antineoplastic immunotherapy (principal); C34.12 Malignant neoplasm of upper lobe, left bronchus or lung; C79.51 Secondary malignant neoplasm of bone; R53.83 Other fatigue; R11.0 Nausea; M54.89 Other dorsalgia; M54.2 Cervicalgia; Z79.899 Other long term (current) drug therapy; Z95.828 Presence of other vascular implants and grafts; Z87.891 Personal history of nicotine dependence; Z92.3 Personal history of irradiation
CPT/HCPCS: 80053; 85025; 96375; 96413; 99214; J2405; J7040; J7050; J9022

== ENCOUNTER 2024-12-16 08:12 | Oncology outpatient (recurring) (ONCR) | payer MEDICARE, MEDICAID, SELFPAY ==
--- NOTE | 2024-11-27 08:46 | NM_ITS ---
WS: [email or web address] NUCLEAR MEDICINE WHOLE BODY BONE SCAN HISTORY: MALIGNANT NEOPLASM METASTATIC TO BONE, history of lung cancer, bilateral shoulder pain. COMPARISON: PET/CT 11/28/2023 TECHNIQUE: The patient was injected with 25.2 mCi of Technetium 99m HDP and serial whole-body scintigrams have been performed with anterior and posterior images. No rib or spine lesions identified. Mild AC joint and glenohumeral joint arthropathy. Mild bilateral patellofemoral arthropathy. Mild RIGHT SI joint arthritis. Mild arthropathy of the RIGHT ankle joint. Normal soft tissue uptake and renal uptake. NM/NM bone scan whole body* [id number] IMPRESSION: No osseous metastatic disease identified.
[2024-12-16 08:34] LABS: Basophils # 0.1 10^3/uL (0.0-0.1); Basophils % 1.2 %; Eosinophils # 0.1 10^3/uL (0.0-0.8); Eosinophils % 0.9 %; Hematocrit 39.5 % (36-47); Lymphocytes # 2.5 10^3/uL (0.8-4.8); Mean Corpuscular HGB Conc 32.4 g/dL (30-55); Mean Corpuscular Hemoglobin 30.8 pg (27-33); Mean Corpuscular Volume 95.2 fl (85-98); Mean Platelet Volume 11.1 fL (7.4-10.4); Monocytes # 0.6 10^3/uL (0.2-0.9); Monocytes % 8.3 %; Neutrophils # 4.12 10^3/uL (1.8-7.7); Neutrophils % 55.3 %; Nucleated Red Blood Cells % 0 %; Platelet Count 194 10^3/cmm (157-399); Red Blood Count 4.15 10^6/uL (3.85-5.65); Red Cell Distribution Width 13.8 % (12.1-15.1); White Blood Count 7.45 10^3/uL (3.29-11.43)
[2024-12-16 09:02] LABS: Alanine Aminotransferase 10 U/L (0-33); Alkaline Phosphatase 103 U/L (35-105); Anion Gap 13.2 (5-19); Aspartate Amino Transferase 9 U/L (0-32); Blood Urea Nitrogen 12 mg/dL (8-23); Calcium 8.9 mg/dL (8.5-10.5); Carbon Dioxide 25 mmol/L (22-29); Chloride 104 mmol/L (98-107); Creatinine Clr Calc Pharmacy 55.7877; Globulin 2.5 g/dL (1.3-4.6); Glomerular Filtration Rate 99.1 mL/min (90-130); Glucose 144 mg/dL (65-115); Osmolality Calculated 288 mOsm/kg (285-295); Potassium 4.2 mmol/L (3.5-5.1); Sodium 138 mmol/L (136-145); Total Bilirubin 0.3 mg/dL (0.15-1.2); Total Protein 6.5 g/dL (6.6-8.7)
[2024-12-16] MEDS: sodium chloride 0.9% 250 ML 50 ML IV (10:14)
[2024-12-16] MEDS: atezolizumab 1,200 MG in sodium chloride 0.9% 250 ML 500 MG IV (10:20)
[2024-12-16 11:10] VITALS: BP 135/73; PULSE 60; RESP 16; TEMP 35.7; O2SAT 95
== END 2024-12-16 23:59 | disposition home or self-care (01) ==
PROVIDERS: PCP Registered Nurse; Visit Provider Nurse Practitioner Family
DX: Z53.9 Procedure and treatment not carried out, unspecified reason; Z51.12 Encounter for antineoplastic immunotherapy; C34.12 Malignant neoplasm of upper lobe, left bronchus or lung; C79.51 Secondary malignant neoplasm of bone; M54.9 Dorsalgia, unspecified; R53.83 Other fatigue; Z79.899 Other long term (current) drug therapy; Z95.828 Presence of other vascular implants and grafts; Z87.891 Personal history of nicotine dependence; Z92.3 Personal history of irradiation
CPT/HCPCS: 78306; 80053; 84443; 85025; 96413; 99214; A9561; J7050; J9022

== ENCOUNTER 2025-01-06 08:13 | Oncology outpatient (recurring) (ONCR) | payer MEDICARE, MEDICAID, SELFPAY ==
[2025-01-06 08:40] LABS: Basophils # 0.1 10^3/uL (0.0-0.1); Basophils % 1.2 %; Eosinophils # 0.1 10^3/uL (0.0-0.8); Eosinophils % 0.7 %; Hematocrit 39.8 % (36-47); Lymphocytes # 2.5 10^3/uL (0.8-4.8); Lymphocytes % 33.3 %; Mean Corpuscular HGB Conc 32.7 g/dL (30-55); Mean Corpuscular Hemoglobin 31.7 pg (27-33); Mean Corpuscular Volume 97.1 fl (85-98); Monocytes # 0.5 10^3/uL (0.2-0.9); Monocytes % 6.9 %; Neutrophils # 4.36 10^3/uL (1.8-7.7); Neutrophils % 57.5 %; Nucleated Red Blood Cells % 0 %; Platelet Count 224 10^3/cmm (157-399); Red Cell Distribution Width 13.9 % (12.1-15.1); White Blood Count 7.57 10^3/uL (3.29-11.43)
[2025-01-06 09:03] LABS: Alanine Aminotransferase 12 U/L (0-33); Albumin Level 4.1 g/dL (3.5-5.2); Alkaline Phosphatase 133 U/L (35-105); Anion Gap 14.7 (5-19); Aspartate Amino Transferase 12 U/L (0-32); Blood Urea Nitrogen 9 mg/dL (8-23); Calcium 8.5 mg/dL (8.5-10.5); Carbon Dioxide 27 mmol/L (22-29); Chloride 104 mmol/L (98-107); Creatinine Clr Calc Pharmacy 55.4076; Globulin 2.6 g/dL (1.3-4.6); Glucose 164 mg/dL (65-115); Osmolality Calculated 296 mOsm/kg (285-295); Potassium 3.7 mmol/L (3.5-5.1); Sodium 142 mmol/L (136-145); Thyroid Stimulating Hormone 3.02 uIU/mL (0.27-4.20); Total Bilirubin 0.2 mg/dL (0.15-1.2); Total Protein 6.7 g/dL (6.6-8.7)
[2025-01-06] MEDS: atezolizumab 1,200 MG in sodium chloride 0.9% 250 ML 550 MG IV (09:37)
[2025-01-06] MEDS: sodium chloride 0.9% 250 ML 75 ML IV (09:41)
[2025-01-06 10:17] VITALS: BP 148/74; PULSE 69; TEMP 36.1; O2SAT 96
== END 2025-01-06 23:59 | disposition home or self-care (01) ==
PROVIDERS: Internal Medicine Medical Oncology; PCP Registered Nurse; Visit Provider Nurse Practitioner Family
DX: Z51.12 Encounter for antineoplastic immunotherapy (principal); C34.12 Malignant neoplasm of upper lobe, left bronchus or lung; C79.51 Secondary malignant neoplasm of bone; M54.9 Dorsalgia, unspecified; Z79.899 Other long term (current) drug therapy; Z95.828 Presence of other vascular implants and grafts
CPT/HCPCS: 80053; 84443; 85025; 96413; 99214; J7050; J9022

== ENCOUNTER 2025-01-27 08:03 | Oncology outpatient (recurring) (ONCR) | payer MEDICARE, MEDICAID, SELFPAY ==
[2025-01-27 08:43] LABS: Basophils # 0.1 10^3/uL (0.0-0.1); Basophils % 1.1 %; Eosinophils # 0.1 10^3/uL (0.0-0.8); Eosinophils % 0.7 %; Hematocrit 39.5 % (36-47); Lymphocytes # 2.3 10^3/uL (0.8-4.8); Lymphocytes % 26.8 %; Mean Corpuscular HGB Conc 32.2 g/dL (30-55); Mean Corpuscular Hemoglobin 31.3 pg (27-33); Mean Corpuscular Volume 97.3 fl (85-98); Mean Platelet Volume 10.9 fL (7.4-10.4); Monocytes # 0.6 10^3/uL (0.2-0.9); Monocytes % 6.9 %; Neutrophils # 5.37 10^3/uL (1.8-7.7); Neutrophils % 64.1 %; Nucleated Red Blood Cells % 0 %; Platelet Count 229 10^3/cmm (157-399); Red Blood Count 4.06 10^6/uL (3.85-5.65); Red Cell Distribution Width 13.9 % (12.1-15.1); White Blood Count 8.38 10^3/uL (3.29-11.43)
[2025-01-27 09:09] LABS: Alanine Aminotransferase 9 U/L (0-33); Albumin Level 4.1 g/dL (3.5-5.2); Alkaline Phosphatase 131 U/L (35-105); Anion Gap 14.7 (5-19); Aspartate Amino Transferase 10 U/L (0-32); Blood Urea Nitrogen 10 mg/dL (8-23); Calcium 8.6 mg/dL (8.5-10.5); Carbon Dioxide 26 mmol/L (22-29); Chloride 103 mmol/L (98-107); Creatinine Clr Calc Pharmacy 55.5974; Globulin 2.8 g/dL (1.3-4.6); Glucose 125 mg/dL (65-115); Osmolality Calculated 291 mOsm/kg (285-295); Potassium 3.7 mmol/L (3.5-5.1); Sodium 140 mmol/L (136-145); Thyroid Stimulating Hormone 2.08 uIU/mL (0.27-4.20); Total Bilirubin 0.2 mg/dL (0.15-1.2); Total Protein 6.9 g/dL (6.6-8.7)
[2025-01-27] MEDS: atezolizumab 1,200 MG in sodium chloride 0.9% 250 ML 430 MG IV (10:40)
[2025-01-27 11:23] VITALS: BP 138/74; PULSE 69; RESP 17; TEMP 35.9; O2SAT 96
== END 2025-01-27 23:59 | disposition home or self-care (01) ==
PROVIDERS: Internal Medicine Medical Oncology; PCP Registered Nurse; Visit Provider Nurse Practitioner Family
DX: Z53.9 Procedure and treatment not carried out, unspecified reason; Z51.12 Encounter for antineoplastic immunotherapy; C34.12 Malignant neoplasm of upper lobe, left bronchus or lung; C79.51 Secondary malignant neoplasm of bone; H61.21 Impacted cerumen, right ear; M54.9 Dorsalgia, unspecified; Z79.899 Other long term (current) drug therapy; Z87.891 Personal history of nicotine dependence; Z92.3 Personal history of irradiation
CPT/HCPCS: 80053; 84443; 85025; 96413; 99214; J7050; J9022

== ENCOUNTER 2025-02-17 08:51 | Oncology outpatient (recurring) (ONCR) | payer MEDICARE, MEDICAID, SELFPAY ==
[2025-02-17 09:19] LABS: Basophils # 0.1 10^3/uL (0.0-0.1); Basophils % 1.1 %; Eosinophils # 0.1 10^3/uL (0.0-0.8); Eosinophils % 1.1 %; Hematocrit 41.1 % (36-47); Lymphocytes # 2.6 10^3/uL (0.8-4.8); Lymphocytes % 34.6 %; Mean Corpuscular HGB Conc 32.6 g/dL (30-55); Mean Corpuscular Hemoglobin 31.3 pg (27-33); Mean Platelet Volume 10.9 fL (7.4-10.4); Monocytes # 0.5 10^3/uL (0.2-0.9); Monocytes % 6.9 %; Neutrophils # 4.15 10^3/uL (1.8-7.7); Neutrophils % 55.9 %; Nucleated Red Blood Cells % 0 %; Platelet Count 227 10^3/cmm (157-399); Red Blood Count 4.28 10^6/uL (3.85-5.65); Red Cell Distribution Width 13.5 % (12.1-15.1); White Blood Count 7.42 10^3/uL (3.29-11.43)
[2025-02-17 09:48] LABS: Alanine Aminotransferase 19 U/L (0-33); Albumin Level 4.2 g/dL (3.5-5.2); Alkaline Phosphatase 122 U/L (35-105); Anion Gap 13.9 (5-19); Aspartate Amino Transferase 19 U/L (0-32); Blood Urea Nitrogen 6 mg/dL (8-23); Carbon Dioxide 26 mmol/L (22-29); Chloride 101 mmol/L (98-107); Creatinine Clr Calc Pharmacy 55.4076; Globulin 2.8 g/dL (1.3-4.6); Glomerular Filtration Rate 99.1 mL/min (90-130); Glucose 127 mg/dL (65-115); Osmolality Calculated 283 mOsm/kg (285-295); Potassium 3.9 mmol/L (3.5-5.1); Sodium 137 mmol/L (136-145); Thyroid Stimulating Hormone 1.76 uIU/mL (0.27-4.20); Total Bilirubin 0.3 mg/dL (0.15-1.2)
[2025-02-17] MEDS: atezolizumab 1,200 MG in sodium chloride 0.9% 250 ML 275 MG IV (10:29)
[2025-02-17 11:11] VITALS: BP 121/74; PULSE 65; RESP 16; TEMP 36.1; O2SAT 96
== END 2025-02-17 23:59 | disposition home or self-care (01) ==
PROVIDERS: PCP Registered Nurse; Visit Provider Nurse Practitioner Family
DX: Z51.12 Encounter for antineoplastic immunotherapy (principal); C34.12 Malignant neoplasm of upper lobe, left bronchus or lung; C79.51 Secondary malignant neoplasm of bone; M54.9 Dorsalgia, unspecified; Z92.3 Personal history of irradiation; Z79.899 Other long term (current) drug therapy; Z87.891 Personal history of nicotine dependence
CPT/HCPCS: 80053; 84443; 85025; 96413; 99214; A4222; J7050; J9022

== ENCOUNTER 2025-03-10 08:15 | Oncology outpatient (recurring) (ONCR) | payer MEDICARE, MEDICAID, SELFPAY ==
--- NOTE | 2025-02-28 08:24 | PETR_ITS ---
PROCEDURE INFORMATION: Exam: PET/CT Skull Base to Mid-thigh Exam date and time: 02/28/2025 9:30 AM Age: 69 years old Clinical indication: Condition or disease; Primary cancer: Lung cancer cathy; Prior surgery; Surgery date: 6+ months; Surgery type: Left lung, aorta stents, gb, appy; Additional info: Small cell lung cancer LABS AND CLINICAL REPORTS: Glucose: 117 mg/dl Treatment strategy for malignancy (PET staging): Restaging (PS) TECHNIQUE: Imaging protocol: Following at least four-hour fasting and following the injection of radiopharmaceutical, low dose CT images were obtained. Then, PET images were obtained. Attenuation corrected images were constructed using the CT scan. Fused images of PET and CT were reviewed. The standardized uptake values (SUV) reported below are maximum values within a region of interest, expressed in gm/ml. Exam includes orbital meatal line to mid-thigh. SUV normalization method: BodyWeight Radiopharmaceutical: 11.52 mCi F-18 FDG (Fluorodeoxyglucose), IV. Time of imaging post radiopharmaceutical administration: 53 minutes Injection site: left hand COMPARISON: PT PET skull to thigh SUBS [id number] 11/28/2023 10:54 AM FINDINGS: Tubes, catheters and devices: Right chest port terminates at the superior cavoatrial junction. Brain: Visualized brain has normal physiologic uptake. Pharynx: No abnormal uptake. Larynx: No abnormal uptake. Thyroid: Increased nodular FDG uptake at the left thyroid showing SUV max 5.3, previously 3.2. Lungs, pleura and trachea: No abnormal uptake. Stable thin bandlike scarring of the left upper lobe without FDG avidity. Similar to slightly decreased bandlike thickening at the left lower lobe without FDG avidity also likely representing scarring. Bilateral calcified granulomata. Background mild emphysematous change. Heart: Normal physiologic uptake. Coronary arteries: Moderate coronary artery calcification. Mediastinal space: No abnormal uptake. Diaphragm: Small hiatal hernia. Liver: No abnormal uptake. Diffuse hypoattenuation compatible with steatosis. Gallbladder and biliary ducts: No abnormal uptake. Prior cholecystectomy. Pancreas: No abnormal uptake. Spleen: No abnormal uptake. Adrenal glands: No abnormal uptake. Stable 1.2 cm non FDG avid hypodense right adrenal nodule compatible with adenoma. Kidneys and ureters: Normal physiologic uptake. Stomach and bowel: No abnormal uptake. Colonic diverticulosis without findings of diverticulitis. Reproductive: Fibroid uterus. Otherwise unremarkable as visualized. Vasculature: No abnormal uptake. Systemic atherosclerotic calcification without aortic aneurysm. Aorto bi-iliac stent material. Lymph nodes: No abnormal uptake. No lymphadenopathy in the head, neck, chest, abdomen, pelvis, and extremities. Calcified mediastinal nodes in keeping with sequela of old granulomatous disease. Skeleton: No abnormal uptake in the visualized axial and appendicular skeleton. Degenerative changes along the axial skeletal system. Soft tissues: No abnormal uptake in the visualized head, neck, chest, abdomen, pelvis, and extremities. METRICS: Mediastinal blood pool: SUV mean 1.8 Liver uptake: SUV mean 2.0 PET/PET skull to thigh SUBS [id number] IMPRESSION: 1. No abnormal radiotracer uptake to suggest residual or recurrent lung cancer. Similar to slightly decreased non FDG avid left lower lobe bandlike thickening likely representing scarring. Stable left upper lobe scar. 2. Increased nodular FDG uptake at left thyroid. 3. Hepatic steatosis. 4. Additional chronic and incidental findings as above.
[2025-03-10] MEDS: alteplase 1 mg/mL SDV 2 mL 2 MG INTRACATH (08:32)
[2025-03-10 08:36] LABS: Basophils # 0.1 10^3/uL (0.0-0.1); Basophils % 1.6 %; Eosinophils # 0.1 10^3/uL (0.0-0.8); Eosinophils % 1.4 %; Hematocrit 40.1 % (36-47); Lymphocytes # 2.1 10^3/uL (0.8-4.8); Lymphocytes % 38.7 %; Mean Corpuscular HGB Conc 32.4 g/dL (30-55); Mean Corpuscular Hemoglobin 31.3 pg (27-33); Mean Corpuscular Volume 96.4 fl (85-98); Mean Platelet Volume 11.1 fL (7.4-10.4); Monocytes # 0.5 10^3/uL (0.2-0.9); Monocytes % 8.7 %; Neutrophils # 2.71 10^3/uL (1.8-7.7); Neutrophils % 49.1 %; Nucleated Red Blood Cells % 0 %; Platelet Count 235 10^3/cmm (157-399); Red Blood Count 4.16 10^6/uL (3.85-5.65); Red Cell Distribution Width 12.9 % (12.1-15.1); White Blood Count 5.53 10^3/uL (3.29-11.43)
[2025-03-10 09:10] LABS: Alanine Aminotransferase 12 U/L (0-33); Albumin Level 3.8 g/dL (3.5-5.2); Alkaline Phosphatase 121 U/L (35-105); Anion Gap 16.6 (5-19); Aspartate Amino Transferase 14 U/L (0-32); Blood Urea Nitrogen 7 mg/dL (8-23); Calcium 8.8 mg/dL (8.5-10.5); Carbon Dioxide 23 mmol/L (22-29); Chloride 104 mmol/L (98-107); Creatinine Clr Calc Pharmacy 55.4076; Globulin 3.1 g/dL (1.3-4.6); Glucose 131 mg/dL (65-115); Magnesium 1.8 mg/dL (1.7-2.3); Osmolality Calculated 288 mOsm/kg (285-295); Potassium 4.6 mmol/L (3.5-5.1); Sodium 139 mmol/L (136-145); Thyroid Stimulating Hormone 2.27 uIU/mL (0.27-4.20); Total Bilirubin 0.3 mg/dL (0.15-1.2); Total Protein 6.9 g/dL (6.6-8.7)
[2025-03-10] MEDS: atezolizumab 1,200 MG in sodium chloride 0.9% 250 ML 540 MG IV (09:56)
== END 2025-03-10 23:59 | disposition home or self-care (01) ==
PROVIDERS: Internal Medicine Medical Oncology; PCP Registered Nurse; Visit Provider Nurse Practitioner Family
DX: Z53.9 Procedure and treatment not carried out, unspecified reason; Z51.12 Encounter for antineoplastic immunotherapy; C79.51 Secondary malignant neoplasm of bone; C34.12 Malignant neoplasm of upper lobe, left bronchus or lung; Z79.899 Other long term (current) drug therapy; Z95.828 Presence of other vascular implants and grafts; Z79.891 Long term (current) use of opiate analgesic; E04.1 Nontoxic single thyroid nodule
CPT/HCPCS: 36415; 36593; 78815; 80053; 83735; 84443; 85025; 96413; 99214; A9552; J2997; J7050; J9022

== ENCOUNTER → 2025-03-28 10:19 | Outpatient (BNVA) | payer MEDICARE, MEDICAID, SELFPAY | PROVIDERS: PCP Registered Nurse; Visit Provider Registered Nurse | DX: Z79.899 Other long term (current) drug therapy (principal) | CPT/HCPCS: 83036 ==

== ENCOUNTER 2025-03-31 08:38 | Oncology outpatient (recurring) (ONCR) | payer MEDICARE, MEDICAID, SELFPAY ==
[2025-03-31 09:25] LABS: Basophils # 0.1 10^3/uL (0.0-0.1); Basophils % 1.7 %; Eosinophils # 0.1 10^3/uL (0.0-0.8); Eosinophils % 1.3 %; Hematocrit 38.7 % (36-47); Mean Corpuscular HGB Conc 32.3 g/dL (30-55); Mean Platelet Volume 10.8 fL (7.4-10.4); Monocytes # 0.4 10^3/uL (0.2-0.9); Monocytes % 7.3 %; Neutrophils % 56.4 %; Nucleated Red Blood Cells % 0 %; Platelet Count 263 10^3/cmm (157-399); Red Blood Count 4.03 10^6/uL (3.85-5.65); Red Cell Distribution Width 13.1 % (12.1-15.1); White Blood Count 6.03 10^3/uL (3.29-11.43)
[2025-03-31] MEDS: alteplase 1 mg/mL SDV 2 mL 2 MG INTRACATH (09:50)
[2025-03-31 09:51] LABS: Alanine Aminotransferase 11 U/L (0-33); Albumin Level 3.7 g/dL (3.5-5.2); Alkaline Phosphatase 110 U/L (35-105); Anion Gap 16.7 (5-19); Aspartate Amino Transferase 12 U/L (0-32); Blood Urea Nitrogen 6 mg/dL (8-23); Calcium 8.8 mg/dL (8.5-10.5); Carbon Dioxide 23 mmol/L (22-29); Chloride 106 mmol/L (98-107); Creatinine Clr Calc Pharmacy 55.4076; Globulin 2.9 g/dL (1.3-4.6); Glucose 144 mg/dL (65-115); Magnesium 1.8 mg/dL (1.7-2.3); Osmolality Calculated 294 mOsm/kg (285-295); Potassium 3.7 mmol/L (3.5-5.1); Sodium 142 mmol/L (136-145); Thyroid Stimulating Hormone 1.11 uIU/mL (0.27-4.20); Total Bilirubin 0.2 mg/dL (0.15-1.2); Total Protein 6.6 g/dL (6.6-8.7)
[2025-03-31] MEDS: atezolizumab 1,200 MG in sodium chloride 0.9% 250 ML 600 MG IV (12:31)
== END 2025-03-31 23:59 | disposition home or self-care (01) ==
PROVIDERS: Internal Medicine Medical Oncology; PCP Registered Nurse; Visit Provider Nurse Practitioner Family
DX: Z51.12 Encounter for antineoplastic immunotherapy (principal); C34.12 Malignant neoplasm of upper lobe, left bronchus or lung; C79.51 Secondary malignant neoplasm of bone; E04.1 Nontoxic single thyroid nodule; J44.9 Chronic obstructive pulmonary disease, unspecified; Z79.899 Other long term (current) drug therapy; Z87.891 Personal history of nicotine dependence
CPT/HCPCS: 36415; 80053; 83735; 84443; 85025; 96413; 99214; A4222; J2997; J7050; J9022

== ENCOUNTER 2025-04-21 07:35 | Oncology outpatient (recurring) (ONCR) | payer MEDICARE, MEDICAID, SELFPAY ==
[2025-04-21 08:15] LABS: Basophils # 0.1 10^3/uL (0.0-0.1); Basophils % 1.6 %; Eosinophils % 0.7 %; Hematocrit 40.5 % (36-47); Lymphocytes # 2.2 10^3/uL (0.8-4.8); Lymphocytes % 38.6 %; Mean Corpuscular HGB Conc 32.8 g/dL (30-55); Mean Corpuscular Hemoglobin 31.7 pg (27-33); Mean Corpuscular Volume 96.7 fl (85-98); Mean Platelet Volume 10.9 fL (7.4-10.4); Monocytes # 0.5 10^3/uL (0.2-0.9); Monocytes % 8.4 %; Neutrophils # 2.81 10^3/uL (1.8-7.7); Neutrophils % 50.2 %; Nucleated Red Blood Cells % 0 %; Platelet Count 210 10^3/cmm (157-399); Red Blood Count 4.19 10^6/uL (3.85-5.65); Red Cell Distribution Width 13.3 % (12.1-15.1)
[2025-04-21 08:40] LABS: Alanine Aminotransferase 9 U/L (0-33); Albumin Level 3.9 g/dL (3.5-5.2); Alkaline Phosphatase 123 U/L (35-105); Anion Gap 17.3 (5-19); Aspartate Amino Transferase 12 U/L (0-32); Blood Urea Nitrogen 7 mg/dL (8-23); Carbon Dioxide 22 mmol/L (22-29); Chloride 104 mmol/L (98-107); Creatinine Clr Calc Pharmacy 55.5974; Glomerular Filtration Rate 99.1 mL/min (90-130); Glucose 145 mg/dL (65-115); Magnesium 1.9 mg/dL (1.7-2.3); Osmolality Calculated 289 mOsm/kg (285-295); Potassium 4.3 mmol/L (3.5-5.1); Sodium 139 mmol/L (136-145); Thyroid Stimulating Hormone 1.58 uIU/mL (0.27-4.20); Total Bilirubin 0.3 mg/dL (0.15-1.2); Total Protein 6.9 g/dL (6.6-8.7)
[2025-04-21] MEDS: atezolizumab 1,200 MG in sodium chloride 0.9% 250 ML 285 MG IV (09:53)
[2025-04-21 10:36] VITALS: BP 130/64; PULSE 60; RESP 16; TEMP 36.5; O2SAT 97
== END 2025-04-21 23:59 | disposition home or self-care (01) ==
PROVIDERS: Internal Medicine Medical Oncology; PCP Registered Nurse; Visit Provider Nurse Practitioner Family
DX: Z51.12 Encounter for antineoplastic immunotherapy (principal); C34.12 Malignant neoplasm of upper lobe, left bronchus or lung; C79.51 Secondary malignant neoplasm of bone; E04.1 Nontoxic single thyroid nodule; J44.9 Chronic obstructive pulmonary disease, unspecified; Z87.891 Personal history of nicotine dependence; Z79.899 Other long term (current) drug therapy
CPT/HCPCS: 36415; 80053; 83735; 84443; 85025; 96413; 99213; A4222; J7050; J9022

== ENCOUNTER 2025-05-12 08:54 | Oncology outpatient (recurring) (ONCR) | payer MEDICARE, MEDICAID, SELFPAY ==
[2025-05-12 09:19] LABS: Hematocrit 41.2 % (36-47); Hemoglobin 13.30 g/dL (11.27-16.99); Mean Corpuscular HGB Conc 32.3 g/dL (30-55); Mean Corpuscular Hemoglobin 30.7 pg (27-33); Mean Corpuscular Volume 95.2 fl (85-98); Nucleated Red Blood Cells % 0 %; Platelet Count 237 10^3/cmm (157-399); Red Blood Count 4.33 10^6/uL (3.85-5.65); White Blood Count 8.74 10^3/uL (3.29-11.43)
[2025-05-12 09:37] LABS: Alanine Aminotransferase 10 U/L (0-33); Albumin Level 4.1 g/dL (3.5-5.2); Alkaline Phosphatase 129 U/L (35-105); Anion Gap 16.4 (5-19); Aspartate Amino Transferase 11 U/L (0-32); Blood Urea Nitrogen 9 mg/dL (8-23); Calcium 8.7 mg/dL (8.5-10.5); Carbon Dioxide 25 mmol/L (22-29); Chloride 99 mmol/L (98-107); Creatinine Clr Calc Pharmacy 55.7877; Globulin 2.8 g/dL (1.3-4.6); Glucose 138 mg/dL (65-115); Magnesium 2.1 mg/dL (1.7-2.3); Osmolality Calculated 283 mOsm/kg (285-295); Potassium 4.4 mmol/L (3.5-5.1); Sodium 136 mmol/L (136-145); Thyroid Stimulating Hormone 1.54 uIU/mL (0.27-4.20); Total Protein 6.9 g/dL (6.6-8.7)
== END 2025-05-12 23:59 | disposition home or self-care (01) ==
PROVIDERS: PCP Registered Nurse; Visit Provider Nurse Practitioner Family
DX: Z53.9 Procedure and treatment not carried out, unspecified reason; Z51.12 Encounter for antineoplastic immunotherapy; C34.12 Malignant neoplasm of upper lobe, left bronchus or lung; C79.51 Secondary malignant neoplasm of bone; E04.1 Nontoxic single thyroid nodule; J44.9 Chronic obstructive pulmonary disease, unspecified; R51.9 Headache, unspecified; Z79.899 Other long term (current) drug therapy
CPT/HCPCS: 80053; 83735; 84443; 85025; 96413; 99214; A4222; J7050; J9022

== ENCOUNTER 2025-06-02 08:42 | Oncology outpatient (recurring) (ONCR) | payer MEDICARE, MEDICAID, SELFPAY ==
[2025-06-02 08:59] LABS: Hematocrit 39.6 % (36-47); Hemoglobin 13.00 g/dL (11.27-16.99); Mean Corpuscular HGB Conc 32.8 g/dL (30-55); Mean Corpuscular Hemoglobin 31.2 pg (27-33); Mean Corpuscular Volume 95.0 fl (85-98); Nucleated Red Blood Cells % 0 %; Platelet Count 217 10^3/cmm (157-399); Red Blood Count 4.17 10^6/uL (3.85-5.65); White Blood Count 9.12 10^3/uL (3.29-11.43)
[2025-06-02 09:33] LABS: Alanine Aminotransferase 9 U/L (0-33); Albumin Level 4.0 g/dL (3.5-5.2); Alkaline Phosphatase 125 U/L (35-105); Anion Gap 14.3 (5-19); Aspartate Amino Transferase 12 U/L (0-32); Blood Urea Nitrogen 12 mg/dL (8-23); Calcium 8.8 mg/dL (8.5-10.5); Carbon Dioxide 25 mmol/L (22-29); Chloride 103 mmol/L (98-107); Creatinine Clr Calc Pharmacy 55.9776; Globulin 3.2 g/dL (1.3-4.6); Glucose 136 mg/dL (65-115); Magnesium 1.8 mg/dL (1.7-2.3); Osmolality Calculated 288 mOsm/kg (285-295); Potassium 4.3 mmol/L (3.5-5.1); Sodium 138 mmol/L (136-145); Thyroid Stimulating Hormone 1.58 uIU/mL (0.27-4.20); Total Protein 7.2 g/dL (6.6-8.7)
[2025-06-02 10:47] VITALS: BP 127/75; PULSE 66; TEMP 35.7; O2SAT 97
== END 2025-06-02 23:59 | disposition home or self-care (01) ==
PROVIDERS: PCP Registered Nurse; Visit Provider Nurse Practitioner Family
DX: Z51.12 Encounter for antineoplastic immunotherapy (principal); C34.12 Malignant neoplasm of upper lobe, left bronchus or lung; C79.51 Secondary malignant neoplasm of bone; E04.1 Nontoxic single thyroid nodule; J44.9 Chronic obstructive pulmonary disease, unspecified; R73.9 Hyperglycemia, unspecified; R51.9 Headache, unspecified; Z92.3 Personal history of irradiation; Z87.891 Personal history of nicotine dependence; Z95.828 Presence of other vascular implants and grafts; Z79.899 Other long term (current) drug therapy
CPT/HCPCS: 80053; 83735; 84443; 85025; 96413; 99214; A4222; J7050; J9022

== ENCOUNTER 2025-06-24 08:25 | Oncology outpatient (recurring) (ONCR) | payer MEDICARE, MEDICAID, SELFPAY ==
[2025-06-24] MEDS: alteplase 1 mg/mL SDV 2 mL 2 MG INTRACATH ×2 (08:39→10:48)
[2025-06-24 08:51] LABS: Hematocrit 41.5 % (36-47); Hemoglobin 13.50 g/dL (11.27-16.99); Mean Corpuscular HGB Conc 32.5 g/dL (30-55); Mean Corpuscular Hemoglobin 31.4 pg (27-33); Mean Corpuscular Volume 96.5 fl (85-98); Nucleated Red Blood Cells % 0 %; Platelet Count 242 10^3/cmm (157-399); Red Blood Count 4.30 10^6/uL (3.85-5.65); White Blood Count 7.20 10^3/uL (3.29-11.43)
[2025-06-24 09:25] LABS: Alanine Aminotransferase 12 U/L (0-33); Albumin Level 4.3 g/dL (3.5-5.2); Alkaline Phosphatase 125 U/L (35-105); Anion Gap 14.5 (5-19); Aspartate Amino Transferase 16 U/L (0-32); Blood Urea Nitrogen 12 mg/dL (8-23); Calcium 9.0 mg/dL (8.5-10.5); Carbon Dioxide 24 mmol/L (22-29); Chloride 103 mmol/L (98-107); Globulin 2.9 g/dL (1.3-4.6); Glucose 111 mg/dL (65-115); Magnesium 2.0 mg/dL (1.7-2.3); Osmolality Calculated 284 mOsm/kg (285-295); Potassium 4.5 mmol/L (3.5-5.1); Sodium 137 mmol/L (136-145); Thyroid Stimulating Hormone 1.97 uIU/mL (0.27-4.20); Total Protein 7.2 g/dL (6.6-8.7)
[2025-06-24 12:50] VITALS: BP 147/73; PULSE 61; RESP 17; TEMP 36.4; O2SAT 95
== END 2025-06-24 23:59 | disposition home or self-care (01) ==
PROVIDERS: Internal Medicine Medical Oncology; PCP Registered Nurse; Visit Provider Nurse Practitioner Family
DX: Z53.9 Procedure and treatment not carried out, unspecified reason; Z51.12 Encounter for antineoplastic immunotherapy; C34.12 Malignant neoplasm of upper lobe, left bronchus or lung; Z79.899 Other long term (current) drug therapy; E04.1 Nontoxic single thyroid nodule
CPT/HCPCS: 36415; 36593; 80053; 83735; 84443; 85025; 96413; J2997; J7050; J9022

== ENCOUNTER 2025-07-14 08:16 | Oncology outpatient (recurring) (ONCR) | payer MEDICARE, MEDICAID, SELFPAY ==
[2025-07-14 08:46] LABS: Hematocrit 40.6 % (36-47); Hemoglobin 13.00 g/dL (11.27-16.99); Mean Corpuscular HGB Conc 32.0 g/dL (30-55); Mean Corpuscular Hemoglobin 30.4 pg (27-33); Mean Corpuscular Volume 94.9 fl (85-98); Platelet Count 238 10^3/cmm (157-399); Red Blood Count 4.28 10^6/uL (3.85-5.65); White Blood Count 6.32 10^3/uL (3.29-11.43)
[2025-07-14 09:15] LABS: Alanine Aminotransferase 13 U/L (0-33); Albumin Level 4.2 g/dL (3.5-5.2); Alkaline Phosphatase 133 U/L (35-105); Anion Gap 16.1 (5-19); Aspartate Amino Transferase 12 U/L (0-32); Blood Urea Nitrogen 11 mg/dL (8-23); Calcium 9.1 mg/dL (8.5-10.5); Carbon Dioxide 24 mmol/L (22-29); Chloride 104 mmol/L (98-107); Globulin 2.9 g/dL (1.3-4.6); Glucose 123 mg/dL (65-115); Magnesium 2.0 mg/dL (1.7-2.3); Osmolality Calculated 289 mOsm/kg (285-295); Potassium 5.1 mmol/L (3.5-5.1); Sodium 139 mmol/L (136-145); Thyroid Stimulating Hormone 1.79 uIU/mL (0.27-4.20); Total Protein 7.1 g/dL (6.6-8.7)
[2025-07-14 09:45] LABS: Slide Review Slide Review Perform
[2025-07-14 09:46] LABS: Absolute Segmented Neutrophil 3.2 10/cmm (1.6-7.1); Atypical Lymphs 17.0 % (0-5); Band Neutrophils Absolute 0.0 10^3/cmm (0.0-1.2); Total Cells Counted 100 (0-100)
[2025-07-14 11:00] VITALS: BP 116/72; PULSE 68; RESP 16; TEMP 36.3; O2SAT 92
== END 2025-07-14 23:59 | disposition home or self-care (01) ==
PROVIDERS: Internal Medicine Medical Oncology; PCP Registered Nurse; Visit Provider Nurse Practitioner Family
DX: Z51.12 Encounter for antineoplastic immunotherapy (principal); C34.12 Malignant neoplasm of upper lobe, left bronchus or lung; C79.51 Secondary malignant neoplasm of bone; E04.1 Nontoxic single thyroid nodule; Z79.899 Other long term (current) drug therapy; Z95.828 Presence of other vascular implants and grafts; Z87.891 Personal history of nicotine dependence; Z92.21 Personal history of antineoplastic chemotherapy
CPT/HCPCS: 80053; 83735; 84443; 85007; 85025; 96413; 99214; A4222; J7050; J9022

== ENCOUNTER 2025-07-28 09:04 | Outpatient (CLI) | payer MEDICARE, MEDICAID, SELFPAY ==
--- NOTE | 2025-07-28 09:10 | CT_ITS ---
WS: [email or web address] CT CHEST, ABDOMEN, AND PELVIS TECHNIQUE: Noncontrast CT of the chest, abdomen, and pelvis with coronal and sagittal reformatted images. CLINICAL INFORMATION: MALIGNANT NEOPLASM OF UPPER LEFT LOBE COMPARISON: CT 06/09/[address] 02/28/2025 DLP: 708.[address] scans at [facility] use at least one of these dose optimization techniques: automated exposure control; mA and/or kV adjustment per patient size (includes targeted exams where dose is matched to clinical indication); or iterative reconstruction. CT CHEST: Previously treated LEFT upper lobe neoplasm. No evidence of recurrent disease in the LEFT upper lobe. Subsegmental atelectasis. Bandlike subsegmental atelectasis LEFT lower lobe similar to previous. Calcified granuloma LEFT lower lobe. A few calcified granulomas RIGHT lung. No new suspicious pulmonary parenchymal abnormalities. Aortic calcification. Coronary calcification. No mediastinal or hilar lymphadenopathy. Thoracic kyphosis. No axillary lymphadenopathy. Elevation LEFT hemidiaphragm. A few tiny scattered micronodules in both lungs. CT ABDOMEN AND PELVIS: Hepatomegaly. Fatty liver. Cholecystectomy clips. Small to moderate esophageal hiatal hernia. Stable RIGHT adrenal nodule. LEFT adrenal gland is normal. No hydronephrosis. Abdominal aortic calcification. Aortic endograft. Large calcified fibroid in the uterus. Normal noncontrast pancreas. No abdominal or pelvic lymphadenopathy. CT/CT chest abdpel [id number] IMPRESSION: 1. No lymphadenopathy in the chest abdomen pelvis. 2. No evidence of recurrent disease. 3. No significant change compared to previous.
[2025-07-28] MEDS: barium sulfate 450 mL Oral Susp PO (09:42)
== END 2025-07-28 09:05 | disposition home or self-care (01) ==
LOC: RAD 09:06
PROVIDERS: PCP Registered Nurse; Visit Provider Nurse Practitioner Family
DX: C34.12 Malignant neoplasm of upper lobe, left bronchus or lung (principal); J98.11 Atelectasis; J98.4 Other disorders of lung; M40.204 Unspecified kyphosis, thoracic region; R16.0 Hepatomegaly, not elsewhere classified; K76.0 Fatty (change of) liver, not elsewhere classified; Z90.49 Acquired absence of other specified parts of digestive tract; R91.8 Other nonspecific abnormal finding of lung field; K44.9 Diaphragmatic hernia without obstruction or gangrene; E27.8 Other specified disorders of adrenal gland; D25.9 Leiomyoma of uterus, unspecified
CPT/HCPCS: 71250; 74176

== ENCOUNTER 2025-08-04 08:30 | Oncology outpatient (recurring) (ONCR) | payer MEDICARE, MEDICAID, SELFPAY ==
--- NOTE | 2025-07-28 10:45 | US_ITS ---
WS: [email or web address] ULTRASOUND THYROID TECHNIQUE: Ultrasound of the thyroid. CLINICAL INFORMATION: thyroid lesion COMPARISON: None. FINDINGS: Thyroid: Right and left thyroid lobes are normal in size and echotexture. Right thyroid lobe: 3.7 cm x 1.5 cm x 1.5 cm Left thyroid lobe: 4.0 cm x 1.3 cm x 1.5 cm. Isoechoic LEFT thyroid nodule superior pole measuring 9 x 8 x 11 mm unchanged Additional inferior isoechoic LEFT thyroid nodule measuring 10 x 12 x 17 mm unchanged Isthmus: 0.4 mm. Cervical lymphadenopathy: None. US/US thyroid [id number] IMPRESSION: 1. 2 stable LEFT thyroid nodules described above TI-RADS 3 2. No new findings
[2025-08-04 08:26] LABS: Hematocrit 40.8 % (36-47); Hemoglobin 13.50 g/dL (11.27-16.99); Mean Corpuscular HGB Conc 33.1 g/dL (30-55); Mean Corpuscular Hemoglobin 31.2 pg (27-33); Mean Corpuscular Volume 94.2 fl (85-98); Nucleated Red Blood Cells % 0 %; Platelet Count 259 10^3/cmm (157-399); Red Blood Count 4.33 10^6/uL (3.85-5.65); White Blood Count 9.15 10^3/uL (3.29-11.43)
[2025-08-04 08:55] LABS: Alanine Aminotransferase 17 U/L (0-33); Albumin Level 4.3 g/dL (3.5-5.2); Alkaline Phosphatase 127 U/L (35-105); Anion Gap 16.2 (5-19); Aspartate Amino Transferase 13 U/L (0-32); Blood Urea Nitrogen 12 mg/dL (8-23); Calcium 9.2 mg/dL (8.5-10.5); Carbon Dioxide 26 mmol/L (22-29); Chloride 101 mmol/L (98-107); Creatinine Clr Calc Pharmacy 55.5639; Globulin 2.8 g/dL (1.3-4.6); Glucose 137 mg/dL (65-115); Magnesium 1.9 mg/dL (1.7-2.3); Osmolality Calculated 290 mOsm/kg (285-295); Potassium 4.2 mmol/L (3.5-5.1); Sodium 139 mmol/L (136-145); Thyroid Stimulating Hormone 1.93 uIU/mL (0.27-4.20); Total Protein 7.1 g/dL (6.6-8.7)
[2025-08-04 10:28] VITALS: BP 131/61; PULSE 71; RESP 17; TEMP 36.4; O2SAT 96
== END 2025-08-04 23:59 | disposition home or self-care (01) ==
PROVIDERS: PCP Registered Nurse; Visit Provider Nurse Practitioner Family
DX: Z51.12 Encounter for antineoplastic immunotherapy; C34.12 Malignant neoplasm of upper lobe, left bronchus or lung; C79.51 Secondary malignant neoplasm of bone; E04.1 Nontoxic single thyroid nodule; R03.0 Elevated blood-pressure reading, without diagnosis of hypertension; R51.9 Headache, unspecified; Z79.899 Other long term (current) drug therapy; Z95.828 Presence of other vascular implants and grafts; Z87.891 Personal history of nicotine dependence; Z92.21 Personal history of antineoplastic chemotherapy; Z53.9 Procedure and treatment not carried out, unspecified reason
CPT/HCPCS: 76536; 80053; 83735; 84443; 85025; 96413; 99214; A4222; J7050; J9022

== ENCOUNTER 2025-08-25 08:41 | Oncology outpatient (recurring) (ONCR) | payer MEDICARE, MEDICAID, SELFPAY ==
[2025-08-25 09:13] LABS: Hematocrit 39.7 % (36-47); Hemoglobin 13.00 g/dL (11.27-16.99); Mean Corpuscular HGB Conc 32.7 g/dL (30-55); Mean Corpuscular Hemoglobin 31.0 pg (27-33); Mean Corpuscular Volume 94.7 fl (85-98); Nucleated Red Blood Cells % 0 %; Platelet Count 259 10^3/cmm (157-399); Red Blood Count 4.19 10^6/uL (3.85-5.65); White Blood Count 10.11 10^3/uL (3.29-11.43)
[2025-08-25 09:39] LABS: Alanine Aminotransferase 11 U/L (0-33); Albumin Level 4.2 g/dL (3.5-5.2); Alkaline Phosphatase 118 U/L (35-105); Anion Gap 14.2 (5-19); Aspartate Amino Transferase 11 U/L (0-32); Blood Urea Nitrogen 10 mg/dL (8-23); Calcium 9.2 mg/dL (8.5-10.5); Carbon Dioxide 25 mmol/L (22-29); Chloride 106 mmol/L (98-107); Creatinine Clr Calc Pharmacy 55.0602; Globulin 2.8 g/dL (1.3-4.6); Glucose 112 mg/dL (65-115); Magnesium 1.7 mg/dL (1.7-2.3); Osmolality Calculated 292 mOsm/kg (285-295); Potassium 4.2 mmol/L (3.5-5.1); Sodium 141 mmol/L (136-145); Thyroid Stimulating Hormone 1.36 uIU/mL (0.27-4.20); Total Protein 7.0 g/dL (6.6-8.7)
[2025-08-25 11:46] VITALS: BP 160/71; PULSE 70; O2SAT 98
== END 2025-08-25 23:59 | disposition home or self-care (01) ==
PROVIDERS: Internal Medicine Medical Oncology; PCP Registered Nurse; Visit Provider Nurse Practitioner Family
DX: Z51.12 Encounter for antineoplastic immunotherapy (principal); C34.12 Malignant neoplasm of upper lobe, left bronchus or lung; C79.51 Secondary malignant neoplasm of bone; E04.1 Nontoxic single thyroid nodule; R03.0 Elevated blood-pressure reading, without diagnosis of hypertension; R51.9 Headache, unspecified; Z79.899 Other long term (current) drug therapy; Z95.828 Presence of other vascular implants and grafts; Z87.891 Personal history of nicotine dependence; Z92.21 Personal history of antineoplastic chemotherapy
CPT/HCPCS: 80053; 83735; 84443; 85025; 96413; 99214; A4222; J7050; J9022

== ENCOUNTER → 2025-09-11 09:59 | Outpatient (BNVA) | payer MEDICARE, MEDICAID, SELFPAY | PROVIDERS: PCP Registered Nurse; Visit Provider Internal Medicine Cardiovascular Disease | DX: I71.40 Abdominal aortic aneurysm, without rupture, unspecified (principal); I73.9 Peripheral vascular disease, unspecified; R03.0 Elevated blood-pressure reading, without diagnosis of hypertension; C34.12 Malignant neoplasm of upper lobe, left bronchus or lung; E11.9 Type 2 diabetes mellitus without complications; Z98.890 Other specified postprocedural states; Z95.828 Presence of other vascular implants and grafts; Z86.79 Personal history of other diseases of the circulatory system; Z87.891 Personal history of nicotine dependence | CPT/HCPCS: 99214 ==

== ENCOUNTER 2025-09-15 08:32 | Oncology outpatient (recurring) (ONCR) | payer MEDICARE, MEDICAID, SELFPAY ==
[2025-09-15 08:40] LABS: Hematocrit 41.2 % (36-47); Hemoglobin 13.60 g/dL (11.27-16.99); Mean Corpuscular HGB Conc 33.0 g/dL (30-55); Mean Corpuscular Hemoglobin 31.6 pg (27-33); Mean Corpuscular Volume 95.8 fl (85-98); Nucleated Red Blood Cells % 0 %; Platelet Count 260 10^3/cmm (157-399); Red Blood Count 4.30 10^6/uL (3.85-5.65); White Blood Count 9.08 10^3/uL (3.29-11.43)
[2025-09-15 09:12] LABS: Alanine Aminotransferase 16 U/L (0-33); Albumin Level 4.4 g/dL (3.5-5.2); Alkaline Phosphatase 119 U/L (35-105); Anion Gap 13.2 (5-19); Aspartate Amino Transferase 13 U/L (0-32); Blood Urea Nitrogen 9 mg/dL (8-23); Calcium 9.3 mg/dL (8.5-10.5); Carbon Dioxide 28 mmol/L (22-29); Chloride 103 mmol/L (98-107); Globulin 2.6 g/dL (1.3-4.6); Glucose 126 mg/dL (65-115); Magnesium 1.9 mg/dL (1.7-2.3); Osmolality Calculated 290 mOsm/kg (285-295); Potassium 4.2 mmol/L (3.5-5.1); Sodium 140 mmol/L (136-145); Thyroid Stimulating Hormone 1.29 uIU/mL (0.27-4.20); Total Protein 7.0 g/dL (6.6-8.7)
[2025-09-15 10:40] VITALS: BP 126/74; PULSE 74; RESP 18; TEMP 36.6; O2SAT 95
== END 2025-09-15 23:59 | disposition home or self-care (01) ==
PROVIDERS: PCP Registered Nurse; Visit Provider Nurse Practitioner Family
DX: Z53.9 Procedure and treatment not carried out, unspecified reason; Z51.12 Encounter for antineoplastic immunotherapy; C34.12 Malignant neoplasm of upper lobe, left bronchus or lung; C79.51 Secondary malignant neoplasm of bone; E04.1 Nontoxic single thyroid nodule; Z79.899 Other long term (current) drug therapy; Z95.828 Presence of other vascular implants and grafts; Z87.891 Personal history of nicotine dependence; Z92.21 Personal history of antineoplastic chemotherapy; R94.6 Abnormal results of thyroid function studies
CPT/HCPCS: 80053; 83735; 84443; 85025; 96413; 99214; A4222; J7050; J9022

== ENCOUNTER 2025-10-06 08:17 | Oncology outpatient (recurring) (ONCR) | payer MEDICARE, MEDICAID, SELFPAY ==
[2025-10-06 08:51] LABS: Hematocrit 41.9 % (36-47); Hemoglobin 13.80 g/dL (11.27-16.99); Mean Corpuscular HGB Conc 32.9 g/dL (30-55); Mean Corpuscular Hemoglobin 31.4 pg (27-33); Mean Corpuscular Volume 95.4 fl (85-98); Nucleated Red Blood Cells % 0 %; Platelet Count 257 10^3/cmm (157-399); Red Blood Count 4.39 10^6/uL (3.85-5.65); White Blood Count 9.32 10^3/uL (3.29-11.43)
[2025-10-06 09:22] LABS: Alanine Aminotransferase 26 U/L (0-33); Albumin Level 4.4 g/dL (3.5-5.2); Alkaline Phosphatase 119 U/L (35-105); Anion Gap 13.4 (5-19); Aspartate Amino Transferase 27 U/L (0-32); Blood Urea Nitrogen 10 mg/dL (8-23); Calcium 9.2 mg/dL (8.5-10.5); Carbon Dioxide 27 mmol/L (22-29); Chloride 104 mmol/L (98-107); Globulin 2.7 g/dL (1.3-4.6); Glucose 140 mg/dL (65-115); Magnesium 1.9 mg/dL (1.7-2.3); Osmolality Calculated 291 mOsm/kg (285-295); Potassium 4.4 mmol/L (3.5-5.1); Sodium 140 mmol/L (136-145); Thyroid Stimulating Hormone 2.34 uIU/mL (0.27-4.20); Total Protein 7.1 g/dL (6.6-8.7)
[2025-10-06 10:44] VITALS: BP 119/73; PULSE 64; RESP 16; TEMP 36.7; O2SAT 98
== END 2025-10-06 23:59 | disposition home or self-care (01) ==
PROVIDERS: Internal Medicine Medical Oncology; PCP Registered Nurse; Visit Provider Nurse Practitioner
DX: Z51.12 Encounter for antineoplastic immunotherapy (principal); C34.12 Malignant neoplasm of upper lobe, left bronchus or lung; C79.51 Secondary malignant neoplasm of bone; E04.1 Nontoxic single thyroid nodule; R03.0 Elevated blood-pressure reading, without diagnosis of hypertension; Z87.891 Personal history of nicotine dependence; Z79.899 Other long term (current) drug therapy; J44.89 Other specified chronic obstructive pulmonary disease; R51.9 Headache, unspecified
CPT/HCPCS: 80053; 83735; 84443; 85025; 96413; 99214; A4222; J7050; J9022